=== PATIENT | female | born 1935 | race Caucasian/White ===

== ENCOUNTER → 2017-01-08 | Outpatient (CLI) | payer MEDICARE, OTHER ==
[2017-01-08 15:02] LABS: Basophils # (auto) 0 uL; Basophils % (auto) 0.4 % (0.0-2.0); Eosinophils # (auto) 0.2 uL; Eosinophils % (auto) 2.1 % (0.0-7.0); Hematocrit 39.9 % (36.0-46.0); Hemoglobin 13.1 g/dL (12.2-16.2); Lymphocytes # (auto) 2.2 uL; Lymphocytes % (auto) 27.5 % (10.0-50.0); Mean Corpuscular Hemoglobin 31.4 pg (28.0-32.0); Mean Corpuscular Hgb Conc. 32.9 g/dL (32.0-36.0); Mean Corpuscular Volume 95.3 fL (80.0-100.0); Monocytes # (auto) 0.8 uL; Monocytes % (auto) 9.4 % (0.0-12.0); Neutrophils # (auto) 4.9 uL; Neutrophils % (auto) 60.6 % (37.0-80.0); Platelet Count (auto) 290 10^3/uL (140-450); Red Cell Distribution Width 15.3 % (11.6-16.0); White Blood Cell 8.1 10^3/uL (4.4-10.8)
[2017-01-08 15:04] LABS: Albumin 3.6 g/dL (3.4-5.0); Bilirubin, Total 0.3 mg/dL (0.2-1.0); Calcium 8.8 mg/dL (8.5-10.1); Potassium 3.9 mmol/L (3.5-5.1); Total Protein 7.4 g/dL (6.4-8.2)
== END | disposition home or self-care (01) ==
LOC: LAB 14:28
DX: I10 Essential (primary) hypertension (principal); M06.9 Rheumatoid arthritis, unspecified; M25.50 Pain in unspecified joint; Z79.899 Other long term (current) drug therapy
CPT/HCPCS: 36415; 80053; 85025; 85652; 86141

== ENCOUNTER → 2017-05-20 | Outpatient (CLI) | payer MEDICARE ==
[2017-05-20 11:49] LABS: Basophils # (auto) 0 uL; Basophils % (auto) 0.1 % (0.0-2.0); CONDITION Y; Eosinophils # (auto) 0.1 uL; Eosinophils % (auto) 1.6 % (0.0-7.0); Hematocrit 38.3 % (36.0-46.0); Hemoglobin 12.9 g/dL (12.2-16.2); Lymphocytes # (auto) 1.8 uL; Lymphocytes % (auto) 19.9 % (10.0-50.0); Mean Corpuscular Hemoglobin 32.5 pg (28.0-32.0); Mean Corpuscular Hgb Conc. 33.8 g/dL (32.0-36.0); Mean Corpuscular Volume 96.3 fL (80.0-100.0); Mean Platelet Volume 8.2 fL (7.4-10.4); Monocytes # (auto) 0.7 uL; Monocytes % (auto) 7.8 % (0.0-12.0); Neutrophils # (auto) 6.4 uL; Neutrophils % (auto) 70.6 % (37.0-80.0); Platelet Count (auto) 255 10^3/uL (140-450); Red Cell Distribution Width 14.9 % (11.6-16.0)
[2017-05-20 12:10] LABS: Albumin 3.4 g/dL (3.4-5.0); BUN/Creatinine Ratio 23.3; Bilirubin, Total 0.3 mg/dL (0.2-1.0); Calcium 8.3 mg/dL (8.5-10.1); Total Protein 6.6 g/dL (6.4-8.2)
== END | disposition home or self-care (01) ==
LOC: LAB 11:26
DX: I10 Essential (primary) hypertension (principal); M06.9 Rheumatoid arthritis, unspecified; D64.9 Anemia, unspecified; M25.50 Pain in unspecified joint; Z79.899 Other long term (current) drug therapy
CPT/HCPCS: 36415; 80053; 85025; 85652; 86141

== ENCOUNTER → 2017-07-29 | Outpatient (CLI) | payer MEDICARE ==
[2017-07-29 09:28] LABS: Basophils # (auto) 0 uL; Basophils % (auto) 0.8 % (0.0-2.0); Eosinophils # (auto) 0.2 uL; Eosinophils % (auto) 2.7 % (0.0-7.0); Hematocrit 38.2 % (36.0-46.0); Hemoglobin 12.9 g/dL (12.2-16.2); Lymphocytes # (auto) 1.7 uL; Lymphocytes % (auto) 27.2 % (10.0-50.0); Mean Corpuscular Hemoglobin 32.9 pg (28.0-32.0); Mean Corpuscular Hgb Conc. 33.8 g/dL (32.0-36.0); Mean Corpuscular Volume 97.3 fL (80.0-100.0); Mean Platelet Volume 7.7 fL (6.9-10.8); Monocytes # (auto) 0.5 uL; Monocytes % (auto) 8.5 % (0.0-12.0); Neutrophils # (auto) 3.8 uL; Neutrophils % (auto) 60.8 % (37.0-80.0); Nucleated Red Blood Cells % 0.1 %; Platelet Count (auto) 210 10^3/uL (140-450); Red Cell Distribution Width 14.2 % (11.8-14.3); White Blood Cell 6.3 10^3/uL (4.4-10.8)
[2017-07-29 09:50] LABS: Albumin 3.6 g/dL (3.4-5.0); BUN/Creatinine Ratio 24.6; Bilirubin, Total 0.3 mg/dL (0.2-1.0); Calcium 8.7 mg/dL (8.5-10.1); Potassium 4.5 mmol/L (3.5-5.1)
== END | disposition home or self-care (01) ==
LOC: LAB 09:09
DX: I10 Essential (primary) hypertension (principal); D64.9 Anemia, unspecified; M25.50 Pain in unspecified joint; M06.9 Rheumatoid arthritis, unspecified; Z79.899 Other long term (current) drug therapy
CPT/HCPCS: 36415; 80053; 85025; 85652; 86141

== ENCOUNTER → 2018-01-27 | Outpatient (CLI) | payer MEDICARE, OTHER ==
[2018-01-27 10:25] LABS: Basophils # (auto) 0.1 uL; Basophils % (auto) 0.8 % (0.0-2.0); Eosinophils # (auto) 0.2 uL; Eosinophils % (auto) 2.3 % (0.0-7.0); Hematocrit 40.1 % (36.0-46.0); Hemoglobin 13.2 g/dL (12.2-16.2); Lymphocytes # (auto) 1.8 uL; Mean Corpuscular Hemoglobin 32.6 pg (28.0-32.0); Mean Corpuscular Hgb Conc. 32.9 g/dL (32.0-36.0); Mean Corpuscular Volume 99.1 fL (80.0-100.0); Monocytes # (auto) 0.7 uL; Monocytes % (auto) 8.9 % (0.0-12.0); Neutrophils # (auto) 4.6 uL; Platelet Count (auto) 253 10^3/uL (140-450); Red Blood Cells 4.05 10^6/uL (4.0-5.20); Red Cell Distribution Width 13.8 % (11.8-14.3); White Blood Cell 7.3 10^3/uL (4.4-10.8)
[2018-01-27 12:09] LABS: Albumin 3.5 g/dL (3.4-5.0)
== END | disposition home or self-care (01) ==
LOC: LAB 09:41
DX: M06.9 Rheumatoid arthritis, unspecified (principal)
CPT/HCPCS: 36415; 82040; 82565; 84450; 84460; 85025

== ENCOUNTER → 2018-09-03 | Outpatient (CLI) | payer MEDICARE, OTHER ==
[2018-09-03 14:20] LABS: Basophils # (auto) 0.1 uL; Basophils % (auto) 0.7 % (0.0-2.0); Eosinophils # (auto) 0.2 uL; Eosinophils % (auto) 2.8 % (0.0-7.0); Hematocrit 41.5 % (36.0-46.0); Hemoglobin 13.9 g/dL (12.2-16.2); Lymphocytes # (auto) 1.8 uL; Lymphocytes % (auto) 23.8 % (10.0-50.0); Mean Corpuscular Hgb Conc. 33.6 g/dL (32.0-36.0); Mean Corpuscular Volume 95.3 fL (80.0-100.0); Monocytes # (auto) 0.8 uL; Monocytes % (auto) 11.2 % (0.0-12.0); Neutrophils # (auto) 4.7 uL; Neutrophils % (auto) 61.5 % (37.0-80.0); Platelet Count (auto) 242 10^3/uL (140-450); Red Blood Cells 4.35 10^6/uL (4.0-5.20); Red Cell Distribution Width 13.9 % (11.8-14.3); White Blood Cell 7.6 10^3/uL (4.4-10.8)
[2018-09-03 14:36] LABS: Potassium 3.7 mmol/L (3.5-5.1)
[2018-09-03 14:43] LABS: Albumin 3.8 g/dL (3.4-5.0); BUN/Creatinine Ratio 26.7; Bilirubin, Total 0.4 mg/dL (0.2-1.0); CRP High Sensitivity 0.19 mg/dL (< 0.3); Calcium 8.8 mg/dL (8.5-10.1); Total Protein 7.6 g/dL (6.4-8.2)
[2018-09-03 14:45] LABS: Hepatitis B Surface Antibody Negative
[2018-09-03 15:22] LABS: Hepatitis A Total Antibody Positive
[2018-09-03 15:34] LABS: Hepatitis B Core Total AB Negative; Hepatitis B Surface Antigen Negative (Negative); Hepatitis C Antibody Negative (Negative)
[2018-09-04 09:22] LABS: Urine Bacteria NONE SEEN /hpf (None Seen); Urine Blood Negative /uL (Negative); Urine Specific Gravity 1.021 (1.001-1.035); Urine WBC 2 /hpf (0 - 5)
[2018-09-04 09:23] LABS: Protein, Urine 11.5 mg/dL (0.0-11.9)
== END | disposition home or self-care (01) ==
LOC: LAB 12:51
PROVIDERS: ATTEND Internal Medicine
DX: Z11.59 Encounter for screening for other viral diseases (principal); M32.10 Systemic lupus erythematosus, organ or system involvement unspecified; A15.0 Tuberculosis of lung; M25.50 Pain in unspecified joint; Z72.89 Other problems related to lifestyle; I10 Essential (primary) hypertension; D64.9 Anemia, unspecified; Z79.899 Other long term (current) drug therapy
CPT/HCPCS: 36415; 80053; 81001; 82570; 84156; 85025; 85652; 86141; 86200; 86235; 86431; 86704; 86706; 86708; 86803; 87340

== ENCOUNTER → 2018-12-21 | Outpatient (CLI) | payer MEDICARE, OTHER ==
[2018-12-21 13:06] LABS: Basophils # (auto) 0 uL; Basophils % (auto) 0.6 % (0.0-2.0); Eosinophils # (auto) 0.2 uL; Eosinophils % (auto) 2.5 % (0.0-7.0); Hematocrit 39.2 % (36.0-46.0); Hemoglobin 13.1 g/dL (12.2-16.2); Lymphocytes # (auto) 1.9 uL; Lymphocytes % (auto) 29.5 % (10.0-50.0); Mean Corpuscular Hemoglobin 32.1 pg (28.0-32.0); Mean Corpuscular Hgb Conc. 33.4 g/dL (32.0-36.0); Mean Corpuscular Volume 96.2 fL (80.0-100.0); Monocytes # (auto) 0.7 uL; Monocytes % (auto) 10.8 % (0.0-12.0); Neutrophils # (auto) 3.7 uL; Neutrophils % (auto) 56.6 % (37.0-80.0); Platelet Count (auto) 225 10^3/uL (140-450); Red Blood Cells 4.08 10^6/uL (4.0-5.20); Red Cell Distribution Width 14.2 % (11.8-14.3); White Blood Cell 6.6 10^3/uL (4.4-10.8)
[2018-12-21 13:38] LABS: Albumin 3.4 g/dL (3.4-5.0); Calcium 8.3 mg/dL (8.5-10.1); Potassium 4.3 mmol/L (3.5-5.1)
[2018-12-21 13:41] LABS: BUN/Creatinine Ratio 29.8; Bilirubin, Total 0.3 mg/dL (0.2-1.0); CRP High Sensitivity 0.11 mg/dL (< 0.3); Total Protein 6.9 g/dL (6.4-8.2)
== END | disposition home or self-care (01) ==
LOC: LAB 12:28
DX: M06.9 Rheumatoid arthritis, unspecified (principal); D64.9 Anemia, unspecified; I10 Essential (primary) hypertension; Z79.899 Other long term (current) drug therapy
CPT/HCPCS: 36415; 80053; 85025; 85652; 86141

== ENCOUNTER 2024-08-18 09:04 | Inpatient (IN) | payer MEDICARE, OTHER ==
[~2024-08-18] VITALS: Ht 154.9 cm; Wt 110.0 kg
[2024-08-18 09:33] VITALS: PULSE 89; RESP 18; O2SAT 97
[2024-08-18 09:38] LABS: Basophils # (auto) 0 10 ^3/uL (0-0.2); Basophils % (auto) 0.3 % (0.0-2.0); Eosinophils # (auto) 0.2 10 ^3/uL (0-0.8); Eosinophils % (auto) 2.9 % (0.0-7.0); Hematocrit 31.2 % (36.0-46.0); Hemoglobin 10.7 g/dL (12.2-16.2); Lymphocytes # (auto) 1.6 10 ^3/uL (0.4-5.4); Lymphocytes % (auto) 21.6 % (10.0-50.0); Mean Corpuscular Hemoglobin 35.5 pg (28.0-32.0); Mean Corpuscular Hgb Conc. 34.2 g/dL (32.0-36.0); Mean Corpuscular Volume 103.8 fL (80.0-100.0); Monocytes # (auto) 0.7 10 ^3/uL (0-1.3); Neutrophils # (auto) 4.7 10 ^3/uL (1.6-8.6); Neutrophils % (auto) 65.2 % (37.0-80.0); Platelet Count (auto) 248 10^3/uL (140-450); Red Blood Cells 3.01 10^6/uL (4.0-5.20); Red Cell Distribution Width 14.7 % (11.8-14.3); White Blood Cell 7.2 10^3/uL (4.4-10.8)
[2024-08-18 09:52] LABS: Alanine Aminotransferase 14 U/L (7-40); Albumin 3.8 g/dL (3.2-4.8); Alkaline Phosphatase 61 U/L (46-116); Anion Gap 7 (5-15); Aspartate Aminotransferase 14 U/L (13-40); BUN/Creatinine Ratio 28.9 (10.0-20.0); Bilirubin, Total 0.3 mg/dL (0.2-1.0); Blood Urea Nitrogen 22 mg/dL (9-23); Calcium 10.7 mg/dL (8.7-10.4); Carbon Dioxide 27 mmol/L (20-31); Chloride 104 mmol/L (98-107); Glucose 95 mg/dL (74-106); Potassium 4.6 mmol/L (3.5-5.1); Sodium 138 mmol/L (136-145)
[2024-08-18] MEDS ORDERED: NITROGLYCERIN 0.4 MG SL TAB SL PRN (10:00)
[2024-08-18] MEDS ORDERED: ATOR40TA52 PO (10:27)
[2024-08-18] MEDS ORDERED: CLOP75TA70 PO (10:27)
[2024-08-18] MEDS ORDERED: BENA-36 PO (10:27)
[2024-08-18] MEDS ORDERED: LEVO88TA4 PO (10:27)
[2024-08-18] MEDS ORDERED: CELE1CAP29 PO (10:27)
[2024-08-18] MEDS ORDERED: PANT40TA57 PO (10:27)
[2024-08-18] MEDS ORDERED: hydrALAZINE HCL 20 MG/ML VL IV PRN (11:00)
[2024-08-18] MEDS: ONDANSETRON HCL 4 MG/2 ML VIAL IV PRN (11:18)
[2024-08-18] MEDS: MORPHINE SULFATE INJ 2 MG/ml SYRG IV PRN (11:19)
[2024-08-18] MEDS: DOCUSATE SOD 100 MG CAP PO SCH (12:00)
[2024-08-18] MEDS: BENAZEPRIL HCL 10 MG TAB PO SCH (14:32)
[2024-08-18] MEDS: PANTOPRAZOLE 40 MG TAB PO SCH (14:33)
[2024-08-18] MEDS: CLOPIDOGREL BISULFATE 75 MG TAB PO SCH (14:33)
[2024-08-18] MEDS: LEVOTHYROXINE SODIUM 88 MCG TAB PO SCH (14:33)
[2024-08-18] MEDS: SODIUM CHLORIDE 0.9% 1,000 ML IV SCH (14:38)
[2024-08-18 14:59] LABS: Magnesium 1.9 mg/dL (1.6-2.6)
[2024-08-18 17:44] VITALS: BP 159/87; PULSE 92; RESP 18; TEMP 97.9; O2SAT 92
[2024-08-18 18:00] VITALS: PULSE 91; RESP 18
[2024-08-18] MEDS: PANTOPRAZOLE 40 MG/10 ML VIAL INJ IV ONE (18:30)
[2024-08-18] MEDS: LACTULOSE 20Gm/30ML SOLN PO ONE (18:30)
[2024-08-18 20:00] VITALS: PULSE 98
[2024-08-18 21:00] VITALS: BP 119/73; PULSE 90; RESP 20; TEMP 98.5; O2SAT 96
[2024-08-18] MEDS: ATORVASTATIN 20 MG TAB PO SCH (22:56)
[2024-08-18 23:20] LABS: Urine Bacteria None Seen /hpf (None Seen)
[2024-08-18 23:51] LABS: Urine Blood Negative /uL (Negative); Urine Clarity Clear (Clear); Urine Color Light-Yellow (Yellow); Urine Mucus FEW (None Seen); Urine Protein, UAD Negative (Negative); Urine Specific Gravity 1.017 (1.001-1.035); Urine Urobilinogen Normal (Negative); Urine WBC 1 /hpf (0 - 5)
[2024-08-19] VITALS (14 sets, daily range): BP systolic 100–179; BP diastolic 65–93; PULSE 78–122; RESP 14–20; TEMP 97.5–98.8; O2SAT 94–100
[2024-08-19 07:01] LABS: Basophils # (auto) 0 10 ^3/uL (0-0.2); Basophils % (auto) 0.2 % (0.0-2.0); Eosinophils # (auto) 0.1 10 ^3/uL (0-0.8); Eosinophils % (auto) 0.5 % (0.0-7.0); Hematocrit 28.4 % (36.0-46.0); Hemoglobin 9.5 g/dL (12.2-16.2); Lymphocytes # (auto) 1.1 10 ^3/uL (0.4-5.4); Lymphocytes % (auto) 9.6 % (10.0-50.0); Mean Corpuscular Hemoglobin 34.7 pg (28.0-32.0); Mean Corpuscular Hgb Conc. 33.5 g/dL (32.0-36.0); Mean Corpuscular Volume 103.6 fL (80.0-100.0); Monocytes # (auto) 0.9 10 ^3/uL (0-1.3); Neutrophils % (auto) 81.7 % (37.0-80.0); Nucleated Red Blood Cells % 0.1 %; Platelet Count (auto) 217 10^3/uL (140-450); Red Blood Cells 2.74 10^6/uL (4.0-5.20); Red Cell Distribution Width 14.6 % (11.8-14.3)
[2024-08-19 07:12] LABS: Anion Gap 7 (5-15); Carbon Dioxide 26 mmol/L (20-31); Chloride 103 mmol/L (98-107); Potassium 4.7 mmol/L (3.5-5.1); Sodium 136 mmol/L (136-145)
[2024-08-19 07:14] LABS: Calcium 10.7 mg/dL (8.7-10.4)
[2024-08-19 07:18] LABS: BUN/Creatinine Ratio 24.3 (10.0-20.0); Blood Urea Nitrogen 18 mg/dL (9-23); Glucose 106 mg/dL (74-106)
[2024-08-19] MEDS: PANTOPRAZOLE 40 MG/10 ML VIAL INJ IV SCH (09:22)
[2024-08-19] MEDS: amLODIPine BESYLATE 5 MG TAB PO STA (09:37)
[2024-08-19] MEDS ORDERED: BENAZEPRIL HCL 10 MG TAB PO SCH (10:00)
[2024-08-19] MEDS ORDERED: PANTOPRAZOLE 40 MG TAB PO SCH (10:00)
[2024-08-19] MEDS ORDERED: CLOPIDOGREL BISULFATE 75 MG TAB PO SCH (10:00)
[2024-08-19] MEDS ORDERED: LEVOTHYROXINE SODIUM 88 MCG TAB PO SCH (10:00)
[2024-08-19] MEDS: cefTRIAXone 1GM/50ML D5W 50 ML IV ONE (11:58)
[2024-08-19] MEDS: AZITHROMYCIN 500MG/ 250ML 250 ML IV ONE (12:00)
[2024-08-19] MEDS: ACETAMINOPHEN 325 MG TAB PO PRN (12:01)
[2024-08-19] MEDS: ALBUTEROL SULF 2.5 MG/0.5ML(0.5%) NEB SOLN NEB SCH (13:29)
[2024-08-19] MEDS: IPRATROPIUM BROM 0.5 MG/2.5ML INH SOL NEB SCH (13:29)
[2024-08-19 15:59] LABS: COVID19 ANTIGEN SOFIA FIA NEGATIVE (NEGATIVE)
[2024-08-19] MEDS: HYDROcodone-ACET 5/325MG TAB PO ONE (18:33)
[2024-08-20] VITALS (17 sets, daily range): BP systolic 106–154; BP diastolic 59–80; PULSE 75–122; RESP 14–20; TEMP 97.7–98.3; O2SAT 94–100
[2024-08-20] MEDS: PANTOPRAZOLE 40 MG TAB PO SCH (05:44)
[2024-08-20 06:13] LABS: Basophils # (auto) 0 10 ^3/uL (0-0.2); Basophils % (auto) 0.4 % (0.0-2.0); Eosinophils # (auto) 0.2 10 ^3/uL (0-0.8); Eosinophils % (auto) 3.2 % (0.0-7.0); Hematocrit 27.8 % (36.0-46.0); Hemoglobin 9.6 g/dL (12.2-16.2); Lymphocytes # (auto) 1.5 10 ^3/uL (0.4-5.4); Mean Corpuscular Hemoglobin 35.7 pg (28.0-32.0); Mean Corpuscular Hgb Conc. 34.5 g/dL (32.0-36.0); Mean Corpuscular Volume 103.5 fL (80.0-100.0); Monocytes # (auto) 0.7 10 ^3/uL (0-1.3); Monocytes % (auto) 9.4 % (0.0-12.0); Neutrophils # (auto) 4.7 10 ^3/uL (1.6-8.6); Platelet Count (auto) 222 10^3/uL (140-450); Red Blood Cells 2.69 10^6/uL (4.0-5.20); Red Cell Distribution Width 14.5 % (11.8-14.3); White Blood Cell 7.2 10^3/uL (4.4-10.8)
[2024-08-20 06:21] LABS: Chloride 102 mmol/L (98-107); Potassium 4.4 mmol/L (3.5-5.1); Sodium 137 mmol/L (136-145)
[2024-08-20 06:22] LABS: Anion Gap 6 (5-15); Calcium 10.4 mg/dL (8.7-10.4); Carbon Dioxide 29 mmol/L (20-31)
[2024-08-20 06:27] LABS: BUN/Creatinine Ratio 21.1 (10.0-20.0); Blood Urea Nitrogen 15 mg/dL (9-23); Glucose 90 mg/dL (74-106)
[2024-08-20 06:32] LABS: Folate (Folic Acid) 16.75 ng/mL (>5.38)
[2024-08-20] MEDS: cefTRIAXone 1GM/50ML D5W 50 ML IV SCH (07:42)
[2024-08-20] MEDS: AZITHROMYCIN 500MG/ 250ML 250 ML IV SCH (07:47)
[2024-08-20] MEDS: amLODIPine BESYLATE 5 MG TAB PO SCH (09:57)
[2024-08-20] MEDS: HYDROcodone-ACET 5/325MG TAB PO PRN (12:13)
[2024-08-21] VITALS (14 sets, daily range): BP systolic 104–159; BP diastolic 49–82; PULSE 84–126; RESP 16–20; TEMP 98–98.8; O2SAT 92–100
[2024-08-21] MEDS ORDERED: AML5T PO (15:49)
[2024-08-21] MEDS ORDERED: IOHEXOL 350 MG/ML 100ML IJ ONE (17:00)
[2024-08-22] VITALS (14 sets, daily range): BP systolic 103–118; BP diastolic 58–67; PULSE 92–128; RESP 14–20; TEMP 97.3–98.2; O2SAT 95–100
[2024-08-22] MEDS ORDERED: HYDROmorphone HCL 2 MG/ML VL/or syr IV PRN (16:15)
[2024-08-23] VITALS (16 sets, daily range): BP systolic 110–128; BP diastolic 56–80; PULSE 84–123; RESP 16–20; TEMP 97.3–98.4; O2SAT 91–100
[2024-08-23] MEDS: methylPREDNISolone SOD SUCC 125 MG/2 ML VL IV ONE (12:31)
[2024-08-24] VITALS (15 sets, daily range): BP systolic 127–158; BP diastolic 68–97; PULSE 71–126; RESP 16–20; TEMP 97.2–98; O2SAT 93–99
[2024-08-24] MEDS: KETOROLAC TROMETH 30 MG/ML 1ML VIAL IV ONE (14:42)
[2024-08-24] MEDS: methylPREDNISolone SOD SUCC 40 MG/ML VL IV ONE (14:43)
[2024-08-24] MEDS: LACTULOSE 20Gm/30ML SOLN PO ONE (15:54)
[2024-08-24] MEDS: POLYETHYLENE GLYCOL 17 GM PWDR PO ONE (15:54)
[2024-08-24] MEDS: methylPREDNISolone SOD SUCC 40 MG/ML VL IV SCH (23:01)
[2024-08-24] MEDS: DOCUSATE SOD 100 MG CAP PO SCH (23:02)
[2024-08-25] VITALS (11 sets, daily range): BP systolic 124–156; BP diastolic 75–97; PULSE 72–96; RESP 16–96; TEMP 97.2–98.1; O2SAT 93–100
[2024-08-25 08:24] LABS: Base Excess 1.9 mmol/L (-2.0-3.0)
[2024-08-25] MEDS: MORPHINE SULFATE INJ 2 MG/ml SYRG IV PRN (09:57)
[2024-08-25] MEDS ORDERED: PRED10TA PO ×2 (10:17→15:40)
[2024-08-25] MEDS ORDERED: HYDR1TAB97 PO ×2 (10:17→15:40)
[2024-08-25] MEDS: KETOROLAC TROMETH 30 MG/ML 1ML VIAL IV ONE (12:04)
== END 2024-08-25 13:13 | disposition home or self-care (01) | DRG 545 ==
LOC: EDBD 09:04 → ER 09:04 → TELE 10:05 → TELE-EAST 17:44 → EAST 08-24 22:39
PROVIDERS: ADMIT Registered Nurse General Practice; ATTEND Internal Medicine
DX: M06.9 Rheumatoid arthritis, unspecified (principal); J15.69 Pneumonia due to other Gram-negative bacteria; J96.00 Acute respiratory failure, unspecified whether with hypoxia or hypercapnia; J15.9 Unspecified bacterial pneumonia; K56.7 Ileus, unspecified; M94.0 Chondrocostal junction syndrome [Tietze]; I10 Essential (primary) hypertension; D53.9 Nutritional anemia, unspecified; E78.5 Hyperlipidemia, unspecified; I25.9 Chronic ischemic heart disease, unspecified; K57.30 Diverticulosis of large intestine without perforation or abscess without bleeding; E03.9 Hypothyroidism, unspecified; K21.9 Gastro-esophageal reflux disease without esophagitis; Z20.822 Contact with and (suspected) exposure to COVID-19; K44.9 Diaphragmatic hernia without obstruction or gangrene; Z66 Do not resuscitate; Z90.710 Acquired absence of both cervix and uterus; Z86.73 Personal history of transient ischemic attack (TIA), and cerebral infarction without residual deficits; Z90.49 Acquired absence of other specified parts of digestive tract; Z79.899 Other long term (current) drug therapy; Z79.631 Long term (current) use of antimetabolite agent; Z79.02 Long term (current) use of antithrombotics/antiplatelets
CPT/HCPCS: 36415; 36600; 71045; 71275; 74018; 74176; 80048; 80053; 81001; 82607; 82746; 82805; 83690; 83735; 84443; 84484; 85025; 85379; 87070; 87205; 87426; 93005; 93306; 94640; 96374; 96375; 97110; 97116; 97163; 97530; 99291; G0378; J1885; J2405; J2470

== ENCOUNTER 2024-09-24 07:39 | Inpatient (IN) | payer MEDICARE, OTHER ==
[2024-09-24] VITALS (64 sets, daily range): BP systolic 83–236; BP diastolic 6–196; PULSE 77–134; RESP 14–29; TEMP 98.4–99.7; O2SAT 91–100
[~2024-09-24] VITALS: Ht 152.4 cm; Wt 43.7 kg
[~2024-09-24 07:39] MED LIST: AML5T PO; ATOR40TA52 PO; BENA-36 PO; CLOP75TA70 PO; HYDR1TAB97 PO; LEVO88TA4 PO; PANT40TA57 PO; PRED10TA PO
[2024-09-24] MEDS: ETOMIDATE (2MG/ML) 20ML VIAL IV ONE ×2 (07:45→07:54)
[2024-09-24] MEDS: ROCURONIUM 10MG/ML 10ML VIAL IV ONE (07:54)
[2024-09-24] MEDS: MIDAZOLAM DRIP 50 mg/50mL 50 ML IV SCH (07:56)
[2024-09-24] MEDS: MIDAZOLAM DRIP 50 mg/50mL 50 ML IV ONE (07:56)
--- NOTE | 2024-09-24 07:57 | ED.PDOC ---
SOB-HPI HPI Comments 89 year old female JESSICA presents to the ED with chief complaint of SOB. EMS reports patient has been experiencing SOB with associated wheezing, nausea, vomiting, and wheezing. EMS relays patient had recent history of pneumonia and admission to [place] due to multiple spinal fractures. EMS states patient recently finished her course of Amoxicillin. EMS notes they provided the patient a breathing treatment on route to the ED. Patient denies any chest pain, dizziness, headache, fever, chills, or diarrhea. Chief Complaint: Shortness of Breath Time Seen by MD: 07:53 Reviewed notes: Nurses Notes, Medications, Allergies Information Source: Patient Mode of Arrival: Ambulatory Severity: Moderate Timing: Hours Duration: Since onset Context: At Rest PE Risk Factors: None History of: None Prehospital treatment: None Modifying Factors: Nothing Associated Signs and Symptoms: Wheeze Past Medical History PAST MEDICAL HISTORY: Arthritis, High Lipids, HTN, Thyroid, TIA Surgical History: Appendectomy, Hysterectomy, Tonsillectomy LAUNDRY ASSISTANT History: No Pertinent LAUNDRY ASSISTANT History Family History Family History: Reviewed,noncontributory to illness, Family hx of heart papi Social History Smoker: Non-Smoker Alcohol: Occasionally Drugs: Denies Drug Use Lives In: Home Constitutional: denies: chills, diaphoresis, fatigue, fever, malaise, sweats, weakness, others EENTM: denies: blurred vision, double vision, ear bleeding, ear discharge, ear drainage, ear pain, ear ringing, eye pain, eye redness, hearing loss, mouth pain, mouth swelling, nasal discharge, nose bleeding, nose congestion, nose pain, photophobia, tearing, throat pain, throat swelling, voice changes, others Respiratory: reports: shortness of breath, wheezing; denies: cough, hemoptysis, orthopnea, SOB at rest, SOB with excertion, stridor, others Cardiovascular: denies: chest pain, dizzy spells, diaphoresis, Dyspnea on ex ertion, edema, irregular heart beat, left arm pain, lightheadedness, palpitations, PND, syncope, others Gastrointestinal: reports: nausea, vomiting; denies: abdomen distended, abdominal pain, blood streaked bowels, constipated, diarrhea, dysphagia, difficulty swallowing, hematemesis, melena, poor appetite, poor fluid intake, rectal bleeding, rectal pain, others Genitourinary: denies: abnormal vagina bleeding, burning, dyspareunia, dysuria, flank pain, frequency, hematuria, incontinence, pain, , vagina discharge, urgency, others Neurological: denies: dizziness, fainting, headache, left sided numbness, left sided weakness, numbness, paresthesia, pre-existing deficit, right sided numbness, right sided weakness, seizure, speech problems, tingling, tremors, weakness, others Musculoskeletal: denies: back pain, gout, joint pain, joint swelling, muscle pain, muscle stiffness, neck pain, others Integumetry: denies: bruises, change in color, change in hair/nails, dryness, laceration, lesions, lumps, rash, wounds, others Allergic/Immunocompromised: denies: Difficulty Healing, Frequent Infections, Hives, Itching, others Hematologic/Lymphatic: denies: anemia, blood clots, easy bleeding, easy bruisi ng, swollen glands, others Endocrine: denies: excessive hunger, excessive sweating, excessive thirst, exce ssive urination, flushing, intolerance to cold, intolerance to heat, unexplained weight gain, unexplained weight loss, others Psychiatric: denies: anxiety, bipolar disorder, depression, hopeless, panic disorder, schizophrenia, sleepless, suicidal, others All Other Systems: Reviewed and Negative Physical Exam General Appearance: Normal, Severe Distress HEENT: Normal ENT Inspection, PERRL/EOMI Neck: Full Range of Motion, Non-Tender, Normal, Normal Inspection Respiratory: Accessory Muscle Use, Chest Non-Tender, Respiratory Distress, Other (Intubated the patient) Cardiovascular: No Edema, No JVD, No Murmur, No Gallop, Normal Peripheral Pulses, Tachycardia Breast Exam: Deferred Gastrointestinal: No Organomegaly, Non Tender, No Pulsatile Mass, Normal Bowel Sounds, Soft Genitalia: Deferred Pelvic: Deferred Rectal: Deferred Extremities: No calf tenderness, Normal capillary refill, Normal inspection, Normal range of motion, Non-tender, No pedal edema Musculoskeletal : Apperance: Normal Neurologic: Alert, No Motor Deficits, Normal Affect, Normal Mood, No Sensory Deficits Cerebellar Function: NOT DONE Reflexes: NOT DONE Skin: Dry, Normal Color, Warm Lymphatic: No Adenopathy Was a procedure done? Was a procedure done?: Yes Sedation Sedation?: Yes Informed consent obtained: Yes Sedation start time: 07:45 Sedation end time: 08:05 Sedation total time: 20 minutes Central Line Recorder of insertion practice: Spout Positioner Occupation of drafter cartographic: Attending Physician Indication: CVP monitoring, Suspected infection Room prepared for procedure: Yes Spout Positioner performed hand hygien: Yes Maximal sterile barrier precau: Mask/Eye shield, Sterile gown, Cap, Sterlie gloves, Large sterlie drape Skin Preparation: Chlorhexidine gluconate Insertion site: Right, Internal jugular Central line catheter type: [id number] dialysis Number of lumens: 3 Post Assessment: Chest X-Ray, Proper placement Informed consent obtained: Yes Risks/benefits/alt described: Yes Intubation Indication: Respiratory Insufficiency, Airway Protection Prep: Preoxygenation Pretreated with: Sedation Medicated with: Other (20mg of etomidate and 100mg of rocuronium) Intubation Approach: Orotracheal Intubation size: cm (8) Informed consent obtained: Yes Risks/benefits/alt described: Yes Differential Dx Differential Diagnosis: Anxiety, Asthma, Bronchitis, CHF, COPD X-Ray, Labs, Meds, VS Vital Signs Date Time Temp Pulse Resp B/P (MAP) Pulse Ox O2 Delivery O2 Flow Rate FiO2 09/24/24 08:56 62/35 09/24/24 08:28 100/61 09/24/24 08:26 106/70 09/24/24 08:15 100/61 09/24/24 08:08 155 16 100/61 (74) 100 09/24/24 08:01 161 17 78/42 (54) 99 09/24/24 07:56 139 40 107/68 (81) 99 09/24/24 07:56 107/68 09/24/24 07:56 107/68 09/24/24 07:56 107/68 09/24/24 07:55 160 16 117/67 (84) 99 100 09/24/24 07:54 107/68 09/24/24 07:48 140 09/24/24 07:40 32 96 Non-Rebreather 15 N/A 09/24/24 07:40 98.6 120 36 137/89 (105) 96 Current Medications Medications (Trade) Dose Ordered Sig/Maida Route Start Time Stop Time Status Last Admin Etomidate 20 mg ONCE ONCE IV 09/24/24 07:45 09/24/24 07:46 DC 09/24/24 07:54 Rocuronium [place] 100 mg ONCE ONCE IV 09/24/24 07:45 09/24/24 07:46 DC 09/24/24 07:54 Midazolam HCl 50 ml @ 1 mls/hr Q24H IV 09/24/24 07:45 09/24/24 07:56 Diltiazem HCl (Cardizem Injection) 20 mg ONCE ONCE IV 09/24/24 08:15 09/24/24 08:16 DC 09/24/24 08:18 Diltiazem HCl 100 ml @ 5 mls/hr Q20H IV 09/24/24 08:15 09/24/24 08:15 Norepinephrine Bitartrate 250 ml @ 3.75 mls/hr Q24H IV 09/24/24 08:15 09/24/24 08:56 Chest XR: FINDINGS: Lines and tubes: ET in the mid thoracic trachea, NG in the stomach, right CVC in SVC. Cardiomediastinal silhouette: normal Pulmonary vasculature: normal Lung expansion: normal Lung airspace: Patchy mid lung zone airspace opacities. Lung interstitium: normal Pleura: normal Pneumothorax: no Bones: Unremarkable Other: no IMPRESSION: ET in the mid thoracic trachea, NG in the stomach, right CVC in SVC.. Patchy mid lung zone airspace opacities. Patient alert. Came in because of shortness a breath. Placed on 15 L oxygen. Using accessory muscles. Chest x-ray reviewed shows pneumonia. History of pneumonia. Reviewed her previous visit. Was transferred to [facility]. Intubated the patient. Spoke with family. Central line placed. Was given Rocephin. Was given azithromycin. Was given steroid. Was given breathing treatment. Continue to communicate with family. Explained to the patient prior to intubation. Continue cardiac monitoring. EKG reviewed shows irregular rapid rhythm later converted to regular rhythm. Was given adenosine. Continues to be rapid regular. Started Cardizem. Cardiology consultation. Images Reviewed?: Images reviewed and evaluated by me Time of 1ST Reevaluation: 08:53 Reevaluation 1ST: Unchanged Patient Education/Counseling: Diagnosis, Treatment Family Education/Counseling: Diagnosis, Treatment Departure 1 Departure Time of Disposition: 09:13 Impression: Primary Impression: Acute respiratory failure Qualified Codes: J96.01 - Acute respiratory failure with hypoxia Additional Impressions: Pneumonia Qualified Codes: J18.9 - Pneumonia, unspecified organism Pneumonitis Disposition: ADMITTED INPATIENT Admit to: ICU Condition: Guarded Critical Care Note Critical Care Time?: Yes (90 min-critical care time only) Stability Stability form required: No Heart Score Heart Score: Heart Score Response (Comments) Value History Slightly Suspicious 0 EKG Normal 0 Age >65 2 Risk Factors >3 or Hx ASHD 2 Troponin Normal limit 0 Total 4 I personally scribed for MELITON ALATORRE MD ([email or web address]) on 09/24/24 at 07:57. Electronically submitted by Jason Gleason ([email or web address]). I personally scribed for MELITON ALATORRE MD ([email or web address]) on 09/24/24 at 08:04. Electronically submitted by Jason Gleason ([email or web address]). I personally scribed for MELITON ALATORRE MD ([email or web address]) on 09/24/24 at 09:01. Electronically submitted by Jason Gleason ([email or web address]). MELITON ALATORRE MD Sep 24, 2024 07:57
[2024-09-24] MEDS: ADENOSINE 6 MG/2 ML INJ IV ONE (08:05)
[2024-09-24] MEDS: dilTIAZem 125mg/125ml BAG KIT 100 ML IV SCH (08:15)
[2024-09-24] MEDS: dilTIAZem 25 MG/5 ML VIAL IV ONE (08:18)
[2024-09-24] MEDS: dilTIAZem 125mg/125ml BAG KIT 125 ML IV ONE (08:28)
--- NOTE | 2024-09-24 08:51 | DVH ---
XY CHEST PORTABLE, HISTORY: sob COMPARISON: XY CHEST PORTABLE on DOS: 08/20/24, XY CHEST PORTABLE on DOS: 08/18/24 XY CHEST PORTABLE on DOS: 08/20/24, XY CHEST PORTABLE on DOS: 08/18/24 TECHNICAL DATA: 1 view of the chest was obtained. FINDINGS: Lines and tubes: ET in the mid thoracic trachea, NG in the stomach, right CVC in SVC. Cardiomediastinal silhouette: normal Pulmonary vasculature: normal Lung expansion: normal Lung airspace: Patchy mid lung zone airspace opacities. Lung interstitium: normal Pleura: normal Pneumothorax: no Bones: Unremarkable Other: no IMPRESSION: ET in the mid thoracic trachea, NG in the stomach, right CVC in SVC.. Patchy mid lung zone airspace opacities.
[2024-09-24] MEDS: NOREPINEPHRINE 8 MG/250ML KIT 250 ML IV SCH (08:56)
[2024-09-24] MEDS: NOREPINEPHRINE 8 MG/250ML KIT 250 ML IV ONE (09:02)
[2024-09-24] MEDS: MAGNESIUM SULFATE 1GM/100ML 100 ML IV ONE (09:12)
[2024-09-24] MEDS: AZITHROMYCIN 500MG/ 250ML 250 ML IV ONE (09:16)
[2024-09-24] MEDS: cefTRIAXone 1GM/50ML D5W 50 ML IV ONE (09:17)
[2024-09-24 09:21] LABS: Urine Bacteria None Seen /hpf (None Seen)
[2024-09-24] MEDS: IPRATROPIUM BROM 0.5 MG/2.5ML INH SOL NEB ONE (09:22)
[2024-09-24] MEDS: ALBUTEROL SULF 2.5 MG/0.5ML(0.5%) NEB SOLN NEB ONE (09:22)
[2024-09-24] MEDS: SODIUM CHLORIDE 0.9% 1,000 ML IV ONE ×2 (09:23→13:06)
[2024-09-24] MEDS: methylPREDNISolone SOD SUCC 125 MG/2 ML VL IV ONE (09:32)
[2024-09-24 09:33] LABS: Base Excess -5.3 mmol/L (-2.0-3.0)
[2024-09-24 09:44] LABS: Basophils # (auto) 0.1 10 ^3/uL (0-0.2); Basophils % (auto) 0.4 % (0.0-2.0); Hemoglobin 9.5 g/dL (12.2-16.2); Lymphocytes # (auto) 1.2 10 ^3/uL (0.4-5.4)
[2024-09-24 09:47] LABS: Eosinophils % (auto) 7.2 % (0.0-7.0); Hematocrit 28.6 % (36.0-46.0); Lymphocytes % (auto) 8.4 % (10.0-50.0); Mean Corpuscular Hemoglobin 34.8 pg (28.0-32.0); Mean Corpuscular Hgb Conc. 33.2 g/dL (32.0-36.0); Mean Corpuscular Volume 104.8 fL (80.0-100.0); Monocytes % (auto) 7.2 % (0.0-12.0); Neutrophils # (auto) 10.7 10 ^3/uL (1.6-8.6); Neutrophils % (auto) 76.8 % (37.0-80.0); Nucleated Red Blood Cells % 0.2 %; Platelet Count (auto) 318 10^3/uL (140-450); Red Blood Cells 2.72 10^6/uL (4.0-5.20); Red Cell Distribution Width 15.7 % (11.8-14.3); White Blood Cell 13.9 10^3/uL (4.4-10.8)
[2024-09-24 09:48] LABS: Urine Amorphous Crystal FEW /hpf (None Seen); Urine Blood Negative /uL (Negative); Urine Clarity Clear (Clear); Urine Color Light-Yellow (Yellow); Urine Hyaline Cast FEW /lpf (0 - 2); Urine Mucus FEW (None Seen); Urine Protein, UAD TRACE (Negative); Urine Specific Gravity 1.017 (1.001-1.035); Urine Urobilinogen Normal (Negative); Urine WBC 3 /hpf (0 - 5)
[2024-09-24 09:55] LABS: Alkaline Phosphatase 47 U/L (46-116); Anion Gap 11 (5-15); Aspartate Aminotransferase 19 U/L (13-40); BUN/Creatinine Ratio 14.8 (10.0-20.0); Bilirubin, Total 0.5 mg/dL (0.2-1.0); Blood Urea Nitrogen 12 mg/dL (9-23); Calcium 10.1 mg/dL (8.7-10.4); Carbon Dioxide 21 mmol/L (20-31); Chloride 105 mmol/L (98-107); Glucose 144 mg/dL (74-106); Potassium 3.8 mmol/L (3.5-5.1); Sodium 137 mmol/L (136-145)
[2024-09-24 09:56] LABS: Total Protein 7.4 g/dL (5.7-8.2)
[2024-09-24 09:57] LABS: Alanine Aminotransferase < 9 U/L (7-40)
[2024-09-24] MEDS ORDERED: NITROGLYCERIN 0.4 MG SL TAB SL PRN (10:45)
[2024-09-24] MEDS ORDERED: ALBUTEROL SULF 2.5 MG/0.5ML(0.5%) NEB SOLN NEB SCH (10:45)
[2024-09-24] MEDS ORDERED: VANCOMYCIN PER PHARMACY 0 MG IV SCH (10:45)
[2024-09-24] MEDS ORDERED: ACETAMINOPHEN 500 MG TAB PO PRN (10:45)
--- NOTE | 2024-09-24 10:57 | DVHHP2 ---
History of Present Illness Reason for Visit: Shortness of breath, low O2 saturation History of Present Illness The patient was an 89-year-old female with an extensive history over the past month with multiple admissions to both [facility] as well as this facility. According to the patient's daughters, the patient was recently discharged from [facility] four days ago, after being treated with pneumonia. Apparently, the patient was had admissions for pneumonia at this facility and [place]. The patient also was recently diagnosed with thoracic spinal fractures causing her to have referred pain to her chest. This morning, the patient had worsening respiratory status, and was found to have an oxygen saturation of approximately 60%. Patient was on oxygen at home, without any relief. She was brought in the hospital via ambulance, and after having initial treatments with bronchodilators, the patient continued to have respiratory dist ress, subsequently undergoing intubation with mechanical ventilation. There were no reports of fevers, chills, body aches, or sputum production at home. Significant history of the patient includes rheumatoid arthritis, hypertension. Recent admission approximately one month ago reveals echocardiogram with an ejection fraction of 55%. Also notation of possible bioprosthetic aortic valve, for which the family states the patient has not underwent aortic valve replacement in the past. Cardiovascular: AFIB, HTN, hyperipidemia Musculoskeletal: Other (Thoracic spinal fracture) Rheumatologic: Rheumatoid arthritis Past Surgical History: None Family History: None Smoke: No ALCOHOL: none Drugs: None Lives: with Family Review of Systems Review of Systems Unable to assess given patient is on mechanical ventilation with sedation Allergies: Coded Allergies: No Known Drug Allergy (Verified Allergy, Unknown, 08/20/24) Medications Current Medications Medications Dose Ordered Sig/Maida Route Start Time Stop Time Status Last Admin Dose Admin Midazolam HCl 50 ml @ 1 mls/hr Q24H IV 09/24/24 07:45 09/24/24 07:56 1 MLS/HR Diltiazem HCl 100 ml @ 5 mls/hr Q20H IV 09/24/24 08:15 09/24/24 08:15 5 MLS/HR Norepinephrine Bitartrate 250 ml @ 3.75 mls/hr Q24H IV 09/24/24 08:15 09/24/24 08:56 3.75 MLS/HR Nitroglycerin 0.4 mg Q5MINP PRN SL 09/24/24 10:45 UNV Morphine Sulfate 2 mg Q30M PRN IV 09/24/24 10:45 UNV Vancomycin HCl 0 ml @ 0 mls/hr UD IV 09/24/24 10:45 UNV Levofloxacin/ Dextrose 100 ml @ 100 mls/hr DAILY IV 09/25/24 10:00 UNV Exam Vital Signs Vital Signs Date Time Temp Pulse Resp B/P (MAP) Pulse Ox O2 Delivery O2 Flow Rate FiO2 09/24/24 10:17 116 16 123/70 (87) 99 40 09/24/24 10:00 98.2 98.2 09/24/24 08:30 Mechanical Ventilator+ 09/24/24 07:40 15 General Appearance: moderate distress HEENT: Atraumatic, PERRLA Respiratory: Clear to auscultation, Other (Mechanical ventilation) Cardiovascular: Normal S1, Normal S2, Other (Atrial fibrillation with rapid ventricular rate) Abdominal: Normal bowel sounds Extremities: No clubbing, No cyanosis Psych/Mental Status: Other (Chemically sedated) Labs/Xrays Labs Test 09/24/24 09:25 09/24/24 09:16 09/24/24 08:39 Range/Units Blood Gas Specimen Type Arterial Blood Gas Sample Site Left radial Blood Gas Patient Temperature 37.0 Arterial Blood Date Drawn [id number] Arterial Blood pH 7.283 L 7.350-7.450 Arterial Blood Partial Pressure CO2 46.0 H 32.0-45.0 mmHg Arterial Blood Partial Pressure O2 371.0 *H 83.0-108.0 mmHg Arterial Blood HCO3 21.3 21.0-28.0 mmol/L Arterial Blood Oxygen Saturation 99.7 H 94.0-98.0 % Arterial Blood Base Excess -5.3 L -2.0-3.0 mmol/L Arterial Blood Oxyhemoglobin 99.1 H 94.0-98.0 % Arterial Blood Carboxyhemoglobin 0.0 L 0.5-1.5 % Arterial Blood Methemoglobin 0.6 0.0-1.5 % Isaak Test Modified Blood Gas Total Hemoglobin 10.80 L 12.0-16.0 g/dL Blood Gas Set Respiration Rate 16.0 Blood Gas Modality Vent - ac FiO2 % 100.0 Blood Gas Tidal Volume 400.0 Blood Gas PEEP or CPAP 5.0 Blood Gas Critical Value Read Back Yes Blood Gas Notified Whom Meka md. Blood Gas Notified Time [id number] Blood Gas Notified By Lesa ralph White Blood Count 13.9 H 4.4-10.8 10^3/uL Red Blood Count 2.72 L 4.0-5.20 10^6/uL Hemoglobin 9.5 L 12.2-16.2 g/dL Hematocrit 28.6 L 36.0-46.0 % Mean Corpuscular Volume 104.8 H 80.0-100.0 fL Mean Corpuscular Hemoglobin 34.8 H 28.0-32.0 pg Mean Corpuscular Hemoglobin Concent 33.2 32.0-36.0 g/dL Red Cell Distribution Width 15.7 H 11.8-14.3 % Platelet Count 318 140-450 10^3/uL Mean Platelet Volume 7.5 6.9-10.8 fL Neutrophils (%) (Auto) 76.8 37.0-80.0 % Lymphocytes (%) (Auto) 8.4 L 10.0-50.0 % Monocytes (%) (Auto) 7.2 0.0-12.0 % Eosinophils (%) (Auto) 7.2 H 0.0-7.0 % Basophils (%) (Auto) 0.4 0.0-2.0 % Neutrophils # (Auto) 10.7 H 1.6-8.6 10 ^3/uL Lymphocytes # (Auto) 1.2 0.4-5.4 10 ^3/uL Monocytes # (Auto) 1.0 0-1.3 10 ^3/uL Eosinophils # (Auto) 1.0 H 0-0.8 10 ^3/uL Basophils # (Auto) 0.1 0-0.2 10 ^3/uL Nucleated Red Blood Cells 0.2 % Sodium Level 137 136-145 mmol/L Potassium Level 3.8 3.5-5.1 mmol/L Chloride Level 105 98-107 mmol/L Carbon Dioxide Level 21 20-31 mmol/L Anion Gap 11 5-15 Blood Urea Nitrogen 12 9-23 mg/dL Creatinine 0.81 0.550-1.02 mg/dL Glomerular Filtration Rate Calc 69 >90 mL/min BUN/Creatinine Ratio 14.8 10.0-20.0 Serum Glucose 144 H 74-106 mg/dL Lactic Acid Level 1.6 0.4-2.0 mmol/L Calcium Level 10.1 8.7-10.4 mg/dL Total Bilirubin 0.5 0.2-1.0 mg/dL Aspartate Amino Transferase (AST) 19 13-40 U/L Alanine Aminotransferase (ALT) < 9 7-40 U/L Alkaline Phosphatase 47 46-116 U/L Troponin I High Sensitivity 217 *H </=34 ng/L B-Type Natriuretic Peptide 25.90 0-100 pg/mL Total Protein 7.4 5.7-8.2 g/dL Albumin 3.0 L 3.2-4.8 g/dL Urine Color Light-yellow Yellow Urine Clarity Clear Clear Urine pH 6.0 5.0-9.0 Urine Specific [place] 1.017 1.001-1.035 Urine Protein Trace H Negative Urine Ketones Negative Negative Urine Blood Negative Negative /uL Urine Nitrite Negative Negative Urine Bilirubin Negative Negative Urine Urobilinogen Normal Negative mg/dL Urine Leukocyte Esterase Negative Negative /uL Urine RBC 1 0 - 4 /hpf Urine WBC 3 0 - 5 /hpf Urine Squamous Epithelial Cells Few <5 /hpf Urine Amorphous Crystals Few None Seen /hpf Urine Bacteria None seen None Seen /hpf Urine Hyaline Casts Few 0 - 2 /lpf Urine Mucus Few None Seen Urine Glucose Normal Normal mg/dL Assessment/Plan Assessment/Plan Impression: -acute hypoxic respiratory failure -pneumonia, possibly hospital-acquired -rheumatoid arthritis -septic shock -NSTEMI, probably type 2 -thoracic spinal fractures -atrial fibrillation with rapid ventricular rate Plan: -admit to ICU -antibiotic therapy: Levaquin, vancomycin -continue current ventilator settings -bronchodilators -consider cardiology consultation if troponins continue to increase -PUD, DVT prophylaxis -continue vasopressor therapy to keep map greater than 65 mm of mercury -continue Cardizem drip -repeat labs, chest x-ray, ABG in a.m. -long discussion made with the patient's family regarding code status. At this time they wished for her to be a full code. Prior to hospitalization the patient was a DNR status. All questions answered. Critical care time spent with patient discussing and formulating plan of care: 40 minutes. This does not include time spent performing procedures. Total time spent with patient and family regarding advance care plannin minutes. Plan discussed with: Patient, Daughter, Other (RN) My Orders Orders - BARBARA SAM PSYCHOLOGIST EDUCATIONAL Procedure Category Date Status Time Admit ADMIT 09/24/24 Transmitted 10:43 Nitroglycerin PHA 09/24/24 Logged Sublingual (Ntrostat 10:45 Morphine Sulfate PHA 09/24/24 Logged Injection 10:45 Stat Ekg For Chest [facility] 09/24/24 In Process Pain 10:43 Notify Md Of Changes [facility] 09/24/24 In Process From Base 10:43 Fabrication Engineer For [facility] 09/24/24 In Process 24 Hours 10:43 Emergency Dysrhythmia [facility] 09/24/24 In Process Protocol 10:43 Rhythm Strips Once [facility] 09/24/24 In Process Every Shift 10:43 Oxygen By Nasal RT 09/24/24 Transmitted Cannula 10:43 Vancomycin Per PHA 09/24/24 Logged Pharmacy 10:45 Levofloxacin 500mg PHA 09/25/24 Logged (Levaquin 500mg/ 100m 10:00 Complete Blood Count LAB 09/25/24 Verified 05:00 Basic Metabolic Panel LAB 09/25/24 Verified 05:00 Chest Portable XY 09/25/24 Logged 05:00 Acetaminophen Tablet PHA 09/24/24 Transmitted (Tylenol Tablet) 10:45 Ondansetron Hcl PHA 09/24/24 Transmitted (Zofran) 10:45 Albuterol Medneb PHA 09/24/24 Transmitted (Ventolin Medneb) 10:45 Ipratropium Medneb PHA 09/24/24 Transmitted (Atrovent Medneb) 12:00 Budesonide PHA 09/24/24 Transmitted (Inhalation) 22:00 Rapid Influenza A&B LAB 09/24/24 Logged 10:45 Sequential [facility] 09/24/24 In Process Compression Device 10:45 Enoxaparin Sodium PHA 09/25/24 Transmitted (Lovenox) 10:00 NS PHA 09/24/24 Transmitted 10:45 Date of Service: Sep 24, 2024 Billing Provider: BARBARA SAM NP Common Visit Codes: 53946-[id number] CARE 30-74 MIN Secondary Visit Codes: [id number] CARE PLAN 30 MINUTES BARBARA SAM NP Sep 24, 2024 10:57
[2024-09-24 11:42] LABS: Rapid Influenza A Negative (Negative); Rapid Influenza B Negative (Negative)
[2024-09-24] MEDS: IPRATROPIUM BROM 0.5 MG/2.5ML INH SOL NEB SCH (12:17)
[2024-09-24] MEDS: ALBUTEROL SULF 2.5 MG/0.5ML(0.5%) NEB SOLN NEB SCH (12:17)
[2024-09-24] MEDS: ALBUTEROL SULF 2.5 MG/0.5ML(0.5%) NEB SOLN ONE (12:17)
[2024-09-24] MEDS: IPRATROPIUM BROM 0.5 MG/2.5ML INH SOL ONE (12:17)
[2024-09-24] MEDS: VANCOMYCIN 1GM/250ML KIT 200 ML IV ONE (13:06)
[2024-09-24] MEDS: fentaNYL Drip 2500mCg/250mlNS 250 ML IV SCH (15:00)
[2024-09-24 15:03] LABS: Alkaline Phosphatase 50 U/L (46-116)
[2024-09-24 15:04] LABS: Albumin 3.3 g/dL (3.2-4.8); Anion Gap 13 (5-15); Aspartate Aminotransferase 15 U/L (13-40); BUN/Creatinine Ratio 15.1 (10.0-20.0); Bilirubin, Total 0.4 mg/dL (0.2-1.0); Blood Urea Nitrogen 13 mg/dL (9-23); Calcium 10.2 mg/dL (8.7-10.4); Carbon Dioxide 20 mmol/L (20-31); Chloride 102 mmol/L (98-107); Glucose 254 mg/dL (74-106); Magnesium 2.4 mg/dL (1.6-2.6); Phosphorus 3.3 mg/dL (2.4-5.1); Potassium 3.8 mmol/L (3.5-5.1); Sodium 135 mmol/L (136-145); Total Protein 7.9 g/dL (5.7-8.2)
[2024-09-24 15:06] LABS: Alanine Aminotransferase < 9 U/L (7-40)
[2024-09-24 17:49] LABS: Urine Amorphous Crystal FEW /hpf (None Seen); Urine Bacteria MOD /hpf (None Seen); Urine Blood 1+ /uL (Negative); Urine Clarity Ex.Turbid (Clear); Urine Color Light-Brown (Yellow); Urine Hyaline Cast FEW /lpf (0 - 2); Urine Mucus FEW (None Seen); Urine Protein, UAD 1+ (Negative); Urine Specific Gravity 1.026 (1.001-1.035); Urine Urobilinogen Normal (Negative); Urine WBC 26 /hpf (0 - 5)
--- NOTE | 2024-09-24 18:47 | DVHINCON2 ---
Date of service: Sep 24, 2024 History of Present Illness 89 yo F with hx of multiple recent admits, admitted at [facility] for pna, now dc'ed home and brought back for resp failure. pt had echo showing aortic valve co mments but pt has no hx of valve procedure . pt had tachycardia at first HR of 140s but now is 90s Past Medical History reviewed Allergies: Coded Allergies: No Known Drug Allergy (Verified Allergy, Unknown, 08/20/24) Home Meds Active Scripts Hydrocodone-Acetaminophen (Hydrocodone/Acetaminophen 5-325 mg) 1 Tab Tab, 1 TAB PO TIDP PRN for 7 Days, #21 TAB Prov:ANAI GUSMAN MD 08/25/24 Prednisone (Prednisone) 10 Mg Tab, 40 MG PO QAM for 5 Days, #20 MG Prov:ANAI GUSMAN MD 08/25/24 Amlodipine Besylate (NORVASC TABLET) 5 Mg Tb, 5 MG PO DAILY for 30 Days, #30 TAB 3 Refills Prov:JENNIFER OSHEA DO 08/21/24 Reported Medications Clopidogrel Bisulfate (CLOPIDOGREL) 75 Mg Tab, 75 MG PO DAILY 08/18/24 Benazepril Hcl (Benazepril Hcl) 20 Mg Tab, 20 MG PO DAILY 08/18/24 Levothyroxine Sodium (Levothyroxine Sodium) 88 Mcg Tab, 88 MCG PO DAILY 08/18/24 Pantoprazole Sodium Sesquihydr (Pantoprazole Sodium Dr) 40 Mg Tab, 40 MG PO DAILY 08/18/24 Atorvastatin Calcium (ATORVASTATIN CALCIUM) 40 Mg Tab, 40 MG PO HS 08/18/24 Current Medications Current Medications Medications (Trade) Dose Ordered Sig/Maida Route PRN Reason Start Time Stop Time Status Last Admin Midazolam HCl 50 ml @ 1 mls/hr Q24H IV 09/24/24 07:45 09/24/24 07:56 Diltiazem HCl 100 ml @ 5 mls/hr Q20H IV 09/24/24 08:15 09/24/24 08:15 Norepinephrine Bitartrate 250 ml @ 3.75 mls/hr Q24H IV 09/24/24 08:15 09/24/24 08:56 Nitroglycerin (Ntrostat Sublingual) 0.4 mg Q5MINP PRN SL FOR CHEST PAIN 09/24/24 10:45 Morphine Sulfate 2 mg Q30M PRN IV FOR CHEST PAIN 09/24/24 10:45 Vancomycin HCl 0 ml @ 0 mls/hr UD IV 09/24/24 10:45 Levofloxacin/ Dextrose 100 ml @ 100 mls/hr DAILY IV 09/25/24 10:00 Acetaminophen (Tylenol Tablet) 500 mg Q8HP PRN PO PAIN SCALE 1-3 OR TEMP>100.4 09/24/24 10:45 Ondansetron HCl (Zofran) 4 mg Q4HP PRN IV NAUSEA / VOMITING 09/24/24 10:45 Albuterol (Ventolin Medneb) 2.5 mg Q6H NEB 09/24/24 10:45 09/24/24 11:08 DC Ipratropium [place] (Atrovent Medneb) 0.5 mg Q6H NEB 09/24/24 12:00 09/24/24 18:41 Budesonide (Pulmicort) 0.5 mg BID NEB 09/24/24 22:00 Enoxaparin Sodium (Lovenox) 40 mg DAILY SC 09/25/24 10:00 Pantoprazole Sodium (Protonix) 40 mg DAILY IV 09/25/24 10:00 Albuterol (Ventolin Medneb) 2.5 mg Q6H NEB 09/24/24 12:00 09/24/24 18:41 Fentanyl Citrate 250 ml @ 2.5 mls/hr Q24H IV 09/24/24 14:15 09/24/24 15:00 Review of Systems not obtained Vital Signs Vital Signs Date Time Temp Pulse Resp B/P (MAP) Pulse Ox O2 Delivery O2 Flow Rate FiO2 09/24/24 18:00 18 97 Mechanical Ventilator+ 45 45 09/24/24 18:00 89 09/24/24 18:00 89/51 09/24/24 17:59 99.3 210.7 09/24/24 07:40 15 Physical Exam intubated sedated s1 s2 rrr diffuse rhonchi abd soft nt/nd Labs/Diagnostic Data Labs Test 09/24/24 12:18 09/24/24 12:00 09/24/24 11:00 09/24/24 10:30 Range/Units Troponin I High Sensitivity 350 *H </=34 ng/L Urine Color Light-brown Yellow Urine Clarity Ex.turbid Clear Urine pH 5.0 5.0-9.0 Urine Specific [place] 1.026 1.001-1.035 Urine Protein 1+ H Negative Urine Ketones Negative Negative Urine Blood 1+ H Negative /uL Urine Nitrite Negative Negative Urine Bilirubin Negative Negative Urine Urobilinogen Normal Negative mg/dL Urine Leukocyte Esterase Negative Negative /uL Urine RBC 26 0 - 4 /hpf Urine WBC 26 0 - 5 /hpf Urine Squamous Epithelial Cells Mod <5 /hpf Urine Amorphous Crystals Few None Seen /hpf Urine Bacteria Mod H None Seen /hpf Urine Hyaline Casts Few 0 - 2 /lpf Urine Mucus Few None Seen Urine Glucose Normal Normal mg/dL Influenza Type A Antigen Negative Negative Influenza Type B Antigen Negative Negative Sodium Level 135 L 136-145 mmol/L Potassium Level 3.8 3.5-5.1 mmol/L Chloride Level 102 98-107 mmol/L Carbon Dioxide Level 20 20-31 mmol/L Anion Gap 13 5-15 Blood Urea Nitrogen 13 9-23 mg/dL Creatinine 0.86 0.550-1.02 mg/dL Glomerular Filtration Rate Calc 65 >90 mL/min BUN/Creatinine Ratio 15.1 10.0-20.0 Serum Glucose 254 H 74-106 mg/dL Calcium Level 10.2 8.7-10.4 mg/dL Phosphorus Level 3.3 2.4-5.1 mg/dL Magnesium Level 2.4 1.6-2.6 mg/dL Total Bilirubin 0.4 0.2-1.0 mg/dL Aspartate Amino Transferase (AST) 15 13-40 U/L Alanine Aminotransferase (ALT) < 9 7-40 U/L Alkaline Phosphatase 50 46-116 U/L Total Protein 7.9 5.7-8.2 g/dL Albumin 3.3 3.2-4.8 g/dL Test 09/24/24 09:25 09/24/24 09:16 Range/Units Blood Gas Specimen Type Arterial Blood Gas Sample Site Left radial Blood Gas Patient Temperature 37.0 Arterial Blood Date Drawn [id number] Arterial Blood pH 7.283 L 7.350-7.450 Arterial Blood Partial Pressure CO2 46.0 H 32.0-45.0 mmHg Arterial Blood Partial Pressure O2 371.0 *H 83.0-108.0 mmHg Arterial Blood HCO3 21.3 21.0-28.0 mmol/L Arterial Blood Oxygen Saturation 99.7 H 94.0-98.0 % Arterial Blood Base Excess -5.3 L -2.0-3.0 mmol/L Arterial Blood Oxyhemoglobin 99.1 H 94.0-98.0 % Arterial Blood Carboxyhemoglobin 0.0 L 0.5-1.5 % Arterial Blood Methemoglobin 0.6 0.0-1.5 % Isaak Test Modified Blood Gas Total Hemoglobin 10.80 L 12.0-16.0 g/dL Blood Gas Set Respiration Rate 16.0 Blood Gas Modality Vent - ac FiO2 % 100.0 Blood Gas Tidal Volume 400.0 Blood Gas PEEP or CPAP 5.0 Blood Gas Critical Value Read Back Yes Blood Gas Notified Whom Meka hartmann Blood Gas Notified Time [id number] Blood Gas Notified By Lesa ralph White Blood Count 13.9 H 4.4-10.8 10^3/uL Red Blood Count 2.72 L 4.0-5.20 10^6/uL Hemoglobin 9.5 L 12.2-16.2 g/dL Hematocrit 28.6 L 36.0-46.0 % Mean Corpuscular Volume 104.8 H 80.0-100.0 fL Mean Corpuscular Hemoglobin 34.8 H 28.0-32.0 pg Mean Corpuscular Hemoglobin Concent 33.2 32.0-36.0 g/dL Red Cell Distribution Width 15.7 H 11.8-14.3 % Platelet Count 318 140-450 10^3/uL Mean Platelet Volume 7.5 6.9-10.8 fL Neutrophils (%) (Auto) 76.8 37.0-80.0 % Lymphocytes (%) (Auto) 8.4 L 10.0-50.0 % Monocytes (%) (Auto) 7.2 0.0-12.0 % Eosinophils (%) (Auto) 7.2 H 0.0-7.0 % Basophils (%) (Auto) 0.4 0.0-2.0 % Neutrophils # (Auto) 10.7 H 1.6-8.6 10 ^3/uL Lymphocytes # (Auto) 1.2 0.4-5.4 10 ^3/uL Monocytes # (Auto) 1.0 0-1.3 10 ^3/uL Eosinophils # (Auto) 1.0 H 0-0.8 10 ^3/uL Basophils # (Auto) 0.1 0-0.2 10 ^3/uL Nucleated Red Blood Cells 0.2 % Lactic Acid Level 1.6 0.4-2.0 mmol/L B-Type Natriuretic Peptide 25.90 0-100 pg/mL Assessment resp failure failure to thrive tachycardia aortic sclerosis hypotension recent PNA Plan/Recommendation echo, ct and cxr personally reviewed by myself no obvious evidence of valve replacement pt appears sinus now HR 90 but very small p waves cont supportive care pt was DNR in past but full code now likely very poor prognosis 40 mins critical care time spent Plan discussed with: Patient BAUMAN,KARMA Amaral MD Sep 24, 2024 18:47
--- NOTE | 2024-09-24 19:01 | ECG ---
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
--- NOTE | 2024-09-24 19:02 | ECG ---
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
[2024-09-24] MEDS: BUDESONIDE (INHALATION) 0.5 MG/2 ML NEB NEB SCH (22:25)
[2024-09-25] VITALS (111 sets, daily range): BP systolic 61–126; BP diastolic 30–62; PULSE 74–122; RESP 12–17; TEMP 97.5–100.2; O2SAT 95–100
[2024-09-25 04:34] LABS: Hematocrit 27.2 % (36.0-46.0); Hemoglobin 9.1 g/dL (12.2-16.2); Mean Corpuscular Hgb Conc. 33.6 g/dL (32.0-36.0); Red Blood Cells 2.64 10^6/uL (4.0-5.20); Red Cell Distribution Width 15.5 % (11.8-14.3)
[2024-09-25 04:35] LABS: Mean Corpuscular Hemoglobin 34.5 pg (28.0-32.0); Mean Corpuscular Volume 102.7 fL (80.0-100.0); Platelet Count (auto) 355 10^3/uL (140-450); White Blood Cell 15.2 10^3/uL (4.4-10.8)
[2024-09-25 04:42] LABS: Basophils % (manual) 0 (0.0-2.0); Blast Cells 0; Metamyelocytes % 0; Myelocytes % 0; Promyelocytes % 0; Reactive Lymphocytes 0
[2024-09-25 05:02] LABS: Alkaline Phosphatase 42 U/L (46-116); Anion Gap 7 (5-15); Aspartate Aminotransferase 11 U/L (13-40); Blood Urea Nitrogen 19 mg/dL (9-23); Carbon Dioxide 24 mmol/L (20-31); Chloride 105 mmol/L (98-107); Glucose 145 mg/dL (74-106); Potassium 4.2 mmol/L (3.5-5.1); Sodium 136 mmol/L (136-145)
[2024-09-25 05:03] LABS: Bilirubin, Total 0.2 mg/dL (0.2-1.0)
[2024-09-25 05:05] LABS: Alanine Aminotransferase < 9 U/L (7-40)
--- NOTE | 2024-09-25 05:27 | DVH ---
EXAM: XY CHEST PORTABLE Indication:PT ET'ED Technique: Single frontal view of the chest was obtained Comparison: XY CHEST PORTABLE on DOS: 09/24/24, XY CHEST PORTABLE on DOS: 08/20/24, XY CHEST PORTABLE on DOS: 08/18/24 FINDINGS: Lines and Tubes: Endotracheal tube projects 1 cm above the level of the caleb. Recommend slight ret raction. Other lines and tubes are stable. Lungs: Worsening multifocal airspace opacities. Pleura: No effusion. No pneumothorax. Cardiomediastinal contours: Unremarkable Bones: No acute osseous abnormality. IMPRESSION: Endotracheal tube projects 1 cm above the level of the caleb. Recommend slight retraction.
[2024-09-25 05:55] LABS: Band Neutrophils % (manual) 10; Eosinophils % (manual) 1 (0-7); Lymphocytes % (manual) 9 (10.0-50.0); Monocytes % (manual) 7 (0-12); Platelet Estimate Adequate
[2024-09-25 05:56] LABS: Macrocytosis Slight
[2024-09-25 07:50] LABS: Base Excess -4.2 mmol/L (-2.0-3.0)
[2024-09-25] MEDS: levoFLOXacin 500MG 100 ML IV SCH (09:07)
[2024-09-25] MEDS: PANTOPRAZOLE 40 MG/10 ML VIAL INJ IV SCH (09:07)
[2024-09-25] MEDS: ENOXAPARIN SOD 40 MG/0.4 ML SYRINGE SC SCH (09:22)
--- NOTE | 2024-09-25 09:58 | DVHPN2 ---
Subjective Patient chemically sedated Reviewed: Care Plan, H&P, Labs, Medications Changes from previous H/P or p: No Changes General: Per HPI Objective Vitals Vital Signs Date Time Temp Pulse Resp B/P (MAP) Pulse Ox O2 Delivery O2 Flow Rate FiO2 09/25/24 09:34 78 93/46 (62) 97 35 09/25/24 08:30 98.4 16 209.1 09/25/24 08:00 Mechanical Ventilator+ 09/24/24 07:40 15 Intake/Output Intake and Output 09/25/24 07:00 Intake Total 2941.00 ml Output Total 750 ml Balance 2191.00 ml Intake Oral 30 ml IV Total 2911.00 ml Output Urine Total 750 ml General Appearance: Other (Chemically sedated) HEENT: Atraumatic, PERRLA Cardiovascular: Normal S1, Normal S2 Abdomen: Normal bowel sounds, Soft Genitourinary: No Apparent Abnormalities Musculoskeletal: Other (No motor response) Neuro: Other (Sedated) Skin: Dry, Intact Psych/Mental Status: Other (Sedated) Medications Current Medications Medications Dose Ordered Sig/Maida Route Start Time Stop Time Status Last Admin Dose Admin Midazolam HCl 50 ml @ 1 mls/hr Q24H IV 09/24/24 07:45 09/25/24 09:08 8 MLS/HR Norepinephrine Bitartrate 250 ml @ 3.75 mls/hr Q24H IV 09/24/24 08:15 09/25/24 05:23 18.75 MLS/HR Nitroglycerin 0.4 mg Q5MINP PRN SL 09/24/24 10:45 Morphine Sulfate 2 mg Q30M PRN IV 09/24/24 10:45 Vancomycin HCl 0 ml @ 0 mls/hr UD IV 09/24/24 10:45 Levofloxacin/ Dextrose 100 ml @ 100 mls/hr DAILY IV 09/25/24 10:00 09/25/24 09:07 100 MLS/HR Acetaminophen 500 mg Q8HP PRN PO 09/24/24 10:45 Ondansetron HCl 4 mg Q4HP PRN IV 09/24/24 10:45 Ipratropium [place] 0.5 mg Q6H NEB 09/24/24 12:00 09/25/24 06:14 0.5 MG Budesonide 0.5 mg BID NEB 09/24/24 22:00 09/25/24 06:14 0.5 MG Enoxaparin Sodium 40 mg DAILY SC 09/25/24 10:00 09/25/24 09:22 40 MG Pantoprazole Sodium 40 mg DAILY IV 09/25/24 10:00 09/25/24 09:07 40 MG Albuterol 2.5 mg Q6H NEB 09/24/24 12:00 09/25/24 06:14 2.5 MG Fentanyl Citrate 250 ml @ 2.5 mls/hr Q24H IV 09/24/24 14:15 09/25/24 09:09 10 MLS/HR Lidocaine 1 patch DAILY TOP 09/25/24 10:00 UNV Laboratory Results Laboratory Tests 09/25/24 03:28 Chemistry Test 09/24/24 10:30 09/25/24 03:28 Albumin 3.3 g/dL (3.2-4.8) 3.0 g/dL (3.2-4.8) L Calcium Level 10.2 mg/dL (8.7-10.4) 10.0 mg/dL (8.7-10.4) Magnesium Level 2.4 mg/dL (1.6-2.6) Phosphorus Level 3.3 mg/dL (2.4-5.1) Total Protein 7.9 g/dL (5.7-8.2) 7.0 g/dL (5.7-8.2) LFT Test 09/24/24 10:30 09/25/24 03:28 Alanine Aminotransferase (ALT) < 9 U/L (7-40) < 9 U/L (7-40) Alkaline Phosphatase 50 U/L (46-116) 42 U/L (46-116) L Aspartate Amino Transferase (AST) 15 U/L (13-40) 11 U/L (13-40) L Total Bilirubin 0.4 mg/dL (0.2-1.0) 0.2 mg/dL (0.2-1.0) Urinalysis Test 09/24/24 12:00 Urine Color Light-brown (Yellow) Urine Clarity Ex.turbid (Clear) Urine pH 5.0 (5.0-9.0) Urine Specific [place] 1.026 (1.001-1.035) Urine Protein 1+ (Negative) H Urine Ketones Negative (Negative) Urine Blood 1+ /uL (Negative) H Urine Nitrite Negative (Negative) Urine Bilirubin Negative (Negative) Urine Urobilinogen Normal mg/dL (Negative) Urine Leukocyte Esterase Negative /uL (Negative) Urine RBC 26 /hpf (0 - 4) Urine WBC 26 /hpf (0 - 5) Urine Squamous Epithelial Cells Mod /hpf (<5) Urine Amorphous Crystals Few /hpf (None Seen) Urine Bacteria Mod /hpf (None Seen) H Urine Hyaline Casts Few /lpf (0 - 2) Urine Mucus Few (None Seen) Urine Glucose Normal mg/dL (Normal) Blood Gas Results Test 09/25/24 07:34 Arterial Blood pH 7.301 (7.350-7.450) FiO2 % 35.0 Microbiology Microbiology Date/Time Source Procedure Growth Status 09/24/24 09:16 Blood Blood Culture - Preliminary NO GROWTH AFTER 24 HOURS OF INCUBATION. Resulted Labs and/or images reviewed: Labs reviewed by me, Image(s) reviewed by me Assessment/Plan Assessment/Plan Impression: -acute hypoxic respiratory failure -pneumonia, possibly hospital-acquired -rheumatoid arthritis -septic shock -NSTEMI, probably type 2 -thoracic spinal fractures -atrial fibrillation with rapid ventricular rate Plan: -events: Patient on Levophed at 8 micrograms/minute. Now with controlled heart rate with Cardizem drip off. -antibiotic therapy: Levaquin, vancomycin -continue current ventilator settings : Weaned sedation, CPAP trial once patient is appropriate. -bronchodilators -cardiology consultation: Recommendations reviewed -PUD, DVT prophylaxis -continue vasopressor therapy to keep map greater than 65 mm of mercury -pain management: Add lidocaine patch, continue fentanyl -repeat labs, chest x-ray, ABG in a.m. -discussed plan of care with patient's son was bedside. All questions answered. Critical care time spent with patient discussing and formulating plan of care: 40 minutes. This does not include time spent performing procedures. This medical document was created using an electronic medical record system with [employer] system. Although this document has been carefully reviewed, there may still be some phonetic and typographical errors. These areas are purely typographical due to imperfections of the software programs, and do not reflect any compromise in the patient's medical care. Plan discussed with: Patient, Son, Other (RN) My Orders Orders - SALBINO,JIMENEZ ALLIED HEALTH TEACHER Procedure Category Date Status Time Admit ADMIT 09/24/24 Transmitted 10:43 Nitroglycerin PHA 09/24/24 In Process Sublingual (Ntrostat 10:45 Morphine Sulfate PHA 09/24/24 In Process Injection 10:45 Stat Ekg For Chest CASSIE 09/24/24 In Process Pain 10:43 Notify Of Changes CASSIE 09/24/24 In Process From Base 10:43 Biofuels Technology Development Manager For CASSIE 09/24/24 In Process 24 Hours 10:43 Emergency Dysrhythmia CASSIE 09/24/24 In Process Protocol 10:43 Rhythm Strips Once CASSIE 09/24/24 In Process Every Shift 10:43 Oxygen By Nasal RT 09/24/24 Transmitted Cannula 10:43 Vancomycin Per PHA 09/24/24 In Process Pharmacy 10:45 Levofloxacin 500mg PHA 09/25/24 In Process (Levaquin 500mg/ 100m 10:00 Acetaminophen Tablet PHA 09/24/24 In Process (Tylenol Tablet) 10:45 Ondansetron Hcl PHA 09/24/24 In Process (Zofran) 10:45 Ipratropium Medneb PHA 09/24/24 In Process (Atrovent Medneb) 12:00 Budesonide PHA 09/24/24 In Process (Inhalation) 22:00 Sequential CASSIE 09/24/24 In Process Compression Device 10:45 Enoxaparin Sodium PHA 09/25/24 In Process (Lovenox) 10:00 Pantoprazole PHA 09/25/24 In Process (Protonix) 10:00 Albuterol Medneb PHA 09/24/24 In Process (Ventolin Medneb) 12:00 * Wound Consult CONS 09/24/24 Transmitted Fentanyl Drip PHA 09/24/24 In Process 2500mcg/250mlns 14:15 Mrsa Screen BISI 09/24/24 In Process 17:00 Chest Portable XY 09/25/24 Resulted 05:00 Apply Barrier Cream CASSIE 09/24/24 In Process 16:30 * Dietary Consult CONS 09/24/24 Transmitted 18:52 Abg W/ Co-Ox RT 09/25/24 Logged 06:00 Lidocaine 5% Topical PHA 09/25/24 Logged Patch (Lidoderm 5% 10:00 Basic Metabolic Panel LAB 09/26/24 Verified 05:00 Basic Metabolic Panel LAB 09/27/24 Verified 05:00 Basic Metabolic Panel LAB 09/28/24 Verified 05:00 Complete Blood Count LAB 09/26/24 Verified 05:00 Complete Blood Count LAB 09/27/24 Verified 05:00 Complete Blood Count LAB 09/28/24 Verified 05:00 Date of Service: Sep 25, 2024 Billing Provider: BARBARA SAM NP Common Visit Codes: [id number] CARE 30-74 MIN BARBARA SAM NP Sep 25, 2024 09:58
[2024-09-25] MEDS ORDERED: Jevity 1.2 Cal/Fiber 1 Liter GT SCH (10:00)
[2024-09-25] MEDS: LIDOCAINE 5% TOPICAL PATCH TOP SCH (12:45)
--- NOTE | 2024-09-25 16:25 | DVHPN2 ---
Progress Note Date Seen: Sep 25, 2024 Medical Necessity Reason Pt with a Central, PICC or Fol: No Subjective Other Systems: on levophed off cardizem Objective vital signs Vital Sign Date Time Temp Pulse Resp B/P (MAP) Pulse Ox O2 Delivery O2 Flow Rate FiO2 09/25/24 16:11 118/55 09/25/24 15:47 79 96 30 09/25/24 14:00 97.9 16 208.2 09/25/24 14:00 Mechanical Ventilator+ 09/24/24 07:40 15 Total Intake and Output 09/24/24 09/24/24 09/25/24 15:00 23:00 07:00 Intake Total 1567.50 ml 932.50 ml 481.75 ml Output Total 450 ml 300 ml Balance 1567.50 ml 482.50 ml 181.75 ml medications Current Medications Medications Dose Ordered Sig/Maida Route Start Time Stop Time Status Last Admin Dose Admin Midazolam HCl 50 ml @ 1 mls/hr Q24H IV 09/24/24 07:45 09/25/24 16:10 3 MLS/HR Norepinephrine Bitartrate 250 ml @ 3.75 mls/hr Q24H IV 09/24/24 08:15 09/25/24 16:11 3.75 MLS/HR Nitroglycerin 0.4 mg Q5MINP PRN SL 09/24/24 10:45 Morphine Sulfate 2 mg Q30M PRN IV 09/24/24 10:45 Vancomycin HCl 0 ml @ 0 mls/hr UD IV 09/24/24 10:45 Levofloxacin/ Dextrose 100 ml @ 100 mls/hr DAILY IV 09/25/24 10:00 09/25/24 09:07 100 MLS/HR Acetaminophen 500 mg Q8HP PRN PO 09/24/24 10:45 Ondansetron HCl 4 mg Q4HP PRN IV 09/24/24 10:45 Ipratropium [place] 0.5 mg Q6H NEB 09/24/24 12:00 09/25/24 11:06 0.5 MG Budesonide 0.5 mg BID NEB 09/24/24 22:00 09/25/24 06:14 0.5 MG Enoxaparin Sodium 40 mg DAILY SC 09/25/24 10:00 09/25/24 09:22 40 MG Pantoprazole Sodium 40 mg DAILY IV 09/25/24 10:00 09/25/24 09:07 40 MG Albuterol 2.5 mg Q6H NEB 09/24/24 12:00 09/25/24 11:05 2.5 MG Fentanyl Citrate 250 ml @ 2.5 mls/hr Q24H IV 09/24/24 14:15 09/25/24 09:09 10 MLS/HR Lidocaine 1 patch DAILY TOP 09/25/24 10:00 09/25/24 12:45 1 PATCH Dexmedetomidine HCl 400 mcg/ Dextrose 100 ml @ 2.46 mls/hr Q24H IV 09/25/24 10:00 Enteral Nutritional Formula 1,000 ml 30ML/HR GT 09/25/24 10:00 Vancomycin HCl 500 mg/Dextrose 100 ml @ 200 mls/hr Q12H IV 09/25/24 18:00 Examination: GENERAL:Abnormal, HEENT:Abnormal, LUNGS:Abnormal, CVS:Abnormal, ABDOMEN:Abnormal laboratory and microbiology Laboratory Tests 09/25/24 03:28 Test 09/25/24 03:28 Range/Units Serum Glucose 145 H 74-106 mg/dL Microbiology Date/Time Source Procedure Growth Status 09/24/24 17:00 Nose MRSA Screen - Final Complete 09/24/24 09:16 Blood Blood Culture - Preliminary NO GROWTH AFTER 24 HOURS OF INCUBATION. Resulted 09/24/24 08:39 Urine - [place] Urine Culture - Preliminary Resulted 09/24/24 08:34 Sputum Gram Stain - Final Resulted 09/24/24 08:34 Sputum Respiratory Culture - Preliminary Resulted Problem List/Assessment/Plan Problem List/Assessment/Plan resp failure failure to thrive recent pna tachycardia PACs off cardizem ?afib, consider goals of care pressors as needed Plan discussed with: Patient, Other (rn) Date of Service: Sep 25, 2024 Billing Provider: KARMA BAUMAN MD Common Visit Codes: NOT BILLABLE KARMA BAUMAN MD Sep 25, 2024 16:25
[2024-09-25] MEDS: VANCOMYCIN 500 MG in D5W 5% 100 ML IV SCH (17:42)
--- NOTE | 2024-09-25 21:34 | DVHINCON2 ---
Date of service: Sep 25, 2024 Referring Physician Shane Arboleda NP Reason for Consultation AHRF on mechanical vent, multifocal pneumonia History of Present Illness An 89-year-old woman with past medical history of AFIB, hypertension, hyperlipidemia, thoracic spinal fracture, and rheumatoid arthritis who presented on 09/24/24 Patient has an extensive history over the past month with multiple admissions to both [facility] as well as this facility. According to the patient's daughters, she was recently discharged from [facility] 5 days ago after being treated for pneumonia. The patient also was recently diagnosed with thoracic spinal fractures causing her to have referred pain to her chest. Note, recent admission approximately one month ago with echocardiogram done - EF of 55%. Patient noted worsening res piratory status AM of presentation, was found to have an oxygen saturation of approximately 60%. She was on oxygen at home, without relief. She was brought in via ambulance, and despite initial treatments with bronchodilators, continued to have respiratory distress, subsequently undergoing intubation with mechanical ventilation. Patient was admitted for further care and pulmonary consultation requested for evaluation and management d/t above findings. Review of Systems: Unable to obtain d/t intubated status. Past Medical History: AFIB, hypertension, hyperlipidemia, thoracic spinal fracture, rheumatoid arthritis Past Surgical History: Bioprosthetic aortic valve? Medications: Reviewed. Allergies: No known drug allergies. Family History: No family history of premature CAD. No family history of lung disorders. Social History: Nonsmoker. No alcohol or illicit drug use. Allergies: Coded Allergies: No Known Drug Allergy (Verified Allergy, Unknown, 08/20/24) Home Meds Active Scripts Hydrocodone-Acetaminophen (Hydrocodone/Acetaminophen 5-325 mg) 1 Tab Tab, 1 TAB PO TIDP PRN for 7 Days, #21 TAB Prov:ANAI GUSMAN MD 08/25/24 Prednisone (Prednisone) 10 Mg Tab, 40 MG PO QAM for 5 Days, #20 MG Prov:ANAI GUSMAN MD 08/25/24 Amlodipine Besylate (NORVASC TABLET) 5 Mg Tb, 5 MG PO DAILY for 30 Days, #30 TAB 3 Refills Prov:JENNIFER OSHEA DO 08/21/24 Reported Medications Clopidogrel Bisulfate (CLOPIDOGREL) 75 Mg Tab, 75 MG PO DAILY 08/18/24 Benazepril Hcl (Benazepril Hcl) 20 Mg Tab, 20 MG PO DAILY 08/18/24 Levothyroxine Sodium (Levothyroxine Sodium) 88 Mcg Tab, 88 MCG PO DAILY 08/18/24 Pantoprazole Sodium Sesquihydr (Pantoprazole Sodium Dr) 40 Mg Tab, 40 MG PO DAILY 08/18/24 Atorvastatin Calcium (ATORVASTATIN CALCIUM) 40 Mg Tab, 40 MG PO HS 08/18/24 Current Medications Current Medications Medications (Trade) Dose Ordered Sig/Maida Route PRN Reason Start Time Stop Time Status Last Admin Levofloxacin/ Dextrose 100 ml @ 100 mls/hr DAILY IV 09/25/24 10:00 09/25/24 09:07 Budesonide (Pulmicort) 0.5 mg BID NEB 09/24/24 22:00 09/25/24 06:14 Enoxaparin Sodium (Lovenox) 40 mg DAILY SC 09/25/24 10:00 09/25/24 09:22 Pantoprazole Sodium (Protonix) 40 mg DAILY IV 09/25/24 10:00 09/25/24 09:07 Lidocaine (Lidoderm 5% Topical Patch) 1 patch DAILY TOP 09/25/24 10:00 09/25/24 12:45 Dexmedetomidine HCl 400 mcg/ Dextrose 100 ml @ 2.46 mls/hr Q24H IV 09/25/24 10:00 Enteral Nutritional Formula (Jevity 1.2 Jeremi/ Fiber) 1,000 ml 30ML/HR GT 09/25/24 10:00 Vancomycin HCl 500 mg/Dextrose 100 ml @ 200 mls/hr Q12H IV 09/25/24 18:00 09/25/24 17:42 Vital Signs Vital Signs Date Time Temp Pulse Resp B/P (MAP) Pulse Ox O2 Delivery O2 Flow Rate FiO2 09/25/24 20:45 99.3 115 16 100/47 (64) 96 210.7 09/25/24 20:32 30 09/25/24 20:00 Mechanical Ventilator+ 09/24/24 07:40 15 Physical Exam Gen.: Patient lying in bed in medical ICU. Sedated, intubated on mechanical ventilator. Head: Normocephalic, atraumatic. Eyes: PERRLA. Ears: Normal external anatomy. Throat: Endotracheal tube and orogastric tube in place. Neck: Supple, trachea midline. Chest: Transmitted breath sounds bilaterally. Decreased air entry bilaterally. No wheezing. Bibasilar crackles. Cardiovascular: Positive S1, positive S2. Regular rate and rhythm. Abdomen: Positive bowel sounds in all 4 quadrants. Soft, nontender, nond istended. : Ortiz in place. Normal external genitalia. Rectal: Deferred. Skin: Warm, dry. Intact. Extremities: 2+ radial pulses bilaterally. No lower extremity edema. Neuro: Sedated. Labs/Diagnostic Data Labs Test 09/25/24 07:34 09/25/24 03:28 09/24/24 12:18 09/24/24 12:00 Range/Units Blood Gas Specimen Type Arterial Blood Gas Sample Site Left radial Blood Gas Patient Temperature 37.0 Arterial Blood Date Drawn [id number] Arterial Blood pH 7.301 L 7.350-7.450 Arterial Blood Partial Pressure CO2 45.9 H 32.0-45.0 mmHg Arterial Blood Partial Pressure O2 94.6 83.0-108.0 mmHg Arterial Blood HCO3 22.1 21.0-28.0 mmol/L Arterial Blood Oxygen Saturation 96.3 94.0-98.0 % Arterial Blood Base Excess -4.2 L -2.0-3.0 mmol/L Arterial Blood Oxyhemoglobin 96.0 94.0-98.0 % Arterial Blood Carboxyhemoglobin 0.3 L 0.5-1.5 % Arterial Blood Methemoglobin 0.0 0.0-1.5 % Isaak Test Modified Blood Gas Total Hemoglobin 10.00 L 12.0-16.0 g/dL Blood Gas Set Respiration Rate 16.0 Blood Gas Modality Vent - ac FiO2 % 35.0 Blood Gas Tidal Volume 400.0 Blood Gas PEEP or CPAP 5.0 White Blood Count 15.2 H 4.4-10.8 10^3/uL Red Blood Count 2.64 L 4.0-5.20 10^6/uL Hemoglobin 9.1 L 12.2-16.2 g/dL Hematocrit 27.2 L 36.0-46.0 % Mean Corpuscular Volume 102.7 H 80.0-100.0 fL Mean Corpuscular Hemoglobin 34.5 H 28.0-32.0 pg Mean Corpuscular Hemoglobin Concent 33.6 32.0-36.0 g/dL Red Cell Distribution Width 15.5 H 11.8-14.3 % Platelet Count 355 140-450 10^3/uL Mean Platelet Volume 7.4 6.9-10.8 fL Neutrophils (%) (Auto) 37.0-80.0 % Lymphocytes (%) (Auto) 10.0-50.0 % Monocytes (%) (Auto) 0.0-12.0 % Basophils (%) (Auto) 0.0-2.0 % Neutrophils # (Auto) 1.6-8.6 10 ^3/uL Lymphocytes # (Auto) 0.4-5.4 10 ^3/uL Monocytes # (Auto) 0-1.3 10 ^3/uL Differential Total Cells Counted 100.0 100 Neutrophils % (Manual) 73 37.0-80.0 Band Neutrophils % (Manual) 10 Lymphocytes % (Manual) 9 L 10.0-50.0 Monocytes % (Manual) 7 0-12 Eosinophils % (Manual) 1 0-7 Basophils % (Manual) 0 0.0-2.0 Metamyelocytes % (manual) 0 Myelocytes % (Manual) 0 Promyelocytes % (Manual) 0 Blast Cells % (Manual) 0 Reactive Lymphocytes 0 Platelet Estimate Adequate Macrocytosis Slight Sodium Level 136 136-145 mmol/L Potassium Level 4.2 3.5-5.1 mmol/L Chloride Level 105 98-107 mmol/L Carbon Dioxide Level 24 20-31 mmol/L Anion Gap 7 5-15 Blood Urea Nitrogen 19 9-23 mg/dL Creatinine 0.73 0.550-1.02 mg/dL Glomerular Filtration Rate Calc 79 >90 mL/min BUN/Creatinine Ratio 26.0 H 10.0-20.0 Serum Glucose 145 H 74-106 mg/dL Calcium Level 10.0 8.7-10.4 mg/dL Total Bilirubin 0.2 0.2-1.0 mg/dL Aspartate Amino Transferase (AST) 11 L 13-40 U/L Alanine Aminotransferase (ALT) < 9 7-40 U/L Alkaline Phosphatase 42 L 46-116 U/L Total Protein 7.0 5.7-8.2 g/dL Albumin 3.0 L 3.2-4.8 g/dL Random Vancomycin Level 11.9 H 5-10 ug/mL Troponin I High Sensitivity 350 *H </=34 ng/L Urine Color Light-brown Yellow Urine Clarity Ex.turbid Clear Urine pH 5.0 5.0-9.0 Urine Specific [place] 1.026 1.001-1.035 Urine Protein 1+ H Negative Urine Ketones Negative Negative Urine Blood 1+ H Negative /uL Urine Nitrite Negative Negative Urine Bilirubin Negative Negative Urine Urobilinogen Normal Negative mg/dL Urine Leukocyte Esterase Negative Negative /uL Urine RBC 26 0 - 4 /hpf Urine WBC 26 0 - 5 /hpf Urine Squamous Epithelial Cells Mod <5 /hpf Urine Amorphous Crystals Few None Seen /hpf Urine Bacteria Mod H None Seen /hpf Urine Hyaline Casts Few 0 - 2 /lpf Urine Mucus Few None Seen Urine Glucose Normal Normal mg/dL Test 09/24/24 11:00 09/24/24 10:30 09/24/24 09:25 09/24/24 09:16 Range/Units Influenza Type A Antigen Negative Negative Influenza Type B Antigen Negative Negative Phosphorus Level 3.3 2.4-5.1 mg/dL Magnesium Level 2.4 1.6-2.6 mg/dL Blood Gas Critical Value Read Back Yes Blood Gas Notified Whom Meka ash. Blood Gas Notified Time [id number] Blood Gas Notified By Lesa ralph Eosinophils (%) (Auto) 7.2 H 0.0-7.0 % Eosinophils # (Auto) 1.0 H 0-0.8 10 ^3/uL Basophils # (Auto) 0.1 0-0.2 10 ^3/uL Nucleated Red Blood Cells 0.2 % Lactic Acid Level 1.6 0.4-2.0 mmol/L B-Type Natriuretic Peptide 25.90 0-100 pg/mL Microbiology Date/Time Source Procedure Growth Status 09/24/24 17:00 Nose MRSA Screen - Final Complete 09/24/24 09:16 Blood Blood Culture - Preliminary NO GROWTH AFTER 24 HOURS OF INCUBATION. Resulted 09/24/24 08:39 Urine - [place] Urine Culture - Preliminary Resulted 09/24/24 08:34 Sputum Gram Stain - Final Resulted 09/24/24 08:34 Sputum Respiratory Culture - Preliminary Resulted Assessment Impression: Acute hypoxic respiratory failure On mechanical ventilator Septic shock Multifocal pneumonia Atelectasis Plan: s/p intubation on mechanical ventilator. On AC mode; RR 16, VT 400, PEEP 5, FiO2 30% Titrate FIO2 to keep O2 saturation above 90%. VAP bundle. Daily ABG and CXR while intubated Sedated for ventilator synchrony - on Fentanyl, Versed. OK to use Precedex drip for agitation. Bronchodilators. Continue antibiotics. F/u cultures. On pressors (Levophed) for hemodynamic support Titrate to keep mean arterial pressure greater than 65 mmHg. Monitor renal function Monitor electrolytes. Supplement as necessary. Monitor ins and outs. Maintain euvolemia. Tube feeds for nutritional support GI prophylaxis. DVT prophylaxis. Prognosis: Poor given patient's multiple co-morbidities. Condition: Critical Rest of plan per hospitalist and other consultants. A total of 35 minutes of critical care time was spent reviewing the patient record, examining the patient, making a diagnostic and therapeutic plan, discussing this plan with the medical personnel, following up on diagnostic studies and following the patient for clinical stability excluding any and all procedures. At least 50% of this time was spent in direct, [id number] contact. Thank you, Shane Arboleda NP, for allowing me to participate in this patient's care. Further recommendations will depend on the patient's clinical course. Please do not hesitate to contact me if you have any questions or concerns. This medical document was created using an electronic medical record system with [employer] dictation system. Although these documentations are being carefully reviewed, there may still be some phonetic and typographical changes. The errors are purely typographical, due to imperfection on the software program, and do not reflect any compromise in the patient's medical care. Plan discussed with: Other (RADHA Leonardo, CARMEN Arboleda MD) JOHN ESTRADA MD Sep 25, 2024 21:34
[2024-09-26] VITALS (108 sets, daily range): BP systolic 85–147; BP diastolic 41–81; PULSE 89–133; RESP 14–20; TEMP 98.2–99.9; O2SAT 90–100
[2024-09-26 03:34] LABS: Basophils # (auto) 0 10 ^3/uL (0-0.2); Basophils % (auto) 0.1 % (0.0-2.0); Eosinophils # (auto) 0.3 10 ^3/uL (0-0.8); Eosinophils % (auto) 2.3 % (0.0-7.0); Nucleated Red Blood Cells % 0.1 %; White Blood Cell 13.9 10^3/uL (4.4-10.8)
[2024-09-26 03:37] LABS: Hematocrit 25.2 % (36.0-46.0); Hemoglobin 8.6 g/dL (12.2-16.2); Lymphocytes # (auto) 1.1 10 ^3/uL (0.4-5.4); Mean Corpuscular Hemoglobin 34.9 pg (28.0-32.0); Mean Corpuscular Volume 102.4 fL (80.0-100.0); Monocytes # (auto) 1.6 10 ^3/uL (0-1.3); Monocytes % (auto) 11.8 % (0.0-12.0); Neutrophils # (auto) 10.8 10 ^3/uL (1.6-8.6); Neutrophils % (auto) 77.8 % (37.0-80.0); Platelet Count (auto) 268 10^3/uL (140-450); Red Blood Cells 2.46 10^6/uL (4.0-5.20); Red Cell Distribution Width 15.9 % (11.8-14.3)
[2024-09-26 03:45] LABS: Chloride 106 mmol/L (98-107); Potassium 3.8 mmol/L (3.5-5.1); Sodium 139 mmol/L (136-145)
[2024-09-26 03:46] LABS: Anion Gap 7 (5-15); Calcium 9.9 mg/dL (8.7-10.4); Carbon Dioxide 26 mmol/L (20-31)
[2024-09-26 03:51] LABS: BUN/Creatinine Ratio 25.4 (10.0-20.0); Blood Urea Nitrogen 16 mg/dL (9-23); Glucose 108 mg/dL (74-106)
--- NOTE | 2024-09-26 05:29 | DVH ---
CHEST RADIOGRAPH Indication:intubated cpap trial Technique: Single frontal view of the chest was obtained Comparison: XY CHEST PORTABLE on DOS: 09/25/24, XY CHEST PORTABLE on DOS: 09/24/24, XY CHEST PORTABLE on DOS: 08/20/24, XY CHEST PORTABLE on DOS: 08/18/24, XY CHEST PORTABLE on DOS: 09/25/24 FINDINGS: Lines and Tubes: Endotracheal tube projects 1 cm above the level of the caleb. Recommend slight ret raction. Other lines and tubes are stable. Lungs: Worsening multifocal airspace opacities. Pleura: No effusion. No pneumothorax. Cardiomediastinal contours: Unremarkable Bones: No acute osseous abnormality. IMPRESSION: Endotracheal tube projects 1 cm above the level of the caleb. Recommend slight retraction.
[2024-09-26 07:39] LABS: Base Excess -2.7 mmol/L (-2.0-3.0)
--- NOTE | 2024-09-26 08:32 | DVHPN2 ---
Subjective Patient chemically sedated Reviewed: Care Plan, H&P, Labs, Medications Changes from previous H/P or p: No Changes General: Per HPI Objective Vitals Vital Signs Date Time Temp Pulse Resp B/P (MAP) Pulse Ox O2 Delivery O2 Flow Rate FiO2 09/26/24 08:07 107 109/54 (72) 99 30 09/26/24 06:45 99.1 15 210.4 09/26/24 06:11 Mechanical Ventilator+ 09/24/24 07:40 15 Intake/Output Intake and Output 09/26/24 07:00 Intake Total 1142.50 ml Output Total 625 ml Balance 517.50 ml Intake Oral 260 ml IV Total 790.50 ml Tube Feeding 92 ml Output Urine Total 625 ml # Bowel Movements 1 General Appearance: Other (Chemically sedated) HEENT: Atraumatic, PERRLA Cardiovascular: Normal S1, Normal S2 Abdomen: Normal bowel sounds, Soft Genitourinary: No Apparent Abnormalities Musculoskeletal: Other (No motor response) Neuro: Other (Sedated) Skin: Dry, Intact Psych/Mental Status: Other (Sedated) Medications Current Medications Medications Dose Ordered Sig/Maida Route Start Time Stop Time Status Last Admin Dose Admin Midazolam HCl 50 ml @ 1 mls/hr Q24H IV 09/24/24 07:45 09/25/24 16:10 3 MLS/HR Norepinephrine Bitartrate 250 ml @ 3.75 mls/hr Q24H IV 09/24/24 08:15 09/25/24 16:11 3.75 MLS/HR Nitroglycerin 0.4 mg Q5MINP PRN SL 09/24/24 10:45 Morphine Sulfate 2 mg Q30M PRN IV 09/24/24 10:45 Vancomycin HCl 0 ml @ 0 mls/hr UD IV 09/24/24 10:45 Levofloxacin/ Dextrose 100 ml @ 100 mls/hr DAILY IV 09/25/24 10:00 09/25/24 09:07 100 MLS/HR Acetaminophen 500 mg Q8HP PRN PO 09/24/24 10:45 Ondansetron HCl 4 mg Q4HP PRN IV 09/24/24 10:45 Ipratropium [place] 0.5 mg Q6H NEB 09/24/24 12:00 09/26/24 06:23 0.5 MG Budesonide 0.5 mg BID NEB 09/24/24 22:00 09/26/24 06:23 0.5 MG Enoxaparin Sodium 40 mg DAILY SC 09/25/24 10:00 09/25/24 09:22 40 MG Pantoprazole Sodium 40 mg DAILY IV 09/25/24 10:00 09/25/24 09:07 40 MG Albuterol 2.5 mg Q6H NEB 09/24/24 12:00 09/26/24 06:23 2.5 MG Fentanyl Citrate 250 ml @ 2.5 mls/hr Q24H IV 09/24/24 14:15 09/26/24 08:22 5 MLS/HR Lidocaine 1 patch DAILY TOP 09/25/24 10:00 09/25/24 12:45 1 PATCH Dexmedetomidine HCl 400 mcg/ Dextrose 100 ml @ 2.46 mls/hr Q24H IV 09/25/24 10:00 09/26/24 07:52 2.46 MLS/HR Enteral Nutritional Formula 1,000 ml 30ML/HR GT 09/25/24 10:00 Vancomycin HCl 500 mg/Dextrose 100 ml @ 200 mls/hr Q12H IV 09/25/24 18:00 09/26/24 06:01 200 MLS/HR Laboratory Results Laboratory Tests 09/26/24 03:00 Chemistry Test 09/26/24 03:00 Calcium Level 9.9 mg/dL (8.7-10.4) Urinalysis Test 09/24/24 12:00 Urine Color Light-brown (Yellow) Urine Clarity Ex.turbid (Clear) Urine pH 5.0 (5.0-9.0) Urine Specific [place] 1.026 (1.001-1.035) Urine Protein 1+ (Negative) H Urine Ketones Negative (Negative) Urine Blood 1+ /uL (Negative) H Urine Nitrite Negative (Negative) Urine Bilirubin Negative (Negative) Urine Urobilinogen Normal mg/dL (Negative) Urine Leukocyte Esterase Negative /uL (Negative) Urine RBC 26 /hpf (0 - 4) Urine WBC 26 /hpf (0 - 5) Urine Squamous Epithelial Cells Mod /hpf (<5) Urine Amorphous Crystals Few /hpf (None Seen) Urine Bacteria Mod /hpf (None Seen) H Urine Hyaline Casts Few /lpf (0 - 2) Urine Mucus Few (None Seen) Urine Glucose Normal mg/dL (Normal) Blood Gas Results Test 09/26/24 07:34 Arterial Blood pH 7.404 (7.350-7.450) FiO2 % 30.0 Microbiology Microbiology Date/Time Source Procedure Growth Status 09/24/24 17:00 Nose MRSA Screen - Final Complete 09/24/24 09:16 Blood Blood Culture - Preliminary NO GROWTH AFTER 24 HOURS OF INCUBATION. Resulted 09/24/24 08:39 Urine - [place] Urine Culture - Preliminary Resulted 09/24/24 08:34 Sputum Gram Stain - Final Resulted 09/24/24 08:34 Sputum Respiratory Culture - Preliminary Resulted Labs and/or images reviewed: Labs reviewed by me, Image(s) reviewed by me Assessment/Plan Assessment/Plan Impression: -acute hypoxic respiratory failure -pneumonia, possibly hospital-acquired -rheumatoid arthritis -septic shock -NSTEMI, probably type 2 -thoracic spinal fractures -atrial fibrillation with rapid ventricular rate Plan: -events: No events overnight. Chest x-ray with worsening opacities. Continues to be on 30% FiO2. ST depressions noted. -start aspirin -IV diuresis -proceed with spontaneous breathing trial today -antibiotic therapy: Levaquin, vancomycin -continue current ventilator settings: Per pulmonology -bronchodilators -cardiology consultation: Recommendations reviewed -PUD, DVT prophylaxis -continue vasopressor therapy to keep map greater than 65 mm of mercury -pain management: Add lidocaine patch, continue fentanyl -repeat labs, chest x-ray, ABG in a.m. -discussed plan of care with patient's son was bedside. All questions answered. Critical care time spent with patient discussing and formulating plan of care: 40 minutes. This does not include time spent performing procedures. This medical document was created using an electronic medical record system with [employer] dictation system. Although this document has been carefully reviewed, there may still be some phonetic and typographical errors. These areas are purely typographical due to imperfections of the software programs, and do not reflect any compromise in the patient's medical care. Plan discussed with: Patient, Other (RN) My Orders Orders - BARBARA SAM [employer] Procedure Category Date Status Time Lidocaine 5% Topical PHA 09/25/24 In Process Patch (Lidoderm 5% 10:00 Basic Metabolic Panel LAB 09/27/24 Verified 05:00 Basic Metabolic Panel LAB 09/28/24 Verified 05:00 Complete Blood Count LAB 09/27/24 Verified 05:00 Complete Blood Count LAB 09/28/24 Verified 05:00 Cpap Trial For Am ORDERS 09/25/24 Transmitted 09:53 Cpap/Sed Vacation Med ORDERS 09/25/24 Transmitted Weaning 09:53 D5w 5% (Dextrose 5%) PHA 09/25/24 In Process W/Dexmedetomidine 10:00 Nutritional PHA 09/25/24 In Process Supplements (Jevity 10:00 Vancomycin PHA 09/25/24 In Process 18:00 Vancomycin,Trough LAB 09/27/24 Verified 05:00 Vancomycin Per CASSIE 09/25/24 In Process Pharmacy Protoc 15:22 Abg W/ Co-Ox RT 09/26/24 Logged 05:32 Furosemide Injection PHA 09/26/24 Logged (Lasix Injection) 07:15 Date of Service: Sep 26, 2024 Billing Provider: BARBARA SAM NP Common Visit Codes: [id number] CARE 30-74 MIN BARBARA SAM NP Sep 26, 2024 08:32
[2024-09-26] MEDS: ASPirin 81 mg TAB PO ONE (09:46)
[2024-09-26] MEDS: FUROSEMIDE 20 MG/2 ML VIAL IV ONE (09:52)
--- NOTE | 2024-09-26 10:15 | DVHPN2 ---
Progress Note Date Seen: Sep 26, 2024 Medical Necessity Reason Pt with a Central, PICC or Fol: No Subjective Other Systems: intubated on low dose levo HR 98 sinus with TWI Objective vital signs Vital Sign Date Time Temp Pulse Resp B/P (MAP) Pulse Ox O2 Delivery O2 Flow Rate FiO2 09/26/24 10:00 30 09/26/24 10:00 16 98 Mechanical Ventilator+ 09/26/24 10:00 99.7 100 103/57 (72) 211.5 09/24/24 07:40 15 Total Intake and Output 09/25/24 09/25/24 09/26/24 15:00 23:00 07:00 Intake Total 373.00 ml 502.00 ml 267.5 ml Output Total 250 ml 375 ml Balance 373.00 ml 252.00 ml -107.5 ml medications Current Medications Medications Dose Ordered Sig/Maida Route Start Time Stop Time Status Last Admin Dose Admin Midazolam HCl 50 ml @ 1 mls/hr Q24H IV 09/24/24 07:45 09/25/24 16:10 3 MLS/HR Norepinephrine Bitartrate 250 ml @ 3.75 mls/hr Q24H IV 09/24/24 08:15 09/25/24 16:11 3.75 MLS/HR Nitroglycerin 0.4 mg Q5MINP PRN SL 09/24/24 10:45 Morphine Sulfate 2 mg Q30M PRN IV 09/24/24 10:45 Vancomycin HCl 0 ml @ 0 mls/hr UD IV 09/24/24 10:45 Levofloxacin/ Dextrose 100 ml @ 100 mls/hr DAILY IV 09/25/24 10:00 09/26/24 08:35 100 MLS/HR Acetaminophen 500 mg Q8HP PRN PO 09/24/24 10:45 Ondansetron HCl 4 mg Q4HP PRN IV 09/24/24 10:45 Ipratropium [place] 0.5 mg Q6H NEB 09/24/24 12:00 09/26/24 06:23 0.5 MG Budesonide 0.5 mg BID NEB 09/24/24 22:00 09/26/24 06:23 0.5 MG Enoxaparin Sodium 40 mg DAILY SC 09/25/24 10:00 09/26/24 08:35 40 MG Pantoprazole Sodium 40 mg DAILY IV 09/25/24 10:00 09/26/24 08:35 40 MG Albuterol 2.5 mg Q6H NEB 09/24/24 12:00 09/26/24 06:23 2.5 MG Fentanyl Citrate 250 ml @ 2.5 mls/hr Q24H IV 09/24/24 14:15 09/26/24 08:22 5 MLS/HR Lidocaine 1 patch DAILY TOP 09/25/24 10:00 09/25/24 12:45 1 PATCH Dexmedetomidine HCl 400 mcg/ Dextrose 100 ml @ 2.46 mls/hr Q24H IV 09/25/24 10:00 09/26/24 07:52 2.46 MLS/HR Enteral Nutritional Formula 1,000 ml 30ML/HR GT 09/25/24 10:00 Vancomycin HCl 500 mg/Dextrose 100 ml @ 200 mls/hr Q12H IV 09/25/24 18:00 09/26/24 06:01 200 MLS/HR Aspirin 81 mg DAILY PO 09/27/24 10:00 Examination: GENERAL:Abnormal, HEENT:Abnormal, LUNGS:Abnormal, CVS:Abnormal, ABDOMEN:Abnormal laboratory and microbiology Laboratory Tests 09/26/24 03:00 Test 09/26/24 03:00 Range/Units Serum Glucose 108 H 74-106 mg/dL Microbiology Date/Time Source Procedure Growth Status 09/24/24 17:00 Nose MRSA Screen - Final Complete 09/24/24 09:16 Blood Blood Culture - Preliminary NO GROWTH AFTER 48 HOURS OF INCUBATION. Resulted 09/24/24 08:39 Urine - [place] Urine Culture - Preliminary Resulted 09/24/24 08:34 Sputum Gram Stain - Final Resulted 09/24/24 08:34 Sputum Respiratory Culture - Preliminary Resulted Problem List/Assessment/Plan Problem List/Assessment/Plan resp failure failure to thrive recent pna tachycardia PACs off cardizem ?afib, consider goals of care pressors as needed --on low dose currently SR Plan discussed with: Patient, Other (rn) Dietary Evaluation Review Comments: 1. Increase TF to 45ml/hr to provide 1152 Kcal 53g Protein 775ml Free Water which meet's pt's needs Expected Outcomes/Goals: 1. Pt will consume >75% of estimated needs within 3-5 days Date of Service: Sep 26, 2024 Billing Provider: KARMA BAUMAN MD Common Visit Codes: NOT BILLABLE KARMA BAUMAN MD Sep 26, 2024 10:15
--- NOTE | 2024-09-26 21:32 | DVHPN2 ---
Progress Note - Dictate Date Seen: Sep 26, 2024 Medical Necessity Reason Pt with a Central, PICC or Fol: Yes The following are medically ne: Atkinson Catheter Reason for atkinson catheter: Strict I&O Subjective Patient seen and examined at bedside. Sedated, intubated on mechanical ventilator. Overnight events reviewed. vital signs Vital Sign Date Time Temp Pulse Resp B/P (MAP) Pulse Ox O2 Delivery O2 Flow Rate FiO2 09/26/24 20:30 85/48 09/26/24 20:30 99.5 110 16 96 211.1 09/26/24 20:13 30 09/26/24 20:00 Mechanical Ventilator+ 09/24/24 07:40 15 Total Intake and Output 09/25/24 09/25/24 09/26/24 15:00 23:00 07:00 Intake Total 373.00 ml 502.00 ml 380.0 ml Output Total 250 ml 375 ml Balance 373.00 ml 252.00 ml 5.0 ml medications Current Medications Medications Dose Ordered Sig/Maida Route Start Time Stop Time Status Last Admin Dose Admin Midazolam HCl 50 ml @ 1 mls/hr Q24H IV 09/24/24 07:45 09/25/24 16:10 3 MLS/HR Norepinephrine Bitartrate 250 ml @ 3.75 mls/hr Q24H IV 09/24/24 08:15 09/26/24 17:10 7.5 MLS/HR Nitroglycerin 0.4 mg Q5MINP PRN SL 09/24/24 10:45 Morphine Sulfate 2 mg Q30M PRN IV 09/24/24 10:45 Vancomycin HCl 0 ml @ 0 mls/hr UD IV 09/24/24 10:45 Acetaminophen 500 mg Q8HP PRN PO 09/24/24 10:45 Ondansetron HCl 4 mg Q4HP PRN IV 09/24/24 10:45 Ipratropium [place] 0.5 mg Q6H NEB 09/24/24 12:00 09/26/24 11:22 0.5 MG Budesonide 0.5 mg BID NEB 09/24/24 22:00 09/26/24 18:26 0.5 MG Enoxaparin Sodium 40 mg DAILY SC 09/25/24 10:00 09/26/24 08:35 40 MG Pantoprazole Sodium 40 mg DAILY IV 09/25/24 10:00 09/26/24 08:35 40 MG Albuterol 2.5 mg Q6H NEB 09/24/24 12:00 09/26/24 18:26 2.5 MG Fentanyl Citrate 250 ml @ 2.5 mls/hr Q24H IV 09/24/24 14:15 09/26/24 08:22 5 MLS/HR Lidocaine 1 patch DAILY TOP 09/25/24 10:00 09/26/24 11:06 1 PATCH Dexmedetomidine HCl 400 mcg/ Dextrose 100 ml @ 2.46 mls/hr Q24H IV 09/25/24 10:00 09/26/24 07:52 2.46 MLS/HR Enteral Nutritional Formula 1,000 ml 30ML/HR GT 09/25/24 10:00 Vancomycin HCl 500 mg/Dextrose 100 ml @ 200 mls/hr Q12H IV 09/25/24 18:00 09/26/24 18:15 200 MLS/HR Aspirin 81 mg DAILY PO 09/27/24 10:00 Levofloxacin 50 ml @ 50 mls/hr DAILY IV 09/27/24 10:00 objective Gen.: Patient lying in bed in medical ICU. Sedated, intubated on mechanical ventilator. Head: Normocephalic, atraumatic. Eyes: PERRLA. Ears: Normal external anatomy. Throat: Endotracheal tube and orogastric tube in place. Neck: Supple, trachea midline. Chest: Transmitted breath sounds bilaterally. Decreased air entry bilaterally. No wheezing. Bibasilar crackles. Cardiovascular: Positive S1, positive S2. Regular rate and rhythm. Abdomen: Positive bowel sounds in all 4 quadrants. Soft, nontender, nondistended. : Atkinson in place. Normal external genitalia. Rectal: Deferred. Skin: Warm, dry. Intact. Extremities: 2+ radial pulses bilaterally. No lower extremity edema. Neuro: Sedated. laboratory and microbiology Laboratory Tests 09/26/24 03:00 Test 09/26/24 03:00 Range/Units Serum Glucose 108 H 74-106 mg/dL Assessment/Plan Impression: Acute hypoxic respiratory failure On mechanical ventilator Septic shock Multifocal pneumonia Atelectasis Events: Remains on vent support On AC mode; RR 16, VT 400, PEEP 5, FiO2 30% Precedex drip Fentanyl 25 mcg for pain control On pressors (Levophed 2 mcg) for hemodynamic support Titrate to keep mean arterial pressure greater than 65 mmHg. CXR demonstrates pulmonary vascular congestion, devices in place. Continue antibiotics. Diurese w/ Lasix as tolerated Monitor renal function Rest of plan as noted below Plan: s/p intubation on mechanical ventilator. On AC mode; RR 16, VT 400, PEEP 5, FiO2 30% Titrate FIO2 to keep O2 saturation above 90%. VAP bundle. Daily ABG and CXR while intubated Sedated for ventilator synchrony - on Fentanyl OK to use Precedex drip for agitation. Bronchodilators. Continue antibiotics. F/u cultures. On pressors (Levophed) for hemodynamic support Titrate to keep mean arterial pressure greater than 65 mmHg. Monitor renal function Monitor electrolytes. Supplement as necessary. Monitor ins and outs. Maintain euvolemia. Tube feeds for nutritional support GI prophylaxis. DVT prophylaxis. Prognosis: Poor given patient's multiple co-morbidities. Condition: Critical Rest of plan per hospitalist and other consultants. A total of 35 minutes of critical care time was spent reviewing the patient record, examining the patient, making a diagnostic and therapeutic plan, discussing this plan with the medical personnel, following up on diagnostic studies and following the patient for clinical stability excluding any and all procedures. At least 50% of this time was spent in direct, [id number] contact. Thank you, Shane Arboleda NP, for allowing me to participate in this patient's care. Further recommendations will depend on the patient's clinical course. Please do not hesitate to contact me if you have any questions or concerns. This medical document was created using an electronic medical record system with [employer] dictation system. Although these documentations are being carefully reviewed, there may still be some phonetic and typographical changes. The errors are purely typographical, due to imperfection on the software program, and do not reflect any compromise in the patient's medical care. Dietary Evaluation Review Comments: 1. Increase TF to 45ml/hr to provide 1152 Kcal 53g Protein 775ml Free Water which meet's pt's needs Expected Outcomes/Goals: 1. Pt will consume >75% of estimated needs within 3-5 days Plan discussed with: Other (RADHA Leonardo) Critical Care Time(min): 35 JOHN ESTRADA MD Sep 26, 2024 21:32
[2024-09-26] MEDS: fentaNYL Drip 2500mCg/250mlNS 250 ML IV SCH (23:45)
[2024-09-27] VITALS (101 sets, daily range): BP systolic 84–140; BP diastolic 31–79; PULSE 83–154; RESP 11–36; TEMP 98.2–99.9; O2SAT 78–99
[2024-09-27 04:24] LABS: Basophils # (auto) 0 10 ^3/uL (0-0.2); Basophils % (auto) 0.2 % (0.0-2.0); Eosinophils # (auto) 1.4 10 ^3/uL (0-0.8); Eosinophils % (auto) 10.1 % (0.0-7.0); Hematocrit 25.4 % (36.0-46.0); Hemoglobin 8.6 g/dL (12.2-16.2); Lymphocytes # (auto) 1.1 10 ^3/uL (0.4-5.4); Lymphocytes % (auto) 7.7 % (10.0-50.0); Mean Corpuscular Hemoglobin 34.3 pg (28.0-32.0); Mean Corpuscular Hgb Conc. 33.8 g/dL (32.0-36.0); Mean Corpuscular Volume 101.4 fL (80.0-100.0); Monocytes # (auto) 1.2 10 ^3/uL (0-1.3); Monocytes % (auto) 8.6 % (0.0-12.0); Neutrophils # (auto) 10.3 10 ^3/uL (1.6-8.6); Neutrophils % (auto) 73.4 % (37.0-80.0); Nucleated Red Blood Cells % 0.1 %; Platelet Count (auto) 260 10^3/uL (140-450); Red Cell Distribution Width 15.6 % (11.8-14.3); White Blood Cell 14.1 10^3/uL (4.4-10.8)
[2024-09-27 04:29] LABS: Chloride 102 mmol/L (98-107); Potassium 3.6 mmol/L (3.5-5.1); Sodium 137 mmol/L (136-145)
[2024-09-27 04:30] LABS: Anion Gap 6 (5-15); Calcium 10.2 mg/dL (8.7-10.4); Carbon Dioxide 29 mmol/L (20-31)
[2024-09-27 04:35] LABS: Blood Urea Nitrogen 15 mg/dL (9-23); Glucose 113 mg/dL (74-106)
[2024-09-27 07:45] LABS: Base Excess 3.7 mmol/L (-2.0-3.0)
--- NOTE | 2024-09-27 08:19 | DVH ---
CHEST RADIOGRAPH Indication: cpap Technique: Single frontal view of the chest was obtained Comparison: XY CHEST PORTABLE on DOS: 09/26/24, XY CHEST PORTABLE on DOS: 09/25/24, XY CHEST PORTABLE on DOS: 09/24/24, XY CHEST PORTABLE on DOS: 08/20/24, XY CHEST PORTABLE on DOS: 08/18/24, XY CHEST PO RTABLE on DOS: 09/26/24 FINDINGS: Lines and Tubes: Endotracheal tube projects 2 cm above the level of the caleb. Recommend slight ret raction. Other lines and tubes are stable. Lungs: Worsening multifocal airspace opacities. Pleura: No effusion. No pneumothorax. Cardiomediastinal contours: Unremarkable Bones: No acute osseous abnormality. IMPRESSION: Endotracheal tube projects 2 cm above the level of the caleb. Recommend slight retraction.
[2024-09-27] MEDS: HYDROcodone-ACET 5/325MG TAB PO PRN (09:55)
[2024-09-27] MEDS: levoFLOXacin 250MG 50 ML IV SCH (09:56)
[2024-09-27] MEDS: ASPirin 81 mg TAB PO SCH (09:58)
--- NOTE | 2024-09-27 10:36 | DVHPN2 ---
Subjective Patient chemically sedated Reviewed: Care Plan, H&P, Labs, Medications Changes from previous H/P or p: No Changes General: Per HPI Objective Vitals Vital Signs Date Time Temp Pulse Resp B/P (MAP) Pulse Ox O2 Delivery O2 Flow Rate FiO2 09/27/24 10:21 135 16 120/59 (79) 97 30 09/27/24 08:00 Mechanical Ventilator+ 09/27/24 06:00 98.8 209.8 Intake/Output Intake and Output 09/27/24 07:00 Intake Total 1145.06 ml Output Total 2000 ml Balance -854.94 ml Intake Oral 210 ml IV Total 710.06 ml Tube Feeding 225 ml Output Urine Total 2000 ml # Bowel Movements 1 General Appearance: Other (Chemically sedated) HEENT: Atraumatic, PERRLA Lungs: Clear to auscultation, Normal air movement, Other (Mechanical ventilator) Cardiovascular: Normal S1, Normal S2 Abdomen: Normal bowel sounds, Soft Genitourinary: No Apparent Abnormalities Musculoskeletal: Other (No motor response) Neuro: Other (Sedated) Skin: Dry, Intact Psych/Mental Status: Other (Sedated) Medications Current Medications Medications Dose Ordered Sig/Maida Route Start Time Stop Time Status Last Admin Dose Admin Midazolam HCl 50 ml @ 1 mls/hr Q24H IV 09/24/24 07:45 09/25/24 16:10 3 MLS/HR Norepinephrine Bitartrate 250 ml @ 3.75 mls/hr Q24H IV 09/24/24 08:15 09/26/24 17:10 7.5 MLS/HR Nitroglycerin 0.4 mg Q5MINP PRN SL 09/24/24 10:45 Morphine Sulfate 2 mg Q30M PRN IV 09/24/24 10:45 Vancomycin HCl 0 ml @ 0 mls/hr UD IV 09/24/24 10:45 Acetaminophen 500 mg Q8HP PRN PO 09/24/24 10:45 Ondansetron HCl 4 mg Q4HP PRN IV 09/24/24 10:45 Ipratropium [place] 0.5 mg Q6H NEB 09/24/24 12:00 09/27/24 06:28 0.5 MG Budesonide 0.5 mg BID NEB 09/24/24 22:00 09/27/24 06:28 0.5 MG Enoxaparin Sodium 40 mg DAILY SC 09/25/24 10:00 09/27/24 09:56 40 MG Pantoprazole Sodium 40 mg DAILY IV 09/25/24 10:00 09/27/24 09:54 40 MG Albuterol 2.5 mg Q6H NEB 09/24/24 12:00 09/27/24 06:28 2.5 MG Lidocaine 1 patch DAILY TOP 09/25/24 10:00 09/26/24 11:06 1 PATCH Dexmedetomidine HCl 400 mcg/ Dextrose 100 ml @ 2.46 mls/hr Q24H IV 09/25/24 10:00 09/26/24 07:52 2.46 MLS/HR Enteral Nutritional Formula 1,000 ml 30ML/HR GT 09/25/24 10:00 Vancomycin HCl 500 mg/Dextrose 100 ml @ 200 mls/hr Q12H IV 09/25/24 18:00 09/27/24 05:22 200 MLS/HR Aspirin 81 mg DAILY PO 09/27/24 10:00 09/27/24 09:58 81 MG Levofloxacin 50 ml @ 50 mls/hr DAILY IV 09/27/24 10:00 09/27/24 09:56 50 MLS/HR Fentanyl Citrate 250 ml @ 2.5 mls/hr Q24H IV 09/26/24 23:45 Acetaminophen/ Hydrocodone Bitart 1 tab Q6HPRN PRN PO 09/27/24 09:15 09/27/24 09:55 1 TAB Laboratory Results Laboratory Tests 09/27/24 03:23 Chemistry Test 09/27/24 03:23 Calcium Level 10.2 mg/dL (8.7-10.4) Urinalysis Test 09/24/24 12:00 Urine Color Light-brown (Yellow) Urine Clarity Ex.turbid (Clear) Urine pH 5.0 (5.0-9.0) Urine Specific [place] 1.026 (1.001-1.035) Urine Protein 1+ (Negative) H Urine Ketones Negative (Negative) Urine Blood 1+ /uL (Negative) H Urine Nitrite Negative (Negative) Urine Bilirubin Negative (Negative) Urine Urobilinogen Normal mg/dL (Negative) Urine Leukocyte Esterase Negative /uL (Negative) Urine RBC 26 /hpf (0 - 4) Urine WBC 26 /hpf (0 - 5) Urine Squamous Epithelial Cells Mod /hpf (<5) Urine Amorphous Crystals Few /hpf (None Seen) Urine Bacteria Mod /hpf (None Seen) H Urine Hyaline Casts Few /lpf (0 - 2) Urine Mucus Few (None Seen) Urine Glucose Normal mg/dL (Normal) Blood Gas Results Test 09/27/24 07:34 Arterial Blood pH 7.432 (7.350-7.450) FiO2 % 30.0 Microbiology Microbiology Date/Time Source Procedure Growth Status 09/24/24 17:00 Nose MRSA Screen - Final Complete 09/24/24 09:16 Blood Blood Culture - Preliminary NO GROWTH AFTER 72 HOURS OF INCUBATION. Resulted 09/24/24 08:39 Urine - [place] Urine Culture - Preliminary Resulted 09/24/24 08:34 Sputum Gram Stain - Final Resulted 09/24/24 08:34 Sputum Respiratory Culture - Preliminary Resulted Labs and/or images reviewed: Labs reviewed by me, Image(s) reviewed by me Assessment/Plan Assessment/Plan Impression: -acute hypoxic respiratory failure -pneumonia, possibly hospital-acquired -rheumatoid arthritis -septic shock -NSTEMI, probably type 2 -thoracic spinal fractures -atrial fibrillation with rapid ventricular rate Plan: -events: No events overnight. FiO2 at 30%. Sputum culture preliminary with yeast. -proceed with spontaneous breathing trial today -antibiotic therapy: Levaquin, vancomycin, add Diflucan -continue current ventilator settings: Per pulmonology. Spontaneous breathing trial today. -bronchodilators -cardiology consultation: Recommendations reviewed -PUD, DVT prophylaxis -continue vasopressor therapy to keep map greater than 65 mm of mercury: Currently at 2 micrograms/minute -pain management: Add lidocaine patch, continue fentanyl -repeat labs, chest x-ray, ABG in a.m. -discussed plan of care with patient's son was bedside. All questions answered. Critical care time spent with patient discussing and formulating plan of care: 40 minutes. This does not include time spent performing procedures. This medical document was created using an electronic medical record system with [employer] system. Although this document has been carefully reviewed, there may still be some phonetic and typographical errors. These areas are purely typographical due to imperfections of the software programs, and do not reflect any compromise in the patient's medical care. Plan discussed with: Patient, Other (RN) My Orders Orders - BARBARA SAM [facility] Procedure Category Date Status Time Levofloxacin 250mg PHA 09/27/24 In Process (Levaquin 250mg) 10:00 Hydrocodone-Acet PHA 09/27/24 In Process 5/325mg Tab ([place] 09:15 Date of Service: Sep 27, 2024 Billing Provider: BARBARA SAM NP Common Visit Codes: [id number] CARE 30-74 MIN BARBARA SAM NP Sep 27, 2024 10:36
[2024-09-27] MEDS: FLUCONAZOLE 200MG/100ML 100 ML IV SCH (12:32)
[2024-09-27 12:56] LABS: Base Excess 1.5 mmol/L (-2.0-3.0)
--- NOTE | 2024-09-27 13:52 | ECG ---
[facility] Test Date: 2024-09-24 Test Time: 07:46:15 Pat Name: OVI JULIAN Department: ED Room: [address] [place] [address] A Gender: F Egg Grader: DARSHAN : 1935 Requested By: MELITON ALATORRE Order Number: [id number] Reading MD: Mac Crook Measurements Intervals [place] Rate: 140 P: 125 TN: 177 QRS: -33 QRSD: 85 T: 34 QT: 259 QTc: 395 Interpretive Statements Sinus tachycardia Ventricular premature complex Inferior infarct, old Anterior infarct, old Electronically Signed On 09-30-2024 13:21:31 PST by Mac Crook Please click the below link to view image of tracing.
--- NOTE | 2024-09-27 14:59 | ECG ---
[facility] Test Date: 2024-09-24 Test Time: 12:18:20 Pat Name: OVI JULIAN Department: ER Room: [address] [place] [address] A Gender: F Drawer In Hand: Cherie Barnett : 1935 Requested By: MELITON ALATORRE Order Number: [id number] Reading MD: Mac Crook Measurements Intervals [place] Rate: 118 P: 0 [place]: 57 QRS: 2 QRSD: 83 T: 92 QT: 478 QTc: 671 Interpretive Statements Sinus tachycardia Ventricular tachycardia, unsustained Anterior infarct, age indeterminate ST elevation, consider inferior injury Prolonged QT interval Electronically Signed On 09-30-2024 13:23:30 PST by Mac Crook Please click the below link to view image of tracing.
--- NOTE | 2024-09-27 16:57 | DVHPN2 ---
Progress Note Date Seen: Sep 27, 2024 Medical Necessity Reason Pt with a Central, PICC or Fol: Yes The following are medically ne: Atkinson Catheter Reason for atkinson catheter: Strict I&O Subjective Other Systems: pt in atrial tach on tele HR 120s Objective vital signs Vital Sign Date Time Temp Pulse Resp B/P (MAP) Pulse Ox O2 Delivery O2 Flow Rate FiO2 09/27/24 16:15 87 16 90/46 (61) 98 30 09/27/24 16:00 Mechanical Ventilator+ 09/27/24 15:45 99.3 210.7 Total Intake and Output 09/26/24 09/26/24 09/27/24 15:00 23:00 07:00 Intake Total 262.18 ml 457.93 ml 424.95 ml Output Total 1650 ml 350 ml Balance 262.18 ml -1192.07 ml 74.95 ml medications Current Medications Medications Dose Ordered Sig/Maida Route Start Time Stop Time Status Last Admin Dose Admin Midazolam HCl 50 ml @ 1 mls/hr Q24H IV 09/24/24 07:45 09/25/24 16:10 3 MLS/HR Norepinephrine Bitartrate 250 ml @ 3.75 mls/hr Q24H IV 09/24/24 08:15 09/26/24 17:10 7.5 MLS/HR Nitroglycerin 0.4 mg Q5MINP PRN SL 09/24/24 10:45 Morphine Sulfate 2 mg Q30M PRN IV 09/24/24 10:45 Vancomycin HCl 0 ml @ 0 mls/hr UD IV 09/24/24 10:45 Acetaminophen 500 mg Q8HP PRN PO 09/24/24 10:45 Ondansetron HCl 4 mg Q4HP PRN IV 09/24/24 10:45 Ipratropium [place] 0.5 mg Q6H NEB 09/24/24 12:00 09/27/24 12:19 0.5 MG Budesonide 0.5 mg BID NEB 09/24/24 22:00 09/27/24 06:28 0.5 MG Enoxaparin Sodium 40 mg DAILY SC 09/25/24 10:00 09/27/24 09:56 40 MG Pantoprazole Sodium 40 mg DAILY IV 09/25/24 10:00 09/27/24 09:54 40 MG Albuterol 2.5 mg Q6H NEB 09/24/24 12:00 09/27/24 12:19 2.5 MG Lidocaine 1 patch DAILY TOP 09/25/24 10:00 09/27/24 10:00 1 PATCH Dexmedetomidine HCl 400 mcg/ Dextrose 100 ml @ 2.46 mls/hr Q24H IV 09/25/24 10:00 09/26/24 07:52 2.46 MLS/HR Enteral Nutritional Formula 1,000 ml 30ML/HR GT 09/25/24 10:00 Aspirin 81 mg DAILY PO 09/27/24 10:00 09/27/24 09:58 81 MG Levofloxacin 50 ml @ 50 mls/hr DAILY IV 09/27/24 10:00 09/27/24 09:56 50 MLS/HR Fentanyl Citrate 250 ml @ 2.5 mls/hr Q24H IV 09/26/24 23:45 Acetaminophen/ Hydrocodone Bitart 1 tab Q6HPRN PRN PO 09/27/24 09:15 09/27/24 15:36 1 TAB Fluconazole 100 ml @ 100 mls/hr DAILY IV 09/28/24 10:00 Vancomycin HCl 150 ml @ 150 mls/hr Q12H IV 09/27/24 18:00 Diltiazem HCl 30 mg Q8HR GT 09/27/24 22:00 Examination: GENERAL:Abnormal, HEENT:Abnormal, LUNGS:Abnormal, CVS:Abnormal, ABDOMEN:Abnormal laboratory and microbiology Laboratory Tests 09/27/24 03:23 Test 09/27/24 03:23 Range/Units Serum Glucose 113 H 74-106 mg/dL Microbiology Date/Time Source Procedure Growth Status 09/24/24 17:00 Nose MRSA Screen - Final Complete 09/24/24 09:16 Blood Blood Culture - Preliminary NO GROWTH AFTER 72 HOURS OF INCUBATION. Resulted 09/24/24 08:39 Urine - [place] Urine Culture - Preliminary Resulted 09/24/24 08:34 Sputum Gram Stain - Final Resulted 09/24/24 08:34 Sputum Respiratory Culture - Preliminary Resulted Problem List/Assessment/Plan Problem List/Assessment/Plan resp failure failure to thrive recent pna tachycardia PACs off cardizem ?afib, consider goals of care pressors as needed --on low dose currently SR junctional tachycardia pt getting cpap trial prn BB iv digoxin x 1 now Plan discussed with: Other (rn) Dietary Evaluation Review Comments: 1. Increase TF to 45ml/hr to provide 1152 Kcal 53g Protein 775ml Free Water which meet's pt's needs Expected Outcomes/Goals: 1. Pt will consume >75% of estimated needs within 3-5 days Date of Service: Sep 27, 2024 Billing Provider: KARMA BAUMAN MD Common Visit Codes: NOT BILLABLE KARMA BAUMAN MD Sep 27, 2024 16:57
[2024-09-27] MEDS: VANCOMYCIN 750mg/150ml 150 ML IV SCH (17:34)
[2024-09-27] MEDS: dilTIAZem HCL 60 MG TAB GT SCH (21:30)
--- NOTE | 2024-09-27 22:35 | DVHPN2 ---
Progress Note - Dictate Date Seen: Sep 27, 2024 Medical Necessity Reason Pt with a Central, PICC or Fol: Yes The following are medically ne: Atkinson Catheter Reason for atkinson catheter: Strict I&O Subjective Patient seen and examined at bedside. Sedated, intubated on mechanical ventilator. Overnight events reviewed. vital signs Vital Sign Date Time Temp Pulse Resp B/P (MAP) Pulse Ox O2 Delivery O2 Flow Rate FiO2 09/27/24 22:00 17 96 Mechanical Ventilator+ 30 30 09/27/24 22:00 92 107/52 (70) 09/27/24 21:15 99.0 210.2 Total Intake and Output 09/26/24 09/26/24 09/27/24 15:00 23:00 07:00 Intake Total 262.18 ml 457.93 ml 424.95 ml Output Total 1650 ml 350 ml Balance 262.18 ml -1192.07 ml 74.95 ml medications Current Medications Medications Dose Ordered Sig/Maida Route Start Time Stop Time Status Last Admin Dose Admin Midazolam HCl 50 ml @ 1 mls/hr Q24H IV 09/24/24 07:45 09/25/24 16:10 3 MLS/HR Norepinephrine Bitartrate 250 ml @ 3.75 mls/hr Q24H IV 09/24/24 08:15 09/26/24 17:10 7.5 MLS/HR Nitroglycerin 0.4 mg Q5MINP PRN SL 09/24/24 10:45 Morphine Sulfate 2 mg Q30M PRN IV 09/24/24 10:45 Vancomycin HCl 0 ml @ 0 mls/hr UD IV 09/24/24 10:45 Acetaminophen 500 mg Q8HP PRN PO 09/24/24 10:45 Ondansetron HCl 4 mg Q4HP PRN IV 09/24/24 10:45 Ipratropium [place] 0.5 mg Q6H NEB 09/24/24 12:00 09/27/24 18:15 0.5 MG Budesonide 0.5 mg BID NEB 09/24/24 22:00 09/27/24 18:15 0.5 MG Enoxaparin Sodium 40 mg DAILY SC 09/25/24 10:00 09/27/24 09:56 40 MG Pantoprazole Sodium 40 mg DAILY IV 09/25/24 10:00 09/27/24 09:54 40 MG Albuterol 2.5 mg Q6H NEB 09/24/24 12:00 09/27/24 18:15 2.5 MG Lidocaine 1 patch DAILY TOP 09/25/24 10:00 09/27/24 10:00 1 PATCH Dexmedetomidine HCl 400 mcg/ Dextrose 100 ml @ 2.46 mls/hr Q24H IV 09/25/24 10:00 09/27/24 17:25 2.46 MLS/HR Enteral Nutritional Formula 1,000 ml 30ML/HR GT 09/25/24 10:00 Aspirin 81 mg DAILY PO 09/27/24 10:00 09/27/24 09:58 81 MG Levofloxacin 50 ml @ 50 mls/hr DAILY IV 09/27/24 10:00 09/27/24 09:56 50 MLS/HR Fentanyl Citrate 250 ml @ 2.5 mls/hr Q24H IV 09/26/24 23:45 Acetaminophen/ Hydrocodone Bitart 1 tab Q6HPRN PRN PO 09/27/24 09:15 09/27/24 15:36 1 TAB Fluconazole 100 ml @ 100 mls/hr DAILY IV 09/28/24 10:00 Vancomycin HCl 150 ml @ 150 mls/hr Q12H IV 09/27/24 18:00 09/27/24 17:34 150 MLS/HR Diltiazem HCl 30 mg Q8HR GT 09/27/24 22:00 objective Gen.: Patient lying in bed in medical ICU. Sedated, intubated on mechanical ventilator. Head: Normocephalic, atraumatic. Eyes: PERRLA. Ears: Normal external anatomy. Throat: Endotracheal tube and orogastric tube in place. Neck: Supple, trachea midline. Chest: Transmitted breath sounds bilaterally. Decreased air entry bilaterally. No wheezing. Bibasilar crackles. Cardiovascular: Positive S1, positive S2. Regular rate and rhythm. Abdomen: Positive bowel sounds in all 4 quadrants. Soft, nontender, nondistended. : Atkinson in place. Normal external genitalia. Rectal: Deferred. Skin: Warm, dry. Intact. Extremities: 2+ radial pulses bilaterally. No lower extremity edema. Neuro: Sedated. laboratory and microbiology Laboratory Tests 09/27/24 03:23 Test 09/27/24 03:23 Range/Units Serum Glucose 113 H 74-106 mg/dL Assessment/Plan Impression: Acute hypoxic respiratory failure On mechanical ventilator Septic shock Multifocal pneumonia Atelectasis Events: Remains on vent support On AC mode; RR 16, VT 400, PEEP 5, FiO2 30% Off Fentanyl drip for pain Off Precedex Off [place] On pressors (Levophed 2 mcg) for hemodynamic support Titrate to keep mean arterial pressure greater than 65 mmHg. Continue antibiotics - Levaquin. Placed on CPAP w/ PS 8, PEEP of 5 Taper sedation as tolerated Rest of plan as noted below Plan: s/p intubation on mechanical ventilator. On AC mode; RR 16, VT 400, PEEP 5, FiO2 30% Titrate FIO2 to keep O2 saturation above 90%. VAP bundle. Daily ABG and CXR while intubated Sedated for ventilator synchrony - on Fentanyl OK to use Precedex drip for agitation. Bronchodilators. Continue antibiotics. F/u cultures. On pressors (Levophed) for hemodynamic support Titrate to keep mean arterial pressure greater than 65 mmHg. Monitor renal function Monitor electrolytes. Supplement as necessary. Monitor ins and outs. Maintain euvolemia. Tube feeds for nutritional support GI prophylaxis. DVT prophylaxis. Prognosis: Poor given patient's multiple co-morbidities. Condition: Critical Rest of plan per hospitalist and other consultants. A total of 35 minutes of critical care time was spent reviewing the patient record, examining the patient, making a diagnostic and therapeutic plan, discussing this plan with the medical personnel, following up on diagnostic studies and following the patient for clinical stability excluding any and all procedures. At least 50% of this time was spent in direct, [id number] contact. Thank you, Shane Arboleda NP, for allowing me to participate in this patient's care. Further recommendations will depend on the patient's clinical course. Please do not hesitate to contact me if you have any questions or concerns. This medical document was created using an electronic medical record system with [employer] dictation system. Although these documentations are being carefully reviewed, there may still be some phonetic and typographical changes. The errors are purely typographical, due to imperfection on the software program, and do not reflect any compromise in the patient's medical care. Dietary Evaluation Review Comments: 1. Increase TF to 45ml/hr to provide 1152 Kcal 53g Protein 775ml Free Water which meet's pt's needs Expected Outcomes/Goals: 1. Pt will consume >75% of estimated needs within 3-5 days Plan discussed with: Other (RADHA Gibbons) Critical Care Time(min): 35 JOHN ESTRADA MD Sep 27, 2024 22:35
[2024-09-28] VITALS (105 sets, daily range): BP systolic 79–150; BP diastolic 30–119; PULSE 84–148; RESP 12–38; TEMP 91.9–100.6; O2SAT 84–98
[2024-09-28 04:24] LABS: Basophils # (auto) 0 10 ^3/uL (0-0.2); Basophils % (auto) 0.2 % (0.0-2.0); Eosinophils # (auto) 0.7 10 ^3/uL (0-0.8); Eosinophils % (auto) 4.8 % (0.0-7.0); Hematocrit 23.5 % (36.0-46.0); Lymphocytes # (auto) 0.8 10 ^3/uL (0.4-5.4); Lymphocytes % (auto) 5.7 % (10.0-50.0); Mean Corpuscular Hemoglobin 34.5 pg (28.0-32.0); Mean Corpuscular Hgb Conc. 34.1 g/dL (32.0-36.0); Mean Corpuscular Volume 101.3 fL (80.0-100.0); Monocytes # (auto) 1.2 10 ^3/uL (0-1.3); Monocytes % (auto) 8.4 % (0.0-12.0); Neutrophils # (auto) 11.6 10 ^3/uL (1.6-8.6); Neutrophils % (auto) 80.9 % (37.0-80.0); Platelet Count (auto) 263 10^3/uL (140-450); Red Blood Cells 2.32 10^6/uL (4.0-5.20); Red Cell Distribution Width 15.4 % (11.8-14.3); White Blood Cell 14.3 10^3/uL (4.4-10.8)
[2024-09-28 04:31] LABS: Chloride 101 mmol/L (98-107); Sodium 136 mmol/L (136-145)
[2024-09-28 04:32] LABS: Anion Gap 7 (5-15); Calcium 10.3 mg/dL (8.7-10.4); Carbon Dioxide 28 mmol/L (20-31)
[2024-09-28 04:37] LABS: BUN/Creatinine Ratio 30.6 (10.0-20.0); Blood Urea Nitrogen 15 mg/dL (9-23); Glucose 113 mg/dL (74-106)
[2024-09-28] MEDS: FLUCONAZOLE 200MG/100ML 100 ML IV SCH (08:56)
--- NOTE | 2024-09-28 09:05 | DVHPN2 ---
Subjective Patient more awake, not following command Reviewed: Care Plan, H&P, Labs, Medications Changes from previous H/P or p: Changes General: Per HPI Objective Vitals Vital Signs Date Time Temp Pulse Resp B/P (MAP) Pulse Ox O2 Delivery O2 Flow Rate FiO2 09/28/24 08:00 14 96 Mechanical Ventilator+ 30 30 09/28/24 08:00 123 09/28/24 07:45 99.7 111/69 (83) 211.5 Intake/Output Intake and Output 09/28/24 07:00 Intake Total 504.42 ml Output Total 700 ml Balance -195.58 ml Intake Oral 115 ml IV Total 314.42 ml Tube Feeding 75 ml Output Urine Total 700 ml General Appearance: Alert, Other (Chemically sedated) HEENT: Atraumatic, PERRLA Lungs: Clear to auscultation, Normal air movement, Other (Mechanical ventilator) Cardiovascular: Normal S1, Normal S2 Abdomen: Normal bowel sounds, Soft Genitourinary: No Apparent Abnormalities Musculoskeletal: Other (No motor response) Neuro: Other (Sedated) Skin: Dry, Intact Psych/Mental Status: Other (Sedated) Medications Current Medications Medications Dose Ordered Sig/Maida Route Start Time Stop Time Status Last Admin Dose Admin Midazolam HCl 50 ml @ 1 mls/hr Q24H IV 09/24/24 07:45 09/25/24 16:10 3 MLS/HR Norepinephrine Bitartrate 250 ml @ 3.75 mls/hr Q24H IV 09/24/24 08:15 09/26/24 17:10 7.5 MLS/HR Nitroglycerin 0.4 mg Q5MINP PRN SL 09/24/24 10:45 Morphine Sulfate 2 mg Q30M PRN IV 09/24/24 10:45 Vancomycin HCl 0 ml @ 0 mls/hr UD IV 09/24/24 10:45 Acetaminophen 500 mg Q8HP PRN PO 09/24/24 10:45 Ondansetron HCl 4 mg Q4HP PRN IV 09/24/24 10:45 Ipratropium [place] 0.5 mg Q6H NEB 09/24/24 12:00 09/28/24 05:40 0.5 MG Budesonide 0.5 mg BID NEB 09/24/24 22:00 09/28/24 05:40 0.5 MG Enoxaparin Sodium 40 mg DAILY SC 09/25/24 10:00 09/28/24 08:55 40 MG Pantoprazole Sodium 40 mg DAILY IV 09/25/24 10:00 09/28/24 08:55 40 MG Albuterol 2.5 mg Q6H NEB 09/24/24 12:00 09/28/24 05:40 2.5 MG Lidocaine 1 patch DAILY TOP 09/25/24 10:00 09/27/24 10:00 1 PATCH Dexmedetomidine HCl 400 mcg/ Dextrose 100 ml @ 2.46 mls/hr Q24H IV 09/25/24 10:00 09/27/24 17:25 2.46 MLS/HR Enteral Nutritional Formula 1,000 ml 30ML/HR GT 09/25/24 10:00 Aspirin 81 mg DAILY PO 09/27/24 10:00 09/28/24 08:55 81 MG Levofloxacin 50 ml @ 50 mls/hr DAILY IV 09/27/24 10:00 09/28/24 08:56 50 MLS/HR Fentanyl Citrate 250 ml @ 2.5 mls/hr Q24H IV 09/26/24 23:45 Acetaminophen/ Hydrocodone Bitart 1 tab Q6HPRN PRN PO 09/27/24 09:15 09/28/24 07:43 1 TAB Fluconazole 100 ml @ 100 mls/hr DAILY IV 09/28/24 10:00 09/28/24 08:56 100 MLS/HR Vancomycin HCl 150 ml @ 150 mls/hr Q12H IV 09/27/24 18:00 09/28/24 07:25 150 MLS/HR Diltiazem HCl 30 mg Q8HR GT 09/27/24 22:00 Laboratory Results Laboratory Tests 09/28/24 03:46 Chemistry Test 09/28/24 03:46 Calcium Level 10.3 mg/dL (8.7-10.4) Urinalysis Test 09/24/24 12:00 Urine Color Light-brown (Yellow) Urine Clarity Ex.turbid (Clear) Urine pH 5.0 (5.0-9.0) Urine Specific [place] 1.026 (1.001-1.035) Urine Protein 1+ (Negative) H Urine Ketones Negative (Negative) Urine Blood 1+ /uL (Negative) H Urine Nitrite Negative (Negative) Urine Bilirubin Negative (Negative) Urine Urobilinogen Normal mg/dL (Negative) Urine Leukocyte Esterase Negative /uL (Negative) Urine RBC 26 /hpf (0 - 4) Urine WBC 26 /hpf (0 - 5) Urine Squamous Epithelial Cells Mod /hpf (<5) Urine Amorphous Crystals Few /hpf (None Seen) Urine Bacteria Mod /hpf (None Seen) H Urine Hyaline Casts Few /lpf (0 - 2) Urine Mucus Few (None Seen) Urine Glucose Normal mg/dL (Normal) Blood Gas Results Test 09/27/24 12:46 Arterial Blood pH 7.430 (7.350-7.450) FiO2 % 30.0 Microbiology Microbiology Date/Time Source Procedure Growth Status 09/24/24 17:00 Nose MRSA Screen - Final Complete 09/24/24 09:16 Blood Blood Culture - Preliminary NO GROWTH AFTER 72 HOURS OF INCUBATION. Resulted 09/24/24 08:39 Urine - [place] Urine Culture - Preliminary Resulted 09/24/24 08:34 Sputum Gram Stain - Final Resulted 09/24/24 08:34 Sputum Respiratory Culture - Preliminary Resulted Labs and/or images reviewed: Labs reviewed by me, Image(s) reviewed by me Assessment/Plan Assessment/Plan Impression: -acute hypoxic respiratory failure -pneumonia, possibly hospital-acquired -rheumatoid arthritis -septic shock -NSTEMI, probably type 2 -thoracic spinal fractures -atrial fibrillation with rapid ventricular rate Plan: -events: No events overnight. Spontaneous breathing trial once awake. Give digoxin for heart rate sustained greater than 120 beats per minute. Patient was extubated due to tachycardia yesterday. -antibiotic therapy: Levaquin, vancomycin, add Diflucan -continue current ventilator settings: Per pulmonology. Spontaneous breathing trial today. -bronchodilators -cardiology consultation: Recommendations reviewed -PUD, DVT prophylaxis -continue vasopressor therapy to keep map greater than 65 mm of mercury: Currently at 2 micrograms/minute -pain management: Add lidocaine patch, continue fentanyl -repeat labs, chest x-ray, ABG in a.m. -discussed plan of care with patient's son was bedside. All questions answered. Critical care time spent with patient discussing and formulating plan of care: 40 minutes. This does not include time spent performing procedures. This medical document was created using an electronic medical record system with [employer] dictation system. Although this document has been carefully reviewed, there may still be some phonetic and typographical errors. These areas are purely typographical due to imperfections of the software programs, and do not reflect any compromise in the patient's medical care. Plan discussed with: Patient, Other (rn) My Orders Orders - BARBARA SAM NP Procedure Category Date Status Time Hydrocodone-Acet PHA 09/27/24 In Process 5/325mg Tab ([place] 09:15 Fluconazole PHA 09/28/24 In Process 200mg/100ml (Diflucan 10:00 Vancomycin PHA 09/27/24 In Process 750mg/150ml 18:00 Vancomycin,[facility] 09/29/24 Verified 05:00 Diltiazem Immediate PHA 09/27/24 In Process Releas Tab (Cardizem 22:00 Date of Service: Sep 28, 2024 Billing Provider: BARBARA SAM NP Common Visit Codes: [id number] INP/OBS CARE(HIGH) BARBARA SAM NP Sep 28, 2024 09:05
[2024-09-28] MEDS: NOREPINEPHRINE 8 MG/250ML KIT 250 ML IV SCH (09:30)
[2024-09-28] MEDS: DIGOXIN (250MCG/ML) 2 ML AMPULE IV ONE (09:32)
[2024-09-28 09:33] LABS: Base Excess 1.4 mmol/L (-2.0-3.0)
--- NOTE | 2024-09-28 10:00 | MEDREC ---
[facility] Intervention Section I [facility] Intervention: Review courses of therapy (DUE TO PROLONG QTc > 500 PLEASE CONSIDER D/C LEVOFLOXACIN OR SWITCHING TO ANOTHER ANTIBIOTIC - COMBINED USE OF DRUGS THAT PROLONG THE QTC INTERVAL LIKE FLUCONAZOLE AND LEVOFLOXACIN MAY INCREASE THE RISK FOR TOXICITIES ) LAURIE CHARLES PHARMACIST Sep 28, 2024 10:00
[2024-09-28] MEDS: METOPROLOL TARTRATE 1MG/1ML-5ML VIAL IV ONE ×2 (10:27)
[2024-09-28 14:39] LABS: Base Excess 1.1 mmol/L (-2.0-3.0)
[2024-09-28] MEDS: dilTIAZem 125mg/125ml BAG KIT 100 ML IV SCH (15:00)
[2024-09-28] MEDS: MORPHINE SULFATE INJ 2 MG/ml SYRG IV PRN (15:31)
[2024-09-28] MEDS: ONDANSETRON HCL 4 MG/2 ML VIAL IV PRN (19:48)
[2024-09-28] MEDS: ACETAMINOPHEN 650 MG RECT SUPP PR PRN (19:48)
--- NOTE | 2024-09-28 21:11 | DVHPN2 ---
Progress Note - Dictate Date Seen: Sep 28, 2024 Medical Necessity Reason Pt with a Central, PICC or Fol: Yes The following are medically ne: Atkinson Catheter Reason for atkinson catheter: Strict I&O Subjective Patient seen and examined at bedside. S/p extubation, on supplemental oxygen Overnight events reviewed. vital signs Vital Sign Date Time Temp Pulse Resp B/P (MAP) Pulse Ox O2 Delivery O2 Flow Rate FiO2 09/28/24 20:05 114 136/57 94 Facial BiPAP Mask 30 09/28/24 19:49 26 09/28/24 19:48 100.6 09/28/24 18:13 8.0 Total Intake and Output 09/27/24 09/27/24 09/28/24 15:00 23:00 07:00 Intake Total 46.07 ml 270.38 ml 187.97 ml Output Total 300 ml 400 ml Balance 46.07 ml -29.62 ml -212.03 ml medications Current Medications Medications Dose Ordered Sig/Maida Route Start Time Stop Time Status Last Admin Dose Admin Midazolam HCl 50 ml @ 1 mls/hr Q24H IV 09/24/24 07:45 09/25/24 16:10 3 MLS/HR Nitroglycerin 0.4 mg Q5MINP PRN SL 09/24/24 10:45 Morphine Sulfate 2 mg Q30M PRN IV 09/24/24 10:45 Vancomycin HCl 0 ml @ 0 mls/hr UD IV 09/24/24 10:45 Acetaminophen 500 mg Q8HP PRN PO 09/24/24 10:45 Ondansetron HCl 4 mg Q4HP PRN IV 09/24/24 10:45 09/28/24 19:48 4 MG Ipratropium [place] 0.5 mg Q6H NEB 09/24/24 12:00 09/28/24 18:13 0.5 MG Budesonide 0.5 mg BID NEB 09/24/24 22:00 09/28/24 18:13 0.5 MG Enoxaparin Sodium 40 mg DAILY SC 09/25/24 10:00 09/28/24 08:55 40 MG Pantoprazole Sodium 40 mg DAILY IV 09/25/24 10:00 09/28/24 08:55 40 MG Albuterol 2.5 mg Q6H NEB 09/24/24 12:00 09/28/24 18:13 2.5 MG Lidocaine 1 patch DAILY TOP 09/25/24 10:00 09/27/24 10:00 1 PATCH Enteral Nutritional Formula 1,000 ml 30ML/HR GT 09/25/24 10:00 Aspirin 81 mg DAILY PO 09/27/24 10:00 09/28/24 08:55 81 MG Levofloxacin 50 ml @ 50 mls/hr DAILY IV 09/27/24 10:00 09/28/24 08:56 50 MLS/HR Fentanyl Citrate 250 ml @ 2.5 mls/hr Q24H IV 09/26/24 23:45 Acetaminophen/ Hydrocodone Bitart 1 tab Q6HPRN PRN PO 09/27/24 09:15 09/28/24 07:43 1 TAB Fluconazole 100 ml @ 100 mls/hr DAILY IV 09/28/24 10:00 09/28/24 08:56 100 MLS/HR Vancomycin HCl 150 ml @ 150 mls/hr Q12H IV 09/27/24 18:00 09/28/24 18:00 150 MLS/HR Norepinephrine Bitartrate 250 ml @ 1.875 mls/ hr Q24H IV 09/28/24 09:30 Diltiazem HCl 100 ml @ 5 mls/hr Q20H IV 09/28/24 15:00 09/28/24 15:00 5 MLS/HR Morphine Sulfate 1 mg Q4HP PRN IV 09/28/24 15:00 09/28/24 19:49 1 MG Acetaminophen 650 mg Q6HP PRN HI 09/28/24 19:30 09/28/24 19:48 650 MG objective Gen.: Patient lying in bed in no apparent distress. On supplemental oxygen. Head: Normocephalic, atraumatic. Eyes: EOMI/PERRLA. Ears: Normal hearing. Normal anatomy. Neck/trachea: Trachea midline, supple. Nose: Normal external anatomy. Mouth: Moist mucous membranes. Chest: Decreased air entry bilaterally. No wheezing or rhonchi. Cardiovascular: Positive S1, positive S2. Regular rate and rhythm. Abdomen: Positive bowel sounds in all 4 quadrants. Soft, non-tender, non- distended. : Deferred. Rectal: Deferred. Skin: Warm, dry. Intact. Extremities: 2+ radial pulses bilaterally. No lower extremity edema. Neuro: Awake, alert, oriented x3. No gross motor or sensory deficits. Cranial nerves II through XII intact. Gait not assessed. laboratory and microbiology Laboratory Tests 09/28/24 03:46 Test 09/28/24 03:46 Range/Units Serum Glucose 113 H 74-106 mg/dL Assessment/Plan Impression: Acute hypoxic respiratory failure On mechanical ventilator Septic shock Multifocal pneumonia Atelectasis Events: Patient tolerated CPAP and was extubated uneventfully, placed on aerosol Coolmist. Monitor heart rate d/t tachycardia. Started digoxin. On pressors (Levophed 1 mcg/min) for hemodynamic support Titrate to keep mean arterial pressure greater than 65 mmHg. Continue antibiotics - levofloxacin and vancomycin Swallow eval. Rest of plan as noted below Plan: s/p extubation. On supplemental oxygen Bronchodilators. Continue antibiotics. F/u cultures. On pressors (Levophed) for hemodynamic support Titrate to keep mean arterial pressure greater than 65 mmHg. Monitor renal function Monitor electrolytes. Supplement as necessary. Monitor ins and outs. Maintain euvolemia. Tube feeds for nutritional support GI prophylaxis. DVT prophylaxis. Prognosis: Poor given patient's multiple co-morbidities. Condition: Critical Rest of plan per hospitalist and other consultants. A total of 35 minutes of critical care time was spent reviewing the patient record, examining the patient, making a diagnostic and therapeutic plan, discussing this plan with the medical personnel, following up on diagnostic studies and following the patient for clinical stability excluding any and all procedures. At least 50% of this time was spent in direct, [id number] contact. Thank you, Shane Arboleda NP, for allowing me to participate in this patient's care. Further recommendations will depend on the patient's clinical course. Please do not hesitate to contact me if you have any questions or concerns. This medical document was created using an electronic medical record system with [employer] dictation system. Although these documentations are being carefully reviewed, there may still be some phonetic and typographical changes. The errors are purely typographical, due to imperfection on the software program, and do not reflect any compromise in the patient's medical care. Dietary Evaluation Review Comments: 1. Increase TF to 45ml/hr to provide 1152 Kcal 53g Protein 775ml Free Water which meet's pt's needs Expected Outcomes/Goals: 1. Pt will consume >75% of estimated needs within 3-5 days Plan discussed with: Other (RADHA Gibbons) Critical Care Time(min): 35 JOHN ESTRADA MD Sep 28, 2024 21:11
[2024-09-29] VITALS (106 sets, daily range): BP systolic 109–143; BP diastolic 39–122; PULSE 90–128; RESP 10–38; TEMP 97.8–100.2; O2SAT 73–100
[2024-09-29 04:07] LABS: Chloride 102 mmol/L (98-107); Potassium 3.6 mmol/L (3.5-5.1); Sodium 137 mmol/L (136-145)
[2024-09-29 04:08] LABS: Anion Gap 10 (5-15); Calcium 10.4 mg/dL (8.7-10.4); Carbon Dioxide 25 mmol/L (20-31)
[2024-09-29 04:13] LABS: BUN/Creatinine Ratio 16.7 (10.0-20.0); Blood Urea Nitrogen 9 mg/dL (9-23); Glucose 80 mg/dL (74-106)
[2024-09-29 07:20] LABS: Platelet Count (auto) 284 10^3/uL (140-450); Red Blood Cells 2.42 10^6/uL (4.0-5.20)
[2024-09-29 07:21] LABS: Hematocrit 24.6 % (36.0-46.0); Hemoglobin 8.1 g/dL (12.2-16.2); Mean Corpuscular Hemoglobin 33.4 pg (28.0-32.0); Mean Corpuscular Hgb Conc. 32.8 g/dL (32.0-36.0); Mean Corpuscular Volume 101.9 fL (80.0-100.0); Red Cell Distribution Width 15.3 % (11.8-14.3); White Blood Cell 12.9 10^3/uL (4.4-10.8)
[2024-09-29 07:24] LABS: Band Neutrophils % (manual) 0; Basophils % (manual) 0 (0.0-2.0); Blast Cells 0; Metamyelocytes % 0; Myelocytes % 0; Promyelocytes % 0; Reactive Lymphocytes 0
--- NOTE | 2024-09-29 07:30 | DVHPN2 ---
Progress Note Date Seen: Sep 29, 2024 Medical Necessity Reason Pt with a Central, PICC or Fol: Yes The following are medically ne: Atkinson Catheter Reason for atkinson catheter: Strict I&O Subjective Other Systems: HR was elevated yesterday but improved today extubated Objective vital signs Vital Sign Date Time Temp Pulse Resp B/P (MAP) Pulse Ox O2 Delivery O2 Flow Rate FiO2 09/29/24 06:28 94 26 95 09/29/24 06:18 Nasal Cannula* 4 36 09/29/24 06:00 99.9 127/74 (91) 211.8 Total Intake and Output 09/28/24 09/28/24 09/29/24 14:59 22:59 06:59 Intake Total 17.34 ml 215 ml 80 ml Output Total 725 ml 700 ml Balance 17.34 ml -510 ml -620 ml medications Current Medications Medications Dose Ordered Sig/Maida Route Start Time Stop Time Status Last Admin Dose Admin Midazolam HCl 50 ml @ 1 mls/hr Q24H IV 09/24/24 07:45 09/25/24 16:10 3 MLS/HR Nitroglycerin 0.4 mg Q5MINP PRN SL 09/24/24 10:45 Morphine Sulfate 2 mg Q30M PRN IV 09/24/24 10:45 Vancomycin HCl 0 ml @ 0 mls/hr UD IV 09/24/24 10:45 Acetaminophen 500 mg Q8HP PRN PO 09/24/24 10:45 Ondansetron HCl 4 mg Q4HP PRN IV 09/24/24 10:45 09/28/24 19:48 4 MG Ipratropium [place] 0.5 mg Q6H NEB 09/24/24 12:00 09/29/24 06:17 0.5 MG Budesonide 0.5 mg BID NEB 09/24/24 22:00 09/29/24 06:17 0.5 MG Enoxaparin Sodium 40 mg DAILY SC 09/25/24 10:00 09/28/24 08:55 40 MG Pantoprazole Sodium 40 mg DAILY IV 09/25/24 10:00 09/28/24 08:55 40 MG Albuterol 2.5 mg Q6H NEB 09/24/24 12:00 09/29/24 06:17 2.5 MG Lidocaine 1 patch DAILY [facility] 09/25/24 10:00 09/27/24 10:00 1 PATCH Enteral Nutritional Formula 1,000 ml 30ML/HR GT 09/25/24 10:00 Aspirin 81 mg DAILY PO 09/27/24 10:00 09/28/24 08:55 81 MG Levofloxacin 50 ml @ 50 mls/hr DAILY IV 09/27/24 10:00 09/28/24 08:56 50 MLS/HR Fentanyl Citrate 250 ml @ 2.5 mls/hr Q24H IV 09/26/24 23:45 Acetaminophen/ Hydrocodone Bitart 1 tab Q6HPRN PRN PO 09/27/24 09:15 09/28/24 07:43 1 TAB Fluconazole 100 ml @ 100 mls/hr DAILY IV 09/28/24 10:00 09/28/24 08:56 100 MLS/HR Vancomycin HCl 150 ml @ 150 mls/hr Q12H IV 09/27/24 18:00 09/28/24 18:00 150 MLS/HR Norepinephrine Bitartrate 250 ml @ 1.875 mls/ hr Q24H IV 09/28/24 09:30 Diltiazem HCl 100 ml @ 5 mls/hr Q20H IV 09/28/24 15:00 09/29/24 02:47 10 MLS/HR Morphine Sulfate 1 mg Q4HP PRN IV 09/28/24 15:00 09/29/24 04:48 1 MG Acetaminophen 650 mg Q6HP PRN [place] 09/28/24 19:30 09/28/24 19:48 650 MG Examination: GENERAL:Abnormal, HEENT:Abnormal, LUNGS:Abnormal, CVS:Abnormal, ABDOMEN:Abnormal laboratory and microbiology Laboratory Tests 09/29/24 03:40 Test 09/29/24 03:40 Range/Units Serum Glucose 80 74-106 mg/dL Microbiology Date/Time Source Procedure Growth Status 09/24/24 17:00 Nose MRSA Screen - Final Complete 09/24/24 09:16 Blood Blood Culture - Preliminary NO GROWTH AFTER 72 HOURS OF INCUBATION. Resulted 09/24/24 08:39 Urine - [place] Urine Culture - Preliminary Yeast, not Dena albicans Resulted 09/24/24 08:34 Sputum Gram Stain - Final Resulted 09/24/24 08:34 Sputum Respiratory Culture - Preliminary Resulted Problem List/Assessment/Plan Problem List/Assessment/Plan resp failure failure to thrive recent pna tachycardia PACs off cardizem ?afib, consider goals of care pressors as needed --on low dose currently SR junctional tachycardia pt getting cpap trial prn BB iv digoxin x 1 now on cardizem gtt--wean off as needed Plan discussed with: Patient Dietary Evaluation Review Comments: 1. Increase TF to 45ml/hr to provide 1152 Kcal 53g Protein 775ml Free Water which meet's pt's needs Expected Outcomes/Goals: 1. Pt will consume >75% of estimated needs within 3-5 days Date of Service: Sep 29, 2024 Billing Provider: KARMA BAUMAN MD Common Visit Codes: NOT BILLABLE KARMA BAUMAN MD Sep 29, 2024 07:30
[2024-09-29 07:49] LABS: Eosinophils % (manual) 2 (0-7); Lymphocytes % (manual) 13 (10.0-50.0); Monocytes % (manual) 10 (0-12)
[2024-09-29 07:50] LABS: Macrocytosis Slight; Platelet Estimate Adequate
[2024-09-29] MEDS: MORPHINE SULFATE INJ 2 MG/ml SYRG IV PRN (11:32)
[2024-09-29] MEDS: HYDROcodone-ACET 5/325MG TAB PO PRN (20:38)
--- NOTE | 2024-09-29 20:59 | DVHPN2 ---
Progress Note - Dictate Date Seen: Sep 29, 2024 Medical Necessity Reason Pt with a Central, PICC or Fol: Yes The following are medically ne: Atkinson Catheter Reason for atkinson catheter: Strict I&O Subjective Patient seen and examined at bedside. Remains on supplemental oxygen Overnight events reviewed. vital signs Vital Sign Date Time Temp Pulse Resp B/P (MAP) Pulse Ox O2 Delivery O2 Flow Rate FiO2 09/29/24:24 100 21 92 09/29/24 19:00 141/58 (85) 09/29/24 18:11 Oxymizer 10 N/A 09/29/24 16:15 98.2 98.2 Total Intake and Output 09/28/24 09/28/24 09/29/24 15:00 23:00 07:00 Intake Total 12.42 ml 225 ml 80 ml Output Total 725 ml 700 ml Balance 12.42 ml -500 ml -620 ml medications Current Medications Medications Dose Ordered Sig/Maida Route Start Time Stop Time Status Last Admin Dose Admin Nitroglycerin 0.4 mg Q5MINP PRN SL 09/24/24 10:45 Morphine Sulfate 2 mg Q30M PRN IV 09/24/24 10:45 09/29/24 11:32 2 MG Acetaminophen 500 mg Q8HP PRN PO 09/24/24 10:45 Ondansetron HCl 4 mg Q4HP PRN IV 09/24/24 10:45 09/28/24 19:48 4 MG Ipratropium [place] 0.5 mg Q6H NEB 09/24/24 12:00 09/29/24 19:17 0.5 MG Budesonide 0.5 mg BID NEB 09/24/24 22:00 09/29/24 19:17 0.5 MG Enoxaparin Sodium 40 mg DAILY SC 09/25/24 10:00 09/29/24 10:02 40 MG Albuterol 2.5 mg Q6H NEB 09/24/24 12:00 09/29/24 19:17 2.5 MG Lidocaine 1 patch DAILY TOP 09/25/24 10:00 09/29/24 10:36 1 PATCH Aspirin 81 mg DAILY PO 09/27/24 10:00 09/28/24 08:55 81 MG Levofloxacin 50 ml @ 50 mls/hr DAILY IV 09/27/24 10:00 09/29/24 10:46 50 MLS/HR Acetaminophen/ Hydrocodone Bitart 1 tab Q6HPRN PRN PO 09/27/24 09:15 09/28/24 07:43 1 TAB Fluconazole 100 ml @ 100 mls/hr DAILY IV 09/28/24 10:00 09/29/24 09:55 100 MLS/HR Norepinephrine Bitartrate 250 ml @ 1.875 mls/ hr Q24H IV 09/28/24 09:30 Diltiazem HCl 100 ml @ 5 mls/hr Q20H IV 09/28/24 15:00 09/29/24 14:27 10 MLS/HR Morphine Sulfate 1 mg Q4HP PRN IV 09/28/24 15:00 09/29/24 04:48 1 MG Acetaminophen 650 mg Q6HP PRN ID 09/28/24 19:30 09/28/24 19:48 650 MG Pantoprazole Sodium 40 mg DAILY IV 09/30/24 10:00 Acetaminophen/ Hydrocodone Bitart 1 tab Q4HPRN PRN PO 09/29/24 16:00 09/29/24 20:38 1 TAB Diltiazem HCl 30 mg Q8HR PO 09/29/24 22:00 objective Gen.: Patient lying in bed in no apparent distress. On supplemental oxygen. Head: Normocephalic, atraumatic. Eyes: EOMI/PERRLA. Ears: Normal hearing. Normal anatomy. Neck/trachea: Trachea midline, supple. Nose: Normal external anatomy. Mouth: Moist mucous membranes. Chest: Decreased air entry bilaterally. No wheezing or rhonchi. Cardiovascular: Positive S1, positive S2. Regular rate and rhythm. Abdomen: Positive bowel sounds in all 4 quadrants. Soft, non-tender, non- distended. : Deferred. Rectal: Deferred. Skin: Warm, dry. Intact. Extremities: 2+ radial pulses bilaterally. No lower extremity edema. Neuro: Awake, alert, oriented x3. No gross motor or sensory deficits. Cranial nerves II through XII intact. Gait not assessed. laboratory and microbiology Laboratory Tests 09/29/24 03:40 Test 09/29/24 03:40 Range/Units Serum Glucose 80 74-106 mg/dL Assessment/Plan Impression: Acute hypoxic respiratory failure On mechanical ventilator Septic shock Multifocal pneumonia Atelectasis Events: Remains on supplemental oxygen, 10 LPM Oxymizer Taper O2 as tolerated Pain control Avoid oversedation Incentive spirometry Off Levophed Continue antibiotics - levofloxacin Patient awaiting swallow eval. Cardiology recs appreciated. Continue diltiazem drip. Head of bed elevation Aspiration precautions Rest of plan as noted below Plan: s/p extubation. On supplemental oxygen Bronchodilators. Continue antibiotics. F/u cultures. Pressors as necessary for hemodynamic support Titrate to keep mean arterial pressure greater than 65 mmHg. Monitor renal function Monitor electrolytes. Supplement as necessary. Monitor ins and outs. Maintain euvolemia. Tube feeds for nutritional support GI prophylaxis. DVT prophylaxis. Prognosis: Poor given patient's multiple co-morbidities. Condition: Critical Rest of plan per hospitalist and other consultants. A total of 35 minutes of critical care time was spent reviewing the patient record, examining the patient, making a diagnostic and therapeutic plan, discussing this plan with the medical personnel, following up on diagnostic studies and following the patient for clinical stability excluding any and all procedures. At least 50% of this time was spent in direct, [id number] contact. Thank you, Shane Arboleda NP, for allowing me to participate in this patient's care. Further recommendations will depend on the patient's clinical course. Please do not hesitate to contact me if you have any questions or concerns. This medical document was created using an electronic medical record system with [employer] dictation system. Although these documentations are being carefully reviewed, there may still be some phonetic and typographical changes. The errors are purely typographical, due to imperfection on the software program, and do not reflect any compromise in the patient's medical care. Dietary Evaluation Review Comments: 1. Increase TF to 45ml/hr to provide 1152 Kcal 53g Protein 775ml Free Water which meet's pt's needs Expected Outcomes/Goals: 1. Pt will consume >75% of estimated needs within 3-5 days Plan discussed with: Other (RADHA Chun) Critical Care Time(min): 35 JOHN ESTRADA MD Sep 29, 2024 20:59
[2024-09-29] MEDS: dilTIAZem HCL 60 MG TAB PO SCH (21:36)
[2024-09-30] VITALS (68 sets, daily range): BP systolic 119–153; BP diastolic 52–102; PULSE 95–132; RESP 17–35; TEMP 97.6–98.3; O2SAT 83–100
[2024-09-30 03:48] LABS: Chloride 102 mmol/L (98-107); Potassium 3.4 mmol/L (3.5-5.1); Sodium 140 mmol/L (136-145)
[2024-09-30 03:49] LABS: Anion Gap 11 (5-15); Carbon Dioxide 27 mmol/L (20-31)
[2024-09-30 03:51] LABS: Basophils # (auto) 0 10 ^3/uL (0-0.2); Hemoglobin 8.5 g/dL (12.2-16.2); Monocytes # (auto) 1.7 10 ^3/uL (0-1.3)
[2024-09-30 03:54] LABS: Blood Urea Nitrogen 11 mg/dL (9-23); Glucose 93 mg/dL (74-106)
[2024-09-30 04:04] LABS: Basophils % (auto) 0.2 % (0.0-2.0); Eosinophils # (auto) 0.2 10 ^3/uL (0-0.8); Eosinophils % (auto) 1.3 % (0.0-7.0); Hematocrit 25.5 % (36.0-46.0); Lymphocytes % (auto) 8.5 % (10.0-50.0); Mean Corpuscular Hemoglobin 33.9 pg (28.0-32.0); Mean Corpuscular Hgb Conc. 33.4 g/dL (32.0-36.0); Mean Corpuscular Volume 101.8 fL (80.0-100.0); Monocytes % (auto) 13.6 % (0.0-12.0); Neutrophils # (auto) 9.3 10 ^3/uL (1.6-8.6); Neutrophils % (auto) 76.4 % (37.0-80.0); Platelet Count (auto) 273 10^3/uL (140-450); Red Blood Cells 2.51 10^6/uL (4.0-5.20); Red Cell Distribution Width 15.4 % (11.8-14.3); White Blood Cell 12.2 10^3/uL (4.4-10.8)
--- NOTE | 2024-09-30 05:18 | DVH ---
CHEST RADIOGRAPH Indication: PNa Technique: Single frontal view of the chest was obtained COMPARISON: XY CHEST XRAY 1 VIEW on DOS: 09/27/24, XY CHEST PORTABLE on DOS: 09/26/24, XY CHEST DOMITILA BLE on DOS: 09/25/24 FINDINGS: Lines and Tubes: Right central venous catheter in satisfactory position. Lungs: Pulmonary edema Pleura: No effusion. No pneumothorax. Cardiomediastinal contours: Cardiomegaly Bones: Unremarkable IMPRESSION: Unchanged pulmonary edema.
[2024-09-30] MEDS: PANTOPRAZOLE 40 MG/10 ML VIAL INJ IV SCH (10:10)
--- NOTE | 2024-09-30 12:29 | DVHPN2 ---
Subjective Patient more awake, not following command Reviewed: Care Plan, H&P, Labs, Medications Changes from previous H/P or p: No Changes General: Per HPI Objective Vitals Vital Signs Date Time Temp Pulse Resp B/P (MAP) Pulse Ox O2 Delivery O2 Flow Rate FiO2 09/30/24 10:45 112 28 96 09/30/24 10:10 Oxymizer 10 N/A 09/30/24 08:30 98.0 98.0 Intake/Output Intake and Output 09/30/24 07:00 Intake Total 545 ml Output Total 880 ml Balance -335 ml Intake Oral 200 ml IV Total 345 ml Output Urine Total 880 ml General Appearance: Alert, Oriented X3, Other (Chemically sedated) HEENT: Atraumatic, PERRLA Lungs: Clear to auscultation, Normal air movement, Other (Mechanical ventilator) Cardiovascular: Normal S1, Normal S2 Abdomen: Normal bowel sounds, Soft Genitourinary: No Apparent Abnormalities Musculoskeletal: Other (No motor response) Neuro: Other (Sedated) Skin: Dry, Intact Psych/Mental Status: Other (Sedated) Medications Current Medications Medications Dose Ordered Sig/Maida Route Start Time Stop Time Status Last Admin Dose Admin Nitroglycerin 0.4 mg Q5MINP PRN SL 09/24/24 10:45 Morphine Sulfate 2 mg Q30M PRN IV 09/24/24 10:45 09/29/24 11:32 2 MG Acetaminophen 500 mg Q8HP PRN PO 09/24/24 10:45 Ondansetron HCl 4 mg Q4HP PRN IV 09/24/24 10:45 09/28/24 19:48 4 MG Ipratropium [place] 0.5 mg Q6H NEB 09/24/24 12:00 09/30/24 07:20 0.5 MG Enoxaparin Sodium 40 mg DAILY SC 09/25/24 10:00 09/30/24 10:10 40 MG Lidocaine 1 patch DAILY TOP 09/25/24 10:00 09/30/24 10:10 1 PATCH Aspirin 81 mg DAILY PO 09/27/24 10:00 09/30/24 10:10 81 MG Levofloxacin 50 ml @ 50 mls/hr DAILY IV 09/27/24 10:00 09/30/24 11:32 50 MLS/HR Acetaminophen/ Hydrocodone Bitart 1 tab Q6HPRN PRN PO 09/27/24 09:15 09/28/24 07:43 1 TAB Fluconazole 100 ml @ 100 mls/hr DAILY IV 09/28/24 10:00 09/30/24 10:10 100 MLS/HR Norepinephrine Bitartrate 250 ml @ 1.875 mls/ hr Q24H IV 09/28/24 09:30 Morphine Sulfate 1 mg Q4HP PRN IV 09/28/24 15:00 09/29/24 04:48 1 MG Acetaminophen 650 mg Q6HP PRN MA 09/28/24 19:30 09/28/24 19:48 650 MG Pantoprazole Sodium 40 mg DAILY IV 09/30/24 10:00 09/30/24 10:10 40 MG Acetaminophen/ Hydrocodone Bitart 1 tab Q4HPRN PRN PO 09/29/24 16:00 09/29/24 20:38 1 TAB Diltiazem HCl 60 mg Q8HR PO 09/30/24 14:00 Enteral Nutritional Formula 4 oz TIDWM PO 09/30/24 12:00 Budesonide 0.5 mg BID NEB 09/30/24 22:00 Furosemide 20 mg DAILY IV 10/01/24 10:00 Levalbuterol HCl 1.25 mg Q6HR NEB 09/30/24 18:00 Potassium Chloride 100 ml @ 50 mls/hr Q2H IV 09/30/24 12:15 09/30/24 16:14 Laboratory Results Laboratory Tests 09/30/24 03:17 Chemistry Test 09/30/24 03:17 Calcium Level 11.0 mg/dL (8.7-10.4) H Urinalysis Test 09/24/24 12:00 Urine Color Light-brown (Yellow) Urine Clarity Ex.turbid (Clear) Urine pH 5.0 (5.0-9.0) Urine Specific [place] 1.026 (1.001-1.035) Urine Protein 1+ (Negative) H Urine Ketones Negative (Negative) Urine Blood 1+ /uL (Negative) H Urine Nitrite Negative (Negative) Urine Bilirubin Negative (Negative) Urine Urobilinogen Normal mg/dL (Negative) Urine Leukocyte Esterase Negative /uL (Negative) Urine RBC 26 /hpf (0 - 4) Urine WBC 26 /hpf (0 - 5) Urine Squamous Epithelial Cells Mod /hpf (<5) Urine Amorphous Crystals Few /hpf (None Seen) Urine Bacteria Mod /hpf (None Seen) H Urine Hyaline Casts Few /lpf (0 - 2) Urine Mucus Few (None Seen) Urine Glucose Normal mg/dL (Normal) Microbiology Microbiology Date/Time Source Procedure Growth Status 09/24/24 17:00 Nose MRSA Screen - Final Complete 09/24/24 09:16 Blood Blood Culture - Final NO GROWTH AFTER 5 DAYS OF INCUBATION. Complete 09/24/24 08:39 Urine - [place] Urine Culture - Final Yeast, not Dena albicans Complete 09/24/24 08:34 Sputum Gram Stain - Final Complete 09/24/24 08:34 Respiratory Culture - Final Yeast, not Dena albicans Complete Labs and/or images reviewed: Labs reviewed by me, Image(s) reviewed by me Assessment/Plan Assessment/Plan Impression: -acute hypoxic respiratory failure -pneumonia, possibly hospital-acquired -rheumatoid arthritis -septic shock -NSTEMI, probably type 2 -thoracic spinal fractures -atrial fibrillation with rapid ventricular rate Plan: -events: No events overnight. Patient continues to be in a fib with RVR. Cardizem drip has been stopped. Patient tolerating p.o.. Poor inspiratory effort -antibiotic therapy: Continue Levaquin and Diflucan -bronchodilators : Change to Xopenex, add Pulmicort. EzPAP with treatments -cardiology consultation: Recommendations reviewed -PUD, DVT prophylaxis -Continue pain management with lidocaine patch and p.o. [place] -increase Cardizem extended release to 60 mg q.8 hours -repeat labs, chest x-ray, ABG in a.m. -discussed plan of care with patient's son was bedside. All questions answered. Critical care time spent with patient discussing and formulating plan of care: 40 minutes. This does not include time spent performing procedures. This medical document was created using an electronic medical record system with [employer] dictation system. Although this document has been carefully reviewed, there may still be some phonetic and typographical errors. These areas are purely typographical due to imperfections of the software programs, and do not reflect any compromise in the patient's medical care. Plan discussed with: Patient, Other (RN) My Orders Orders - BARBARA SAM NP Procedure Category Date Status Time Pureed DIET 09/29/24 Transmitted Dinner Hydrocodone-Acet PHA 09/29/24 In Process 5/325mg Tab ([place] 16:00 Communication Order ORDERS 09/29/24 Transmitted 16:50 Diltiazem Immediate PHA 09/30/24 In Process Releas Tab (Cardizem 14:00 Nutritional PHA 09/30/24 In Process Supplements (Ensure 12:00 Budesonide PHA 09/30/24 In Process (Inhalation) 22:00 Ez-Pap RT 09/30/24 Transmitted 10:07 Furosemide Injection PHA 10/01/24 In Process (Lasix Injection) 10:00 Levalbuterol Hcl PHA 09/30/24 In Process (Xopenex Medneb) 18:00 Magnesium Sulfate PHA 09/30/24 In Process 1gm/100ml 12:15 Potassium Chl PHA 09/30/24 In Process 20meq/100ml 12:15 Date of Service: Sep 30, 2024 Billing Provider: BARBARA SAM NP Common Visit Codes: [id number] CARE 30-74 MIN BARBARA SAM NP Sep 30, 2024 12:29
[2024-09-30] MEDS: MAGNESIUM SULFATE 1GM/100ML 100 ML IV ONE (12:32)
[2024-09-30] MEDS: POTASSIUM CHL 20MEQ/100ML 100 ML IV SCH (12:45)
[2024-09-30] MEDS: Ensure Pudding Vanilla 4 oz Cup PO SCH (12:50)
[2024-09-30] MEDS: methylPREDNISolone SOD SUCC 40 MG/ML VL IV SCH (14:16)
[2024-09-30] MEDS: dilTIAZem HCL 60 MG TAB PO SCH (14:17)
[2024-09-30] MEDS: LEVALBUTEROL HCL 1.25 MG/3 ML NEB NEB SCH (18:57)
[2024-09-30] MEDS: BUDESONIDE (INHALATION) 0.5 MG/2 ML NEB NEB SCH (18:57)
--- NOTE | 2024-09-30 20:57 | DVHPN2 ---
Progress Note - Dictate Date Seen: Sep 30, 2024 Medical Necessity Reason Pt with a Central, PICC or Fol: Yes The following are medically ne: Atkinson Catheter Reason for atkinson catheter: Strict I&O Subjective Patient seen and examined at bedside. Remains on supplemental oxygen Overnight events reviewed. vital signs Vital Sign Date Time Temp Pulse Resp B/P (MAP) Pulse Ox O2 Delivery O2 Flow Rate FiO2 09/30/24 19:09 105 20 99 09/30/24 19:00 150/81 (104) 09/30/24 18:57 Oxymizer 10.0 09/30/24 18:57 N/A 09/30/24 16:00 98.3 98.3 Total Intake and Output 09/29/24 09/29/24 09/30/24 15:00 23:00 07:00 Intake Total 230 ml 175 ml 140 ml Output Total 480 ml 400 ml Balance 230 ml -305 ml -260 ml medications Current Medications Medications Dose Ordered Sig/Maida Route Start Time Stop Time Status Last Admin Dose Admin Nitroglycerin 0.4 mg Q5MINP PRN SL 09/24/24 10:45 Morphine Sulfate 2 mg Q30M PRN IV 09/24/24 10:45 09/29/24 11:32 2 MG Acetaminophen 500 mg Q8HP PRN PO 09/24/24 10:45 Ondansetron HCl 4 mg Q4HP PRN IV 09/24/24 10:45 09/28/24 19:48 4 MG Ipratropium [place] 0.5 mg Q6H NEB 09/24/24 12:00 09/30/24 18:57 0.5 MG Enoxaparin Sodium 40 mg DAILY SC 09/25/24 10:00 09/30/24 10:10 40 MG Lidocaine 1 patch DAILY TOP 09/25/24 10:00 09/30/24 10:10 1 PATCH Aspirin 81 mg DAILY PO 09/27/24 10:00 09/30/24 10:10 81 MG Levofloxacin 50 ml @ 50 mls/hr DAILY IV 09/27/24 10:00 09/30/24 11:32 50 MLS/HR Acetaminophen/ Hydrocodone Bitart 1 tab Q6HPRN PRN PO 09/27/24 09:15 09/30/24 17:22 1 TAB Fluconazole 100 ml @ 100 mls/hr DAILY IV 09/28/24 10:00 09/30/24 10:10 100 MLS/HR Norepinephrine Bitartrate 250 ml @ 1.875 mls/ hr Q24H IV 09/28/24 09:30 Morphine Sulfate 1 mg Q4HP PRN IV 09/28/24 15:00 09/29/24 04:48 1 MG Acetaminophen 650 mg Q6HP PRN DC 09/28/24 19:30 09/28/24 19:48 650 MG Pantoprazole Sodium 40 mg DAILY IV 09/30/24 10:00 09/30/24 10:10 40 MG Acetaminophen/ Hydrocodone Bitart 1 tab Q4HPRN PRN PO 09/29/24 16:00 09/29/24 20:38 1 TAB Diltiazem HCl 60 mg Q8HR PO 09/30/24 14:00 09/30/24 14:17 60 MG Enteral Nutritional Formula 4 oz TIDWM PO 09/30/24 12:00 09/30/24 18:45 4 OZ Budesonide 0.5 mg BID NEB 09/30/24 22:00 09/30/24 18:57 0.5 MG Furosemide 20 mg DAILY IV 10/01/24 10:00 Levalbuterol HCl 1.25 mg Q6HR NEB 09/30/24 18:00 09/30/24 18:57 1.25 MG Methylprednisolone Sodium Succinate 40 mg DAILY IV 09/30/24 12:15 09/30/24 14:16 40 MG objective Gen.: Patient lying in bed in no apparent distress. On supplemental oxygen. Head: Normocephalic, atraumatic. Eyes: EOMI/PERRLA. Ears: Normal hearing. Normal anatomy. Neck/trachea: Trachea midline, supple. Nose: Normal external anatomy. Mouth: Moist mucous membranes. Chest: Decreased air entry bilaterally. No wheezing or rhonchi. Cardiovascular: Positive S1, positive S2. Regular rate and rhythm. Abdomen: Positive bowel sounds in all 4 quadrants. Soft, non-tender, non- distended. : Deferred. Rectal: Deferred. Skin: Warm, dry. Intact. Extremities: 2+ radial pulses bilaterally. No lower extremity edema. Neuro: Awake, alert, oriented x3. No gross motor or sensory deficits. Cranial nerves II through XII intact. Gait not assessed. laboratory and microbiology Laboratory Tests 09/30/24 03:17 Test 09/30/24 03:17 Range/Units Serum Glucose 93 74-106 mg/dL Assessment/Plan Impression: Acute hypoxic respiratory failure On mechanical ventilator Septic shock Multifocal pneumonia Atelectasis Events: Remains on supplemental oxygen, 10 LPM Oxymizer Taper O2 as tolerated CPAP PRN - EZPAP w/ bronchodilator treatments. Off Levophed Continue diltiazem drip. Pain control Avoid oversedation Incentive spirometry Continue antibiotics - levofloxacin Continue bronchodilators Head of bed elevation Aspiration precautions Nutritional support Diurese as tolerated Monitor renal function Updated family at bedside. Rest of plan as noted below Plan: s/p extubation. Supplemental oxygen, 10 LPM Oxymizer Taper O2 as tolerated CPAP PRN - EZPAP w/ bronchodilator treatments. Bronchodilators. Continue antibiotics. F/u cultures. Pressors as necessary for hemodynamic support Titrate to keep mean arterial pressure greater than 65 mmHg. Monitor renal function Monitor electrolytes. Supplement as necessary. Monitor ins and outs. Maintain euvolemia. Tube feeds for nutritional support GI prophylaxis. DVT prophylaxis. Prognosis: Poor given patient's multiple co-morbidities. Condition: Critical Rest of plan per hospitalist and other consultants. A total of 35 minutes of critical care time was spent reviewing the patient record, examining the patient, making a diagnostic and therapeutic plan, discussing this plan with the medical personnel, following up on diagnostic studies and following the patient for clinical stability excluding any and all procedures. At least 50% of this time was spent in direct, [id number] contact. Thank you, Shane Arboleda NP, for allowing me to participate in this patient's care. Further recommendations will depend on the patient's clinical course. Please do not hesitate to contact me if you have any questions or concerns. This medical document was created using an electronic medical record system with [employer] dictation system. Although these documentations are being carefully reviewed, there may still be some phonetic and typographical changes. The errors are purely typographical, due to imperfection on the software program, and do not reflect any compromise in the patient's medical care. Dietary Evaluation Review Comments: 1. Increase TF to 45ml/hr to provide 1152 Kcal 53g Protein 775ml Free Water which meet's pt's needs Expected Outcomes/Goals: 1. Pt will consume >75% of estimated needs within 3-5 days Plan discussed with: Other (RADHA Chun) Critical Care Time(min): 35 JOHN ESTRADA MD Sep 30, 2024 20:57
[2024-09-30] MEDS: MELATONIN 5 MG TAB PO SCH (22:04)
[2024-09-30] MEDS: MELATONIN 5 MG TAB ONE (22:04)
[2024-10-01] VITALS (46 sets, daily range): BP systolic 108–158; BP diastolic 58–110; PULSE 96–124; RESP 13–34; TEMP 97.8–99; O2SAT 92–100
[2024-10-01 03:53] LABS: Hematocrit 25.9 % (36.0-46.0); Hemoglobin 8.7 g/dL (12.2-16.2); Mean Corpuscular Hgb Conc. 33.7 g/dL (32.0-36.0); Mean Corpuscular Volume 100.7 fL (80.0-100.0); Platelet Count (auto) 308 10^3/uL (140-450); Red Blood Cells 2.57 10^6/uL (4.0-5.20); Red Cell Distribution Width 15.8 % (11.8-14.3); White Blood Cell 8.5 10^3/uL (4.4-10.8)
[2024-10-01 04:00] LABS: Calcium 11.5 mg/dL (8.7-10.4); Chloride 104 mmol/L (98-107); Sodium 141 mmol/L (136-145)
[2024-10-01 04:01] LABS: Anion Gap 11 (5-15); Carbon Dioxide 26 mmol/L (20-31)
[2024-10-01 04:07] LABS: BUN/Creatinine Ratio 25.9 (10.0-20.0); Blood Urea Nitrogen 15 mg/dL (9-23); Glucose 135 mg/dL (74-106)
[2024-10-01 04:09] LABS: Basophils % (manual) 0 (0.0-2.0); Blast Cells 0; Eosinophils % (manual) 0 (0-7); Metamyelocytes % 0; Myelocytes % 0; Promyelocytes % 0; Reactive Lymphocytes 0
--- NOTE | 2024-10-01 04:56 | DVH ---
CHEST RADIOGRAPH Indication: PNA Technique: Single frontal view of the chest was obtained Comparison: XY CHEST PORTABLE on DOS: 09/30/24 FINDINGS: Lines and Tubes: Right central venous catheter terminates in the superior cavoatrial junction. Lungs: Bibasilar opacities. Interstitial prominence. Pleura: Bilateral pleural effusions. No pneumothorax. Cardiomediastinal contours: Stable. Bones: No acute osseous abnormality. IMPRESSION: 1. Pulmonary congestion, bilateral pleural effusions and bibasilar atelectasis.
[2024-10-01 05:15] LABS: Band Neutrophils % (manual) 2; Lymphocytes % (manual) 11 (10.0-50.0); Monocytes % (manual) 8 (0-12); Platelet Estimate Adequate
[2024-10-01] MEDS: FUROSEMIDE 20 MG/2 ML VIAL IV SCH (08:16)
[2024-10-01] MEDS: APIXABAN 2.5 MG TAB PO SCH ×2 (08:17→21:58)
--- NOTE | 2024-10-01 08:54 | DVHPN2 ---
Subjective Awake and following commands. Reviewed: Care Plan, H&P, Labs, Medications Changes from previous H/P or p: No Changes General: Per HPI Objective Vitals Vital Signs Date Time Temp Pulse Resp B/P (MAP) Pulse Ox O2 Delivery O2 Flow Rate FiO2 10/01/24 08:16 138/89 10/01/24 08:00 22 100 Oxymizer 8 N/A 10/01/24 06:45 116 10/01/24 04:01 98.4 98.4 Intake/Output Intake and Output 10/01/24 07:00 Intake Total 815 ml Output Total 1150 ml Balance -335 ml Intake Oral 360 ml IV Total 455 ml Output Urine Total 1150 ml General Appearance: Alert, Oriented X3, Cooperative, Other (Chemically sedated) HEENT: Atraumatic, PERRLA Lungs: Clear to auscultation, Normal air movement, Other (Mechanical ventilator) Cardiovascular: Normal S1, Normal S2 Abdomen: Normal bowel sounds, Soft Genitourinary: No Apparent Abnormalities Musculoskeletal: Other (No motor response) Neuro: Other (Sedated) Skin: Dry, Intact Psych/Mental Status: Other (Sedated) Medications Current Medications Medications Dose Ordered Sig/Maida Route Start Time Stop Time Status Last Admin Dose Admin Nitroglycerin 0.4 mg Q5MINP PRN SL 09/24/24 10:45 Morphine Sulfate 2 mg Q30M PRN IV 09/24/24 10:45 09/29/24 11:32 2 MG Acetaminophen 500 mg Q8HP PRN PO 09/24/24 10:45 Ondansetron HCl 4 mg Q4HP PRN IV 09/24/24 10:45 09/28/24 19:48 4 MG Ipratropium [place] 0.5 mg Q6H NEB 09/24/24 12:00 10/01/24 06:32 0.5 MG Lidocaine 1 patch DAILY TOP 09/25/24 10:00 09/30/24 10:10 1 PATCH Aspirin 81 mg DAILY PO 09/27/24 10:00 10/01/24 08:16 81 MG Acetaminophen/ Hydrocodone Bitart 1 tab Q6HPRN PRN PO 09/27/24 09:15 09/30/24 17:22 1 TAB Fluconazole 100 ml @ 100 mls/hr DAILY IV 09/28/24 10:00 09/30/24 10:10 100 MLS/HR Norepinephrine Bitartrate 250 ml @ 1.875 mls/ hr Q24H IV 09/28/24 09:30 Morphine Sulfate 1 mg Q4HP PRN IV 09/28/24 15:00 09/29/24 04:48 1 MG Acetaminophen 650 mg Q6HP PRN [place] 09/28/24 19:30 09/28/24 19:48 650 MG Pantoprazole Sodium 40 mg DAILY IV 09/30/24 10:00 10/01/24 08:16 40 MG Acetaminophen/ Hydrocodone Bitart 1 tab Q4HPRN PRN PO 09/29/24 16:00 09/29/24 20:38 1 TAB Enteral Nutritional Formula 4 oz TIDWM PO 09/30/24 12:00 10/01/24 08:17 4 OZ Budesonide 0.5 mg BID NEB 09/30/24 22:00 10/01/24 06:33 0.5 MG Furosemide 20 mg DAILY IV 10/01/24 10:00 10/01/24 08:16 20 MG Levalbuterol HCl 1.25 mg Q6HR NEB 09/30/24 18:00 10/01/24 06:32 1.25 MG Methylprednisolone Sodium Succinate 40 mg DAILY IV 09/30/24 12:15 10/01/24 08:16 40 MG Melatonin 5 mg HSPRN PO 09/30/24 22:00 09/30/24 22:04 5 MG Apixaban 2.5 mg BID PO 10/01/24 10:00 10/01/24 08:17 2.5 MG Diltiazem HCl 60 mg Q6HR PO 10/01/24 12:00 Laboratory Results Laboratory Tests 10/01/24 03:15 Chemistry Test 10/01/24 03:15 Calcium Level 11.5 mg/dL (8.7-10.4) H Urinalysis Test 09/24/24 12:00 Urine Color Light-brown (Yellow) Urine Clarity Ex.turbid (Clear) Urine pH 5.0 (5.0-9.0) Urine Specific [place] 1.026 (1.001-1.035) Urine Protein 1+ (Negative) H Urine Ketones Negative (Negative) Urine Blood 1+ /uL (Negative) H Urine Nitrite Negative (Negative) Urine Bilirubin Negative (Negative) Urine Urobilinogen Normal mg/dL (Negative) Urine Leukocyte Esterase Negative /uL (Negative) Urine RBC 26 /hpf (0 - 4) Urine WBC 26 /hpf (0 - 5) Urine Squamous Epithelial Cells Mod /hpf (<5) Urine Amorphous Crystals Few /hpf (None Seen) Urine Bacteria Mod /hpf (None Seen) H Urine Hyaline Casts Few /lpf (0 - 2) Urine Mucus Few (None Seen) Urine Glucose Normal mg/dL (Normal) Microbiology Microbiology Date/Time Source Procedure Growth Status 09/24/24 17:00 Nose MRSA Screen - Final Complete 09/24/24 09:16 Blood Blood Culture - Final NO GROWTH AFTER 5 DAYS OF INCUBATION. Complete 09/24/24 08:39 Urine - [place] Urine Culture - Final Yeast, not Dena albicans Complete 09/24/24 08:34 Sputum Gram Stain - Final Complete 09/24/24 08:34 Respiratory Culture - Final Yeast, not Dena albicans Complete Labs and/or images reviewed: Labs reviewed by me, Image(s) reviewed by me Assessment/Plan Assessment/Plan Impression: -acute hypoxic respiratory failure -pneumonia, possibly hospital-acquired -rheumatoid arthritis -septic shock -NSTEMI, probably type 2 -thoracic spinal fractures -atrial fibrillation with rapid ventricular rate Plan: -events: Patient with possibly acute delirium. Heart rate improving. Increase Cardizem p.o. to q.6 hours. -antibiotic therapy: Continue Levaquin and Diflucan -bronchodilators : Change to Xopenex, add Pulmicort. EzPAP with treatments -cardiology consultation: Recommendations reviewed -PUD, DVT prophylaxis -Continue pain management with lidocaine patch and p.o. [place] -O2 supplementation at 5 L via Oxymizer, improvement. -downgrade to step-down ICU -repeat labs and chest x-ray in a.m. Critical care time spent with patient discussing and formulating plan of care: 40 minutes. This does not include time spent performing procedures. This medical document was created using an electronic medical record system with [employer] system. Although this document has been carefully reviewed, there may still be some phonetic and typographical errors. These areas are purely typographical due to imperfections of the software programs, and do not reflect any compromise in the patient's medical care. Plan discussed with: Patient, Other (RN) My Orders Orders - SALBINO,JIMENEZ PLASTIC SURGERY COORDINATOR Procedure Category Date Status Time Nutritional PHA 09/30/24 In Process Supplements (Ensure 12:00 Budesonide PHA 09/30/24 In Process (Inhalation) 22:00 Ez-Pap RT 09/30/24 Transmitted 10:07 Furosemide Injection PHA 10/01/24 In Process (Lasix Injection) 10:00 Levalbuterol Hcl PHA 09/30/24 In Process (Xopenex Medneb) 18:00 Methylprednisolone PHA 09/30/24 In Process Sod Succ (Solu Medrol 12:15 Chest Xray 1 View XY 10/01/24 Resulted 04:00 Transfer Orders XFER 10/01/24 Transmitted 07:50 Apixaban (Eliquis) PHA 10/01/24 In Process 10:00 Diltiazem Immediate PHA 10/01/24 In Process Releas Tab (Cardizem 12:00 Basic Metabolic Panel LAB 10/02/24 Verified 04:00 Chest Portable XY 10/02/24 Logged 04:00 Date of Service: Oct 01, 2024 Billing Provider: BARBARA SAM PLASTIC SURGERY COORDINATOR Common Visit Codes: [id number] CARE 30-74 MIN BARBARA SAM PLASTIC SURGERY COORDINATOR Oct 01, 2024 08:54
[2024-10-01] MEDS: dilTIAZem HCL 60 MG TAB PO SCH (13:07)
[2024-10-01] MEDS ORDERED: TPN PER PHARMACY 0 ML IV SCH (17:45)
[2024-10-01] MEDS ORDERED: DEXTROSE (50%) 50ML SYRG IV SCH (18:00)
[2024-10-01] MEDS: InsuLIN REG 1unit/0.01ml Soln (100units/ml) SC SCH (18:00)
[2024-10-01] MEDS: ACCU-CHEK COMFORT CURVE STRIP VI SCH (18:15)
--- NOTE | 2024-10-01 20:34 | DVHPN2 ---
Progress Note - Dictate Date Seen: Oct 01, 2024 Medical Necessity Reason Pt with a Central, PICC or Fol: Yes The following are medically ne: Atkinson Catheter Reason for atkinson catheter: Strict I&O Subjective Patient seen and examined at bedside. Remains on supplemental oxygen Overnight events reviewed. vital signs Vital Sign Date Time Temp Pulse Resp B/P (MAP) Pulse Ox O2 Delivery O2 Flow Rate FiO2 10/01/24 18:20 94 Nasal Cannula 4.0 10/01/24 18:20 102 18 10/01/24 18:20 36 10/01/24 18:00 142/82 (102) 10/01/24 16:00 98.8 98.8 Total Intake and Output 09/30/24 09/30/24 10/01/24 15:00 23:00 07:00 Intake Total 455 ml 120 ml 240 ml Output Total 600 ml 550 ml Balance 455 ml -480 ml -310 ml medications Current Medications Medications Dose Ordered Sig/Maida Route Start Time Stop Time Status Last Admin Dose Admin Nitroglycerin 0.4 mg Q5MINP PRN SL 09/24/24 10:45 Morphine Sulfate 2 mg Q30M PRN IV 09/24/24 10:45 09/29/24 11:32 2 MG Acetaminophen 500 mg Q8HP PRN PO 09/24/24 10:45 Ondansetron HCl 4 mg Q4HP PRN IV 09/24/24 10:45 09/28/24 19:48 4 MG Ipratropium [place] 0.5 mg Q6H NEB 09/24/24 12:00 10/01/24 18:20 0.5 MG Lidocaine 1 patch DAILY TOP 09/25/24 10:00 09/30/24 10:10 1 PATCH Aspirin 81 mg DAILY PO 09/27/24 10:00 10/01/24 08:16 81 MG Acetaminophen/ Hydrocodone Bitart 1 tab Q6HPRN PRN PO 09/27/24 09:15 09/30/24 17:22 1 TAB Fluconazole 100 ml @ 100 mls/hr DAILY IV 09/28/24 10:00 10/01/24 09:14 100 MLS/HR Norepinephrine Bitartrate 250 ml @ 1.875 mls/ hr Q24H IV 09/28/24 09:30 Acetaminophen 650 mg Q6HP PRN ND 09/28/24 19:30 09/28/24 19:48 650 MG Pantoprazole Sodium 40 mg DAILY IV 09/30/24 10:00 10/01/24 08:16 40 MG Acetaminophen/ Hydrocodone Bitart 1 tab Q4HPRN PRN PO 09/29/24 16:00 09/29/24 20:38 1 TAB Enteral Nutritional Formula 4 oz TIDWM PO 09/30/24 12:00 10/01/24 17:26 4 OZ Budesonide 0.5 mg BID NEB 09/30/24 22:00 10/01/24 06:33 0.5 MG Furosemide 20 mg DAILY IV 10/01/24 10:00 10/01/24 08:16 20 MG Levalbuterol HCl 1.25 mg Q6HR NEB 09/30/24 18:00 10/01/24 18:20 1.25 MG Methylprednisolone Sodium Succinate 40 mg DAILY IV 09/30/24 12:15 10/01/24 08:16 40 MG Melatonin 5 mg HSPRN PO 09/30/24 22:00 09/30/24 22:04 5 MG Diltiazem HCl 60 mg Q6HR PO 10/01/24 12:00 10/01/24 17:27 60 MG Apixaban 2.5 mg BID PO 10/01/24 22:00 Morphine Sulfate 1 mg Q4HP PRN IV 10/01/24 14:45 Amino Acids 0 ml @ 0 mls/hr PER PHARMACY IV 10/01/24 17:45 Diagnostic Test (Pha) 1 strip Q6HR 10/01/24 18:00 10/01/24 18:15 1 STRIP Insulin Human Regular FOLLOW SLIDING SCALE Q6HR SC 10/01/24 18:00 Dextrose 50 ml UD IV 10/01/24 18:00 Amino Acids/ Electrolytes/ Dextrose 1,000 ml @ 41 mls/hr DAILY@2200 IV 10/01/24 22:00 Acetylcysteine 200 mg Q8HR NEB 10/01/24 22:00 objective Gen.: Patient lying in bed in no apparent distress. On supplemental oxygen. Head: Normocephalic, atraumatic. Eyes: EOMI/PERRLA. Ears: Normal hearing. Normal anatomy. Neck/trachea: Trachea midline, supple. Nose: Normal external anatomy. Mouth: Moist mucous membranes. Chest: Decreased air entry bilaterally. No wheezing or rhonchi. Cardiovascular: Positive S1, positive S2. Regular rate and rhythm. Abdomen: Positive bowel sounds in all 4 quadrants. Soft, non-tender, non- distended. : Deferred. Rectal: Deferred. Skin: Warm, dry. Intact. Extremities: 2+ radial pulses bilaterally. No lower extremity edema. Neuro: Awake, alert, oriented x3. No gross motor or sensory deficits. Cranial nerves II through XII intact. Gait not assessed. laboratory and microbiology Laboratory Tests 10/01/24 03:15 Test 10/01/24 03:15 Range/Units Serum Glucose 135 H 74-106 mg/dL Assessment/Plan Impression: Acute hypoxic respiratory failure On mechanical ventilator Septic shock Multifocal pneumonia Atelectasis Events: Remains on supplemental oxygen, 4 LPM NC Improved O2 requirements Taper O2 as tolerated CPAP PRN - EZPAP w/ bronchodilator treatments. Continue PO diltiazem. Pain control Avoid oversedation Incentive spirometry Continue bronchodilators/Mucomyst Head of bed elevation Aspiration precautions TPN for nutritional support Diurese as tolerated Monitor renal function Patient is stable for downgrade from the pulmonary standpoint. Rest of plan as noted below Plan: s/p extubation. Supplemental oxygen, 4 LPM NC Taper O2 as tolerated CPAP PRN - EZPAP w/ bronchodilator treatments. Bronchodilators. Continue antibiotics. F/u cultures. Pressors as necessary for hemodynamic support - Currently off Titrate to keep mean arterial pressure greater than 65 mmHg. Monitor renal function Monitor electrolytes. Supplement as necessary. Monitor ins and outs. Maintain euvolemia. Tube feeds for nutritional support GI prophylaxis. DVT prophylaxis. Prognosis: Poor given patient's multiple co-morbidities. Condition: Critical Rest of plan per hospitalist and other consultants. A total of 35 minutes of critical care time was spent reviewing the patient record, examining the patient, making a diagnostic and therapeutic plan, discussing this plan with the medical personnel, following up on diagnostic studies and following the patient for clinical stability excluding any and all procedures. At least 50% of this time was spent in direct, [id number] contact. Thank you, Shane Arboleda NP, for allowing me to participate in this patient's care. Further recommendations will depend on the patient's clinical course. Please do not hesitate to contact me if you have any questions or concerns. This medical document was created using an electronic medical record system with Dragon computerized dictation system. Although these documentations are being carefully reviewed, there may still be some phonetic and typographical changes. The errors are purely typographical, due to imperfection on the software program, and do not reflect any compromise in the patient's medical care. Dietary Evaluation Review Comments: 1. Increase TF to 45ml/hr to provide 1152 Kcal 53g Protein 775ml Free Water which meet's pt's needs Expected Outcomes/Goals: 1. Pt will consume >75% of estimated needs within 3-5 days Plan discussed with: Other (RADHA Crespo) Critical Care Time(min): 35 JOHN ESTRADA MD Oct 01, 2024 20:34
[2024-10-01] MEDS: AMINO ACID INFUSION IN D10W 1,000 ML IV SCH (21:58)
[2024-10-01] MEDS ORDERED: HEPARIN SODIUM (PORCINE) 5000 UNITS/ML 1ML VIAL SC SCH (22:00)
[2024-10-02] VITALS (30 sets, daily range): BP systolic 105–150; BP diastolic 30–91; PULSE 80–114; RESP 14–30; TEMP 97.7–98.3; O2SAT 81–100
[2024-10-02] MEDS: ACETYLCYSTEINE 20%(200MG/ML) SOL 4ML NEB SCH (00:06)
[2024-10-02 04:14] LABS: Hemoglobin 8.8 g/dL (12.2-16.2); Mean Corpuscular Hemoglobin 34.2 pg (28.0-32.0); Mean Corpuscular Hgb Conc. 34.1 g/dL (32.0-36.0)
[2024-10-02 04:17] LABS: Hematocrit 25.8 % (36.0-46.0); Mean Corpuscular Volume 100.3 fL (80.0-100.0); Platelet Count (auto) 324 10^3/uL (140-450); Red Blood Cells 2.57 10^6/uL (4.0-5.20); Red Cell Distribution Width 15.3 % (11.8-14.3); White Blood Cell 9.2 10^3/uL (4.4-10.8)
[2024-10-02 04:18] LABS: Band Neutrophils % (manual) 0; Basophils % (manual) 0 (0.0-2.0); Blast Cells 0; Eosinophils % (manual) 0 (0-7); Metamyelocytes % 0; Myelocytes % 0; Promyelocytes % 0; Reactive Lymphocytes 0
[2024-10-02 04:32] LABS: Alanine Aminotransferase 10 U/L (7-40); Alkaline Phosphatase 46 U/L (46-116); Anion Gap 8 (5-15); Calcium 12.1 mg/dL (8.7-10.4); Carbon Dioxide 32 mmol/L (20-31); Chloride 104 mmol/L (98-107); Glucose 135 mg/dL (74-106); Potassium 3.1 mmol/L (3.5-5.1); Sodium 144 mmol/L (136-145); Triglycerides 128 mg/dL (< 150)
[2024-10-02 04:33] LABS: Albumin 3.2 g/dL (3.2-4.8); Aspartate Aminotransferase 18 U/L (13-40); Bilirubin, Total 0.3 mg/dL (0.2-1.0); Phosphorus 1.7 mg/dL (2.4-5.1); Total Protein 8.1 g/dL (5.7-8.2)
[2024-10-02 04:36] LABS: Blood Urea Nitrogen 29 mg/dL (9-23)
[2024-10-02 05:20] LABS: Lymphocytes % (manual) 12 (10.0-50.0); Monocytes % (manual) 7 (0-12); Smudge Cells 2 /100 WBC
[2024-10-02 05:21] LABS: Large Platelets FEW; Platelet Estimate Adequa
--- NOTE | 2024-10-02 06:07 | DVH ---
CHEST RADIOGRAPH Indication: pna Technique: Single frontal view of the chest was obtained Comparison: XY CHEST XRAY 1 VIEW on DOS: 10/01/24, XY CHEST PORTABLE on DOS: 09/30/24, XY CHEST XRAY 1 VIEW on DOS: 09/27/24 IMPRESSION: There are low lung volumes. Bilateral airspace opacities appear increased, however partially may be on the basis of overlying breast tissue. No sizable effusion or pneumothorax. Right IJ catheter tip stable in position at the cavoatrial junction.
[2024-10-02] MEDS: POTASSIUM CHL 20MEQ/100ML 100 ML IV SCH (06:34)
[2024-10-02] MEDS: Ensure HIGH Protein Chocolate 8oz Bottle PO SCH (12:00)
[2024-10-02] MEDS: POTASSIUM PHOSPHATE 22 MEQ in SODIUM CHL 0.9% 100 ML IV ONE (12:45)
--- NOTE | 2024-10-02 13:58 | DVHPN2 ---
Assessment/Plan Assessment/Plan ICU progress note Subjective 89-year-old female admitted for acute hypoxic respiratory failure, status post intubation, now extubated to nasal cannula. Maintaining oxygenation on Seroquel Renvela, no improved work of breathing, eating small portion of food, stable to transferred to telemetry. We will try to add ensure and take off Clinimix. We will take it off TLC today. 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 DVT prophylaxis SCD 88 critical care time spent on this patient including evaluation, chart review, formulating plan and communication with team, excluding any procedures or point of care imaging Plan discussed with: Daughter My Orders Orders - SHILA CHANDLER MD Procedure Category Date Status Time Nutritional PHA 10/02/24 In Process Supplements (Ensure 12:00 Insert Midline ORDERS 10/02/24 Transmitted 11:16 Date of Service: Oct 02, 2024 Billing Provider: SHILA CHANDLER MD Common Visit Codes: [id number] INP/OBS CARE(HIGH), [id number] CARE 30-74 MIN, [id number] CARE-EACH +30MIN SHILA CHANDLER MD Oct 02, 2024 13:58
--- NOTE | 2024-10-02 14:46 | DVHNC2 ---
Central Line Recorder of insertion practice: Maintenance Service Supervisor Occupation of shear setter: Attending Physician Indication: Hypotension, CVP monitoring Room prepared for procedure: Yes Maintenance Service Supervisor performed hand hygien: Yes Maximal sterile barrier precau: Mask/Eye shield, Sterile gown, Cap, Sterlie gloves, Large sterlie drape Skin Preparation: Chlorhexidine gluconate Skin preparation completely dr: Yes Insertion site: Right, Internal jugular Central line catheter type: [id number] dialysis Number of lumens: 3 Post Assessment: Chest X-Ray, Proper placement (confirmed with bubble study), No Pneumothorax Informed consent obtained: Yes Risks/benefits/alt described: Yes Date of Service: Oct 02, 2024 Billing Provider: SHILA CHANDLER MD Cardiology Common Codes: PROCEDURE ONLY (11403) SHILA CHANDLER MD Oct 02, 2024 14:46
--- NOTE | 2024-10-02 20:13 | DVHPN2 ---
Progress Note - Dictate Date Seen: Oct 02, 2024 Medical Necessity Reason Pt with a Central, PICC or Fol: Yes The following are medically ne: Atkinson Catheter Reason for atkinson catheter: Strict I&O Subjective Patient seen and examined at bedside. Remains on supplemental oxygen Overnight events reviewed. vital signs Vital Sign Date Time Temp Pulse Resp B/P (MAP) Pulse Ox O2 Delivery O2 Flow Rate FiO2 10/02/24 18:48 84 134/76 10/02/24 18:30 22 100 10/02/24 18:18 Nasal Cannula* 4 36 10/02/24 17:30 97.7 97.7 Total Intake and Output 10/01/24 10/01/24 10/02/24 15:00 23:00 07:00 Intake Total 100 ml 241 ml 337 ml Output Total 1350 ml 275 ml Balance 100 ml -1109 ml 62 ml medications Current Medications Medications Dose Ordered Sig/Maida Route Start Time Stop Time Status Last Admin Dose Admin Nitroglycerin 0.4 mg Q5MINP PRN SL 09/24/24 10:45 Morphine Sulfate 2 mg Q30M PRN IV 09/24/24 10:45 09/29/24 11:32 2 MG Acetaminophen 500 mg Q8HP PRN PO 09/24/24 10:45 Ondansetron HCl 4 mg Q4HP PRN IV 09/24/24 10:45 09/28/24 19:48 4 MG Ipratropium [place] 0.5 mg Q6H NEB 09/24/24 12:00 10/02/24 18:35 0.5 MG Lidocaine 1 patch DAILY TOP 09/25/24 10:00 09/30/24 10:10 1 PATCH Aspirin 81 mg DAILY PO 09/27/24 10:00 10/02/24 10:18 81 MG Acetaminophen/ Hydrocodone Bitart 1 tab Q6HPRN PRN PO 09/27/24 09:15 10/02/24 08:58 1 TAB Fluconazole 100 ml @ 100 mls/hr DAILY IV 09/28/24 10:00 10/02/24 10:18 100 MLS/HR Acetaminophen 650 mg Q6HP PRN ID 09/28/24 19:30 09/28/24 19:48 650 MG Acetaminophen/ Hydrocodone Bitart 1 tab Q4HPRN PRN PO 09/29/24 16:00 09/29/24 20:38 1 TAB Budesonide 0.5 mg BID NEB 09/30/24 22:00 10/02/24 18:43 0.5 MG Furosemide 20 mg DAILY IV 10/01/24 10:00 10/02/24 10:18 20 MG Levalbuterol HCl 1.25 mg Q6HR NEB 09/30/24 18:00 10/02/24 18:35 1.25 MG Methylprednisolone Sodium Succinate 40 mg DAILY IV 09/30/24 12:15 10/02/24 10:17 40 MG Melatonin 5 mg HSPRN PO 09/30/24 22:00 10/01/24 21:58 5 MG Diltiazem HCl 60 mg Q6HR PO 10/01/24 12:00 10/02/24 18:48 60 MG Apixaban 2.5 mg BID PO 10/01/24 22:00 10/02/24 10:18 2.5 MG Morphine Sulfate 1 mg Q4HP PRN IV 10/01/24 14:45 Amino Acids 0 ml @ 0 mls/hr PER PHARMACY IV 10/01/24 17:45 Diagnostic Test (Pha) 1 strip Q6HR 10/01/24 18:00 10/02/24 18:00 1 STRIP Insulin Human Regular FOLLOW SLIDING SCALE Q6HR SC 10/01/24 18:00 10/02/24 18:46 4 UNITS Dextrose 50 ml UD IV 10/01/24 18:00 Amino Acids/ Electrolytes/ Dextrose 1,000 ml @ 41 mls/hr DAILY@2200 IV 10/01/24 22:00 10/01/24 21:58 41 MLS/HR Acetylcysteine 200 mg Q8HR NEB 10/01/24 22:00 10/02/24 18:35 200 MG Enteral Nutritional Formula 240 ml TIDWM PO 10/02/24 12:00 10/02/24 18:00 240 ML Pantoprazole Sodium 40 mg DAILY@0600 PO 10/03/24 06:00 objective Gen.: Patient lying in bed in no apparent distress. On supplemental oxygen. Head: Normocephalic, atraumatic. Eyes: EOMI/PERRLA. Ears: Normal hearing. Normal anatomy. Neck/trachea: Trachea midline, supple. Nose: Normal external anatomy. Mouth: Moist mucous membranes. Chest: Decreased air entry bilaterally. No wheezing or rhonchi. Cardiovascular: Positive S1, positive S2. Regular rate and rhythm. Abdomen: Positive bowel sounds in all 4 quadrants. Soft, non-tender, non- distended. : Deferred. Rectal: Deferred. Skin: Warm, dry. Intact. Extremities: 2+ radial pulses bilaterally. No lower extremity edema. Neuro: Awake, alert, oriented x3. No gross motor or sensory deficits. Cranial nerves II through XII intact. Gait not assessed. laboratory and microbiology Laboratory Tests 10/02/24 03:30 Test 10/02/24 03:30 Range/Units Serum Glucose 135 H 74-106 mg/dL Assessment/Plan Impression: Acute hypoxic respiratory failure Septic shock Multifocal pneumonia Atelectasis Events: Remains on supplemental oxygen, 4 LPM NC Taper O2 as tolerated CPAP PRN - EZPAP w/ bronchodilator treatments. Continue PO diltiazem. Incentive spirometry Continue bronchodilators/Mucomyst CPT Continue abx/antifungal Head of bed elevation Aspiration precautions Diet is mechanical soft Ensure for nutritional supplementation Diurese as tolerated w/ IV Lasix 20 QD. Monitor renal function Physical therapy Patient is stable for downgrade from the pulmonary standpoint. Rest of plan as noted below Plan: s/p extubation. Supplemental oxygen, 4 LPM NC Taper O2 as tolerated CPAP PRN - EZPAP w/ bronchodilator treatments. Bronchodilators. Continue antibiotics. F/u cultures. Pressors as necessary for hemodynamic support - Currently off Titrate to keep mean arterial pressure greater than 65 mmHg. Monitor renal function Monitor electrolytes. Supplement as necessary. Monitor ins and outs. Maintain euvolemia. Diet is mechanical soft Ensure for nutritional supplementation GI prophylaxis. DVT prophylaxis. Prognosis: Guarded given patient's multiple co-morbidities. Rest of plan per hospitalist and other consultants. Thank you, Shane Arboleda NP, for allowing me to participate in this patient's care. Further recommendations will depend on the patient's clinical course. Please do not hesitate to contact me if you have any questions or concerns. This medical document was created using an electronic medical record system with K[employer] system. Although these documentations are being carefully reviewed, there may still be some phonetic and typographical changes. The errors are purely typographical, due to imperfection on the software program, and do not reflect any compromise in the patient's medical care. Dietary Evaluation Review Comments: 1. Increase TF to 45ml/hr to provide 1152 Kcal 53g Protein 775ml Free Water which meet's pt's needs Expected Outcomes/Goals: 1. Pt will consume >75% of estimated needs within 3-5 days Plan discussed with: Patient, Other (RADHA Griggs) JOHN ESTRADA MD Oct 02, 2024 20:13
[2024-10-02] MEDS ORDERED: TPN PER PHARMACY IV NR (22:00)
[2024-10-03] VITALS (23 sets, daily range): BP systolic 136–153; BP diastolic 68–78; PULSE 10–108; RESP 16–24; TEMP 96.4–98.6; O2SAT 89–100
[2024-10-03] MEDS: PANTOPRAZOLE 40 MG TAB PO SCH (06:00)
[2024-10-03 06:45] LABS: Alanine Aminotransferase 14 U/L (7-40); Albumin 3.1 g/dL (3.2-4.8); Alkaline Phosphatase 43 U/L (46-116); Anion Gap 9 (5-15); Aspartate Aminotransferase 20 U/L (13-40); BUN/Creatinine Ratio 55.7 (10.0-20.0); Blood Urea Nitrogen 34 mg/dL (9-23); Calcium 11.7 mg/dL (8.7-10.4); Carbon Dioxide 29 mmol/L (20-31); Chloride 104 mmol/L (98-107); Glucose 160 mg/dL (74-106); Potassium 3.2 mmol/L (3.5-5.1); Sodium 142 mmol/L (136-145)
[2024-10-03 06:46] LABS: Bilirubin, Total 0.2 mg/dL (0.2-1.0); Total Protein 7.9 g/dL (5.7-8.2)
[2024-10-03] MEDS: POTASSIUM CHL 20 Meq TABLET PO ONE (11:30)
[2024-10-03] MEDS: POTASSIUM PHOSPHATE 22 MEQ in SODIUM CHL 0.9% 100 ML IV ONE (12:15)
[2024-10-03] MEDS ORDERED: TPN PER PHARMACY IV NR (22:00)
[2024-10-03] MEDS: PPN PER PHARMACY IV NR (23:13)
--- NOTE | 2024-10-03 23:18 | DVHPN2 ---
Progress Note - Dictate Date Seen: Oct 03, 2024 Medical Necessity Reason Pt with a Central, PICC or Fol: Yes The following are medically ne: Atkinson Catheter Reason for atkinson catheter: Strict I&O Subjective Patient seen and examined at bedside. Remains on supplemental oxygen Overnight events reviewed. vital signs Vital Sign Date Time Temp Pulse Resp B/P (MAP) Pulse Ox O2 Delivery O2 Flow Rate FiO2 10/03/24 19:30 101 20 95 10/03/24 19:15 Nasal Cannula* 4 36 10/03/24 18:39 139/69 10/03/24 16:47 96.6 96.6 Total Intake and Output 10/02/24 10/02/24 10/03/24 15:00 23:00 07:00 Intake Total 506.75 ml 108.25 ml 30 ml Output Total 900 ml 375 ml Balance 506.75 ml -791.75 ml -345 ml medications Current Medications Medications Dose Ordered Sig/Maida Route Start Time Stop Time Status Last Admin Dose Admin Nitroglycerin 0.4 mg Q5MINP PRN SL 09/24/24 10:45 Morphine Sulfate 2 mg Q30M PRN IV 09/24/24 10:45 09/29/24 11:32 2 MG Acetaminophen 500 mg Q8HP PRN PO 09/24/24 10:45 Ondansetron HCl 4 mg Q4HP PRN IV 09/24/24 10:45 09/28/24 19:48 4 MG Ipratropium [place] 0.5 mg Q6H NEB 09/24/24 12:00 10/03/24 19:15 0.5 MG Lidocaine 1 patch DAILY TOP 09/25/24 10:00 09/30/24 10:10 1 PATCH Aspirin 81 mg DAILY PO 09/27/24 10:00 10/03/24 10:54 81 MG Acetaminophen/ Hydrocodone Bitart 1 tab Q6HPRN PRN PO 09/27/24 09:15 10/03/24 18:39 1 TAB Fluconazole 100 ml @ 100 mls/hr DAILY IV 09/28/24 10:00 10/03/24 10:00 100 MLS/HR Acetaminophen 650 mg Q6HP PRN NM 09/28/24 19:30 09/28/24 19:48 650 MG Acetaminophen/ Hydrocodone Bitart 1 tab Q4HPRN PRN PO 09/29/24 16:00 09/29/24 20:38 1 TAB Budesonide 0.5 mg BID NEB 09/30/24 22:00 10/03/24 21:48 0.5 MG Furosemide 20 mg DAILY IV 10/01/24 10:00 10/03/24 10:53 20 MG Levalbuterol HCl 1.25 mg Q6HR NEB 09/30/24 18:00 10/03/24 19:14 1.25 MG Methylprednisolone Sodium Succinate 40 mg DAILY IV 09/30/24 12:15 10/03/24 10:52 40 MG Melatonin 5 mg HSPRN PO 09/30/24 22:00 10/02/24 21:41 5 MG Diltiazem HCl 60 mg Q6HR PO 10/01/24 12:00 10/03/24 18:39 60 MG Apixaban 2.5 mg BID PO 10/01/24 22:00 10/03/24 10:53 2.5 MG Morphine Sulfate 1 mg Q4HP PRN IV 10/01/24 14:45 Amino Acids 0 ml @ 0 mls/hr PER PHARMACY IV 10/01/24 17:45 Diagnostic Test (Pha) 1 strip Q6HR 10/01/24 18:00 10/03/24 18:00 1 STRIP Insulin Human Regular FOLLOW SLIDING SCALE Q6HR SC 10/01/24 18:00 10/03/24 18:37 2 UNITS Dextrose 50 ml UD IV 10/01/24 18:00 Acetylcysteine 200 mg Q8HR NEB 10/01/24 22:00 10/03/24 19:15 200 MG Enteral Nutritional Formula 240 ml TIDWM PO 10/02/24 12:00 10/03/24 18:00 240 ML Pantoprazole Sodium 40 mg DAILY@0600 PO 10/03/24 06:00 Fat Emulsion Intravenous 50 ml/ Potassium Chloride 10 meq/ Potassium Phosphate 30.8 meq/Magnesium Sulfate 4 meq/ Multivitamins 10 ml/Chromium/ Copper/Manganese/ Zinc 1 ml/Insulin Human Regular 5 units/Amino Acids/ Dextrose/Purified Water 1,324.05 ml @ 55 mls/hr Q24H5M IV 10/03/24 22:00 10/04/24 22:04 Cancel Fat Emulsion Intravenous 50 ml/ Potassium Chloride 10 meq/ Potassium Phosphate 30.8 meq/Magnesium Sulfate 4 meq/ Multivitamins 10 ml/Chromium/ Copper/Manganese/ Zinc 1 ml/Insulin Human Regular 5 units/Amino Acids/ Dextrose/Purified Water 1,324.05 ml @ 55 mls/hr Q24H5M IV 10/03/24 22:00 10/04/24 22:04 objective Gen.: Patient lying in bed in no apparent distress. On supplemental oxygen. Head: Normocephalic, atraumatic. Eyes: EOMI/PERRLA. Ears: Normal hearing. Normal anatomy. Neck/trachea: Trachea midline, supple. Nose: Normal external anatomy. Mouth: Moist mucous membranes. Chest: Decreased air entry bilaterally. No wheezing or rhonchi. Cardiovascular: Positive S1, positive S2. Regular rate and rhythm. Abdomen: Positive bowel sounds in all 4 quadrants. Soft, non-tender, non- distended. : Deferred. Rectal: Deferred. Skin: Warm, dry. Intact. Extremities: 2+ radial pulses bilaterally. No lower extremity edema. Neuro: Awake, alert, oriented x3. No gross motor or sensory deficits. Cranial nerves II through XII intact. Gait not assessed. laboratory and microbiology Laboratory Tests 10/03/24 05:52 10/02/24 03:30 Test 10/03/24 05:52 Range/Units Serum Glucose 160 H 74-106 mg/dL Assessment/Plan Impression: Acute hypoxic respiratory failure Septic shock Multifocal pneumonia Atelectasis Events: Remains on supplemental oxygen, 4 LPM NC Taper O2 as tolerated CPAP PRN - EZPAP w/ bronchodilator treatments. Incentive spirometry Continue bronchodilators/Mucomyst IV steroids Pulmicort BID CPT Continue abx/antifungal Continue PO diltiazem. Head of bed elevation Aspiration precautions Accu-Cheks, ISS. TPN/Clinimix for nutritional support. Head of bed elevation.aspiration precautions. Monitor closely for aspiration. Maintain euvolemia with IV Lasix 20 QD. Monitor renal function Continue PT. Rest of plan as noted below Plan: s/p extubation. Supplemental oxygen, 4 LPM NC Taper O2 as tolerated CPAP PRN - EZPAP w/ bronchodilator treatments. Bronchodilators. Continue antibiotics. F/u cultures. Pressors as necessary for hemodynamic support - Currently off Titrate to keep mean arterial pressure greater than 65 mmHg. Monitor renal function Monitor electrolytes. Supplement as necessary. Monitor ins and outs. Maintain euvolemia. Diet is mechanical soft Ensure for nutritional supplementation GI prophylaxis. DVT prophylaxis. Prognosis: Guarded given patient's multiple co-morbidities. Rest of plan per hospitalist and other consultants. Thank you, Shane Arboleda NP, for allowing me to participate in this patient's care. Further recommendations will depend on the patient's clinical course. Please do not hesitate to contact me if you have any questions or concerns. This medical document was created using an electronic medical record system with [employer] dictation system. Although these documentations are being carefully reviewed, there may still be some phonetic and typographical changes. The errors are purely typographical, due to imperfection on the software program, and do not reflect any compromise in the patient's medical care. Dietary Evaluation Review Comments: 1. Increase TF to 45ml/hr to provide 1152 Kcal 53g Protein 775ml Free Water which meet's pt's needs Expected Outcomes/Goals: 1. Pt will consume >75% of estimated needs within 3-5 days Plan discussed with: Patient, Other (RADHA Salgado) JOHN ESTRADA MD Oct 03, 2024 23:18
[2024-10-04] VITALS (16 sets, daily range): BP systolic 113–141; BP diastolic 60–77; PULSE 89–113; RESP 16–22; TEMP 97–98.3; O2SAT 91–98
[2024-10-04 07:34] LABS: Alanine Aminotransferase 14 U/L (7-40); Albumin 3.2 g/dL (3.2-4.8); Alkaline Phosphatase 45 U/L (46-116); Anion Gap 9 (5-15); Aspartate Aminotransferase 14 U/L (13-40); BUN/Creatinine Ratio 67.2 (10.0-20.0); Blood Urea Nitrogen 39 mg/dL (9-23); Calcium 11.4 mg/dL (8.7-10.4); Carbon Dioxide 29 mmol/L (20-31); Chloride 103 mmol/L (98-107); Glucose 117 mg/dL (74-106); Phosphorus 2.3 mg/dL (2.4-5.1); Potassium 3.7 mmol/L (3.5-5.1); Sodium 141 mmol/L (136-145)
[2024-10-04 07:35] LABS: Bilirubin, Total 0.2 mg/dL (0.2-1.0); Total Protein 7.8 g/dL (5.7-8.2)
--- NOTE | 2024-10-04 09:57 | DVHPN2 ---
Subjective Awake and following commands. Reviewed: Care Plan, H&P, Labs, Medications Changes from previous H/P or p: No Changes General: Per HPI Objective Vitals Vital Signs Date Time Temp Pulse Resp B/P (MAP) Pulse Ox O2 Delivery O2 Flow Rate FiO2 10/04/24 08:00 97.9 106 22 140/73 (95) 91 97.9 10/04/24 06:09 Nasal Cannula 4.0 10/04/24 06:09 36 Intake/Output Intake and Output 10/04/24 07:00 Intake Total 545 ml Output Total 1150 ml Balance -605 ml Intake Oral 340 ml IV Total 205 ml Output Urine Total 1150 ml General Appearance: Alert, Oriented X3, Cooperative, Other (Chemically sedated) HEENT: Atraumatic, PERRLA Lungs: Clear to auscultation, Normal air movement, Other (Mechanical ventilator) Cardiovascular: Normal S1, Normal S2 Abdomen: Normal bowel sounds, Soft Genitourinary: No Apparent Abnormalities Musculoskeletal: Other (No motor response) Neuro: Other (Sedated) Skin: Dry, Intact Psych/Mental Status: Other (Sedated) Medications Current Medications Medications Dose Ordered Sig/Maida Route Start Time Stop Time Status Last Admin Dose Admin Nitroglycerin 0.4 mg Q5MINP PRN SL 09/24/24 10:45 Morphine Sulfate 2 mg Q30M PRN IV 09/24/24 10:45 09/29/24 11:32 2 MG Acetaminophen 500 mg Q8HP PRN PO 09/24/24 10:45 Ondansetron HCl 4 mg Q4HP PRN IV 09/24/24 10:45 09/28/24 19:48 4 MG Ipratropium [place] 0.5 mg Q6H NEB 09/24/24 12:00 10/04/24 06:04 0.5 MG Lidocaine 1 patch DAILY TOP 09/25/24 10:00 09/30/24 10:10 1 PATCH Acetaminophen/ Hydrocodone Bitart 1 tab Q6HPRN PRN PO 09/27/24 09:15 10/03/24 18:39 1 TAB Fluconazole 100 ml @ 100 mls/hr DAILY IV 09/28/24 10:00 10/03/24 10:00 100 MLS/HR Acetaminophen 650 mg Q6HP PRN [place] 09/28/24 19:30 09/28/24 19:48 650 MG Acetaminophen/ Hydrocodone Bitart 1 tab Q4HPRN PRN PO 09/29/24 16:00 09/29/24 20:38 1 TAB Budesonide 0.5 mg BID NEB 09/30/24 22:00 10/04/24 06:04 0.5 MG Furosemide 20 mg DAILY IV 10/01/24 10:00 10/03/24 10:53 20 MG Levalbuterol HCl 1.25 mg Q6HR NEB 09/30/24 18:00 10/04/24 06:05 1.25 MG Melatonin 5 mg HSPRN PO 09/30/24 22:00 10/03/24 23:21 5 MG Diltiazem HCl 60 mg Q6HR PO 10/01/24 12:00 10/04/24 06:51 60 MG Apixaban 2.5 mg BID PO 10/01/24 22:00 10/03/24 23:21 2.5 MG Morphine Sulfate 1 mg Q4HP PRN IV 10/01/24 14:45 Amino Acids 0 ml @ 0 mls/hr PER PHARMACY IV 10/01/24 17:45 Diagnostic Test (Pha) 1 strip Q6HR 10/01/24 18:00 10/04/24 06:13 1 STRIP Insulin Human Regular FOLLOW SLIDING SCALE Q6HR SC 10/01/24 18:00 10/04/24 00:05 4 UNITS Dextrose 50 ml UD IV 10/01/24 18:00 Acetylcysteine 200 mg Q8HR NEB 10/01/24 22:00 10/04/24 06:05 200 MG Enteral Nutritional Formula 240 ml TIDWM PO 10/02/24 12:00 10/04/24 08:00 240 ML Pantoprazole Sodium 40 mg DAILY@0600 PO 10/03/24 06:00 Fat Emulsion Intravenous 50 ml/ Potassium Chloride 10 meq/ Potassium Phosphate 30.8 meq/Magnesium Sulfate 4 meq/ Multivitamins 10 ml/Chromium/ Copper/Manganese/ Zinc 1 ml/Insulin Human Regular 5 units/Amino Acids/ Dextrose/Purified Water 1,324.05 ml @ 55 mls/hr Q24H5M IV 10/03/24 22:00 10/04/24 22:04 Cancel Fat Emulsion Intravenous 50 ml/ Potassium Chloride 10 meq/ Potassium Phosphate 30.8 meq/Magnesium Sulfate 4 meq/ Multivitamins 10 ml/Chromium/ Copper/Manganese/ Zinc 1 ml/Insulin Human Regular 5 units/Amino Acids/ Dextrose/Purified Water 1,324.05 ml @ 55 mls/hr Q24H5M IV 10/03/24 22:00 10/04/24 22:04 10/03/24 23:13 55 MLS/HR Methylprednisolone Sodium Succinate 20 mg DAILY IV 10/04/24 10:00 Megestrol Acetate 400 mg DAILY PO 10/04/24 10:00 Docusate Sodium 100 mg BID PO 10/04/24 10:00 Laboratory Results Laboratory Tests 10/02/24 03:30 10/04/24 06:20 Chemistry Test 10/04/24 06:20 Albumin 3.2 g/dL (3.2-4.8) Calcium Level 11.4 mg/dL (8.7-10.4) H Magnesium Level 2.0 mg/dL (1.6-2.6) Phosphorus Level 2.3 mg/dL (2.4-5.1) L Total Protein 7.8 g/dL (5.7-8.2) LFT Test 10/04/24 06:20 Alanine Aminotransferase (ALT) 14 U/L (7-40) Alkaline Phosphatase 45 U/L (46-116) L Aspartate Amino Transferase (AST) 14 U/L (13-40) Total Bilirubin 0.2 mg/dL (0.2-1.0) Urinalysis Test 09/24/24 12:00 Urine Color Light-brown (Yellow) Urine Clarity Ex.turbid (Clear) Urine pH 5.0 (5.0-9.0) Urine Specific [place] 1.026 (1.001-1.035) Urine Protein 1+ (Negative) H Urine Ketones Negative (Negative) Urine Blood 1+ /uL (Negative) H Urine Nitrite Negative (Negative) Urine Bilirubin Negative (Negative) Urine Urobilinogen Normal mg/dL (Negative) Urine Leukocyte Esterase Negative /uL (Negative) Urine RBC 26 /hpf (0 - 4) Urine WBC 26 /hpf (0 - 5) Urine Squamous Epithelial Cells Mod /hpf (<5) Urine Amorphous Crystals Few /hpf (None Seen) Urine Bacteria Mod /hpf (None Seen) H Urine Hyaline Casts Few /lpf (0 - 2) Urine Mucus Few (None Seen) Urine Glucose Normal mg/dL (Normal) Microbiology Microbiology Date/Time Source Procedure Growth Status 09/24/24 17:00 Nose MRSA Screen - Final Complete 09/24/24 09:16 Blood Blood Culture - Final NO GROWTH AFTER 5 DAYS OF INCUBATION. Complete 09/24/24 08:39 Urine - [place] Urine Culture - Final Yeast, not Dena albicans Complete 09/24/24 08:34 Sputum Gram Stain - Final Complete 09/24/24 08:34 Respiratory Culture - Final Yeast, not Dena albicans Complete Labs and/or images reviewed: Labs reviewed by me, Image(s) reviewed by me Assessment/Plan Assessment/Plan Impression: -acute hypoxic respiratory failure -pneumonia, possibly hospital-acquired -rheumatoid arthritis -septic shock -NSTEMI, probably type 2 -thoracic spinal fractures -atrial fibrillation with rapid ventricular rate Plan: -events: Patient was neurological status has improved. Continues to have poor oral intake. Patient on TPN. Long discussion made with the patient's daughter. Continue current plan of care. Add Megace. -antibiotic therapy: Continue Diflucan -bronchodilators : Change to Xopenex, add Pulmicort. EzPAP with treatments -cardiology consultation: Recommendations reviewed -PUD, DVT prophylaxis -Continue pain management with lidocaine patch and p.o. [place] -O2 supplementation : nasal cannula 4 liters/minute -physical therapy. Noted minimal ambulation at this time. -repeat labs and chest x-ray in a.m. Critical care time spent with patient discussing and formulating plan of care: 40 minutes. This does not include time spent performing procedures. This medical document was created using an electronic medical record system with [employer] dictation system. Although this document has been carefully reviewed, there may still be some phonetic and typographical errors. These areas are purely typographical due to imperfections of the software programs, and do not reflect any compromise in the patient's medical care. Plan discussed with: Patient, Other (RN) My Orders Orders - BARBARA SAM NP Procedure Category Date Status Time Methylprednisolone PHA 10/04/24 In Process Sod Succ (Solu Medrol 10:00 Megestrol Oral PHA 10/04/24 In Process Suspension (Megace 10:00 Docusate Sodium PHA 10/04/24 In Process Capsule ([place] 10:00 Date of Service: Oct 04, 2024 Billing Provider: BARBARA SAM NP Common Visit Codes: [id number] INP/OBS CARE(HIGH) BARBARA SAM NP Oct 04, 2024 09:57
[2024-10-04] MEDS: DOCUSATE SOD 100 MG CAP PO SCH (10:00)
[2024-10-04] MEDS: methylPREDNISolone SOD SUCC 40 MG/ML VL IV SCH (10:29)
[2024-10-04] MEDS: LACTULOSE 20Gm/30ML SOLN PO ONE (12:20)
[2024-10-04] MEDS: MEGESTROL ACET 400MG/10ML ORAL SUSP PO SCH (12:20)
[2024-10-04] MEDS: ALBUTEROL SULF 2.5 MG/0.5ML(0.5%) NEB SOLN ONE (15:56)
--- NOTE | 2024-10-04 21:54 | DVHPN2 ---
Progress Note - Dictate Date Seen: Oct 04, 2024 Medical Necessity Reason Pt with a Central, PICC or Fol: Yes The following are medically ne: Atkinson Catheter Reason for atkinson catheter: Strict I&O Subjective Patient seen and examined at bedside. Remains on supplemental oxygen Overnight events reviewed. vital signs Vital Sign Date Time Temp Pulse Resp B/P (MAP) Pulse Ox O2 Delivery O2 Flow Rate FiO2 10/04/24 18:43 101 18 95 10/04/24 18:33 Nasal Cannula 3.0 10/04/24 18:33 28 10/04/24 17:28 124/71 10/04/24 16:00 97.4 97.4 Total Intake and Output 10/03/24 10/03/24 10/04/24 15:00 23:00 07:00 Intake Total 100 ml 345 ml 100 ml Output Total 700 ml 450 ml Balance 100 ml -355 ml -350 ml medications Current Medications Medications Dose Ordered Sig/Maida Route Start Time Stop Time Status Last Admin Dose Admin Nitroglycerin 0.4 mg Q5MINP PRN SL 09/24/24 10:45 Morphine Sulfate 2 mg Q30M PRN IV 09/24/24 10:45 09/29/24 11:32 2 MG Acetaminophen 500 mg Q8HP PRN PO 09/24/24 10:45 Ondansetron HCl 4 mg Q4HP PRN IV 09/24/24 10:45 09/28/24 19:48 4 MG Ipratropium [place] 0.5 mg Q6H NEB 09/24/24 12:00 10/04/24 18:32 0.5 MG Lidocaine 1 patch DAILY TOP 09/25/24 10:00 09/30/24 10:10 1 PATCH Acetaminophen/ Hydrocodone Bitart 1 tab Q6HPRN PRN PO 09/27/24 09:15 10/04/24 19:08 1 TAB Fluconazole 100 ml @ 100 mls/hr DAILY IV 09/28/24 10:00 10/04/24 10:26 100 MLS/HR Acetaminophen 650 mg Q6HP PRN [place] 09/28/24 19:30 09/28/24 19:48 650 MG Acetaminophen/ Hydrocodone Bitart 1 tab Q4HPRN PRN PO 09/29/24 16:00 09/29/24 20:38 1 TAB Budesonide 0.5 mg BID NEB 09/30/24 22:00 10/04/24 18:32 0.5 MG Furosemide 20 mg DAILY IV 10/01/24 10:00 10/04/24 10:28 20 MG Levalbuterol HCl 1.25 mg Q6HR NEB 09/30/24 18:00 10/04/24 18:32 1.25 MG Melatonin 5 mg HSPRN PO 09/30/24 22:00 10/03/24 23:21 5 MG Diltiazem HCl 60 mg Q6HR PO 10/01/24 12:00 10/04/24 17:28 60 MG Apixaban 2.5 mg BID PO 10/01/24 22:00 10/03/24 23:21 2.5 MG Morphine Sulfate 1 mg Q4HP PRN IV 10/01/24 14:45 Amino Acids 0 ml @ 0 mls/hr PER PHARMACY IV 10/01/24 17:45 Diagnostic Test (Pha) 1 strip Q6HR 10/01/24 18:00 10/04/24 17:27 1 STRIP Insulin Human Regular FOLLOW SLIDING SCALE Q6HR SC 10/01/24 18:00 10/04/24 17:27 2 UNITS Dextrose 50 ml UD IV 10/01/24 18:00 Acetylcysteine 200 mg Q8HR NEB 10/01/24 22:00 10/04/24 18:33 200 MG Enteral Nutritional Formula 240 ml TIDWM PO 10/02/24 12:00 10/04/24 17:27 240 ML Pantoprazole Sodium 40 mg DAILY@0600 PO 10/03/24 06:00 Fat Emulsion Intravenous 50 ml/ Potassium Chloride 10 meq/ Potassium Phosphate 30.8 meq/Magnesium Sulfate 4 meq/ Multivitamins 10 ml/Chromium/ Copper/Manganese/ Zinc 1 ml/Insulin Human Regular 5 units/Amino Acids/ Dextrose/Purified Water 1,324.05 ml @ 55 mls/hr Q24H5M IV 10/03/24 22:00 10/04/24 22:04 Cancel Fat Emulsion Intravenous 50 ml/ Potassium Chloride 10 meq/ Potassium Phosphate 30.8 meq/Magnesium Sulfate 4 meq/ Multivitamins 10 ml/Chromium/ Copper/Manganese/ Zinc 1 ml/Insulin Human Regular 5 units/Amino Acids/ Dextrose/Purified Water 1,324.05 ml @ 55 mls/hr Q24H5M IV 10/03/24 22:00 10/04/24 22:04 10/03/24 23:13 55 MLS/HR Methylprednisolone Sodium Succinate 20 mg DAILY IV 10/04/24 10:00 10/04/24 10:29 20 MG Megestrol Acetate 400 mg DAILY PO 10/04/24 10:00 10/04/24 12:20 400 MG Docusate Sodium 100 mg BID PO 10/04/24 10:00 Fat Emulsion Intravenous 100 ml/Potassium Phosphate 44 meq/ Magnesium Sulfate 4 meq/ Multivitamins 10 ml/Chromium/ Copper/Manganese/ Zinc 1 ml/Insulin Human Regular 6 units/Amino Acids/ Dextrose/Purified Water 1,422.06 ml @ 59 mls/hr Q24H7M IV 10/04/24 22:00 10/05/24 21:59 Albuterol 1.25 mg Q3HPRN PRN NEB 10/04/24 15:30 objective Gen.: Patient lying in bed in no apparent distress. On supplemental oxygen. Head: Normocephalic, atraumatic. Eyes: EOMI/PERRLA. Ears: Normal hearing. Normal anatomy. Neck/trachea: Trachea midline, supple. Nose: Normal external anatomy. Mouth: Moist mucous membranes. Chest: Decreased air entry bilaterally. No wheezing or rhonchi. Cardiovascular: Positive S1, positive S2. Regular rate and rhythm. Abdomen: Positive bowel sounds in all 4 quadrants. Soft, non-tender, non- distended. : Deferred. Rectal: Deferred. Skin: Warm, dry. Intact. Extremities: 2+ radial pulses bilaterally. No lower extremity edema. Neuro: Awake, alert, oriented x3. No gross motor or sensory deficits. Cranial nerves II through XII intact. Gait not assessed. laboratory and microbiology Laboratory Tests 10/04/24 06:20 10/02/24 03:30 Test 10/04/24 06:20 Range/Units Serum Glucose 117 H 74-106 mg/dL Assessment/Plan Impression: Acute hypoxic respiratory failure Septic shock Multifocal pneumonia Atelectasis Events: Remains on supplemental oxygen, 4 LPM NC Taper O2 as tolerated CPAP PRN - EZPAP w/ bronchodilator treatments. Incentive spirometry Continue bronchodilators q.3 hours PRN Xopenex/Atrovent q.6 hours Mucomyst q.8 hours. IV steroids Pulmicort BID CPT Continue antifungal - complete course. Continue PO diltiazem for rate control d/t AFib. ASA/Eliquis on hold due to hematuria. Pain control Avoid oversedation Head of bed elevation Aspiration precautions Monitor closely for aspiration. Accu-Cheks, ISS. TPN/Clinimix for nutritional support. Maintain euvolemia with IV Lasix 20 QD. Monitor renal function Continue PT. Rest of plan as noted below Plan: s/p extubation. Supplemental oxygen, 4 LPM NC Taper O2 as tolerated CPAP PRN - EZPAP w/ bronchodilator treatments. Bronchodilators. Continue antibiotics. F/u cultures. ASA/Eliquis on hold due to hematuria. Pressors as necessary for hemodynamic support - Currently off Titrate to keep mean arterial pressure greater than 65 mmHg. Monitor renal function Monitor electrolytes. Supplement as necessary. Monitor ins and outs. Maintain euvolemia. Diet is mechanical soft Ensure for nutritional supplementation GI prophylaxis. DVT prophylaxis. Prognosis: Guarded given patient's multiple co-morbidities. Rest of plan per hospitalist and other consultants. Thank you, Shane Arboleda NP, for allowing me to participate in this patient's care. Further recommendations will depend on the patient's clinical course. Please do not hesitate to contact me if you have any questions or concerns. This medical document was created using an electronic medical record system with [employer] dictation system. Although these documentations are being carefully reviewed, there may still be some phonetic and typographical changes. The errors are purely typographical, due to imperfection on the software program, and do not reflect any compromise in the patient's medical care. Dietary Evaluation Review Comments: 1) Continue to monitor pt PO intake to meet at least 75% of meals 2) Advance pt diet when medically feasible to a 2gm Sodium diet 3) Continue current plan of care Expected Outcomes/Goals: 1) Pt appetite to improve 2) Pt diet to advance 3) F/U in 3-5 days Plan discussed with: Patient, Other (RADHA Sellers) JOHN ESTRADA MD Oct 04, 2024 21:54
[2024-10-04] MEDS: PPN PER PHARMACY IV NR (23:04)
[2024-10-05] VITALS (18 sets, daily range): BP systolic 106–140; BP diastolic 56–79; PULSE 81–115; RESP 18–30; TEMP 97.4–99.4; O2SAT 91–97
[2024-10-05] MEDS: MORPHINE SULFATE INJ 2 MG/ml SYRG IV PRN (05:25)
[2024-10-05 07:12] LABS: Alanine Aminotransferase 15 U/L (7-40); Alkaline Phosphatase 46 U/L (46-116); Anion Gap 7 (5-15); BUN/Creatinine Ratio 61.3 (10.0-20.0); Blood Urea Nitrogen 38 mg/dL (9-23); Calcium 11.2 mg/dL (8.7-10.4); Carbon Dioxide 28 mmol/L (20-31); Chloride 101 mmol/L (98-107); Glucose 117 mg/dL (74-106); Magnesium 1.9 mg/dL (1.6-2.6); Potassium 3.8 mmol/L (3.5-5.1); Sodium 136 mmol/L (136-145)
[2024-10-05 07:13] LABS: Albumin 3.1 g/dL (3.2-4.8); Aspartate Aminotransferase 12 U/L (13-40)
[2024-10-05 07:14] LABS: Bilirubin, Total 0.2 mg/dL (0.2-1.0); Phosphorus 2.8 mg/dL (2.4-5.1); Total Protein 7.6 g/dL (5.7-8.2)
--- NOTE | 2024-10-05 11:40 | DVH ---
CLINICAL INFORMATION: 89 years old, Female; pneumonia. TECHNIQUE: Single AP portable chest radiograph was obtained. COMPARISON: XY CHEST PORTABLE on DOS: 10/02/24, XY CHEST XRAY 1 VIEW on DOS: 10/01/24, XY CHEST DOMITILA BLE on DOS: 09/30/24 FINDINGS: Bilateral airspace opacities, minimally changed compared to the prior exam. No pneumothorax. Likely s [place] right pleural effusion. Interval removal of previously seen right internal jugular central venou s catheter. No other significant interval change. IMPRESSION: 1. Interval removal of previously seen right internal jugular central venous catheter. 2. Bilateral airspace opacities are unchanged. Small right pleural effusion appears new or more cons picuous compared to the prior exam.
--- NOTE | 2024-10-05 13:31 | DVHPN2 ---
Subjective Awake and following commands. Reviewed: Care Plan, H&P, Labs, Medications Changes from previous H/P or p: No Changes General: Per HPI Objective Vitals Vital Signs Date Time Temp Pulse Resp B/P (MAP) Pulse Ox O2 Delivery O2 Flow Rate FiO2 10/05/24 12:39 98 121/74 10/05/24 12:33 28 92 10/05/24 11:56 Nasal Cannula* 3 32 10/05/24 08:55 97.5 97.5 Intake/Output Intake and Output 10/05/24 07:00 Intake Total 1510 ml Output Total 1250 ml Balance 260 ml Intake Oral 420 ml IV Total 1090 ml Output Urine Total 1250 ml Exam Assess with the patient sitting up on side of the bed with physical therapy. General Appearance: Alert, Oriented X3, Cooperative, Other (Chemically sedated) HEENT: Atraumatic, PERRLA Lungs: Clear to auscultation, Normal air movement, Other (Mechanical ventilator) Cardiovascular: Normal S1, Normal S2 Abdomen: Normal bowel sounds, Soft Genitourinary: No Apparent Abnormalities Musculoskeletal: Other (No motor response) Neuro: Other (Sedated) Skin: Dry, Intact Psych/Mental Status: Other (Sedated) Medications Current Medications Medications Dose Ordered Sig/Maida Route Start Time Stop Time Status Last Admin Dose Admin Nitroglycerin 0.4 mg Q5MINP PRN SL 09/24/24 10:45 Morphine Sulfate 2 mg Q30M PRN IV 09/24/24 10:45 09/29/24 11:32 2 MG Acetaminophen 500 mg Q8HP PRN PO 09/24/24 10:45 Ondansetron HCl 4 mg Q4HP PRN IV 09/24/24 10:45 09/28/24 19:48 4 MG Ipratropium [place] 0.5 mg Q6H NEB 09/24/24 12:00 10/05/24 11:56 0.5 MG Lidocaine 1 patch DAILY TOP 09/25/24 10:00 09/30/24 10:10 1 PATCH Acetaminophen/ Hydrocodone Bitart 1 tab Q6HPRN PRN PO 09/27/24 09:15 10/05/24 11:45 1 TAB Fluconazole 100 ml @ 100 mls/hr DAILY IV 09/28/24 10:00 10/05/24 09:53 100 MLS/HR Acetaminophen 650 mg Q6HP PRN [place] 09/28/24 19:30 09/28/24 19:48 650 MG Acetaminophen/ Hydrocodone Bitart 1 tab Q4HPRN PRN PO 09/29/24 16:00 09/29/24 20:38 1 TAB Budesonide 0.5 mg BID NEB 09/30/24 22:00 10/05/24 06:50 0.5 MG Furosemide 20 mg DAILY IV 10/01/24 10:00 10/05/24 09:50 20 MG Levalbuterol HCl 1.25 mg Q6HR NEB 09/30/24 18:00 10/05/24 11:56 1.25 MG Melatonin 5 mg HSPRN PO 09/30/24 22:00 10/04/24 23:04 5 MG Diltiazem HCl 60 mg Q6HR PO 10/01/24 12:00 10/05/24 12:39 60 MG Apixaban 2.5 mg BID PO 10/01/24 22:00 10/03/24 23:21 2.5 MG Morphine Sulfate 1 mg Q4HP PRN IV 10/01/24 14:45 10/05/24 09:47 1 MG Amino Acids 0 ml @ 0 mls/hr PER PHARMACY IV 10/01/24 17:45 Diagnostic Test (Pha) 1 strip Q6HR 10/01/24 18:00 10/05/24 12:51 1 STRIP Insulin Human Regular FOLLOW SLIDING SCALE Q6HR SC 10/01/24 18:00 10/05/24 13:01 4 UNITS Dextrose 50 ml UD IV 10/01/24 18:00 Enteral Nutritional Formula 240 ml TIDWM PO 10/02/24 12:00 10/04/24 17:27 240 ML Pantoprazole Sodium 40 mg DAILY@0600 PO 10/03/24 06:00 Fat Emulsion Intravenous 50 ml/ Potassium Chloride 10 meq/ Potassium Phosphate 30.8 meq/Magnesium Sulfate 4 meq/ Multivitamins 10 ml/Chromium/ Copper/Manganese/ Zinc 1 ml/Insulin Human Regular 5 units/Amino Acids/ Dextrose/Purified Water 1,324.05 ml @ 55 mls/hr Q24H5M IV 10/03/24 22:00 10/04/24 22:04 Cancel Megestrol Acetate 400 mg DAILY PO 10/04/24 10:00 10/04/24 12:20 400 MG Docusate Sodium 100 mg BID PO 10/04/24 10:00 Fat Emulsion Intravenous 100 ml/Potassium Phosphate 44 meq/ Magnesium Sulfate 4 meq/ Multivitamins 10 ml/Chromium/ Copper/Manganese/ Zinc 1 ml/Insulin Human Regular 6 units/Amino Acids/ Dextrose/Purified Water 1,422.06 ml @ 59 mls/hr Q24H7M IV 10/04/24 22:00 10/05/24 21:59 10/04/24 23:04 59 MLS/HR Albuterol 1.25 mg Q3HPRN PRN NEB 10/04/24 15:30 Fat Emulsion Intravenous 100 ml/Sodium Phosphate 30 meq/ Potassium Chloride 45 meq/ Magnesium Sulfate 6 meq/ Multivitamins 10 ml/Chromium/ Copper/Manganese/ Zinc 1 ml/Insulin Human Regular 6 units/Amino Acids/ Dextrose/Purified Water 1,542.56 ml @ 64 mls/hr Q24H7M IV 10/05/24 22:00 10/06/24 21:59 Laboratory Results Laboratory Tests 10/02/24 03:30 10/05/24 06:02 Chemistry Test 10/05/24 06:02 Albumin 3.1 g/dL (3.2-4.8) L Calcium Level 11.2 mg/dL (8.7-10.4) H Magnesium Level 1.9 mg/dL (1.6-2.6) Phosphorus Level 2.8 mg/dL (2.4-5.1) Total Protein 7.6 g/dL (5.7-8.2) LFT Test 10/05/24 06:02 Alanine Aminotransferase (ALT) 15 U/L (7-40) Alkaline Phosphatase 46 U/L (46-116) Aspartate Amino Transferase (AST) 12 U/L (13-40) L Total Bilirubin 0.2 mg/dL (0.2-1.0) Urinalysis Test 09/24/24 12:00 Urine Color Light-brown (Yellow) Urine Clarity Ex.turbid (Clear) Urine pH 5.0 (5.0-9.0) Urine Specific [place] 1.026 (1.001-1.035) Urine Protein 1+ (Negative) H Urine Ketones Negative (Negative) Urine Blood 1+ /uL (Negative) H Urine Nitrite Negative (Negative) Urine Bilirubin Negative (Negative) Urine Urobilinogen Normal mg/dL (Negative) Urine Leukocyte Esterase Negative /uL (Negative) Urine RBC 26 /hpf (0 - 4) Urine WBC 26 /hpf (0 - 5) Urine Squamous Epithelial Cells Mod /hpf (<5) Urine Amorphous Crystals Few /hpf (None Seen) Urine Bacteria Mod /hpf (None Seen) H Urine Hyaline Casts Few /lpf (0 - 2) Urine Mucus Few (None Seen) Urine Glucose Normal mg/dL (Normal) Microbiology Microbiology Date/Time Source Procedure Growth Status 09/24/24 17:00 Nose MRSA Screen - Final Complete 09/24/24 09:16 Blood Blood Culture - Final NO GROWTH AFTER 5 DAYS OF INCUBATION. Complete 09/24/24 08:39 Urine - [place] Urine Culture - Final Yeast, not Dena albicans Complete 09/24/24 08:34 Sputum Gram Stain - Final Complete 09/24/24 08:34 Respiratory Culture - Final Yeast, not Dena albicans Complete Labs and/or images reviewed: Labs reviewed by me, Image(s) reviewed by me Assessment/Plan Assessment/Plan Impression: -acute hypoxic respiratory failure -pneumonia, possibly hospital-acquired -rheumatoid arthritis -septic shock -NSTEMI, probably type 2 -thoracic spinal fractures -atrial fibrillation with rapid ventricular rate Plan: -events: Events overnight. Chest x-ray without any new findings. Persistent opacities. Nasal cannula at 2 liters/minute. Repeat UA -antibiotic therapy: Continue Diflucan -bronchodilators : Change to Xopenex, add Pulmicort. EzPAP with treatments -cardiology consultation: Recommendations reviewed -PUD, DVT prophylaxis -Continue pain management with lidocaine patch and p.o. [place] -O2 supplementation : nasal cannula 2 liters/minute -physical therapy. Noted minimal ambulation at this time. -repeat labs in AM Total time spent with patient discussing and formulating plan of care: 35 minutes. This medical document was created using an electronic medical record system with [employer] dictation system. Although this document has been carefully reviewed, there may still be some phonetic and typographical errors. These areas are purely typographical due to imperfections of the software programs, and do not reflect any compromise in the patient's medical care. Plan discussed with: Patient, Other (RN) My Orders Orders - BARBARA SAM NP Procedure Category Date Status Time Albuterol Medneb PHA 10/04/24 In Process (Ventolin Medneb) 15:30 Chest Xray 1 View XY 10/05/24 Resulted 10:59 Urinalysis LAB 10/05/24 Logged 11:58 Date of Service: Oct 05, 2024 Billing Provider: BARBARA SAM NP Common Visit Codes: [id number] INP/OBS CARE(HIGH) BARBARA SAM NP Oct 05, 2024 13:31
[2024-10-05] MEDS: ALBUTEROL SULF 2.5 MG/0.5ML(0.5%) NEB SOLN NEB PRN (15:23)
[2024-10-05 16:08] LABS: Urine Bacteria FEW /hpf (None Seen); Urine Blood 3+ /uL (Negative); Urine Budding Yeast FEW /hpf (None Seen); Urine Clarity Turbid (Clear); Urine Color Colorless (Yellow); Urine Mucus FEW (None Seen); Urine Protein, UAD 2+ (Negative); Urine Specific Gravity 1.016 (1.001-1.035); Urine Urobilinogen Normal (Negative); Urine WBC 272 /hpf (0 - 5)
--- NOTE | 2024-10-05 21:09 | DVHPN2 ---
Progress Note - Dictate Date Seen: Oct 05, 2024 Medical Necessity Reason Pt with a Central, PICC or Fol: Yes The following are medically ne: Atkinson Catheter Reason for atkinson catheter: Strict I&O Subjective Patient seen and examined at bedside. Remains on supplemental oxygen Overnight events reviewed. vital signs Vital Sign Date Time Temp Pulse Resp B/P (MAP) Pulse Ox O2 Delivery O2 Flow Rate FiO2 10/05/24 18:52 111 18 96 10/05/24 18:42 Nasal Cannula 3.0 10/05/24 18:42 32 10/05/24 17:45 140/79 10/05/24 16:39 97.4 97.4 Total Intake and Output 10/04/24 10/04/24 10/05/24 15:00 23:00 07:00 Intake Total 100 ml 1310 ml 100 ml Output Total 900 ml 350 ml Balance 100 ml 410 ml -250 ml medications Current Medications Medications Dose Ordered Sig/Maida Route Start Time Stop Time Status Last Admin Dose Admin Nitroglycerin 0.4 mg Q5MINP PRN SL 09/24/24 10:45 Morphine Sulfate 2 mg Q30M PRN IV 09/24/24 10:45 09/29/24 11:32 2 MG Acetaminophen 500 mg Q8HP PRN PO 09/24/24 10:45 Ondansetron HCl 4 mg Q4HP PRN IV 09/24/24 10:45 09/28/24 19:48 4 MG Ipratropium [place] 0.5 mg Q6H NEB 09/24/24 12:00 10/05/24 18:42 0.5 MG Lidocaine 1 patch DAILY TOP 09/25/24 10:00 09/30/24 10:10 1 PATCH Acetaminophen/ Hydrocodone Bitart 1 tab Q6HPRN PRN PO 09/27/24 09:15 10/05/24 20:09 1 TAB Fluconazole 100 ml @ 100 mls/hr DAILY IV 09/28/24 10:00 10/05/24 09:53 100 MLS/HR Acetaminophen 650 mg Q6HP PRN UT 09/28/24 19:30 09/28/24 19:48 650 MG Budesonide 0.5 mg BID NEB 09/30/24 22:00 10/05/24 18:42 0.5 MG Furosemide 20 mg DAILY IV 10/01/24 10:00 10/05/24 09:50 20 MG Levalbuterol HCl 1.25 mg Q6HR NEB 09/30/24 18:00 10/05/24 18:42 1.25 MG Melatonin 5 mg HSPRN PO 09/30/24 22:00 10/04/24 23:04 5 MG Diltiazem HCl 60 mg Q6HR PO 10/01/24 12:00 10/05/24 17:45 60 MG Apixaban 2.5 mg BID PO 10/01/24 22:00 10/03/24 23:21 2.5 MG Morphine Sulfate 1 mg Q4HP PRN IV 10/01/24 14:45 10/05/24 16:38 1 MG Amino Acids 0 ml @ 0 mls/hr PER PHARMACY IV 10/01/24 17:45 Diagnostic Test (Pha) 1 strip Q6HR 10/01/24 18:00 10/05/24 17:55 1 STRIP Insulin Human Regular FOLLOW SLIDING SCALE Q6HR SC 10/01/24 18:00 10/05/24 17:58 2 UNITS Dextrose 50 ml UD IV 10/01/24 18:00 Enteral Nutritional Formula 240 ml TIDWM PO 10/02/24 12:00 10/04/24 17:27 240 ML Pantoprazole Sodium 40 mg DAILY@0600 PO 10/03/24 06:00 Fat Emulsion Intravenous 50 ml/ Potassium Chloride 10 meq/ Potassium Phosphate 30.8 meq/Magnesium Sulfate 4 meq/ Multivitamins 10 ml/Chromium/ Copper/Manganese/ Zinc 1 ml/Insulin Human Regular 5 units/Amino Acids/ Dextrose/Purified Water 1,324.05 ml @ 55 mls/hr Q24H5M IV 10/03/24 22:00 10/04/24 22:04 Cancel Megestrol Acetate 400 mg DAILY PO 10/04/24 10:00 10/04/24 12:20 400 MG Docusate Sodium 100 mg BID PO 10/04/24 10:00 Fat Emulsion Intravenous 100 ml/Potassium Phosphate 44 meq/ Magnesium Sulfate 4 meq/ Multivitamins 10 ml/Chromium/ Copper/Manganese/ Zinc 1 ml/Insulin Human Regular 6 units/Amino Acids/ Dextrose/Purified Water 1,422.06 ml @ 59 mls/hr Q24H7M IV 10/04/24 22:00 10/05/24 21:59 10/04/24 23:04 59 MLS/HR Albuterol 1.25 mg Q3HPRN PRN NEB 10/04/24 15:30 10/05/24 15:23 1.25 MG Fat Emulsion Intravenous 100 ml/Sodium Phosphate 30 meq/ Potassium Chloride 45 meq/ Magnesium Sulfate 6 meq/ Multivitamins 10 ml/Chromium/ Copper/Manganese/ Zinc 1 ml/Insulin Human Regular 6 units/Amino Acids/ Dextrose/Purified Water 1,542.56 ml @ 64 mls/hr Q24H7M IV 10/05/24 22:00 10/06/24 21:59 objective Gen.: Patient lying in bed in no apparent distress. On supplemental oxygen. Head: Normocephalic, atraumatic. Eyes: EOMI/PERRLA. Ears: Normal hearing. Normal anatomy. Neck/trachea: Trachea midline, supple. Nose: Normal external anatomy. Mouth: Moist mucous membranes. Chest: Decreased air entry bilaterally. No wheezing or rhonchi. Cardiovascular: Positive S1, positive S2. Regular rate and rhythm. Abdomen: Positive bowel sounds in all 4 quadrants. Soft, non-tender, non- distended. : Deferred. Rectal: Deferred. Skin: Warm, dry. Intact. Extremities: 2+ radial pulses bilaterally. No lower extremity edema. Neuro: Awake, alert, oriented x3. No gross motor or sensory deficits. Cranial nerves II through XII intact. Gait not assessed. laboratory and microbiology Laboratory Tests 10/05/24 06:02 10/02/24 03:30 Test 10/05/24 06:02 Range/Units Serum Glucose 117 H 74-106 mg/dL Assessment/Plan Impression: Acute hypoxic respiratory failure Septic shock Multifocal pneumonia Atelectasis Events: Remains on supplemental oxygen, 3 LPM NC Taper O2 as tolerated CPAP PRN - EZPAP w/ bronchodilator treatments. NTS PRN. Family declined bronchoscopy Incentive spirometry Continue bronchodilators q.3 hours PRN Xopenex/Atrovent q.6 hours Mucomyst q.8 hours. IV steroids Pulmicort BID CPT Patient having difficulty with expectoration. Continue antibiotics Continue antifungal - complete course. Megace for appetite stimulation. Continue PO diltiazem for rate control d/t AFib. ASA/Eliquis on hold due to hematuria. Pain control Avoid oversedation Head of bed elevation Aspiration precautions Monitor closely for aspiration. Accu-Cheks, ISS. TPN/Clinimix for nutritional support. Maintain euvolemia with IV Lasix 20 QD. Monitor renal function Continue PT. Rest of plan as noted below Plan: s/p extubation. Supplemental oxygen, 3 LPM NC Taper O2 as tolerated CPAP PRN - EZPAP w/ bronchodilator treatments. Bronchodilators. Continue antibiotics. F/u cultures. ASA/Eliquis on hold due to hematuria. Pressors as necessary for hemodynamic support - Currently off Titrate to keep mean arterial pressure greater than 65 mmHg. Monitor renal function Monitor electrolytes. Supplement as necessary. Monitor ins and outs. Maintain euvolemia. Diet is mechanical soft Ensure for nutritional supplementation GI prophylaxis. DVT prophylaxis. Prognosis: Guarded given patient's multiple co-morbidities. Rest of plan per hospitalist and other consultants. Thank you, Shane Arboleda NP, for allowing me to participate in this patient's care. Further recommendations will depend on the patient's clinical course. Please do not hesitate to contact me if you have any questions or concerns. This medical document was created using an electronic medical record system with [employer] dictation system. Although these documentations are being carefully reviewed, there may still be some phonetic and typographical changes. The errors are purely typographical, due to imperfection on the software program, and do not reflect any compromise in the patient's medical care. Dietary Evaluation Review Comments: 1) Continue to monitor pt PO intake to meet at least 75% of meals 2) Advance pt diet when medically feasible to a 2gm Sodium diet 3) Continue current plan of care Expected Outcomes/Goals: 1) Pt appetite to improve 2) Pt diet to advance 3) F/U in 3-5 days Plan discussed with: Patient, Other (RN Claus) JOHN ESTRADA MD Oct 05, 2024 21:09
[2024-10-05] MEDS: PPN PER PHARMACY IV NR (22:09)
[2024-10-06] VITALS (18 sets, daily range): BP systolic 106–123; BP diastolic 52–64; PULSE 90–119; RESP 17–22; TEMP 97.2–98.3; O2SAT 90–99
[2024-10-06 07:06] LABS: Anion Gap 5 (5-15); Calcium 11.1 mg/dL (8.7-10.4); Carbon Dioxide 27 mmol/L (20-31); Chloride 98 mmol/L (98-107)
[2024-10-06 07:12] LABS: BUN/Creatinine Ratio 60.6 (10.0-20.0); Blood Urea Nitrogen 40 mg/dL (9-23); GFR African American 108 mL/min; GFR Non-African American 90 mL/min; Glucose 117 mg/dL (74-106)
[2024-10-06 07:19] LABS: Sodium 130 mmol/L (136-145)
[2024-10-06 09:12] LABS: Basophils # (auto) 0 10 ^3/uL (0-0.2); Basophils % (auto) 0.2 % (0.0-2.0); Eosinophils # (auto) 0.3 10 ^3/uL (0-0.8); Eosinophils % (auto) 1.7 % (0.0-7.0); Hematocrit 26.3 % (36.0-46.0); Hemoglobin 8.8 g/dL (12.2-16.2); Lymphocytes # (auto) 1.2 10 ^3/uL (0.4-5.4); Lymphocytes % (auto) 6.2 % (10.0-50.0); Mean Corpuscular Hemoglobin 33.3 pg (28.0-32.0); Mean Corpuscular Hgb Conc. 33.4 g/dL (32.0-36.0); Mean Corpuscular Volume 99.7 fL (80.0-100.0); Monocytes # (auto) 0.7 10 ^3/uL (0-1.3); Monocytes % (auto) 3.7 % (0.0-12.0); Neutrophils # (auto) 17.3 10 ^3/uL (1.6-8.6); Neutrophils % (auto) 88.2 % (37.0-80.0); Platelet Count (auto) 291 10^3/uL (140-450); Red Blood Cells 2.63 10^6/uL (4.0-5.20); Red Cell Distribution Width 15.9 % (11.8-14.3); White Blood Cell 19.6 10^3/uL (4.4-10.8)
--- NOTE | 2024-10-06 14:26 | DVHPN2 ---
Subjective Awake and following commands. Reviewed: Care Plan, H&P, Labs, Medications Changes from previous H/P or p: No Changes General: Per HPI Objective Vitals Vital Signs Date Time Temp Pulse Resp B/P (MAP) Pulse Ox O2 Delivery O2 Flow Rate FiO2 10/06/24 12:57 99 22 115/53 93 3.0 32 10/06/24 12:50 98.3 98.3 10/06/24 11:49 Nasal Cannula* Intake/Output Intake and Output 10/06/24 07:00 Intake Total 1109 ml Output Total 950 ml Balance 159 ml Intake Oral 360 ml IV Total 749 ml Output Urine Total 950 ml Exam Assess with the patient sitting up on side of the bed with physical therapy. General Appearance: Alert, Oriented X3, Cooperative, Other (Chemically sedated) HEENT: Atraumatic, PERRLA Lungs: Clear to auscultation (Upper lobe rhonchi), Normal air movement, Other (Tachypnea noted) Cardiovascular: Normal S1, Normal S2 Abdomen: Normal bowel sounds, Soft Genitourinary: No Apparent Abnormalities Musculoskeletal: Other (No motor response) Neuro: Other (Sedated) Skin: Dry, Intact Psych/Mental Status: Other (Sedated) Medications Current Medications Medications Dose Ordered Sig/Maida Route Start Time Stop Time Status Last Admin Dose Admin Nitroglycerin 0.4 mg Q5MINP PRN SL 09/24/24 10:45 Morphine Sulfate 2 mg Q30M PRN IV 09/24/24 10:45 09/29/24 11:32 2 MG Acetaminophen 500 mg Q8HP PRN PO 09/24/24 10:45 Ondansetron HCl 4 mg Q4HP PRN IV 09/24/24 10:45 09/28/24 19:48 4 MG Ipratropium [place] 0.5 mg Q6H NEB 09/24/24 12:00 10/06/24 11:49 0.5 MG Lidocaine 1 patch DAILY TOP 09/25/24 10:00 09/30/24 10:10 1 PATCH Acetaminophen/ Hydrocodone Bitart 1 tab Q6HPRN PRN PO 09/27/24 09:15 10/05/24 20:09 1 TAB Fluconazole 100 ml @ 100 mls/hr DAILY IV 09/28/24 10:00 10/06/24 10:43 100 MLS/HR Acetaminophen 650 mg Q6HP PRN SC 09/28/24 19:30 09/28/24 19:48 650 MG Budesonide 0.5 mg BID NEB 09/30/24 22:00 10/06/24 06:56 0.5 MG Furosemide 20 mg DAILY IV 10/01/24 10:00 10/06/24 10:34 20 MG Levalbuterol HCl 1.25 mg Q6HR NEB 09/30/24 18:00 10/06/24 11:49 1.25 MG Melatonin 5 mg HSPRN PO 09/30/24 22:00 10/05/24 22:25 5 MG Diltiazem HCl 60 mg Q6HR PO 10/01/24 12:00 10/06/24 05:51 60 MG Apixaban 2.5 mg BID PO 10/01/24 22:00 10/03/24 23:21 2.5 MG Morphine Sulfate 1 mg Q4HP PRN IV 10/01/24 14:45 10/06/24 10:35 1 MG Amino Acids 0 ml @ 0 mls/hr PER PHARMACY IV 10/01/24 17:45 Diagnostic Test (Pha) 1 strip Q6HR 10/01/24 18:00 10/06/24 12:34 1 STRIP Insulin Human Regular FOLLOW SLIDING SCALE Q6HR SC 10/01/24 18:00 10/06/24 05:50 2 UNITS Dextrose 50 ml UD IV 10/01/24 18:00 Enteral Nutritional Formula 240 ml TIDWM PO 10/02/24 12:00 10/04/24 17:27 240 ML Pantoprazole Sodium 40 mg DAILY@0600 PO 10/03/24 06:00 Fat Emulsion Intravenous 50 ml/ Potassium Chloride 10 meq/ Potassium Phosphate 30.8 meq/Magnesium Sulfate 4 meq/ Multivitamins 10 ml/Chromium/ Copper/Manganese/ Zinc 1 ml/Insulin Human Regular 5 units/Amino Acids/ Dextrose/Purified Water 1,324.05 ml @ 55 mls/hr Q24H5M IV 10/03/24 22:00 10/04/24 22:04 Cancel Megestrol Acetate 400 mg DAILY PO 10/04/24 10:00 10/04/24 12:20 400 MG Docusate Sodium 100 mg BID PO 10/04/24 10:00 Albuterol 1.25 mg Q3HPRN PRN NEB 10/04/24 15:30 10/05/24 15:23 1.25 MG Fat Emulsion Intravenous 100 ml/Sodium Phosphate 30 meq/ Potassium Chloride 45 meq/ Magnesium Sulfate 6 meq/ Multivitamins 10 ml/Chromium/ Copper/Manganese/ Zinc 1 ml/Insulin Human Regular 6 units/Amino Acids/ Dextrose/Purified Water 1,542.56 ml @ 64 mls/hr Q24H7M IV 10/05/24 22:00 10/06/24 21:59 10/05/24 22:09 64 MLS/HR Fat Emulsion Intravenous 100 ml/Sodium Chloride 20 meq/ Sodium Phosphate 30 meq/Potassium Chloride 45 meq/ Magnesium Sulfate 6 meq/ Multivitamins 10 ml/Chromium/ Copper/Manganese/ Zinc 1 ml/Insulin Human Regular 6 units/Amino Acids/ Dextrose/Purified Water 1,547.56 ml @ 64 mls/hr [id number] IV 10/06/24 22:00 10/07/24 21:59 Laboratory Results Laboratory Tests 10/06/24 06:03 Chemistry Test 10/06/24 06:03 Albumin 3.0 g/dL (3.2-4.8) L Calcium Level 11.1 mg/dL (8.7-10.4) H Magnesium Level 2.0 mg/dL (1.6-2.6) Phosphorus Level 3.0 mg/dL (2.4-5.1) Urinalysis Test 09/24/24 12:00 10/05/24 15:41 Urine Amorphous Crystals Few /hpf (None Seen) Urine Hyaline Casts Few /lpf (0 - 2) Urine Color Colorless (Yellow) Urine Clarity Turbid (Clear) H Urine pH 6.0 (5.0-9.0) Urine Specific [place] 1.016 (1.001-1.035) Urine Protein 2+ (Negative) H Urine Ketones Negative (Negative) Urine Blood 3+ /uL (Negative) H Urine Nitrite Negative (Negative) Urine Bilirubin Negative (Negative) Urine Urobilinogen Normal mg/dL (Negative) Urine Leukocyte Esterase 3+ /uL (Negative) Urine RBC 98 /hpf (0 - 4) Urine WBC 272 /hpf (0 - 5) Urine Squamous Epithelial Cells Few /hpf (<5) Urine Bacteria Few /hpf (None Seen) H Urine Mucus Few (None Seen) Urine Yeast (Budding) Few /hpf (None Seen) Urine Glucose Trace mg/dL (Normal) Microbiology Microbiology Date/Time Source Procedure Growth Status 09/24/24 17:00 Nose MRSA Screen - Final Complete 09/24/24 09:16 Blood Blood Culture - Final NO GROWTH AFTER 5 DAYS OF INCUBATION. Complete 09/24/24 08:39 Urine - [place] Urine Culture - Final Yeast, not Dena albicans Complete 09/24/24 08:34 Sputum Gram Stain - Final Complete 09/24/24 08:34 Respiratory Culture - Final Yeast, not Dena albicans Complete Labs and/or images reviewed: Labs reviewed by me, Image(s) reviewed by me Assessment/Plan Assessment/Plan Impression: -acute hypoxic respiratory failure -pneumonia, possibly hospital-acquired -rheumatoid arthritis -septic shock -NSTEMI, probably type 2 -thoracic spinal fractures -atrial fibrillation with rapid ventricular rate Plan: -events: Patient with audible rhonchi. Noted questionable aspiration with p.o. intake by primary nurses[place] [id number]. Repeat chest x-ray ordered, pending results. Patient was made NPO status post time. Given probable aspiration pneumonia/pneumonitis on repeated basis over the past six weeks, leading to multiple admissions for pneumonia patient will continue with current bronchodilators, NT suctioning as needed. Defer to pulmonology for any other recommendations. Repeat blood culture, urine culture. Start empiric antibiotic therapy -antibiotic therapy: Continue Diflucan, had Zosyn -bronchodilators : Change to Xopenex, add Pulmicort. EzPAP with treatments -cardiology consultation: Recommendations reviewed -PUD, DVT prophylaxis -Continue pain management with lidocaine patch and p.o. [place] -O2 supplementation : nasal cannula 2 liters/minute -physical therapy. Noted minimal ambulation at this time. -repeat labs and chest x-ray in a.m. Total time spent with patient discussing and formulating plan of care: 35 minutes. This medical document was created using an electronic medical record system with [employer] system. Although this document has been carefully reviewed, there may still be some phonetic and typographical errors. These areas are purely typographical due to imperfections of the software programs, and do not reflect any compromise in the patient's medical care. Plan discussed with: Patient, Daughter, Other (RN) My Orders Orders - SALBINO,JIMENEZ [facility] BUSINESS MANAGER Procedure Category Date Status Time Urine Bacterial BISI 10/06/24 In Process Culture 09:04 Blood Culture BISI 10/06/24 Logged 13:35 Chest Xray 1 View XY 10/06/24 Taken 13:35 Date of Service: Oct 06, 2024 Billing Provider: BARBARA SAM NP Common Visit Codes: [id number] INP/OBS CARE(HIGH) BARBARA SAM NP Oct 06, 2024 14:26
--- NOTE | 2024-10-06 14:43 | DVH ---
CHEST RADIOGRAPH Indication: aspiration Technique: Single frontal view of the chest was obtained Comparison: XY CHEST XRAY 1 VIEW on DOS: 10/05/24, XY CHEST PORTABLE on DOS: 10/02/24, XY CHEST XRAY 1 VIEW on DOS: 10/01/24 FINDINGS: Lines and Tubes: None Lungs: Increased parenchymal density over the lung lower lung bonilla bilaterally most likely secondar y to calcified breast implants. Can not exclude infiltrate. Pleura: No effusion. No pneumothorax. Cardiomediastinal contours: Unremarkable Bones: No acute osseous abnormality. IMPRESSION: 1. Increased density over the lower lung bonilla bilaterally may represent calcified breast implants o r pneumonia.
[2024-10-06] MEDS: PIPERACILLIN-TAZOB 3.375GM 100 ML IV ONE (15:38)
[2024-10-06 20:17] LABS: Urine Bacteria None Seen /hpf (None Seen)
[2024-10-06 20:25] LABS: Urine Blood 2+ /uL (Negative); Urine Clarity Turbid (Clear); Urine Color Colorless (Yellow); Urine Mucus FEW (None Seen); Urine Protein, UAD 2+ (Negative); Urine Specific Gravity 1.021 (1.001-1.035); Urine Urobilinogen Normal (Negative); Urine WBC 479 /hpf (0 - 5); Urine pH 6.5 (5.0-9.0)
[2024-10-06] MEDS: PPN PER PHARMACY IV NR (22:00)
[2024-10-06] MEDS: PIPERACILLIN-TAZOB 3.375GM 100 ML IV SCH (23:03)
--- NOTE | 2024-10-06 23:30 | DVHPN2 ---
Progress Note - Dictate Date Seen: Oct 06, 2024 Medical Necessity Reason Pt with a Central, PICC or Fol: Yes The following are medically ne: Atkinson Catheter Reason for atkinson catheter: Strict I&O Subjective Patient seen and examined at bedside. Remains on supplemental oxygen Overnight events reviewed. vital signs Vital Sign Date Time Temp Pulse Resp B/P (MAP) Pulse Ox O2 Delivery O2 Flow Rate FiO2 10/06/24 21:00 98.1 104 18 121/61 (81) 94 98.1 10/06/24 18:21 Nasal Cannula* 3 32 Total Intake and Output 10/05/24 10/05/24 10/06/24 15:00 23:00 07:00 Intake Total 100 ml 899 ml 110 ml Output Total 550 ml 400 ml Balance 100 ml 349 ml -290 ml medications Current Medications Medications Dose Ordered Sig/Maida Route Start Time Stop Time Status Last Admin Dose Admin Nitroglycerin 0.4 mg Q5MINP PRN SL 09/24/24 10:45 Morphine Sulfate 2 mg Q30M PRN IV 09/24/24 10:45 09/29/24 11:32 2 MG Acetaminophen 500 mg Q8HP PRN PO 09/24/24 10:45 Ondansetron HCl 4 mg Q4HP PRN IV 09/24/24 10:45 09/28/24 19:48 4 MG Ipratropium [place] 0.5 mg Q6H NEB 09/24/24 12:00 10/06/24 18:21 0.5 MG Lidocaine 1 patch DAILY TOP 09/25/24 10:00 09/30/24 10:10 1 PATCH Acetaminophen/ Hydrocodone Bitart 1 tab Q6HPRN PRN PO 09/27/24 09:15 10/05/24 20:09 1 TAB Fluconazole 100 ml @ 100 mls/hr DAILY IV 09/28/24 10:00 10/06/24 10:43 100 MLS/HR Acetaminophen 650 mg Q6HP PRN [place] 09/28/24 19:30 09/28/24 19:48 650 MG Budesonide 0.5 mg BID NEB 09/30/24 22:00 10/06/24 18:21 0.5 MG Furosemide 20 mg DAILY IV 10/01/24 10:00 10/06/24 10:34 20 MG Levalbuterol HCl 1.25 mg Q6HR NEB 09/30/24 18:00 10/06/24 18:21 1.25 MG Melatonin 5 mg HSPRN PO 09/30/24 22:00 10/05/24 22:25 5 MG Diltiazem HCl 60 mg Q6HR PO 10/01/24 12:00 10/06/24 05:51 60 MG Apixaban 2.5 mg BID PO 10/01/24 22:00 10/03/24 23:21 2.5 MG Morphine Sulfate 1 mg Q4HP PRN IV 10/01/24 14:45 10/06/24 15:30 1 MG Amino Acids 0 ml @ 0 mls/hr PER PHARMACY IV 10/01/24 17:45 Diagnostic Test (Pha) 1 strip Q6HR 10/01/24 18:00 10/06/24 17:46 1 STRIP Insulin Human Regular FOLLOW SLIDING SCALE Q6HR SC 10/01/24 18:00 10/06/24 17:49 4 UNITS Dextrose 50 ml UD IV 10/01/24 18:00 Enteral Nutritional Formula 240 ml TIDWM PO 10/02/24 12:00 10/04/24 17:27 240 ML Pantoprazole Sodium 40 mg DAILY@0600 PO 10/03/24 06:00 Fat Emulsion Intravenous 50 ml/ Potassium Chloride 10 meq/ Potassium Phosphate 30.8 meq/Magnesium Sulfate 4 meq/ Multivitamins 10 ml/Chromium/ Copper/Manganese/ Zinc 1 ml/Insulin Human Regular 5 units/Amino Acids/ Dextrose/Purified Water 1,324.05 ml @ 55 mls/hr Q24H5M IV 10/03/24 22:00 10/04/24 22:04 Cancel Megestrol Acetate 400 mg DAILY PO 10/04/24 10:00 10/04/24 12:20 400 MG Docusate Sodium 100 mg BID PO 10/04/24 10:00 Albuterol 1.25 mg Q3HPRN PRN NEB 10/04/24 15:30 10/05/24 15:23 1.25 MG Fat Emulsion Intravenous 100 ml/Sodium Chloride 20 meq/ Sodium Phosphate 30 meq/Potassium Chloride 45 meq/ Magnesium Sulfate 6 meq/ Multivitamins 10 ml/Chromium/ Copper/Manganese/ Zinc 1 ml/Insulin Human Regular 6 units/Amino Acids/ Dextrose/Purified Water 1,547.56 ml @ 64 mls/hr [id number] IV 10/06/24 22:00 10/07/24 21:59 10/06/24 22:00 64 MLS/HR Piperacillin Sod/ Tazobactam Sod 100 ml @ 25 mls/hr Q8HR IV 10/06/24 22:00 10/06/24 23:03 25 MLS/HR Metoprolol Tartrate 1.25 mg Q6HPRN PRN IV 10/06/24 14:30 objective Gen.: Patient lying in bed in no apparent distress. On supplemental oxygen. Head: Normocephalic, atraumatic. Eyes: EOMI/PERRLA. Ears: Normal hearing. Normal anatomy. Neck/trachea: Trachea midline, supple. Nose: Normal external anatomy. Mouth: Moist mucous membranes. Chest: Decreased air entry bilaterally. No wheezing or rhonchi. Cardiovascular: Positive S1, positive S2. Regular rate and rhythm. Abdomen: Positive bowel sounds in all 4 quadrants. Soft, non-tender, non- distended. : Deferred. Rectal: Deferred. Skin: Warm, dry. Intact. Extremities: 2+ radial pulses bilaterally. No lower extremity edema. Neuro: Awake, alert, oriented x3. No gross motor or sensory deficits. Cranial nerves II through XII intact. Gait not assessed. laboratory and microbiology Laboratory Tests 10/06/24 06:03 Test 10/06/24 06:03 Range/Units Serum Glucose 117 H 74-106 mg/dL Assessment/Plan Impression: Acute hypoxic respiratory failure Septic shock Multifocal pneumonia Atelectasis Events: Remains on supplemental oxygen, 3 LPM NC Taper O2 as tolerated CPAP PRN - EZPAP w/ bronchodilator treatments. Patient is NPO due to aspiration risk. NTS. Pulmonary toileting High risk for aspiration. Family declined bronchoscopy Incentive spirometry Continue bronchodilators q.3 hours PRN Xopenex/Atrovent q.6 hours Pulmicort BID CPT Continue antibiotics - Zoysn Obtain CXR in AM for interval changes. Megace for appetite stimulation. ASA/Eliquis on hold due to hematuria. Pain control Avoid oversedation Head of bed elevation Aspiration precautions Monitor closely for aspiration. TPN/Clinimix for nutritional support. Maintain euvolemia with IV Lasix 20 QD. Monitor renal function Continue PT. Rest of plan as noted below Plan: s/p extubation. Supplemental oxygen, 3 LPM NC Taper O2 as tolerated CPAP PRN - EZPAP w/ bronchodilator treatments. Bronchodilators. Continue antibiotics. F/u cultures. ASA/Eliquis on hold due to hematuria. Pressors as necessary for hemodynamic support - Currently off Titrate to keep mean arterial pressure greater than 65 mmHg. Monitor renal function Monitor electrolytes. Supplement as necessary. Monitor ins and outs. Maintain euvolemia. Diet is mechanical soft Ensure for nutritional supplementation GI prophylaxis. DVT prophylaxis. Prognosis: Guarded given patient's multiple co-morbidities. Rest of plan per hospitalist and other consultants. Thank you, Shane Arboleda NP, for allowing me to participate in this patient's care. Further recommendations will depend on the patient's clinical course. Please do not hesitate to contact me if you have any questions or concerns. This medical document was created using an electronic medical record system with [employer] dictation system. Although these documentations are being carefully reviewed, there may still be some phonetic and typographical changes. The errors are purely typographical, due to imperfection on the software program, and do not reflect any compromise in the patient's medical care. Dietary Evaluation Review Comments: 1) Continue to monitor pt PO intake to meet at least 75% of meals 2) Advance pt diet when medically feasible to a 2gm Sodium diet 3) Continue current plan of care Expected Outcomes/Goals: 1) Pt appetite to improve 2) Pt diet to advance 3) F/U in 3-5 days Plan discussed with: Patient, Other (RN Claus) JOHN ESTRADA MD Oct 06, 2024 23:30
[2024-10-07] VITALS (16 sets, daily range): BP systolic 109–124; BP diastolic 61–64; PULSE 101–116; RESP 18–24; TEMP 96.8–98.2; O2SAT 95–100
--- NOTE | 2024-10-07 06:18 | DVH ---
CHEST RADIOGRAPH Indication: pna Technique: Single frontal view of the chest was obtained Comparison: XY CHEST XRAY 1 VIEW on DOS: 10/06/24, XY CHEST XRAY 1 VIEW on DOS: 10/05/24, XY CHEST PO RTABLE on DOS: 10/02/24 IMPRESSION: Bilateral breast implants increased opacification of the lung bases, limiting evaluation of pathology of the lung bases. No sizable effusion or pneumothorax. Interstitial prominence appear similar to p rior examination.
[2024-10-07 06:33] LABS: Hematocrit 23.4 % (36.0-46.0); Mean Corpuscular Hemoglobin 34.1 pg (28.0-32.0); Mean Corpuscular Hgb Conc. 34.3 g/dL (32.0-36.0); Mean Corpuscular Volume 99.4 fL (80.0-100.0); Platelet Count (auto) 288 10^3/uL (140-450); Red Blood Cells 2.35 10^6/uL (4.0-5.20); Red Cell Distribution Width 15.9 % (11.8-14.3)
[2024-10-07 06:37] LABS: Basophils % (manual) 0 (0.0-2.0); Blast Cells 0; Myelocytes % 0; Promyelocytes % 0; Reactive Lymphocytes 0
[2024-10-07 06:49] LABS: Alanine Aminotransferase 14 U/L (7-40); Anion Gap 9 (5-15); Aspartate Aminotransferase 20 U/L (13-40); BUN/Creatinine Ratio 48.3 (10.0-20.0); Carbon Dioxide 23 mmol/L (20-31); Magnesium 2.1 mg/dL (1.6-2.6); Phosphorus 2.7 mg/dL (2.4-5.1); Potassium 4.1 mmol/L (3.5-5.1)
[2024-10-07 06:50] LABS: Total Protein 7.2 g/dL (5.7-8.2)
[2024-10-07 06:52] LABS: Albumin 2.9 g/dL (3.2-4.8); Alkaline Phosphatase 45 U/L (46-116); Bilirubin, Total 0.2 mg/dL (0.2-1.0); Blood Urea Nitrogen 28 mg/dL (9-23); Calcium 10.7 mg/dL (8.7-10.4); Chloride 98 mmol/L (98-107); Glucose 127 mg/dL (74-106); Sodium 130 mmol/L (136-145)
[2024-10-07 08:19] LABS: Band Neutrophils % (manual) 7; Eosinophils % (manual) 2 (0-7); Metamyelocytes % 1; Monocytes % (manual) 7 (0-12)
[2024-10-07 08:20] LABS: Lymphocytes % (manual) 10 (10.0-50.0)
[2024-10-07 08:21] LABS: Anisocytosis Slight; Platelet Estimate Adequate
--- NOTE | 2024-10-07 08:55 | DVH ---
CLINICAL INFORMATION: 89 years old, Female; pneumonia, worsening sepsis. TECHNIQUE: Axial CT imaging of the chest was performed without IV contrast. Sagittal and coronal ref ormatted images were made, stored and reviewed. Evaluation is limited without IV contrast. One or mor e of the following dose reduction techniques were used: Automated exposure control. Adjustment of mA and/or kV according to patient size. CTDIvol = 4.7 mGy DLP = 155.34 mGy-cm COMPARISON: CT CT ANGIO CHEST CONTRAST on DOS: 08/21/24. Chest radiograph dated 10/07/2024. FINDINGS: Aorta: Moderate calcified plaque in the thoracic aorta. No aneurysm. Cardiac: Mild cardiomegaly. Dense coronary artery calcification. Mediastinum/len: No mass or adenopathy. Lungs: Small bilateral pleural effusions with overlying atelectasis and consolidation, right greater than left. Respiratory motion artifact limits evaluation for subtle findings. Scattered areas of grou nd-glass attenuation and small patchy opacities in both lungs. Nodular opacities in the left upper l obe, some of which are new compared to the prior exam and are likely infectious or inflammatory in na ture. Pulmonary arteries: No gross abnormality. Chest wall: Bilateral breast prostheses. Capsular calcification associated with the right breast pro sthesis. Upper abdomen: Calcified granulomas in the spleen. Small calcified gallstones layering dependently in the visualized portions of the gallbladder. Moderate atherosclerotic calcification of the visualized portions of the abdominal aorta. Small calcifications in the renal len partially visualized, may be arterial calcifications, although can not exclude nonobstructing renal calculus, particularly in the left kidney. GI contrast partially visualized in the splenic flexure of the colon. Bones: Vertebral compression fractures are seen at T4, T5, and T6, with the T4 and T5 compression fra ctures new compared to the prior exam. Similar appearance of the T6 compression fracture. IMPRESSION: 1. Small bilateral pleural effusions with overlying atelectasis and consolidation, right greater than left. 2. Additional scattered ground-glass and patchy opacities as well as nodular opacities in both lungs, most likely infectious or inflammatory in nature. 3. T4, T5, and T6 compression fractures, with the T4 and T5 compression fractures being new since the prior CTA chest exam from 10/29/2024, with likely subacute components of the these fractures. Co rrelate with clinical findings. 4. Cholelithiasis. 5. Additional findings as detailed above. 6. Motion artifact limits evaluation.
--- NOTE | 2024-10-07 09:31 | DVHPN2 ---
Subjective Patient reporting shortness of breath today. Reviewed: Care Plan, H&P, Labs, Medications Changes from previous H/P or p: Changes General: Per HPI Objective Vitals Vital Signs Date Time Temp Pulse Resp B/P (MAP) Pulse Ox O2 Delivery O2 Flow Rate FiO2 10/07/24 07:46 109 22 96 10/07/24 07:46 Nasal Cannula* 3 32 10/07/24 05:32 124/64 10/07/24 05:00 96.8 96.8 Intake/Output Intake and Output 10/07/24 07:00 Intake Total 1842.56 ml Balance 1842.56 ml IV Total 1842.56 ml Exam Assess with the patient sitting up on side of the bed with physical therapy. General Appearance: Alert, Oriented X3, Cooperative, Other (Chemically sedated) HEENT: Atraumatic, PERRLA Lungs: Other (Tachypnea with improved rhonchi in upper lobes, bibasilar crackles.) Cardiovascular: Normal S1, Normal S2 Abdomen: Normal bowel sounds, Soft Genitourinary: No Apparent Abnormalities Musculoskeletal: Other (No motor response) Neuro: Normal speech, Sensation intact, Cranial nerves 3-12 NL, Other (Sedated) Skin: Dry, Intact Psych/Mental Status: Other (Sedated) Medications Current Medications Medications Dose Ordered Sig/Maida Route Start Time Stop Time Status Last Admin Dose Admin Nitroglycerin 0.4 mg Q5MINP PRN SL 09/24/24 10:45 Morphine Sulfate 2 mg Q30M PRN IV 09/24/24 10:45 09/29/24 11:32 2 MG Acetaminophen 500 mg Q8HP PRN PO 09/24/24 10:45 Ondansetron HCl 4 mg Q4HP PRN IV 09/24/24 10:45 09/28/24 19:48 4 MG Ipratropium Marshall 0.5 mg Q6H NEB 09/24/24 12:00 10/07/24 07:47 0.5 MG Lidocaine 1 patch DAILY TOP 09/25/24 10:00 09/30/24 10:10 1 PATCH Acetaminophen/ Hydrocodone Bitart 1 tab Q6HPRN PRN PO 09/27/24 09:15 10/05/24 20:09 1 TAB Fluconazole 100 ml @ 100 mls/hr DAILY IV 09/28/24 10:00 10/06/24 10:43 100 MLS/HR Acetaminophen 650 mg Q6HP PRN HI 09/28/24 19:30 09/28/24 19:48 650 MG Budesonide 0.5 mg BID NEB 09/30/24 22:00 10/06/24 18:21 0.5 MG Furosemide 20 mg DAILY IV 10/01/24 10:00 10/06/24 10:34 20 MG Levalbuterol HCl 1.25 mg Q6HR NEB 09/30/24 18:00 10/07/24 07:46 1.25 MG Melatonin 5 mg HSPRN PO 09/30/24 22:00 10/05/24 22:25 5 MG Diltiazem HCl 60 mg Q6HR PO 10/01/24 12:00 10/06/24 05:51 60 MG Apixaban 2.5 mg BID PO 10/01/24 22:00 10/03/24 23:21 2.5 MG Morphine Sulfate 1 mg Q4HP PRN IV 10/01/24 14:45 10/07/24 01:04 1 MG Amino Acids 0 ml @ 0 mls/hr PER PHARMACY IV 10/01/24 17:45 Diagnostic Test (Pha) 1 strip Q6HR 10/01/24 18:00 10/07/24 06:02 1 STRIP Insulin Human Regular FOLLOW SLIDING SCALE Q6HR SC 10/01/24 18:00 10/07/24 06:08 2 UNITS Dextrose 50 ml UD IV 10/01/24 18:00 Enteral Nutritional Formula 240 ml TIDWM PO 10/02/24 12:00 10/04/24 17:27 240 ML Pantoprazole Sodium 40 mg DAILY@0600 PO 10/03/24 06:00 Fat Emulsion Intravenous 50 ml/ Potassium Chloride 10 meq/ Potassium Phosphate 30.8 meq/Magnesium Sulfate 4 meq/ Multivitamins 10 ml/Chromium/ Copper/Manganese/ Zinc 1 ml/Insulin Human Regular 5 units/Amino Acids/ Dextrose/Purified Water 1,324.05 ml @ 55 mls/hr Q24H5M IV 10/03/24 22:00 10/04/24 22:04 Cancel Megestrol Acetate 400 mg DAILY PO 10/04/24 10:00 10/04/24 12:20 400 MG Docusate Sodium 100 mg BID PO 10/04/24 10:00 Albuterol 1.25 mg Q3HPRN PRN NEB 10/04/24 15:30 10/05/24 15:23 1.25 MG Fat Emulsion Intravenous 100 ml/Sodium Chloride 20 meq/ Sodium Phosphate 30 meq/Potassium Chloride 45 meq/ Magnesium Sulfate 6 meq/ Multivitamins 10 ml/Chromium/ Copper/Manganese/ Zinc 1 ml/Insulin Human Regular 6 units/Amino Acids/ Dextrose/Purified Water 1,547.56 ml @ 64 mls/hr [id number] IV 10/06/24 22:00 10/07/24 21:59 10/06/24 22:00 64 MLS/HR Piperacillin Sod/ Tazobactam Sod 100 ml @ 25 mls/hr Q8HR IV 10/06/24 22:00 10/07/24 05:35 25 MLS/HR Metoprolol Tartrate 1.25 mg Q6HPRN PRN IV 10/06/24 14:30 Methylprednisolone Sodium Succinate 40 mg DAILY IV 10/07/24 10:00 Laboratory Results Laboratory Tests 10/07/24 06:07 Chemistry Test 10/07/24 06:07 Albumin 2.9 g/dL (3.2-4.8) L Calcium Level 10.7 mg/dL (8.7-10.4) H Magnesium Level 2.1 mg/dL (1.6-2.6) Phosphorus Level 2.7 mg/dL (2.4-5.1) Total Protein 7.2 g/dL (5.7-8.2) LFT Test 10/07/24 06:07 Alanine Aminotransferase (ALT) 14 U/L (7-40) Alkaline Phosphatase 45 U/L (46-116) L Aspartate Amino Transferase (AST) 20 U/L (13-40) Total Bilirubin 0.2 mg/dL (0.2-1.0) Urinalysis Test 09/24/24 12:00 10/05/24 15:41 10/06/24 16:55 Urine Amorphous Crystals Few /hpf (None Seen) Urine Hyaline Casts Few /lpf (0 - 2) Urine Yeast (Budding) Few /hpf (None Seen) Urine Color Colorless (Yellow) Urine Clarity Turbid (Clear) H Urine pH 6.5 (5.0-9.0) Urine Specific Goodman 1.021 (1.001-1.035) Urine Protein 2+ (Negative) H Urine Ketones Negative (Negative) Urine Blood 2+ /uL (Negative) H Urine Nitrite Negative (Negative) Urine Bilirubin Negative (Negative) Urine Urobilinogen Normal mg/dL (Negative) Urine Leukocyte Esterase 3+ /uL (Negative) Urine RBC 92 /hpf (0 - 4) Urine WBC 479 /hpf (0 - 5) Urine Squamous Epithelial Cells Few /hpf (<5) Urine Bacteria None seen /hpf (None Seen) Urine Mucus Few (None Seen) Urine Glucose Normal mg/dL (Normal) Microbiology Microbiology Date/Time Source Procedure Growth Status 09/24/24 17:00 Nose MRSA Screen - Final Complete 09/24/24 09:16 Blood Blood Culture - Final NO GROWTH AFTER 5 DAYS OF INCUBATION. Complete 09/24/24 08:39 Urine - [place] Urine Culture - Final Yeast, not Dena albicans Complete 09/24/24 08:34 Sputum Gram Stain - Final Complete 09/24/24 08:34 Respiratory Culture - Final Yeast, not Dena albicans Complete Labs and/or images reviewed: Labs reviewed by me, Image(s) reviewed by me Assessment/Plan Assessment/Plan Impression: -acute hypoxic respiratory failure -pneumonia, possibly hospital-acquired -rheumatoid arthritis -septic shock -NSTEMI, probably type 2 -thoracic spinal fractures -atrial fibrillation with rapid ventricular rate Plan: -events: Patient has improvement with pulmonary status other than persistent tachypnea. Given patient's leukocytosis, and worsening respiratory status, patient will be restarted on steroids. Patient will also have CT scan of the chest with results revealed. Patient has new T4, T6 compression fractures. This will be discussed with the patient's family. While they wished for the patient to be treated for the compression fracture at [facility], patient will have spinal surgeon evaluation at this facility. Leukocytosis has improved. Patient will have exchange of Ortiz catheter. We will attempt p.o. once patient's respiratory status has improved. -antibiotic therapy: Continue Diflucan, had Zosyn -bronchodilators : Change to Xopenex, add Pulmicort. EzPAP with treatments -cardiology consultation: Recommendations reviewed -PUD, DVT prophylaxis -Continue pain management with lidocaine patch and p.o. [place] -O2 supplementation : nasal cannula 2 liters/minute -physical therapy. Noted minimal ambulation at this time. -repeat labs and chest x-ray in a.m. Total time spent with patient discussing and formulating plan of care: 35 minutes. This medical document was created using an electronic medical record system with [employer] dictation system. Although this document has been carefully reviewed, there may still be some phonetic and typographical errors. These areas are purely typographical due to imperfections of the software programs, and do not reflect any compromise in the patient's medical care. Plan discussed with: Patient, Other (RN) My Orders Orders - BARBARA SAM NP Procedure Category Date Status Time Blood Culture BISI 10/06/24 In Process 13:35 Chest Xray 1 View XY 10/06/24 Resulted 13:35 Npo (Nothing By DIET 10/06/24 Transmitted Mouth) Diet Dinner Piperacillin-Tazob PHA 10/06/24 In Process 3.375gm (Zosyn 3.375g 22:00 Metoprolol Inj PHA 10/06/24 In Process (Lopressor) 14:30 Chest Portable XY 10/07/24 Resulted 04:00 Ok To Change [place] ORDERS 10/07/24 Transmitted 07:[address] 10/07/24 Resulted 07:59 Methylprednisolone PHA 10/07/24 In Process Sod Succ (Solu Medrol 10:00 Vitamin D 25-Hydroxy LAB 10/08/24 Verified D2 + D3 04:00 ConsultdrDelaney Cheatham CONS 10/07/24 Transmitted [facility](Spine) 09:20 Date of Service: Oct 07, 2024 Billing Provider: BARBARA SAM NP Common Visit Codes: [id number] INP/OBS CARE(HIGH) BARBARA SAM NP Oct 07, 2024 09:31
[2024-10-07] MEDS: methylPREDNISolone SOD SUCC 40 MG/ML VL IV SCH (09:52)
[2024-10-07 15:29] LABS: Urine Bacteria FEW /hpf (None Seen); Urine Blood 2+ /uL (Negative); Urine Clarity Turbid (Clear); Urine Color Light-Yellow (Yellow); Urine Mucus FEW (None Seen); Urine Protein, UAD 2+ (Negative); Urine Specific Gravity 1.018 (1.001-1.035); Urine Urobilinogen Normal (Negative); Urine WBC 83 /hpf (0 - 5); Urine pH 6.5 (5.0-9.0)
--- NOTE | 2024-10-07 20:32 | DVHPN2 ---
Progress Note - Dictate Date Seen: Oct 07, 2024 Medical Necessity Reason Pt with a Central, PICC or Fol: Yes The following are medically ne: Atkinson Catheter Reason for atkinson catheter: Strict I&O Subjective Patient seen and examined at bedside. Remains on supplemental oxygen Overnight events reviewed. vital signs Vital Sign Date Time Temp Pulse Resp B/P (MAP) Pulse Ox O2 Delivery O2 Flow Rate FiO2 10/07/24 19:02 113 20 100 10/07/24 18:01 117/63 10/07/24 13:16 Nasal Cannula 3.0 10/07/24 13:16 32 10/07/24 05:00 96.8 96.8 Total Intake and Output 10/06/24 10/06/24 10/07/24 15:00 23:00 07:00 Intake Total 100 ml 1642.56 ml 100 ml Balance 100 ml 1642.56 ml 100 ml medications Current Medications Medications Dose Ordered Sig/Maida Route Start Time Stop Time Status Last Admin Dose Admin Nitroglycerin 0.4 mg Q5MINP PRN SL 09/24/24 10:45 Morphine Sulfate 2 mg Q30M PRN IV 09/24/24 10:45 09/29/24 11:32 2 MG Acetaminophen 500 mg Q8HP PRN PO 09/24/24 10:45 Ondansetron HCl 4 mg Q4HP PRN IV 09/24/24 10:45 09/28/24 19:48 4 MG Ipratropium Dierks 0.5 mg Q6H NEB 09/24/24 12:00 10/07/24 18:57 0.5 MG Lidocaine 1 patch DAILY TOP 09/25/24 10:00 09/30/24 10:10 1 PATCH Acetaminophen/ Hydrocodone Bitart 1 tab Q6HPRN PRN PO 09/27/24 09:15 10/05/24 20:09 1 TAB Fluconazole 100 ml @ 100 mls/hr DAILY IV 09/28/24 10:00 10/07/24 09:50 100 MLS/HR Acetaminophen 650 mg Q6HP PRN CA 09/28/24 19:30 09/28/24 19:48 650 MG Budesonide 0.5 mg BID NEB 09/30/24 22:00 10/07/24 10:26 0.5 MG Furosemide 20 mg DAILY IV 10/01/24 10:00 10/06/24 10:34 20 MG Levalbuterol HCl 1.25 mg Q6HR NEB 09/30/24 18:00 10/07/24 18:57 1.25 MG Melatonin 5 mg HSPRN PO 09/30/24 22:00 10/05/24 22:25 5 MG Diltiazem HCl 60 mg Q6HR PO 10/01/24 12:00 10/06/24 05:51 60 MG Apixaban 2.5 mg BID PO 10/01/24 22:00 10/03/24 23:21 2.5 MG Morphine Sulfate 1 mg Q4HP PRN IV 10/01/24 14:45 10/07/24 17:31 1 MG Amino Acids 0 ml @ 0 mls/hr PER PHARMACY IV 10/01/24 17:45 Diagnostic Test (Pha) 1 strip Q6HR 10/01/24 18:00 10/07/24 18:07 1 STRIP Insulin Human Regular FOLLOW SLIDING SCALE Q6HR SC 10/01/24 18:00 10/07/24 18:08 8 UNITS Dextrose 50 ml UD IV 10/01/24 18:00 Enteral Nutritional Formula 240 ml TIDWM PO 10/02/24 12:00 10/04/24 17:27 240 ML Pantoprazole Sodium 40 mg DAILY@0600 PO 10/03/24 06:00 Fat Emulsion Intravenous 50 ml/ Potassium Chloride 10 meq/ Potassium Phosphate 30.8 meq/Magnesium Sulfate 4 meq/ Multivitamins 10 ml/Chromium/ Copper/Manganese/ Zinc 1 ml/Insulin Human Regular 5 units/Amino Acids/ Dextrose/Purified Water 1,324.05 ml @ 55 mls/hr Q24H5M IV 10/03/24 22:00 10/04/24 22:04 Cancel Megestrol Acetate 400 mg DAILY PO 10/04/24 10:00 10/04/24 12:20 400 MG Docusate Sodium 100 mg BID PO 10/04/24 10:00 Albuterol 1.25 mg Q3HPRN PRN NEB 10/04/24 15:30 10/05/24 15:23 1.25 MG Fat Emulsion Intravenous 100 ml/Sodium Chloride 20 meq/ Sodium Phosphate 30 meq/Potassium Chloride 45 meq/ Magnesium Sulfate 6 meq/ Multivitamins 10 ml/Chromium/ Copper/Manganese/ Zinc 1 ml/Insulin Human Regular 6 units/Amino Acids/ Dextrose/Purified Water 1,547.56 ml @ 64 mls/hr [id number] IV 10/06/24 22:00 10/07/24 21:59 10/06/24 22:00 64 MLS/HR Piperacillin Sod/ Tazobactam Sod 100 ml @ 25 mls/hr Q8HR IV 10/06/24 22:00 10/07/24 14:39 25 MLS/HR Metoprolol Tartrate 1.25 mg Q6HPRN PRN IV 10/06/24 14:30 Methylprednisolone Sodium Succinate 40 mg DAILY IV 10/07/24 10:00 10/07/24 09:52 40 MG Fat Emulsion Intravenous 150 ml/Sodium Chloride 40 meq/ Sodium Phosphate 40 meq/Potassium Chloride 45 meq/ Magnesium Sulfate 6 meq/ Multivitamins 10 ml/Chromium/ Copper/Manganese/ Zinc 1 ml/Insulin Human Regular 6 units/Amino Acids/ Dextrose/Purified Water 1,605.06 ml @ 66 mls/hr [id number] IV 10/07/24 22:00 10/08/24 21:59 objective Gen.: Patient lying in bed in no apparent distress. On supplemental oxygen. Head: Normocephalic, atraumatic. Eyes: EOMI/PERRLA. Ears: Normal hearing. Normal anatomy. Neck/trachea: Trachea midline, supple. Nose: Normal external anatomy. Mouth: Moist mucous membranes. Chest: Decreased air entry bilaterally. No wheezing or rhonchi. Cardiovascular: Positive S1, positive S2. Regular rate and rhythm. Abdomen: Positive bowel sounds in all 4 quadrants. Soft, non-tender, non- distended. : Deferred. Rectal: Deferred. Skin: Warm, dry. Intact. Extremities: 2+ radial pulses bilaterally. No lower extremity edema. Neuro: Awake, alert, oriented x3. No gross motor or sensory deficits. Cranial nerves II through XII intact. Gait not assessed. laboratory and microbiology Laboratory Tests 10/07/24 06:07 Test 10/07/24 06:07 Range/Units Serum Glucose 127 H 74-106 mg/dL Assessment/Plan Impression: Acute hypoxic respiratory failure Septic shock Multifocal pneumonia Atelectasis Events: Remains on supplemental oxygen, 2 LPM NC Taper O2 as tolerated CPAP PRN - EZPAP w/ bronchodilator treatments. Patient is NPO due to aspiration risk. NTS. Pulmonary toileting High risk for aspiration. Family declined bronchoscopy Incentive spirometry Continue steroids - IV Solu-Medrol Continue bronchodilators q.3 hours PRN Xopenex/Atrovent q.6 hours Pulmicort BID CPT Continue antibiotics - Zosyn CT chest demonstrated small bilateral pleural effusions with overlying atelectasis and consolidation, right greater than left. Additional scattered ground-glass and patchy opacities as well as nodular opacities in both lungs. Spinal compression fractures and cholelithiasis. Limited chest ultrasound revealed trace bilateral pleural effusions not amenable for thoracentesis Megace for appetite stimulation. ASA/Eliquis on hold due to hematuria. Pain control Avoid oversedation Head of bed elevation Aspiration precautions Monitor closely for aspiration. TPN/Clinimix for nutritional support. Continue PT. Rest of plan as noted below Plan: s/p extubation. Supplemental oxygen, 2 LPM NC Taper O2 as tolerated CPAP PRN - EZPAP w/ bronchodilator treatments. Bronchodilators. Continue antibiotics. F/u cultures. ASA/Eliquis on hold due to hematuria. Pressors as necessary for hemodynamic support - Currently off Titrate to keep mean arterial pressure greater than 65 mmHg. Monitor renal function Monitor electrolytes. Supplement as necessary. Monitor ins and outs. Maintain euvolemia. Diet is mechanical soft Ensure for nutritional supplementation GI prophylaxis. DVT prophylaxis. Prognosis: Guarded given patient's multiple co-morbidities. Rest of plan per hospitalist and other consultants. Thank you, Shane Arboleda NP, for allowing me to participate in this patient's care. Further recommendations will depend on the patient's clinical course. Please do not hesitate to contact me if you have any questions or concerns. This medical document was created using an electronic medical record system with [employer] dictation system. Although these documentations are being carefully reviewed, there may still be some phonetic and typographical changes. The errors are purely typographical, due to imperfection on the software program, and do not reflect any compromise in the patient's medical care. Dietary Evaluation Review Comments: 1) Continue to monitor pt PO intake to meet at least 75% of meals 2) Advance pt diet when medically feasible to a 2gm Sodium diet 3) Continue current plan of care Expected Outcomes/Goals: 1) Pt appetite to improve 2) Pt diet to advance 3) F/U in 3-5 days Plan discussed with: Patient, Other (RADHA Dixon) JOHN ESTRADA MD Oct 07, 2024 20:32
[2024-10-07] MEDS: PPN PER PHARMACY IV NR (22:00)
[2024-10-08] VITALS (16 sets, daily range): BP systolic 114–143; BP diastolic 59–77; PULSE 85–115; RESP 18–26; TEMP 96.7–98.6; O2SAT 92–100
[2024-10-08 06:42] LABS: Alkaline Phosphatase 49 U/L (46-116); Anion Gap 10 (5-15); BUN/Creatinine Ratio 51.8 (10.0-20.0); Carbon Dioxide 22 mmol/L (20-31); Chloride 98 mmol/L (98-107); Magnesium 2.3 mg/dL (1.6-2.6); Potassium 4.3 mmol/L (3.5-5.1)
[2024-10-08 06:43] LABS: Phosphorus 2.6 mg/dL (2.4-5.1); Total Protein 7.9 g/dL (5.7-8.2)
[2024-10-08 06:48] LABS: Alanine Aminotransferase 111 U/L (7-40); Albumin 3.1 g/dL (3.2-4.8); Aspartate Aminotransferase 119 U/L (13-40); Bilirubin, Total 0.2 mg/dL (0.2-1.0); Blood Urea Nitrogen 29 mg/dL (9-23); Calcium 10.6 mg/dL (8.7-10.4); Glucose 139 mg/dL (74-106); Sodium 130 mmol/L (136-145)
--- NOTE | 2024-10-08 11:14 | DVHPN2 ---
Subjective Patient was states that her shortness of breath has improved today. Reviewed: Care Plan, H&P, Labs, Medications Changes from previous H/P or p: No Changes General: Per HPI Objective Vitals Vital Signs Date Time Temp Pulse Resp B/P (MAP) Pulse Ox O2 Delivery O2 Flow Rate FiO2 10/08/24 09:53 104 22 130/70 10/08/24 09:00 97.2 95 97.2 10/08/24 08:00 Nasal Cannula* 2 28 Intake/Output Intake and Output 10/08/24 07:00 Intake Total 200 ml Output Total 800 ml Balance -600 ml Intake Oral 0 ml IV Total 200 ml Output Urine Total 800 ml Exam Assess with the patient sitting up on side of the bed with physical therapy. General Appearance: Alert, Oriented X3, Cooperative, Other (Chemically sedated) HEENT: Atraumatic, PERRLA Lungs: Other (Tachypnea with improved rhonchi in upper lobes, bibasilar crackles.) Cardiovascular: Normal S1, Normal S2 Abdomen: Normal bowel sounds, Soft Genitourinary: No Apparent Abnormalities Musculoskeletal: Other (No motor response) Neuro: Normal speech, Sensation intact, Cranial nerves 3-12 NL, Other (Sedated) Skin: Dry, Intact Psych/Mental Status: Other (Sedated) Medications Current Medications Medications Dose Ordered Sig/Maida Route Start Time Stop Time Status Last Admin Dose Admin Nitroglycerin 0.4 mg Q5MINP PRN SL 09/24/24 10:45 Morphine Sulfate 2 mg Q30M PRN IV 09/24/24 10:45 09/29/24 11:32 2 MG Acetaminophen 500 mg Q8HP PRN PO 09/24/24 10:45 Ondansetron HCl 4 mg Q4HP PRN IV 09/24/24 10:45 09/28/24 19:48 4 MG Ipratropium [place] 0.5 mg Q6H NEB 09/24/24 12:00 10/08/24 06:05 0.5 MG Lidocaine 1 patch DAILY TOP 09/25/24 10:00 09/30/24 10:10 1 PATCH Acetaminophen/ Hydrocodone Bitart 1 tab Q6HPRN PRN PO 09/27/24 09:15 10/05/24 20:09 1 TAB Acetaminophen 650 mg Q6HP PRN [place] 09/28/24 19:30 09/28/24 19:48 650 MG Budesonide 0.5 mg BID NEB 09/30/24 22:00 10/08/24 06:05 0.5 MG Furosemide 20 mg DAILY IV 10/01/24 10:00 10/06/24 10:34 20 MG Levalbuterol HCl 1.25 mg Q6HR NEB 09/30/24 18:00 10/08/24 06:05 1.25 MG Melatonin 5 mg HSPRN PO 09/30/24 22:00 10/05/24 22:25 5 MG Diltiazem HCl 60 mg Q6HR PO 10/01/24 12:00 10/06/24 05:51 60 MG Apixaban 2.5 mg BID PO 10/01/24 22:00 10/03/24 23:21 2.5 MG Morphine Sulfate 1 mg Q4HP PRN IV 10/01/24 14:45 10/08/24 09:53 1 MG Amino Acids 0 ml @ 0 mls/hr PER PHARMACY IV 10/01/24 17:45 Diagnostic Test (Pha) 1 strip Q6HR 10/01/24 18:00 10/08/24 06:04 1 STRIP Insulin Human Regular FOLLOW SLIDING SCALE Q6HR SC 10/01/24 18:00 10/08/24 06:19 2 UNITS Dextrose 50 ml UD IV 10/01/24 18:00 Enteral Nutritional Formula 240 ml TIDWM PO 10/02/24 12:00 10/04/24 17:27 240 ML Pantoprazole Sodium 40 mg DAILY@0600 PO 10/03/24 06:00 Fat Emulsion Intravenous 50 ml/ Potassium Chloride 10 meq/ Potassium Phosphate 30.8 meq/Magnesium Sulfate 4 meq/ Multivitamins 10 ml/Chromium/ Copper/Manganese/ Zinc 1 ml/Insulin Human Regular 5 units/Amino Acids/ Dextrose/Purified Water 1,324.05 ml @ 55 mls/hr Q24H5M IV 10/03/24 22:00 10/04/24 22:04 Cancel Megestrol Acetate 400 mg DAILY PO 10/04/24 10:00 10/04/24 12:20 400 MG Docusate Sodium 100 mg BID PO 10/04/24 10:00 Albuterol 1.25 mg Q3HPRN PRN NEB 10/04/24 15:30 10/05/24 15:23 1.25 MG Piperacillin Sod/ Tazobactam Sod 100 ml @ 25 mls/hr Q8HR IV 10/06/24 22:00 10/08/24 06:05 25 MLS/HR Metoprolol Tartrate 1.25 mg Q6HPRN PRN IV 10/06/24 14:30 Methylprednisolone Sodium Succinate 40 mg DAILY IV 10/07/24 10:00 10/08/24 09:53 40 MG Fat Emulsion Intravenous 150 ml/Sodium Chloride 40 meq/ Sodium Phosphate 40 meq/Potassium Chloride 45 meq/ Magnesium Sulfate 6 meq/ Multivitamins 10 ml/Chromium/ Copper/Manganese/ Zinc 1 ml/Insulin Human Regular 6 units/Amino Acids/ Dextrose/Purified Water 1,605.06 ml @ 66 mls/hr [id number] IV 10/07/24 22:00 10/08/24 21:59 10/07/24 22:00 66 MLS/HR Micafungin Sodium 100 mg/Sodium Chloride 100 ml @ 100 mls/hr DAILY IV 10/08/24 10:00 Fat Emulsion Intravenous 150 ml/Sodium Chloride 50 meq/ Sodium Phosphate 50 meq/Potassium Chloride 30 meq/ Magnesium Sulfate 4 meq/ Multivitamins 10 ml/Chromium/ Copper/Manganese/ Zinc 1 ml/Insulin Human Regular 8 units/Amino Acids/ Dextrose/Purified Water 1,602.08 ml @ 66 mls/hr [id number] IV 10/08/24 22:00 10/09/24 21:59 Laboratory Results Laboratory Tests 10/07/24 06:07 10/08/24 05:59 Chemistry Test 10/08/24 05:59 Albumin 3.1 g/dL (3.2-4.8) L Calcium Level 10.6 mg/dL (8.7-10.4) H Magnesium Level 2.3 mg/dL (1.6-2.6) Phosphorus Level 2.6 mg/dL (2.4-5.1) Total Protein 7.9 g/dL (5.7-8.2) LFT Test 10/08/24 05:59 Alanine Aminotransferase (ALT) 111 U/L (7-40) H Alkaline Phosphatase 49 U/L (46-116) Aspartate Amino Transferase (AST) 119 U/L (13-40) H Total Bilirubin 0.2 mg/dL (0.2-1.0) Urinalysis Test 09/24/24 12:00 10/05/24 15:41 10/07/24 14:30 Urine Amorphous Crystals Few /hpf (None Seen) Urine Hyaline Casts Few /lpf (0 - 2) Urine Yeast (Budding) Few /hpf (None Seen) Urine Color Light-yellow (Yellow) Urine Clarity Turbid (Clear) H Urine pH 6.5 (5.0-9.0) Urine Specific [place] 1.018 (1.001-1.035) Urine Protein 2+ (Negative) H Urine Ketones Negative (Negative) Urine Blood 2+ /uL (Negative) H Urine Nitrite Negative (Negative) Urine Bilirubin Negative (Negative) Urine Urobilinogen Normal mg/dL (Negative) Urine Leukocyte Esterase 2+ /uL (Negative) Urine RBC 75 /hpf (0 - 4) Urine WBC 83 /hpf (0 - 5) Urine Squamous Epithelial Cells Few /hpf (<5) Urine Bacteria Few /hpf (None Seen) H Urine Mucus Few (None Seen) Urine Glucose Trace mg/dL (Normal) Microbiology Microbiology Date/Time Source Procedure Growth Status 10/06/24 14:38 Blood Blood Culture - Preliminary NO GROWTH AFTER 24 HOURS OF INCUBATION. Resulted 10/05/24 15:41 Urine - [place] Urine Culture - Preliminary Resulted 09/24/24 17:00 Nose MRSA Screen - Final Complete 09/24/24 08:34 Sputum Gram Stain - Final Complete 09/24/24 08:34 Respiratory Culture - Final Yeast, not Dena albicans Complete Labs and/or images reviewed: Labs reviewed by me, Image(s) reviewed by me Assessment/Plan Assessment/Plan Impression: -acute hypoxic respiratory failure -pneumonia, possibly hospital-acquired -rheumatoid arthritis -septic shock -NSTEMI, probably type 2 -thoracic spinal fractures -atrial fibrillation with rapid ventricular rate Plan: -events: Spinal surgeon consultation for thoracic fracture currently pending. [place] catheter changed -antibiotic therapy: Change antibiotic therapy to Zosyn and micafungin -bronchodilators : Change to Xopenex, add Pulmicort. EzPAP with treatments -cardiology consultation: Recommendations reviewed -PUD, DVT prophylaxis -Continue pain management with lidocaine patch and p.o. [place] -O2 supplementation : nasal cannula 2 liters/minute -physical therapy. Noted minimal ambulation at this time. -repeat labs and chest x-ray in a.m. -plan of care discussed with patient was daughter was bedside. Given patient's probable persistent aspiration over the past 5-6 weeks, discussion was made regarding possible PEG tube placement once the patient was stable from respiratory status. She reports she will discuss matter with the patient as well as her siblings. Total time spent with patient and family regarding advance care plannin minutes. Total time spent with patient discussing and formulating plan of care: 35 minutes. This medical document was created using an electronic medical record system with [employer] dictation system. Although this document has been carefully reviewed, there may still be some phonetic and typographical errors. These areas are purely typographical due to imperfections of the software programs, and do not reflect any compromise in the patient's medical care. Plan discussed with: Patient, Daughter, Other (RN) My Orders Orders - BARBARA SAM NP Procedure Category Date Status Time Micafungin Sodium PHA 10/08/24 In Process (Mycamine) 10:00 Basic Metabolic Panel LAB 10/09/24 Verified 04:00 Complete Blood Count LAB 10/09/24 Verified 04:00 Date of Service: Oct 08, 2024 Billing Provider: BARBARA SAM NP Common Visit Codes: [id number] INP/OBS CARE(HIGH) Secondary Visit Codes: [id number] CARE PLAN 30 MINUTES BARBARA SAM NP Oct 08, 2024 11:14
[2024-10-08] MEDS: MICAFUNGIN SODIUM 100 MG in SODIUM CHL 0.9% 100 ML IV SCH (13:00)
--- NOTE | 2024-10-08 22:55 | DVHPN2 ---
Progress Note - Dictate Date Seen: Oct 08, 2024 Medical Necessity Reason Pt with a Central, PICC or Fol: Yes The following are medically ne: [place] Catheter Reason for atkinson catheter: Strict I&O Subjective Patient seen and examined at bedside. Remains on supplemental oxygen Overnight events reviewed. vital signs Vital Sign Date Time Temp Pulse Resp B/P (MAP) Pulse Ox O2 Delivery O2 Flow Rate FiO2 10/08/24 22:42 95 20 99 10/08/24 22:32 Nasal Cannula 3.0 10/08/24 22:32 32 10/08/24 18:47 114/63 10/08/24 17:00 96.7 96.7 Total Intake and Output 10/07/24 10/07/24 10/08/24 15:00 23:00 07:00 Intake Total 200 ml 0 ml Output Total 800 ml Balance 200 ml -800 ml medications Current Medications Medications Dose Ordered Sig/Maida Route Start Time Stop Time Status Last Admin Dose Admin Nitroglycerin 0.4 mg Q5MINP PRN SL 09/24/24 10:45 Morphine Sulfate 2 mg Q30M PRN IV 09/24/24 10:45 09/29/24 11:32 2 MG Acetaminophen 500 mg Q8HP PRN PO 09/24/24 10:45 Ondansetron HCl 4 mg Q4HP PRN IV 09/24/24 10:45 09/28/24 19:48 4 MG Ipratropium [place] 0.5 mg Q6H NEB 09/24/24 12:00 10/08/24 22:32 0.5 MG Lidocaine 1 patch DAILY TOP 09/25/24 10:00 09/30/24 10:10 1 PATCH Acetaminophen/ Hydrocodone Bitart 1 tab Q6HPRN PRN PO 09/27/24 09:15 10/05/24 20:09 1 TAB Acetaminophen 650 mg Q6HP PRN [place] 09/28/24 19:30 09/28/24 19:48 650 MG Budesonide 0.5 mg BID NEB 09/30/24 22:00 10/08/24 22:32 0.5 MG Furosemide 20 mg DAILY IV 10/01/24 10:00 10/06/24 10:34 20 MG Levalbuterol HCl 1.25 mg Q6HR NEB 09/30/24 18:00 10/08/24 22:32 1.25 MG Melatonin 5 mg HSPRN PO 09/30/24 22:00 10/05/24 22:25 5 MG Diltiazem HCl 60 mg Q6HR PO 10/01/24 12:00 10/06/24 05:51 60 MG Apixaban 2.5 mg BID PO 10/01/24 22:00 10/03/24 23:21 2.5 MG Morphine Sulfate 1 mg Q4HP PRN IV 10/01/24 14:45 10/08/24 18:47 1 MG Amino Acids 0 ml @ 0 mls/hr PER PHARMACY IV 10/01/24 17:45 Diagnostic Test (Pha) 1 strip Q6HR 10/01/24 18:00 10/08/24 17:42 1 STRIP Insulin Human Regular FOLLOW SLIDING SCALE Q6HR SC 10/01/24 18:00 10/08/24 17:43 8 UNITS Dextrose 50 ml UD IV 10/01/24 18:00 Enteral Nutritional Formula 240 ml TIDWM PO 10/02/24 12:00 10/04/24 17:27 240 ML Pantoprazole Sodium 40 mg DAILY@0600 PO 10/03/24 06:00 Fat Emulsion Intravenous 50 ml/ Potassium Chloride 10 meq/ Potassium Phosphate 30.8 meq/Magnesium Sulfate 4 meq/ Multivitamins 10 ml/Chromium/ Copper/Manganese/ Zinc 1 ml/Insulin Human Regular 5 units/Amino Acids/ Dextrose/Purified Water 1,324.05 ml @ 55 mls/hr Q24H5M IV 10/03/24 22:00 10/04/24 22:04 Cancel Megestrol Acetate 400 mg DAILY PO 10/04/24 10:00 10/04/24 12:20 400 MG Docusate Sodium 100 mg BID PO 10/04/24 10:00 Albuterol 1.25 mg Q3HPRN PRN NEB 10/04/24 15:30 10/05/24 15:23 1.25 MG Piperacillin Sod/ Tazobactam Sod 100 ml @ 25 mls/hr Q8HR IV 10/06/24 22:00 10/08/24 14:20 25 MLS/HR Metoprolol Tartrate 1.25 mg Q6HPRN PRN IV 10/06/24 14:30 Methylprednisolone Sodium Succinate 40 mg DAILY IV 10/07/24 10:00 10/08/24 09:53 40 MG Micafungin Sodium 100 mg/Sodium Chloride 100 ml @ 100 mls/hr DAILY IV 10/08/24 10:00 10/08/24 13:00 100 MLS/HR Fat Emulsion Intravenous 150 ml/Sodium Chloride 50 meq/ Sodium Phosphate 50 meq/Potassium Chloride 30 meq/ Magnesium Sulfate 4 meq/ Multivitamins 10 ml/Chromium/ Copper/Manganese/ Zinc 1 ml/Insulin Human Regular 8 units/Amino Acids/ Dextrose/Purified Water 1,602.08 ml @ 66 mls/hr [id number] IV 10/08/24 22:00 10/09/24 21:59 objective Gen.: Patient lying in bed in no apparent distress. On supplemental oxygen. Head: Normocephalic, atraumatic. Eyes: EOMI/PERRLA. Ears: Normal hearing. Normal anatomy. Neck/trachea: Trachea midline, supple. Nose: Normal external anatomy. Mouth: Moist mucous membranes. Chest: Decreased air entry bilaterally. No wheezing or rhonchi. Cardiovascular: Positive S1, positive S2. Regular rate and rhythm. Abdomen: Positive bowel sounds in all 4 quadrants. Soft, non-tender, non- distended. : Deferred. Rectal: Deferred. Skin: Warm, dry. Intact. Extremities: 2+ radial pulses bilaterally. No lower extremity edema. Neuro: Awake, alert, oriented x3. No gross motor or sensory deficits. Cranial nerves II through XII intact. Gait not assessed. laboratory and microbiology Laboratory Tests 10/08/24 05:59 10/07/24 06:07 Test 10/08/24 05:59 Range/Units Serum Glucose 139 H 74-106 mg/dL Assessment/Plan Impression: Acute hypoxic respiratory failure Septic shock Multifocal pneumonia Atelectasis Events: Remains on supplemental oxygen, 2 LPM NC Taper O2 as tolerated CPAP PRN - EZPAP w/ bronchodilator treatments. Patient is NPO due to aspiration risk. NTS. Pulmonary toileting High risk for aspiration. Family declined bronchoscopy Incentive spirometry Continue steroids - IV Solu-Medrol Continue bronchodilators q.3 hours PRN Xopenex/Atrovent q.6 hours Pulmicort BID CPT Continue antibiotics - Zosyn ASA/Eliquis on hold due to hematuria. Pain control Avoid oversedation Head of bed elevation Aspiration precautions Monitor closely for aspiration. Lasix on hold- decreased blood pressure. TPN for nutritional support Continue PT. Sitter at bedside. Rest of plan as noted below Plan: s/p extubation. Supplemental oxygen, 2 LPM NC Taper O2 as tolerated CPAP PRN - EZPAP w/ bronchodilator treatments. Bronchodilators. Continue antibiotics. F/u cultures. ASA/Eliquis on hold due to hematuria. Pressors as necessary for hemodynamic support - Currently off Titrate to keep mean arterial pressure greater than 65 mmHg. Monitor renal function Monitor electrolytes. Supplement as necessary. Monitor ins and outs. Maintain euvolemia. GI prophylaxis. DVT prophylaxis. Prognosis: Guarded given patient's multiple co-morbidities. Rest of plan per hospitalist and other consultants. Thank you, Shane Arboleda NP, for allowing me to participate in this patient's care. Further recommendations will depend on the patient's clinical course. Please do not hesitate to contact me if you have any questions or concerns. This medical document was created using an electronic medical record system with [employer] dictation system. Although these documentations are being carefully reviewed, there may still be some phonetic and typographical changes. The errors are purely typographical, due to imperfection on the software program, and do not reflect any compromise in the patient's medical care. Dietary Evaluation Review Comments: 1) Continue to monitor pt PO intake to meet at least 75% of meals 2) Advance pt diet when medically feasible to a 2gm Sodium diet 3) Continue current plan of care Expected Outcomes/Goals: 1) Pt appetite to improve 2) Pt diet to advance 3) F/U in 3-5 days Plan discussed with: Patient, Other (RADHA Carlisle) JOHN ESTRADA MD Oct 08, 2024 22:55
[2024-10-08] MEDS: SODIUM PHOSPHATES IV NR (23:03)
[2024-10-08] MEDS: [UNRECOGNIZED DRUG - OTHER] IV NR (23:03)
[2024-10-08] MEDS: FAT EMULSION IV NR (23:03)
[2024-10-08] MEDS: SODIUM CHLORIDE IV NR (23:03)
[2024-10-09] VITALS (19 sets, daily range): BP systolic 108–149; BP diastolic 57–81; PULSE 66–125; RESP 18–26; TEMP 97.1–97.7; O2SAT 92–99
[2024-10-09 06:08] LABS: Basophils # (auto) 0 10 ^3/uL (0-0.2); Basophils % (auto) 0.2 % (0.0-2.0); Eosinophils # (auto) 0 10 ^3/uL (0-0.8); Eosinophils % (auto) 0.1 % (0.0-7.0); Hematocrit 25.6 % (36.0-46.0); Hemoglobin 8.5 g/dL (12.2-16.2); Lymphocytes # (auto) 0.6 10 ^3/uL (0.4-5.4); Lymphocytes % (auto) 4.9 % (10.0-50.0); Mean Corpuscular Hemoglobin 33.1 pg (28.0-32.0); Mean Corpuscular Hgb Conc. 33.1 g/dL (32.0-36.0); Mean Corpuscular Volume 99.8 fL (80.0-100.0); Monocytes # (auto) 1.9 10 ^3/uL (0-1.3); Monocytes % (auto) 14.3 % (0.0-12.0); Neutrophils # (auto) 10.6 10 ^3/uL (1.6-8.6); Neutrophils % (auto) 80.5 % (37.0-80.0); Nucleated Red Blood Cells % 0.1 %; Platelet Count (auto) 379 10^3/uL (140-450); Red Blood Cells 2.57 10^6/uL (4.0-5.20); White Blood Cell 13.1 10^3/uL (4.4-10.8)
[2024-10-09 08:30] LABS: Chloride 100 mmol/L (98-107); Potassium 4.7 mmol/L (3.5-5.1)
[2024-10-09 08:31] LABS: Anion Gap 9 (5-15); Carbon Dioxide 22 mmol/L (20-31)
[2024-10-09 08:33] LABS: Calcium 10.6 mg/dL (8.7-10.4); Sodium 131 mmol/L (136-145)
[2024-10-09 08:36] LABS: BUN/Creatinine Ratio 46.8 (10.0-20.0); Triglycerides 76 mg/dL (< 150)
[2024-10-09 08:37] LABS: Magnesium 1.9 mg/dL (1.6-2.6)
[2024-10-09 08:38] LABS: Phosphorus 2.7 mg/dL (2.4-5.1)
[2024-10-09 08:40] LABS: Blood Urea Nitrogen 29 mg/dL (9-23); Glucose 116 mg/dL (74-106)
--- NOTE | 2024-10-09 13:56 | DVHPN2 ---
Subjective The patient is seen and examined at bedside. No change overnight. Still complaint of shortness for breath. Daughters at bedside. Reviewed: Care Plan, H&P, Labs, Medications Changes from previous H/P or p: No Changes General: Per HPI Objective Vitals Vital Signs Date Time Temp Pulse Resp B/P (MAP) Pulse Ox O2 Delivery O2 Flow Rate FiO2 10/09/24 13:00 97.6 125 20 149/81 (103) 92 97.6 10/09/24 11:45 Nasal Cannula* 3 32 Intake/Output Intake and Output 10/09/24 07:00 Intake Total 1612 ml Output Total 1200 ml Balance 412 ml Intake Oral 0 ml IV Total 1612 ml Output Urine Total 1200 ml General Appearance: Alert, Oriented X3, Cooperative, Other (Chemically sedated) HEENT: Atraumatic, PERRLA Lungs: Other (Tachypnea with improved rhonchi in upper lobes, bibasilar crackles.) Cardiovascular: Normal S1, Normal S2 Abdomen: Normal bowel sounds, Soft Genitourinary: No Apparent Abnormalities Musculoskeletal: Other (No motor response) Neuro: Normal speech, Sensation intact, Cranial nerves 3-12 NL, Other (Sedated) Skin: Dry, Intact Psych/Mental Status: Other (Sedated) Medications Current Medications Medications Dose Ordered Sig/Maida Route Start Time Stop Time Status Last Admin Dose Admin Nitroglycerin 0.4 mg Q5MINP PRN SL 09/24/24 10:45 Morphine Sulfate 2 mg Q30M PRN IV 09/24/24 10:45 09/29/24 11:32 2 MG Acetaminophen 500 mg Q8HP PRN PO 09/24/24 10:45 Ondansetron HCl 4 mg Q4HP PRN IV 09/24/24 10:45 09/28/24 19:48 4 MG Ipratropium [place] 0.5 mg Q6H NEB 09/24/24 12:00 10/09/24 11:49 0.5 MG Lidocaine 1 patch DAILY TOP 09/25/24 10:00 09/30/24 10:10 1 PATCH Acetaminophen/ Hydrocodone Bitart 1 tab Q6HPRN PRN PO 09/27/24 09:15 10/05/24 20:09 1 TAB Acetaminophen 650 mg Q6HP PRN [place] 09/28/24 19:30 09/28/24 19:48 650 MG Budesonide 0.5 mg BID NEB 09/30/24 22:00 10/09/24 07:22 0.5 MG Furosemide 20 mg DAILY IV 10/01/24 10:00 10/09/24 10:26 20 MG Levalbuterol HCl 1.25 mg Q6HR NEB 09/30/24 18:00 10/09/24 11:45 1.25 MG Melatonin 5 mg HSPRN PO 09/30/24 22:00 10/05/24 22:25 5 MG Diltiazem HCl 60 mg Q6HR PO 10/01/24 12:00 10/06/24 05:51 60 MG Apixaban 2.5 mg BID PO 10/01/24 22:00 10/03/24 23:21 2.5 MG Morphine Sulfate 1 mg Q4HP PRN IV 10/01/24 14:45 10/09/24 10:27 1 MG Amino Acids 0 ml @ 0 mls/hr PER PHARMACY IV 10/01/24 17:45 Diagnostic Test (Pha) 1 strip Q6HR 10/01/24 18:00 10/09/24 13:08 1 STRIP Insulin Human Regular FOLLOW SLIDING SCALE Q6HR SC 10/01/24 18:00 10/09/24 13:39 2 UNITS Dextrose 50 ml UD IV 10/01/24 18:00 Enteral Nutritional Formula 240 ml TIDWM PO 10/02/24 12:00 10/04/24 17:27 240 ML Pantoprazole Sodium 40 mg DAILY@0600 PO 10/03/24 06:00 Fat Emulsion Intravenous 50 ml/ Potassium Chloride 10 meq/ Potassium Phosphate 30.8 meq/Magnesium Sulfate 4 meq/ Multivitamins 10 ml/Chromium/ Copper/Manganese/ Zinc 1 ml/Insulin Human Regular 5 units/Amino Acids/ Dextrose/Purified Water 1,324.05 ml @ 55 mls/hr Q24H5M IV 10/03/24 22:00 10/04/24 22:04 Cancel Megestrol Acetate 400 mg DAILY PO 10/04/24 10:00 10/04/24 12:20 400 MG Docusate Sodium 100 mg BID PO 10/04/24 10:00 Albuterol 1.25 mg Q3HPRN PRN NEB 10/04/24 15:30 10/05/24 15:23 1.25 MG Piperacillin Sod/ Tazobactam Sod 100 ml @ 25 mls/hr Q8HR IV 10/06/24 22:00 10/09/24 06:05 25 MLS/HR Metoprolol Tartrate 1.25 mg Q6HPRN PRN IV 10/06/24 14:30 Methylprednisolone Sodium Succinate 40 mg DAILY IV 10/07/24 10:00 10/09/24 10:25 40 MG Micafungin Sodium 100 mg/Sodium Chloride 100 ml @ 100 mls/hr DAILY IV 10/08/24 10:00 10/09/24 10:25 100 MLS/HR Fat Emulsion Intravenous 150 ml/Sodium Chloride 50 meq/ Sodium Phosphate 50 meq/Potassium Chloride 30 meq/ Magnesium Sulfate 4 meq/ Multivitamins 10 ml/Chromium/ Copper/Manganese/ Zinc 1 ml/Insulin Human Regular 8 units/Amino Acids/ Dextrose/Purified Water 1,602.08 ml @ 66 mls/hr [id number] IV 10/08/24 22:00 10/09/24 21:59 10/08/24 23:03 66 MLS/HR Fat Emulsion Intravenous 150 ml/Sodium Chloride 70 meq/ Sodium Acetate 20 meq/Sodium Phosphate 50 meq/ Potassium Chloride 10 meq/ Magnesium Sulfate 6 meq/ Multivitamins 10 ml/Chromium/ Copper/Manganese/ Zinc 1 ml/Insulin Human Regular 10 units/Amino Acids/ Dextrose/Purified Water 1,607.6 ml @ 66 mls/hr [id number] IV 10/09/24 22:00 10/10/24 21:59 Laboratory Results Laboratory Tests 10/09/24 05:48 10/09/24 08:15 Chemistry Test 10/09/24 08:15 Calcium Level 10.6 mg/dL (8.7-10.4) H Magnesium Level 1.9 mg/dL (1.6-2.6) Phosphorus Level 2.7 mg/dL (2.4-5.1) Lipid panel Test 10/09/24 08:15 Triglycerides Level 76 mg/dL (< 150) Urinalysis Test 09/24/24 12:00 10/05/24 15:41 10/07/24 14:30 Urine Amorphous Crystals Few /hpf (None Seen) Urine Hyaline Casts Few /lpf (0 - 2) Urine Yeast (Budding) Few /hpf (None Seen) Urine Color Light-yellow (Yellow) Urine Clarity Turbid (Clear) H Urine pH 6.5 (5.0-9.0) Urine Specific [place] 1.018 (1.001-1.035) Urine Protein 2+ (Negative) H Urine Ketones Negative (Negative) Urine Blood 2+ /uL (Negative) H Urine Nitrite Negative (Negative) Urine Bilirubin Negative (Negative) Urine Urobilinogen Normal mg/dL (Negative) Urine Leukocyte Esterase 2+ /uL (Negative) Urine RBC 75 /hpf (0 - 4) Urine WBC 83 /hpf (0 - 5) Urine Squamous Epithelial Cells Few /hpf (<5) Urine Bacteria Few /hpf (None Seen) H Urine Mucus Few (None Seen) Urine Glucose Trace mg/dL (Normal) Microbiology Microbiology Date/Time Source Procedure Growth Status 10/06/24 14:38 Blood Blood Culture - Preliminary NO GROWTH AFTER 48 HOURS OF INCUBATION. Resulted 10/05/24 15:41 Urine - [place] Urine Culture - Preliminary Yeast, not Dena albicans Resulted 09/24/24 17:00 Nose MRSA Screen - Final Complete 09/24/24 08:34 Sputum Gram Stain - Final Complete 09/24/24 08:34 Respiratory Culture - Final Yeast, not Dena albicans Complete Labs and/or images reviewed: Labs reviewed by me Assessment/Plan Assessment/Plan -acute hypoxic respiratory failure -pneumonia, possibly hospital-acquired -rheumatoid arthritis -septic shock -NSTEMI, probably type 2 -thoracic spinal fractures -atrial fibrillation with rapid ventricular rate Plan: Continuing current management. Waiting for spine surgeon evaluate for thoracic fracture. Continuing with IV antibiotics Zosyn and micafungin. Continuing with Xopenex and Pulmicort. Continuing with nebulizer treatment. Continuing with TPN. Discussed with daughter was at bedside. Two of her daughter is visiting her today. They asked me about discharge her home with home hospice. They said they still have to discuss with the another sister who is coming in ,however they wanted to know if she can go home with TPN. The patient's family did not feel comfortable with G-tube placement yet, but does not want mom to suffering from starvation if she passed. I explained to the family that hospice is an of life care and we will not continuing TPN with hospice at home. The family wanted discussed with other members of the family prior to making any decisions. Continuing with pain medication lidocaine and [place]. Continuing with oxygen support nasal cannula. Prognosis poor. Plan discussed with: Patient, Daughter Date of Service: Oct 09, 2024 Billing Provider: LEONOR FRAGOSO MD Common Visit Codes: [id number] INP/OBS CARE(HIGH) LEONOR FRAGOSO MD Oct 09, 2024 13:56
[2024-10-09] MEDS: FUROSEMIDE 20 MG/2 ML VIAL IV ONE (15:43)
[2024-10-09] MEDS: MORPHINE SULFATE INJ 2 MG/ml SYRG IV PRN (15:44)
[2024-10-09] MEDS: FUROSEMIDE 40 MG/4 ML VIAL IV SCH (18:00)
[2024-10-09] MEDS: PPN PER PHARMACY IV NR (21:54)
[2024-10-09] MEDS ORDERED: PPN PER PHARMACY IV NR (22:00)
--- NOTE | 2024-10-09 23:00 | DVHPN2 ---
Progress Note - Dictate Date Seen: Oct 09, 2024 Medical Necessity Reason Pt with a Central, PICC or Fol: Yes The following are medically ne: Atkinson Catheter Reason for atkinson catheter: Strict I&O Subjective Patient seen and examined at bedside. Remains on supplemental oxygen Overnight events reviewed. vital signs Vital Sign Date Time Temp Pulse Resp B/P (MAP) Pulse Ox O2 Delivery O2 Flow Rate FiO2 10/09/24 22:45 121 24 99 10/09/24 22:40 Nasal Cannula* 4 36 10/09/24 21:00 97.1 120/67 (84) 97.1 Total Intake and Output 10/08/24 10/08/24 10/09/24 15:00 23:00 07:00 Intake Total 100 ml 892 ml 620 ml Output Total 600 ml 600 ml Balance 100 ml 292 ml 20 ml medications Current Medications Medications Dose Ordered Sig/Maida Route Start Time Stop Time Status Last Admin Dose Admin Nitroglycerin 0.4 mg Q5MINP PRN SL 09/24/24 10:45 Morphine Sulfate 2 mg Q30M PRN IV 09/24/24 10:45 09/29/24 11:32 2 MG Acetaminophen 500 mg Q8HP PRN PO 09/24/24 10:45 Ondansetron HCl 4 mg Q4HP PRN IV 09/24/24 10:45 09/28/24 19:48 4 MG Ipratropium [place] 0.5 mg Q6H NEB 09/24/24 12:00 10/09/24 18:48 0.5 MG Lidocaine 1 patch DAILY TOP 09/25/24 10:00 09/30/24 10:10 1 PATCH Acetaminophen/ Hydrocodone Bitart 1 tab Q6HPRN PRN PO 09/27/24 09:15 10/05/24 20:09 1 TAB Acetaminophen 650 mg Q6HP PRN IN 09/28/24 19:30 09/28/24 19:48 650 MG Budesonide 0.5 mg BID NEB 09/30/24 22:00 10/09/24 22:40 0.5 MG Levalbuterol HCl 1.25 mg Q6HR NEB 09/30/24 18:00 10/09/24 18:48 1.25 MG Melatonin 5 mg HSPRN PO 09/30/24 22:00 10/05/24 22:25 5 MG Diltiazem HCl 60 mg Q6HR PO 10/01/24 12:00 10/06/24 05:51 60 MG Apixaban 2.5 mg BID PO 10/01/24 22:00 10/03/24 23:21 2.5 MG Amino Acids 0 ml @ 0 mls/hr PER PHARMACY IV 10/01/24 17:45 Diagnostic Test (Pha) 1 strip Q6HR 10/01/24 18:00 10/09/24 18:02 1 STRIP Insulin Human Regular FOLLOW SLIDING SCALE Q6HR SC 10/01/24 18:00 10/09/24 21:57 4 UNITS Dextrose 50 ml UD IV 10/01/24 18:00 Enteral Nutritional Formula 240 ml TIDWM PO 10/02/24 12:00 10/04/24 17:27 240 ML Pantoprazole Sodium 40 mg DAILY@0600 PO 10/03/24 06:00 Fat Emulsion Intravenous 50 ml/ Potassium Chloride 10 meq/ Potassium Phosphate 30.8 meq/Magnesium Sulfate 4 meq/ Multivitamins 10 ml/Chromium/ Copper/Manganese/ Zinc 1 ml/Insulin Human Regular 5 units/Amino Acids/ Dextrose/Purified Water 1,324.05 ml @ 55 mls/hr Q24H5M IV 10/03/24 22:00 10/04/24 22:04 Cancel Megestrol Acetate 400 mg DAILY PO 10/04/24 10:00 10/04/24 12:20 400 MG Docusate Sodium 100 mg BID PO 10/04/24 10:00 Albuterol 1.25 mg Q3HPRN PRN NEB 10/04/24 15:30 10/05/24 15:23 1.25 MG Piperacillin Sod/ Tazobactam Sod 100 ml @ 25 mls/hr Q8HR IV 10/06/24 22:00 10/09/24 21:42 25 MLS/HR Metoprolol Tartrate 1.25 mg Q6HPRN PRN IV 10/06/24 14:30 Methylprednisolone Sodium Succinate 40 mg DAILY IV 10/07/24 10:00 10/09/24 10:25 40 MG Micafungin Sodium 100 mg/Sodium Chloride 100 ml @ 100 mls/hr DAILY IV 10/08/24 10:00 10/09/24 10:25 100 MLS/HR Fat Emulsion Intravenous 150 ml/Sodium Chloride 70 meq/ Sodium Acetate 20 meq/Sodium Phosphate 50 meq/ Potassium Chloride 10 meq/ Magnesium Sulfate 6 meq/ Multivitamins 10 ml/Chromium/ Copper/Manganese/ Zinc 1 ml/Insulin Human Regular 10 units/Amino Acids/ Dextrose/Purified Water 1,607.6 ml @ 66 mls/hr [id number] IV 10/09/24 22:00 10/10/24 21:59 10/09/24 21:54 66 MLS/HR Morphine Sulfate 2 mg Q3HPRN PRN IV 10/09/24 15:00 10/09/24 19:19 2 MG Furosemide 40 mg BIDD IV 10/09/24 18:00 10/09/24 19:18 40 MG objective Gen.: Patient lying in bed in no apparent distress. On supplemental oxygen. Head: Normocephalic, atraumatic. Eyes: EOMI/PERRLA. Ears: Normal hearing. Normal anatomy. Neck/trachea: Trachea midline, supple. Nose: Normal external anatomy. Mouth: Moist mucous membranes. Chest: Decreased air entry bilaterally. No wheezing or rhonchi. Cardiovascular: Positive S1, positive S2. Regular rate and rhythm. Abdomen: Positive bowel sounds in all 4 quadrants. Soft, non-tender, non- distended. : Deferred. Rectal: Deferred. Skin: Warm, dry. Intact. Extremities: 2+ radial pulses bilaterally. No lower extremity edema. Neuro: Awake, alert, oriented x3. No gross motor or sensory deficits. Cranial nerves II through XII intact. Gait not assessed. laboratory and microbiology Laboratory Tests 10/09/24 08:15 10/09/24 05:48 Test 10/09/24 08:15 Range/Units Serum Glucose 116 H 74-106 mg/dL Assessment/Plan Impression: Acute hypoxic respiratory failure Septic shock Multifocal pneumonia Atelectasis Events: Remains on supplemental oxygen, 2 LPM NC Taper O2 as tolerated CPAP PRN - EZPAP w/ bronchodilator treatments. Patient is NPO due to aspiration risk. TPN for nutritional support. NTS. Pulmonary toileting High risk for aspiration. Family declined bronchoscopy Incentive spirometry Continue IV steroids - taper as tolerated Continue bronchodilators q.3 hours PRN Xopenex/Atrovent q.6 hours Pulmicort BID CPT Continue antibiotics - Zosyn Continue Micafungin ASA/Eliquis on hold due to hematuria. Pain control Avoid oversedation Head of bed elevation Aspiration precautions Monitor closely for aspiration. Diurese w/ Lasix as tolerated Monitor renal function. Monitor electrolytes. Supplement as necessary. Continue PT. Sitter at bedside. Protonix for GI prophylaxis Rest of plan as noted below Plan: s/p extubation. Supplemental oxygen, 2 LPM NC Taper O2 as tolerated CPAP PRN - EZPAP w/ bronchodilator treatments. Bronchodilators. Continue antibiotics. F/u cultures. ASA/Eliquis on hold due to hematuria. Pressors as necessary for hemodynamic support - Currently off Titrate to keep mean arterial pressure greater than 65 mmHg. Monitor renal function Monitor electrolytes. Supplement as necessary. Monitor ins and outs. Maintain euvolemia. GI prophylaxis. DVT prophylaxis. Prognosis: Guarded given patient's multiple co-morbidities. Rest of plan per hospitalist and other consultants. Thank you, Shane Arboleda NP, for allowing me to participate in this patient's care. Further recommendations will depend on the patient's clinical course. Please do not hesitate to contact me if you have any questions or concerns. This medical document was created using an electronic medical record system with [employer] dictation system. Although these documentations are being carefully reviewed, there may still be some phonetic and typographical changes. The errors are purely typographical, due to imperfection on the software program, and do not reflect any compromise in the patient's medical care. Dietary Evaluation Review Comments: 1) Continue to monitor pt PO intake to meet at least 75% of meals 2) Advance pt diet when medically feasible to a 2gm Sodium diet 3) Continue current plan of care Expected Outcomes/Goals: 1) Pt appetite to improve 2) Pt diet to advance 3) F/U in 3-5 days Plan discussed with: Patient, Other (RADHA Sparks) JOHN ESTRADA MD Oct 09, 2024 23:00
[2024-10-10] VITALS (14 sets, daily range): BP systolic 104–130; BP diastolic 63–82; PULSE 104–133; RESP 18–23; TEMP 97.2–98.6; O2SAT 91–100
[2024-10-10 06:53] LABS: Alkaline Phosphatase 50 U/L (46-116); Anion Gap 11 (5-15); BUN/Creatinine Ratio 51.3 (10.0-20.0); Carbon Dioxide 23 mmol/L (20-31); Phosphorus 4.6 mg/dL (2.4-5.1); Potassium 3.7 mmol/L (3.5-5.1)
[2024-10-10 06:55] LABS: Alanine Aminotransferase 144 U/L (7-40); Aspartate Aminotransferase 63 U/L (13-40); Bilirubin, Total < 0.2 mg/dL (0.2-1.0); Blood Urea Nitrogen 39 mg/dL (9-23); Chloride 98 mmol/L (98-107); Glucose 177 mg/dL (74-106); Sodium 132 mmol/L (136-145); Total Protein 8.4 g/dL (5.7-8.2)
--- NOTE | 2024-10-10 08:28 | DVHPN2 ---
Subjective The patient is seen and examined at bedside. No change overnight. Remained shortness for breath and tired. Daughter at bedside. Reviewed: Care Plan, H&P, Labs, Medications Changes from previous H/P or p: No Changes General: Per HPI Objective Vitals Vital Signs Date Time Temp Pulse Resp B/P (MAP) Pulse Ox O2 Delivery O2 Flow Rate FiO2 10/10/24 07:26 125 20 97 10/10/24 07:16 Nasal Cannula 3.0 10/10/24 07:16 32 10/10/24 05:11 123/80 10/10/24 05:00 97.5 97.5 Intake/Output Intake and Output 10/10/24 07:00 Intake Total 1026 ml Output Total 2200 ml Balance -1174 ml Intake Oral 0 ml IV Total 1026 ml Output Urine Total 2200 ml General Appearance: Alert, Oriented X3, Cooperative, Other (Chemically sedated) HEENT: Atraumatic, PERRLA Lungs: Other (Tachypnea with improved rhonchi in upper lobes, bibasilar crackles.) Cardiovascular: Normal S1, Normal S2 Abdomen: Normal bowel sounds, Soft Genitourinary: No Apparent Abnormalities Musculoskeletal: Other (No motor response) Neuro: Normal speech, Sensation intact, Cranial nerves 3-12 NL, Other (Sedated) Skin: Dry, Intact Psych/Mental Status: Other (Sedated) Medications Current Medications Medications Dose Ordered Sig/Maida Route Start Time Stop Time Status Last Admin Dose Admin Nitroglycerin 0.4 mg Q5MINP PRN SL 09/24/24 10:45 Morphine Sulfate 2 mg Q30M PRN IV 09/24/24 10:45 10/10/24 00:50 2 MG Acetaminophen 500 mg Q8HP PRN PO 09/24/24 10:45 Ondansetron HCl 4 mg Q4HP PRN IV 09/24/24 10:45 09/28/24 19:48 4 MG Ipratropium [place] 0.5 mg Q6H NEB 09/24/24 12:00 10/10/24 07:15 0.5 MG Lidocaine 1 patch DAILY TOP 09/25/24 10:00 09/30/24 10:10 1 PATCH Acetaminophen/ Hydrocodone Bitart 1 tab Q6HPRN PRN PO 09/27/24 09:15 10/05/24 20:09 1 TAB Acetaminophen 650 mg Q6HP PRN ID 09/28/24 19:30 09/28/24 19:48 650 MG Budesonide 0.5 mg BID NEB 09/30/24 22:00 10/10/24 07:16 0.5 MG Levalbuterol HCl 1.25 mg Q6HR NEB 09/30/24 18:00 10/10/24 07:15 1.25 MG Melatonin 5 mg HSPRN PO 09/30/24 22:00 10/05/24 22:25 5 MG Diltiazem HCl 60 mg Q6HR PO 10/01/24 12:00 10/06/24 05:51 60 MG Apixaban 2.5 mg BID PO 10/01/24 22:00 10/03/24 23:21 2.5 MG Amino Acids 0 ml @ 0 mls/hr PER PHARMACY IV 10/01/24 17:45 Diagnostic Test (Pha) 1 strip Q6HR 10/01/24 18:00 10/10/24 05:11 1 STRIP Insulin Human Regular FOLLOW SLIDING SCALE Q6HR SC 10/01/24 18:00 10/10/24 05:16 4 UNITS Dextrose 50 ml UD IV 10/01/24 18:00 Enteral Nutritional Formula 240 ml TIDWM PO 10/02/24 12:00 10/04/24 17:27 240 ML Pantoprazole Sodium 40 mg DAILY@0600 PO 10/03/24 06:00 Fat Emulsion Intravenous 50 ml/ Potassium Chloride 10 meq/ Potassium Phosphate 30.8 meq/Magnesium Sulfate 4 meq/ Multivitamins 10 ml/Chromium/ Copper/Manganese/ Zinc 1 ml/Insulin Human Regular 5 units/Amino Acids/ Dextrose/Purified Water 1,324.05 ml @ 55 mls/hr Q24H5M IV 10/03/24 22:00 10/04/24 22:04 Cancel Megestrol Acetate 400 mg DAILY PO 10/04/24 10:00 10/04/24 12:20 400 MG Docusate Sodium 100 mg BID PO 10/04/24 10:00 Albuterol 1.25 mg Q3HPRN PRN NEB 10/04/24 15:30 10/05/24 15:23 1.25 MG Piperacillin Sod/ Tazobactam Sod 100 ml @ 25 mls/hr Q8HR IV 10/06/24 22:00 12/1/24 05:42 25 MLS/HR Metoprolol Tartrate 1.25 mg Q6HPRN PRN IV 10/06/24 14:30 Methylprednisolone Sodium Succinate 40 mg DAILY IV 10/07/24 10:00 10/09/24 10:25 40 MG Micafungin Sodium 100 mg/Sodium Chloride 100 ml @ 100 mls/hr DAILY IV 10/08/24 10:00 10/09/24 10:25 100 MLS/HR Fat Emulsion Intravenous 150 ml/Sodium Chloride 70 meq/ Sodium Acetate 20 meq/Sodium Phosphate 50 meq/ Potassium Chloride 10 meq/ Magnesium Sulfate 6 meq/ Multivitamins 10 ml/Chromium/ Copper/Manganese/ Zinc 1 ml/Insulin Human Regular 10 units/Amino Acids/ Dextrose/Purified Water 1,607.6 ml @ 66 mls/hr [id number] IV 10/09/24 22:00 10/10/24 21:59 10/09/24 21:54 66 MLS/HR Morphine Sulfate 2 mg Q3HPRN PRN IV 10/09/24 15:00 10/09/24 19:19 2 MG Furosemide 40 mg BIDD IV 10/09/24 18:00 10/09/24 19:18 40 MG Laboratory Results Laboratory Tests 10/09/24 05:48 10/10/24 05:58 Chemistry Test 10/10/24 05:58 Albumin 3.0 g/dL (3.2-4.8) L Calcium Level 11.0 mg/dL (8.7-10.4) H Magnesium Level 2.0 mg/dL (1.6-2.6) Phosphorus Level 4.6 mg/dL (2.4-5.1) Total Protein 8.4 g/dL (5.7-8.2) H LFT Test 10/10/24 05:58 Alanine Aminotransferase (ALT) 144 U/L (7-40) H Alkaline Phosphatase 50 U/L (46-116) Aspartate Amino Transferase (AST) 63 U/L (13-40) H Total Bilirubin < 0.2 mg/dL (0.2-1.0) L Urinalysis Test 09/24/24 12:00 10/05/24 15:41 10/07/24 14:30 Urine Amorphous Crystals Few /hpf (None Seen) Urine Hyaline Casts Few /lpf (0 - 2) Urine Yeast (Budding) Few /hpf (None Seen) Urine Color Light-yellow (Yellow) Urine Clarity Turbid (Clear) H Urine pH 6.5 (5.0-9.0) Urine Specific [place] 1.018 (1.001-1.035) Urine Protein 2+ (Negative) H Urine Ketones Negative (Negative) Urine Blood 2+ /uL (Negative) H Urine Nitrite Negative (Negative) Urine Bilirubin Negative (Negative) Urine Urobilinogen Normal mg/dL (Negative) Urine Leukocyte Esterase 2+ /uL (Negative) Urine RBC 75 /hpf (0 - 4) Urine WBC 83 /hpf (0 - 5) Urine Squamous Epithelial Cells Few /hpf (<5) Urine Bacteria Few /hpf (None Seen) H Urine Mucus Few (None Seen) Urine Glucose Trace mg/dL (Normal) Microbiology Microbiology Date/Time Source Procedure Growth Status 10/06/24 14:38 Blood Blood Culture - Preliminary NO GROWTH AFTER 72 HOURS OF INCUBATION. Resulted 10/05/24 15:41 Urine - [place] Urine Culture - Final Yeast, not Dena albicans Complete 09/24/24 17:00 Nose MRSA Screen - Final Complete 09/24/24 08:34 Sputum Gram Stain - Final Complete 09/24/24 08:34 Respiratory Culture - Final Yeast, not Dena albicans Complete Labs and/or images reviewed: Labs reviewed by me Assessment/Plan Assessment/Plan -acute hypoxic respiratory failure -pneumonia, possibly hospital-acquired -rheumatoid arthritis -septic shock -NSTEMI, probably type 2 -thoracic spinal fractures -atrial fibrillation with rapid ventricular rate Plan: Continuing current management. Waiting for spine surgeon evaluate for thoracic fracture. Continuing with IV antibiotics Zosyn and micafungin. Continuing with Xopenex and Pulmicort. Continuing with nebulizer treatment. Continuing with TPN. The patient complained of a lot of pain today. I will add morphine 1 mg IV q.4 p.r.n. for severe pain. The patient also complained shortness a breath in she had some rhonchi today. We will give Lasix IV b.i.d.. Discussed with daughter at bedside. Per daughter they have not decided about PEG tube yet The patient's prognosis is poor Plan discussed with: Patient, Daughter My Orders Orders - LEONOR FRAGOSO MD Procedure Category Date Status Time Morphine Sulfate PHA 10/09/24 In Process Injection 15:00 Furosemide Injection PHA 10/09/24 In Process (Lasix Injection) 18:00 Date of Service: Oct 10, 2024 Billing Provider: LEONOR FRAGOSO MD Common Visit Codes: [id number] INP/OBS CARE(HIGH) LEONOR FRAGOSO MD Oct 10, 2024 08:28
--- NOTE | 2024-10-10 09:58 | ECG ---
[facility] Test Date: 2024-09-28 Test Time: 22:56:01 Pat Name: OVI JULIAN Department: Room: 0246T A Gender: F Dependency Counselor: : 1935 Requested By: BARBARA SAM Order Number: [id number] Reading MD: Muriel Kebede Measurements Intervals [place] Rate: 130 P: 0 NM: 0 QRS: 31 QRSD: 82 T: 201 QT: 312 QTc: 459 Interpretive Statements Accelerated Junctional rhythm with retrograde conduction Anteroseptal infarct , age undetermined ST & T wave abnormality, consider inferolateral ischemia Electronically Signed On 10-11-2024 9:07:55 PST by Muriel Kebede Please click the below link to view image of tracing.
--- NOTE | 2024-10-10 09:58 | ECG ---
[facility] Test Date: 2024-09-28 Test Time: 22:56:35 Pat Name: OVI JULIAN Department: Room: 0246T A Gender: F [place] Assessor: : 1935 Requested By: BARBARA SAM Order Number: [id number] Reading MD: Muriel Kebede Measurements Intervals [place] Rate: 130 P: 0 NH: 0 QRS: 25 QRSD: 80 T: 204 QT: 314 QTc: 462 Interpretive Statements Accelerated Junctional rhythm with retrograde conduction Anteroseptal infarct , age undetermined ST & T wave abnormality, consider inferolateral ischemia Electronically Signed On 10-11-2024 9:07:56 PST by Muriel Kebede Please click the below link to view image of tracing.
[2024-10-10] MEDS: PPN PER PHARMACY IV NR (22:00)
--- NOTE | 2024-10-10 23:30 | DVHPN2 ---
Progress Note - Dictate Date Seen: Oct 10, 2024 Medical Necessity Reason Pt with a Central, PICC or Fol: Yes The following are medically ne: Atkinson Catheter Reason for atkinson catheter: Strict I&O Subjective Patient seen and examined at bedside. Remains on supplemental oxygen Overnight events reviewed. vital signs Vital Sign Date Time Temp Pulse Resp B/P (MAP) Pulse Ox O2 Delivery O2 Flow Rate FiO2 10/10/24 22:00 97.2 125 23 108/63 (78) 96 97.2 10/10/24 19:14 Nasal Cannula* 3 32 Total Intake and Output 10/09/24 10/09/24 10/10/24 15:00 23:00 07:00 Intake Total 200 ml 826 ml 0 ml Output Total 1350 ml 850 ml Balance 200 ml -524 ml -850 ml medications Current Medications Medications Dose Ordered Sig/Maida Route Start Time Stop Time Status Last Admin Dose Admin Nitroglycerin 0.4 mg Q5MINP PRN SL 09/24/24 10:45 Morphine Sulfate 2 mg Q30M PRN IV 09/24/24 10:45 10/10/24 00:50 2 MG Acetaminophen 500 mg Q8HP PRN PO 09/24/24 10:45 Ondansetron HCl 4 mg Q4HP PRN IV 09/24/24 10:45 09/28/24 19:48 4 MG Ipratropium [place] 0.5 mg Q6H NEB 09/24/24 12:00 10/10/24 19:14 0.5 MG Lidocaine 1 patch DAILY TOP 09/25/24 10:00 09/30/24 10:10 1 PATCH Acetaminophen/ Hydrocodone Bitart 1 tab Q6HPRN PRN PO 09/27/24 09:15 10/05/24 20:09 1 TAB Acetaminophen 650 mg Q6HP PRN WI 09/28/24 19:30 09/28/24 19:48 650 MG Budesonide 0.5 mg BID NEB 09/30/24 22:00 10/10/24 19:16 0.5 MG Levalbuterol HCl 1.25 mg Q6HR NEB 09/30/24 18:00 10/10/24 19:14 1.25 MG Melatonin 5 mg HSPRN PO 09/30/24 22:00 10/05/24 22:25 5 MG Diltiazem HCl 60 mg Q6HR PO 10/01/24 12:00 10/06/24 05:51 60 MG Apixaban 2.5 mg BID PO 10/01/24 22:00 10/03/24 23:21 2.5 MG Amino Acids 0 ml @ 0 mls/hr PER PHARMACY IV 10/01/24 17:45 Diagnostic Test (Pha) 1 strip Q6HR 10/01/24 18:00 10/10/24 18:00 1 STRIP Insulin Human Regular FOLLOW SLIDING SCALE Q6HR SC 10/01/24 18:00 10/10/24 19:07 8 UNITS Dextrose 50 ml UD IV 10/01/24 18:00 Enteral Nutritional Formula 240 ml TIDWM PO 10/02/24 12:00 10/04/24 17:27 240 ML Pantoprazole Sodium 40 mg DAILY@0600 PO 10/03/24 06:00 Fat Emulsion Intravenous 50 ml/ Potassium Chloride 10 meq/ Potassium Phosphate 30.8 meq/Magnesium Sulfate 4 meq/ Multivitamins 10 ml/Chromium/ Copper/Manganese/ Zinc 1 ml/Insulin Human Regular 5 units/Amino Acids/ Dextrose/Purified Water 1,324.05 ml @ 55 mls/hr Q24H5M IV 10/03/24 22:00 10/04/24 22:04 Cancel Megestrol Acetate 400 mg DAILY PO 10/04/24 10:00 10/04/24 12:20 400 MG Docusate Sodium 100 mg BID PO 10/04/24 10:00 Albuterol 1.25 mg Q3HPRN PRN NEB 10/04/24 15:30 10/05/24 15:23 1.25 MG Piperacillin Sod/ Tazobactam Sod 100 ml @ 25 mls/hr Q8HR IV 10/06/24 22:00 10/10/24 22:51 25 MLS/HR Metoprolol Tartrate 1.25 mg Q6HPRN PRN IV 10/06/24 14:30 Methylprednisolone Sodium Succinate 40 mg DAILY IV 10/07/24 10:00 10/10/24 10:13 40 MG Micafungin Sodium 100 mg/Sodium Chloride 100 ml @ 100 mls/hr DAILY IV 10/08/24 10:00 10/10/24 11:30 100 MLS/HR Morphine Sulfate 2 mg Q3HPRN PRN IV 10/09/24 15:00 10/10/24 20:20 2 MG Furosemide 40 mg BIDD IV 10/09/24 18:00 10/10/24 19:07 40 MG Fat Emulsion Intravenous 150 ml/Sodium Chloride 100 meq/ Sodium Acetate 40 meq/Sodium Phosphate 20 meq/ Magnesium Sulfate 8 meq/ Multivitamins 10 ml/Insulin Human Regular 16 units/ Potassium Chloride 20 meq/ Amino Acids/ Dextrose/Purified Water 1,722.16 ml @ 71 mls/hr [id number] IV 10/10/24 22:00 10/11/24 21:59 10/10/24 22:00 71 MLS/HR objective Gen.: Patient lying in bed in no apparent distress. On supplemental oxygen. Head: Normocephalic, atraumatic. Eyes: EOMI/PERRLA. Ears: Normal hearing. Normal anatomy. Neck/trachea: Trachea midline, supple. Nose: Normal external anatomy. Mouth: Moist mucous membranes. Chest: Decreased air entry bilaterally. No wheezing or rhonchi. Cardiovascular: Positive S1, positive S2. Regular rate and rhythm. Abdomen: Positive bowel sounds in all 4 quadrants. Soft, non-tender, non- distended. : Deferred. Rectal: Deferred. Skin: Warm, dry. Intact. Extremities: 2+ radial pulses bilaterally. No lower extremity edema. Neuro: Awake, alert, oriented x3. No gross motor or sensory deficits. Cranial nerves II through XII intact. Gait not assessed. laboratory and microbiology Laboratory Tests 10/10/24 05:58 10/09/24 05:48 Test 10/10/24 05:58 Range/Units Serum Glucose 177 H 74-106 mg/dL Assessment/Plan Impression: Acute hypoxic respiratory failure Septic shock Multifocal pneumonia Atelectasis Events: Remains on supplemental oxygen, 3 LPM NC Taper O2 as tolerated CPAP PRN - EZPAP w/ bronchodilator treatments. Patient is NPO due to aspiration risk. TPN for nutritional support. NTS. Pulmonary toileting High risk for aspiration. Family declined bronchoscopy Incentive spirometry Continue IV steroids - taper as tolerated Continue bronchodilators q.3 hours PRN Xopenex/Atrovent q.6 hours Pulmicort BID CPT Continue antibiotics - Zosyn Continue Micafungin ASA/Eliquis on hold due to hematuria. Pain control Avoid oversedation Head of bed elevation Aspiration precautions Monitor closely for aspiration. Diurese w/ Lasix as tolerated Monitor renal function. Monitor electrolytes. Supplement as necessary. Continue PT. Sitter at bedside. Protonix for GI prophylaxis Rest of plan as noted below Plan: s/p extubation. Supplemental oxygen, 3 LPM NC Taper O2 as tolerated CPAP PRN - EZPAP w/ bronchodilator treatments. Bronchodilators. Continue antibiotics. F/u cultures. ASA/Eliquis on hold due to hematuria. Pressors as necessary for hemodynamic support - Currently off Titrate to keep mean arterial pressure greater than 65 mmHg. Monitor renal function Monitor electrolytes. Supplement as necessary. Monitor ins and outs. Maintain euvolemia. GI prophylaxis. DVT prophylaxis. Prognosis: Guarded given patient's multiple co-morbidities. Rest of plan per hospitalist and other consultants. Thank you, Shane Arboleda NP, for allowing me to participate in this patient's care. Further recommendations will depend on the patient's clinical course. Please do not hesitate to contact me if you have any questions or concerns. This medical document was created using an electronic medical record system with [employer] dictation system. Although these documentations are being carefully reviewed, there may still be some phonetic and typographical changes. The errors are purely typographical, due to imperfection on the software program, and do not reflect any compromise in the patient's medical care. Dietary Evaluation Review Comments: 1) Continue to monitor pt PO intake to meet at least 75% of meals 2) Advance pt diet when medically feasible to a 2gm Sodium diet 3) Continue current plan of care Expected Outcomes/Goals: 1) Pt appetite to improve 2) Pt diet to advance 3) F/U in 3-5 days Plan discussed with: Patient, Other (RN) JOHN ESTRADA MD Oct 10, 2024 23:30
[2024-10-11] VITALS (18 sets, daily range): BP systolic 109–151; BP diastolic 58–78; PULSE 98–144; RESP 16–30; TEMP 96.4–97.5; O2SAT 94–100
[2024-10-11 08:42] LABS: Alkaline Phosphatase 50 U/L (46-116); Anion Gap 12 (5-15); BUN/Creatinine Ratio 51.9 (10.0-20.0); Carbon Dioxide 24 mmol/L (20-31); Chloride 99 mmol/L (98-107); Magnesium 2.4 mg/dL (1.6-2.6); Potassium 3.9 mmol/L (3.5-5.1)
[2024-10-11 08:43] LABS: Phosphorus 3.2 mg/dL (2.4-5.1)
[2024-10-11 08:49] LABS: Alanine Aminotransferase 116 U/L (7-40); Albumin 3.1 g/dL (3.2-4.8); Aspartate Aminotransferase 40 U/L (13-40); Bilirubin, Total 0.2 mg/dL (0.2-1.0); Blood Urea Nitrogen 40 mg/dL (9-23); Calcium 11.2 mg/dL (8.7-10.4); Glucose 125 mg/dL (74-106); Sodium 135 mmol/L (136-145); Total Protein 8.7 g/dL (5.7-8.2)
[2024-10-11 10:34] LABS: Basophils # (auto) 0 10 ^3/uL (0-0.2); Basophils % (auto) 0.3 % (0.0-2.0); Eosinophils # (auto) 0 10 ^3/uL (0-0.8); Eosinophils % (auto) 0.3 % (0.0-7.0); Hematocrit 27.6 % (36.0-46.0); Hemoglobin 9.4 g/dL (12.2-16.2); Lymphocytes # (auto) 0.8 10 ^3/uL (0.4-5.4); Lymphocytes % (auto) 6.4 % (10.0-50.0); Mean Corpuscular Hemoglobin 33.5 pg (28.0-32.0); Mean Corpuscular Volume 98.4 fL (80.0-100.0); Monocytes # (auto) 1.7 10 ^3/uL (0-1.3); Monocytes % (auto) 13.2 % (0.0-12.0); Neutrophils # (auto) 10.4 10 ^3/uL (1.6-8.6); Neutrophils % (auto) 79.8 % (37.0-80.0); Nucleated Red Blood Cells % 0.1 %; Platelet Count (auto) 401 10^3/uL (140-450); Red Cell Distribution Width 15.9 % (11.8-14.3); White Blood Cell 13.1 10^3/uL (4.4-10.8)
[2024-10-11] MEDS: METOPROLOL TARTRATE 1MG/1ML-5ML VIAL IV PRN (11:34)
--- NOTE | 2024-10-11 12:35 | DVHPN2 ---
Subjective Patient was somewhat somnolent after receiving IV morphine Reviewed: Care Plan, H&P, Labs, Medications Changes from previous H/P or p: No Changes General: Per HPI Objective Vitals Vital Signs Date Time Temp Pulse Resp B/P (MAP) Pulse Ox O2 Delivery O2 Flow Rate FiO2 10/11/24 11:34 133 119/66 10/11/24 11:09 23 10/11/24 08:39 97 10/11/24 06:13 Nasal Cannula 3.0 10/11/24 06:13 32 10/11/24 01:00 96.4 96.4 Intake/Output Intake and Output 10/11/24 07:00 Intake Total 2007.6 ml Output Total 1000 ml Balance 1007.6 ml IV Total 2007.6 ml Output Urine Total 1000 ml Exam Assess with the patient sitting up on side of the bed with physical therapy. General Appearance: Alert, Oriented X3, Cooperative, Other (Chemically sedated) HEENT: Atraumatic, PERRLA Lungs: Other (Tachypnea with improved rhonchi in upper lobes, bibasilar crackles.) Cardiovascular: Normal S1, Normal S2 Abdomen: Normal bowel sounds, Soft Genitourinary: No Apparent Abnormalities Musculoskeletal: Other (No motor response) Neuro: Normal speech, Sensation intact, Cranial nerves 3-12 NL, Other (Sedated) Skin: Dry, Intact Psych/Mental Status: Other (Sedated) Medications Current Medications Medications Dose Ordered Sig/Maida Route Start Time Stop Time Status Last Admin Dose Admin Nitroglycerin 0.4 mg Q5MINP PRN SL 09/24/24 10:45 Morphine Sulfate 2 mg Q30M PRN IV 09/24/24 10:45 10/11/24 08:18 2 MG Acetaminophen 500 mg Q8HP PRN PO 09/24/24 10:45 Ondansetron HCl 4 mg Q4HP PRN IV 09/24/24 10:45 09/28/24 19:48 4 MG Ipratropium [place] 0.5 mg Q6H NEB 09/24/24 12:00 10/11/24 06:13 0.5 MG Lidocaine 1 patch DAILY TOP 09/25/24 10:00 10/11/24 10:00 1 PATCH Acetaminophen/ Hydrocodone Bitart 1 tab Q6HPRN PRN PO 09/27/24 09:15 10/05/24 20:09 1 TAB Acetaminophen 650 mg Q6HP PRN ID 09/28/24 19:30 09/28/24 19:48 650 MG Budesonide 0.5 mg BID NEB 09/30/24 22:00 10/11/24 06:13 0.5 MG Levalbuterol HCl 1.25 mg Q6HR NEB 09/30/24 18:00 10/11/24 06:13 1.25 MG Melatonin 5 mg HSPRN PO 09/30/24 22:00 10/05/24 22:25 5 MG Diltiazem HCl 60 mg Q6HR PO 10/01/24 12:00 10/06/24 05:51 60 MG Apixaban 2.5 mg BID PO 10/01/24 22:00 10/03/24 23:21 2.5 MG Amino Acids 0 ml @ 0 mls/hr PER PHARMACY IV 10/01/24 17:45 Diagnostic Test (Pha) 1 strip Q6HR 10/01/24 18:00 10/11/24 05:56 1 STRIP Insulin Human Regular FOLLOW SLIDING SCALE Q6HR SC 10/01/24 18:00 10/11/24 06:12 2 UNITS Dextrose 50 ml UD IV 10/01/24 18:00 Enteral Nutritional Formula 240 ml TIDWM PO 10/02/24 12:00 10/04/24 17:27 240 ML Pantoprazole Sodium 40 mg DAILY@0600 PO 10/03/24 06:00 Fat Emulsion Intravenous 50 ml/ Potassium Chloride 10 meq/ Potassium Phosphate 30.8 meq/Magnesium Sulfate 4 meq/ Multivitamins 10 ml/Chromium/ Copper/Manganese/ Zinc 1 ml/Insulin Human Regular 5 units/Amino Acids/ Dextrose/Purified Water 1,324.05 ml @ 55 mls/hr Q24H5M IV 10/03/24 22:00 10/04/24 22:04 Cancel Megestrol Acetate 400 mg DAILY PO 10/04/24 10:00 10/04/24 12:20 400 MG Docusate Sodium 100 mg BID PO 10/04/24 10:00 Albuterol 1.25 mg Q3HPRN PRN NEB 10/04/24 15:30 10/05/24 15:23 1.25 MG Piperacillin Sod/ Tazobactam Sod 100 ml @ 25 mls/hr Q8HR IV 10/06/24 22:00 10/11/24 05:56 25 MLS/HR Metoprolol Tartrate 1.25 mg Q6HPRN PRN IV 10/06/24 14:30 10/11/24 11:34 1.25 MG Methylprednisolone Sodium Succinate 40 mg DAILY IV 10/07/24 10:00 10/11/24 10:41 40 MG Micafungin Sodium 100 mg/Sodium Chloride 100 ml @ 100 mls/hr DAILY IV 10/08/24 10:00 10/11/24 10:00 100 MLS/HR Morphine Sulfate 2 mg Q3HPRN PRN IV 10/09/24 15:00 10/11/24 11:09 2 MG Fat Emulsion Intravenous 150 ml/Sodium Chloride 100 meq/ Sodium Acetate 40 meq/Sodium Phosphate 20 meq/ Magnesium Sulfate 8 meq/ Multivitamins 10 ml/Insulin Human Regular 16 units/ Potassium Chloride 20 meq/ Amino Acids/ Dextrose/Purified Water 1,722.16 ml @ 71 mls/hr [id number] IV 10/10/24 22:00 10/11/24 21:59 10/10/24 22:00 71 MLS/HR Fat Emulsion Intravenous 150 ml/Sodium Chloride 120 meq/ Sodium Phosphate 20 meq/Potassium Acetate 40 meq/ Potassium Phosphate 44 meq/ Magnesium Sulfate 6 meq/ Multivitamins 10 ml/Chromium/ Copper/Manganese/ Zinc 1 ml/Insulin Human Regular 18 units/Amino Acids/ Dextrose/Purified Water 1,727.68 ml @ 72 mls/hr Q24H IV 10/11/24 22:00 10/12/24 21:59 Laboratory Results Laboratory Tests 10/11/24 07:12 10/11/24 10:15 Chemistry Test 10/11/24 07:12 Albumin 3.1 g/dL (3.2-4.8) L Calcium Level 11.2 mg/dL (8.7-10.4) H Magnesium Level 2.4 mg/dL (1.6-2.6) Phosphorus Level 3.2 mg/dL (2.4-5.1) Total Protein 8.7 g/dL (5.7-8.2) H LFT Test 10/11/24 07:12 Alanine Aminotransferase (ALT) 116 U/L (7-40) H Alkaline Phosphatase 50 U/L (46-116) Aspartate Amino Transferase (AST) 40 U/L (13-40) Total Bilirubin 0.2 mg/dL (0.2-1.0) Urinalysis Test 09/24/24 12:00 10/05/24 15:41 10/07/24 14:30 Urine Amorphous Crystals Few /hpf (None Seen) Urine Hyaline Casts Few /lpf (0 - 2) Urine Yeast (Budding) Few /hpf (None Seen) Urine Color Light-yellow (Yellow) Urine Clarity Turbid (Clear) H Urine pH 6.5 (5.0-9.0) Urine Specific [place] 1.018 (1.001-1.035) Urine Protein 2+ (Negative) H Urine Ketones Negative (Negative) Urine Blood 2+ /uL (Negative) H Urine Nitrite Negative (Negative) Urine Bilirubin Negative (Negative) Urine Urobilinogen Normal mg/dL (Negative) Urine Leukocyte Esterase 2+ /uL (Negative) Urine RBC 75 /hpf (0 - 4) Urine WBC 83 /hpf (0 - 5) Urine Squamous Epithelial Cells Few /hpf (<5) Urine Bacteria Few /hpf (None Seen) H Urine Mucus Few (None Seen) Urine Glucose Trace mg/dL (Normal) Microbiology Microbiology Date/Time Source Procedure Growth Status 10/06/24 14:38 Blood Blood Culture - Preliminary NO GROWTH AFTER 72 HOURS OF INCUBATION. Resulted 10/05/24 15:41 Urine - [place] Urine Culture - Final Yeast, not Dena albicans Complete 09/24/24 17:00 Nose MRSA Screen - Final Complete 09/24/24 08:34 Sputum Gram Stain - Final Complete 09/24/24 08:34 Respiratory Culture - Final Yeast, not Dena albicans Complete Labs and/or images reviewed: Labs reviewed by me, Image(s) reviewed by me Assessment/Plan Assessment/Plan Impression: -acute hypoxic respiratory failure -pneumonia, possibly hospital-acquired -rheumatoid arthritis -septic shock -NSTEMI, probably type 2 -thoracic spinal fractures -atrial fibrillation with rapid ventricular rate -cachexia Plan: -events: Leukocytosis persistent. Possibly secondary to IV Solu-Medrol. -antibiotic therapy: Continue Zosyn and micafungin -bronchodilators : Change to Xopenex, add Pulmicort. EzPAP with treatments -cardiology consultation: Recommendations reviewed -PUD, DVT prophylaxis -Continue pain management with lidocaine patch and p.o. [place] -O2 supplementation : nasal cannula 2 liters/minute -physical therapy. Noted minimal ambulation at this time. -repeat labs and chest x-ray in a.m. -plan of care discussed with three daughters were bedside. Overall prognosis of patient's full recovery is poor. Options given to the family regarding continue treatment versus comfort care. At this time they state they will speak with her other siblings and make a decision. Total time spent with patient and family regarding advance care plannin minutes. Total time spent with patient discussing and formulating plan of care: 35 minutes. This medical document was created using an electronic medical record system with [employer] dictation system. Although this document has been carefully reviewed, there may still be some phonetic and typographical errors. These areas are purely typographical due to imperfections of the software programs, and do not reflect any compromise in the patient's medical care. Plan discussed with: Patient, Daughter, Other (RN) My Orders Orders - BARBARA SAM NP Procedure Category Date Status Time Complete Blood Count LAB 10/11/24 In Process 08:08 Date of Service: Oct 11, 2024 Billing Provider: BARBARA SAM NP Common Visit Codes: [id number] INP/OBS CARE(HIGH) Secondary Visit Codes: [id number] CARE PLAN 30 MINUTES BARBARA SAM NP Oct 11, 2024 12:35
--- NOTE | 2024-10-11 21:53 | DVHPN2 ---
Progress Note - Dictate Date Seen: Oct 11, 2024 Medical Necessity Reason Pt with a Central, PICC or Fol: Yes The following are medically ne: Atkinson Catheter Reason for atkinson catheter: Strict I&O Subjective Patient seen and examined at bedside. Remains on supplemental oxygen Overnight events reviewed. vital signs Vital Sign Date Time Temp Pulse Resp B/P (MAP) Pulse Ox O2 Delivery O2 Flow Rate FiO2 10/11/24 21:36 119 20 99 10/11/24 21:31 Nasal Cannula 3.0 10/11/24 21:31 32 10/11/24 21:00 97.4 110/59 (76) 97.4 Total Intake and Output 10/10/24 10/10/24 10/11/24 15:00 23:00 07:00 Intake Total 200 ml 1707.6 ml 100 ml Output Total 1000 ml Balance 200 ml 1707.6 ml -900 ml medications Current Medications Medications Dose Ordered Sig/Maida Route Start Time Stop Time Status Last Admin Dose Admin Nitroglycerin 0.4 mg Q5MINP PRN SL 09/24/24 10:45 Morphine Sulfate 2 mg Q30M PRN IV 09/24/24 10:45 10/11/24 08:18 2 MG Acetaminophen 500 mg Q8HP PRN PO 09/24/24 10:45 Ondansetron HCl 4 mg Q4HP PRN IV 09/24/24 10:45 09/28/24 19:48 4 MG Ipratropium [place] 0.5 mg Q6H NEB 09/24/24 12:00 10/11/24 19:16 0.5 MG Lidocaine 1 patch DAILY TOP 09/25/24 10:00 10/11/24 10:00 1 PATCH Acetaminophen/ Hydrocodone Bitart 1 tab Q6HPRN PRN PO 09/27/24 09:15 10/05/24 20:09 1 TAB Acetaminophen 650 mg Q6HP PRN [place] 09/28/24 19:30 09/28/24 19:48 650 MG Budesonide 0.5 mg BID NEB 09/30/24 22:00 10/11/24 21:31 0.5 MG Levalbuterol HCl 1.25 mg Q6HR NEB 09/30/24 18:00 10/11/24 19:16 1.25 MG Melatonin 5 mg HSPRN PO 09/30/24 22:00 10/05/24 22:25 5 MG Diltiazem HCl 60 mg Q6HR PO 10/01/24 12:00 10/06/24 05:51 60 MG Apixaban 2.5 mg BID PO 10/01/24 22:00 10/03/24 23:21 2.5 MG Amino Acids 0 ml @ 0 mls/hr PER PHARMACY IV 10/01/24 17:45 Diagnostic Test (Pha) 1 strip Q6HR 10/01/24 18:00 10/11/24 17:54 1 STRIP Insulin Human Regular FOLLOW SLIDING SCALE Q6HR SC 10/01/24 18:00 10/11/24 16:53 8 UNITS Dextrose 50 ml UD IV 10/01/24 18:00 Enteral Nutritional Formula 240 ml TIDWM PO 10/02/24 12:00 10/04/24 17:27 240 ML Pantoprazole Sodium 40 mg DAILY@0600 PO 10/03/24 06:00 Fat Emulsion Intravenous 50 ml/ Potassium Chloride 10 meq/ Potassium Phosphate 30.8 meq/Magnesium Sulfate 4 meq/ Multivitamins 10 ml/Chromium/ Copper/Manganese/ Zinc 1 ml/Insulin Human Regular 5 units/Amino Acids/ Dextrose/Purified Water 1,324.05 ml @ 55 mls/hr Q24H5M IV 10/03/24 22:00 10/04/24 22:04 Cancel Megestrol Acetate 400 mg DAILY PO 10/04/24 10:00 10/04/24 12:20 400 MG Docusate Sodium 100 mg BID PO 10/04/24 10:00 Albuterol 1.25 mg Q3HPRN PRN NEB 10/04/24 15:30 10/05/24 15:23 1.25 MG Piperacillin Sod/ Tazobactam Sod 100 ml @ 25 mls/hr Q8HR IV 10/06/24 22:00 10/11/24 16:47 25 MLS/HR Metoprolol Tartrate 1.25 mg Q6HPRN PRN IV 10/06/24 14:30 10/11/24 16:45 1.25 MG Methylprednisolone Sodium Succinate 40 mg DAILY IV 10/07/24 10:00 10/11/24 10:41 40 MG Micafungin Sodium 100 mg/Sodium Chloride 100 ml @ 100 mls/hr DAILY IV 10/08/24 10:00 10/11/24 10:00 100 MLS/HR Morphine Sulfate 2 mg Q3HPRN PRN IV 10/09/24 15:00 10/11/24 20:00 2 MG Fat Emulsion Intravenous 150 ml/Sodium Chloride 100 meq/ Sodium Acetate 40 meq/Sodium Phosphate 20 meq/ Magnesium Sulfate 8 meq/ Multivitamins 10 ml/Insulin Human Regular 16 units/ Potassium Chloride 20 meq/ Amino Acids/ Dextrose/Purified Water 1,722.16 ml @ 71 mls/hr [id number] IV 10/10/24 22:00 10/11/24 21:59 10/10/24 22:00 71 MLS/HR Fat Emulsion Intravenous 150 ml/Sodium Chloride 120 meq/ Sodium Phosphate 20 meq/Potassium Acetate 40 meq/ Potassium Phosphate 44 meq/ Magnesium Sulfate 6 meq/ Multivitamins 10 ml/Chromium/ Copper/Manganese/ Zinc 1 ml/Insulin Human Regular 18 units/Amino Acids/ Dextrose/Purified Water 1,727.68 ml @ 72 mls/hr Q24H IV 10/11/24 22:00 10/12/24 21:59 objective Gen.: Patient lying in bed in no apparent distress. On supplemental oxygen. Head: Normocephalic, atraumatic. Eyes: EOMI/PERRLA. Ears: Normal hearing. Normal anatomy. Neck/trachea: Trachea midline, supple. Nose: Normal external anatomy. Mouth: Moist mucous membranes. Chest: Decreased air entry bilaterally. No wheezing or rhonchi. Cardiovascular: Positive S1, positive S2. Regular rate and rhythm. Abdomen: Positive bowel sounds in all 4 quadrants. Soft, non-tender, non- distended. : Deferred. Rectal: Deferred. Skin: Warm, dry. Intact. Extremities: 2+ radial pulses bilaterally. No lower extremity edema. Neuro: Awake, alert, oriented x3. No gross motor or sensory deficits. Cranial nerves II through XII intact. Gait not assessed. laboratory and microbiology Laboratory Tests 10/11/24 10:15 10/11/24 07:12 Test 10/11/24 07:12 Range/Units Serum Glucose 125 H 74-106 mg/dL Assessment/Plan Impression: Acute hypoxic respiratory failure Septic shock Multifocal pneumonia Atelectasis Events: Remains on supplemental oxygen, 3 LPM NC Taper O2 as tolerated CPAP PRN - EZPAP w/ bronchodilator treatments. Patient is NPO due to aspiration risk. TPN for nutritional support. NTS. Pulmonary toileting High risk for aspiration. Family declined bronchoscopy Incentive spirometry Continue IV steroids - taper as tolerated Continue bronchodilators q.3 hours PRN Xopenex/Atrovent q.6 hours Pulmicort BID CPT Continue antibiotics - Zosyn Continue Micafungin ASA/Eliquis on hold due to hematuria. Pain control Avoid oversedation Head of bed elevation Aspiration precautions Monitor closely for aspiration. Diurese w/ Lasix BID as tolerated Monitor renal function. Monitor electrolytes. Supplement as necessary. Continue PT. Sitter at bedside. Protonix for GI prophylaxis Poor prognosis Consider hospice eval. Rest of plan as noted below Plan: s/p extubation. Supplemental oxygen, 3 LPM NC Taper O2 as tolerated CPAP PRN - EZPAP w/ bronchodilator treatments. Bronchodilators. Continue antibiotics. F/u cultures. ASA/Eliquis on hold due to hematuria. Pressors as necessary for hemodynamic support - Currently off Titrate to keep mean arterial pressure greater than 65 mmHg. Monitor renal function Monitor electrolytes. Supplement as necessary. Monitor ins and outs. Maintain euvolemia. Poor prognosis Consider hospice eval. GI prophylaxis. DVT prophylaxis. Prognosis: Guarded given patient's multiple co-morbidities. Rest of plan per hospitalist and other consultants. Thank you, Shane Arboleda NP, for allowing me to participate in this patient's care. Further recommendations will depend on the patient's clinical course. Please do not hesitate to contact me if you have any questions or concerns. This medical document was created using an electronic medical record system with [employer] dictation system. Although these documentations are being carefully reviewed, there may still be some phonetic and typographical changes. The errors are purely typographical, due to imperfection on the software program, and do not reflect any compromise in the patient's medical care. Dietary Evaluation Review Comments: 1) Continue to monitor pt PO intake to meet at least 75% of meals 2) Advance pt diet when medically feasible to a 2gm Sodium diet 3) Continue current plan of care Expected Outcomes/Goals: 1) Pt appetite to improve 2) Pt diet to advance 3) F/U in 3-5 days Plan discussed with: Patient, Other (RADHA Maynard) JOHN ESTRADA MD Oct 11, 2024 21:53
[2024-10-11] MEDS: PPN PER PHARMACY IV NR (22:30)
[2024-10-12] VITALS (20 sets, daily range): BP systolic 124–154; BP diastolic 60–88; PULSE 104–129; RESP 18–32; TEMP 97; O2SAT 93–100
[2024-10-12 07:36] LABS: Alanine Aminotransferase 72 U/L (7-40); Albumin 2.7 g/dL (3.2-4.8); Alkaline Phosphatase 46 U/L (46-116); Anion Gap 7 (5-15); Aspartate Aminotransferase 22 U/L (13-40); BUN/Creatinine Ratio 55.9 (10.0-20.0); Bilirubin, Total 0.2 mg/dL (0.2-1.0); Blood Urea Nitrogen 33 mg/dL (9-23); Calcium 10.8 mg/dL (8.7-10.4); Carbon Dioxide 26 mmol/L (20-31); Chloride 104 mmol/L (98-107); Glucose 116 mg/dL (74-106); Magnesium 2.4 mg/dL (1.6-2.6); Phosphorus 2.9 mg/dL (2.4-5.1); Potassium 3.9 mmol/L (3.5-5.1); Sodium 137 mmol/L (136-145)
[2024-10-12 07:37] LABS: Total Protein 7.7 g/dL (5.7-8.2)
[2024-10-12] MEDS: METOPROLOL TARTRATE 1MG/1ML-5ML VIAL IV ONE (11:27)
--- NOTE | 2024-10-12 13:23 | DVHPN2 ---
Subjective Patient was somewhat somnolent after receiving IV morphine Reviewed: Care Plan, H&P, Labs, Medications Changes from previous H/P or p: No Changes General: Per HPI Objective Vitals Vital Signs Date Time Temp Pulse Resp B/P (MAP) Pulse Ox O2 Delivery O2 Flow Rate FiO2 10/12/24 12:54 124 32 154/84 (107) 94 10/12/24 06:37 Nasal Cannula* 3 32 10/11/24 21:00 97.4 97.4 Intake/Output Intake and Output 10/12/24 07:00 Intake Total 2022.16 ml Output Total 950 ml Balance 1072.16 ml Intake Oral 0 ml IV Total 2022.16 ml Output Urine Total 950 ml Exam Assess with the patient sitting up on side of the bed with physical therapy. General Appearance: Alert, Oriented X3, Cooperative, Other (Chemically sedated) HEENT: Atraumatic, PERRLA Lungs: Other (Tachypnea with improved rhonchi in upper lobes, bibasilar crackles.) Cardiovascular: Normal S1, Normal S2 Abdomen: Normal bowel sounds, Soft Genitourinary: No Apparent Abnormalities Musculoskeletal: Other (No motor response) Neuro: Normal speech, Sensation intact, Cranial nerves 3-12 NL, Other (Sedated) Skin: Dry, Intact Psych/Mental Status: Other (Sedated) Medications Current Medications Medications Dose Ordered Sig/Maida Route Start Time Stop Time Status Last Admin Dose Admin Nitroglycerin 0.4 mg Q5MINP PRN SL 09/24/24 10:45 Morphine Sulfate 2 mg Q30M PRN IV 09/24/24 10:45 10/11/24 08:18 2 MG Acetaminophen 500 mg Q8HP PRN PO 09/24/24 10:45 Ondansetron HCl 4 mg Q4HP PRN IV 09/24/24 10:45 09/28/24 19:48 4 MG Ipratropium [place] 0.5 mg Q6H NEB 09/24/24 12:00 10/12/24 12:34 0.5 MG Lidocaine 1 patch DAILY TOP 09/25/24 10:00 10/12/24 11:08 1 PATCH Acetaminophen/ Hydrocodone Bitart 1 tab Q6HPRN PRN PO 09/27/24 09:15 10/05/24 20:09 1 TAB Acetaminophen 650 mg Q6HP PRN [place] 09/28/24 19:30 09/28/24 19:48 650 MG Budesonide 0.5 mg BID NEB 09/30/24 22:00 10/12/24 06:29 0.5 MG Levalbuterol HCl 1.25 mg Q6HR NEB 09/30/24 18:00 10/12/24 12:34 1.25 MG Melatonin 5 mg HSPRN PO 09/30/24 22:00 10/05/24 22:25 5 MG Diltiazem HCl 60 mg Q6HR PO 10/01/24 12:00 10/06/24 05:51 60 MG Apixaban 2.5 mg BID PO 10/01/24 22:00 10/03/24 23:21 2.5 MG Amino Acids 0 ml @ 0 mls/hr PER PHARMACY IV 10/01/24 17:45 Diagnostic Test (Pha) 1 strip Q6HR 10/01/24 18:00 10/12/24 12:00 1 STRIP Insulin Human Regular FOLLOW SLIDING SCALE Q6HR SC 10/01/24 18:00 10/12/24 12:00 2 UNITS Dextrose 50 ml UD IV 10/01/24 18:00 Enteral Nutritional Formula 240 ml TIDWM PO 10/02/24 12:00 10/04/24 17:27 240 ML Pantoprazole Sodium 40 mg DAILY@0600 PO 10/03/24 06:00 Fat Emulsion Intravenous 50 ml/ Potassium Chloride 10 meq/ Potassium Phosphate 30.8 meq/Magnesium Sulfate 4 meq/ Multivitamins 10 ml/Chromium/ Copper/Manganese/ Zinc 1 ml/Insulin Human Regular 5 units/Amino Acids/ Dextrose/Purified Water 1,324.05 ml @ 55 mls/hr Q24H5M IV 10/03/24 22:00 10/04/24 22:04 Cancel Megestrol Acetate 400 mg DAILY PO 10/04/24 10:00 10/04/24 12:20 400 MG Docusate Sodium 100 mg BID PO 10/04/24 10:00 Albuterol 1.25 mg Q3HPRN PRN NEB 10/04/24 15:30 10/05/24 15:23 1.25 MG Piperacillin Sod/ Tazobactam Sod 100 ml @ 25 mls/hr Q8HR IV 10/06/24 22:00 10/12/24 05:34 25 MLS/HR Metoprolol Tartrate 1.25 mg Q6HPRN PRN IV 10/06/24 14:30 10/12/24 06:51 1.25 MG Methylprednisolone Sodium Succinate 40 mg DAILY IV 10/07/24 10:00 10/12/24 09:40 40 MG Micafungin Sodium 100 mg/Sodium Chloride 100 ml @ 100 mls/hr DAILY IV 10/08/24 10:00 10/12/24 09:40 100 MLS/HR Morphine Sulfate 2 mg Q3HPRN PRN IV 10/09/24 15:00 10/12/24 12:45 2 MG Fat Emulsion Intravenous 150 ml/Sodium Chloride 120 meq/ Sodium Phosphate 20 meq/Potassium Acetate 40 meq/ Potassium Phosphate 44 meq/ Magnesium Sulfate 6 meq/ Multivitamins 10 ml/Chromium/ Copper/Manganese/ Zinc 1 ml/Insulin Human Regular 18 units/Amino Acids/ Dextrose/Purified Water 1,727.68 ml @ 72 mls/hr Q24H IV 10/11/24 22:00 10/12/24 21:59 10/11/24 22:30 72 MLS/HR Fat Emulsion Intravenous 150 ml/Sodium Chloride 120 meq/ Sodium Phosphate 20 meq/Potassium Acetate 40 meq/ Potassium Phosphate 44 meq/ Magnesium Sulfate 6 meq/ Multivitamins 10 ml/Insulin Human Regular 18 units/ Amino Acids/ Dextrose/Purified Water 1,776.68 ml @ 74 mls/hr Q24H1M IV 10/12/24 22:00 10/13/24 21:59 Laboratory Results Laboratory Tests 10/11/24 10:15 10/12/24 06:04 Chemistry Test 10/12/24 06:04 Albumin 2.7 g/dL (3.2-4.8) L Calcium Level 10.8 mg/dL (8.7-10.4) H Magnesium Level 2.4 mg/dL (1.6-2.6) Phosphorus Level 2.9 mg/dL (2.4-5.1) Total Protein 7.7 g/dL (5.7-8.2) LFT Test 10/12/24 06:04 Alanine Aminotransferase (ALT) 72 U/L (7-40) H Alkaline Phosphatase 46 U/L (46-116) Aspartate Amino Transferase (AST) 22 U/L (13-40) Total Bilirubin 0.2 mg/dL (0.2-1.0) Urinalysis Test 09/24/24 12:00 10/05/24 15:41 10/07/24 14:30 Urine Amorphous Crystals Few /hpf (None Seen) Urine Hyaline Casts Few /lpf (0 - 2) Urine Yeast (Budding) Few /hpf (None Seen) Urine Color Light-yellow (Yellow) Urine Clarity Turbid (Clear) H Urine pH 6.5 (5.0-9.0) Urine Specific [place] 1.018 (1.001-1.035) Urine Protein 2+ (Negative) H Urine Ketones Negative (Negative) Urine Blood 2+ /uL (Negative) H Urine Nitrite Negative (Negative) Urine Bilirubin Negative (Negative) Urine Urobilinogen Normal mg/dL (Negative) Urine Leukocyte Esterase 2+ /uL (Negative) Urine RBC 75 /hpf (0 - 4) Urine WBC 83 /hpf (0 - 5) Urine Squamous Epithelial Cells Few /hpf (<5) Urine Bacteria Few /hpf (None Seen) H Urine Mucus Few (None Seen) Urine Glucose Trace mg/dL (Normal) Microbiology Microbiology Date/Time Source Procedure Growth Status 10/06/24 14:38 Blood Blood Culture - Final NO GROWTH AFTER 5 DAYS OF INCUBATION. Complete 10/05/24 15:41 Urine - [place] Urine Culture - Final Yeast, not Dena albicans Complete 09/24/24 17:00 Nose MRSA Screen - Final Complete 09/24/24 08:34 Sputum Gram Stain - Final Complete 09/24/24 08:34 Respiratory Culture - Final Yeast, not Dena albicans Complete Labs and/or images reviewed: Labs reviewed by me, Image(s) reviewed by me Assessment/Plan Assessment/Plan Impression: -acute hypoxic respiratory failure -pneumonia, possibly hospital-acquired -rheumatoid arthritis -septic shock -NSTEMI, probably type 2 -thoracic spinal fractures -atrial fibrillation with rapid ventricular rate -cachexia Plan: -events: Patient noted to be tachypneic. Reporting pain. Continue IV Solu- Medrol for back pain, questionable RA flare -antibiotic therapy: Continue Zosyn and micafungin -bronchodilators : Change to Xopenex, add Pulmicort. EzPAP with treatments -cardiology consultation: Recommendations reviewed -PUD, DVT prophylaxis -Continue pain management with lidocaine patch and p.o. [place] -O2 supplementation : nasal cannula 2 liters/minute -physical therapy. Noted minimal ambulation at this time. -repeat labs and chest x-ray in a.m. -plan of care discussed with three daughters were bedside. At this time family wishes to proceed with hospice. Social service consultation has been placed. Total time spent with patient and family regarding advance care plannin minutes. Total time spent with patient discussing and formulating plan of care: 35 minutes. This medical document was created using an electronic medical record system with [employer] dictation system. Although this document has been carefully reviewed, there may still be some phonetic and typographical errors. These areas are purely typographical due to imperfections of the software programs, and do not reflect any compromise in the patient's medical care. Plan discussed with: Patient, Daughter, Other (RN) My Orders Orders - BARBARA SAM NP Procedure Category Date Status Time * Voice Intercept Technician CONS 10/12/24 Transmitted Consult Date of Service: Oct 12, 2024 Billing Provider: BARBARA SAM NP Common Visit Codes: [id number] INP/OBS CARE(HIGH) Secondary Visit Codes: [id number] CARE PLAN 30 MINUTES BARBARA SAM NP Oct 12, 2024 13:23
--- NOTE | 2024-10-12 19:24 | DVHPN2 ---
Progress Note - Dictate Date Seen: Oct 12, 2024 Medical Necessity Reason Pt with a Central, PICC or Fol: Yes The following are medically ne: Atkinson Catheter Reason for atkinson catheter: Strict I&O Subjective Patient seen and examined at bedside. Remains on supplemental oxygen Overnight events reviewed. vital signs Vital Sign Date Time Temp Pulse Resp B/P (MAP) Pulse Ox O2 Delivery O2 Flow Rate FiO2 10/12/24 19:11 120 18 100 10/12/24 19:11 Nasal Cannula* 4 36 10/12/24 18:09 129/74 10/12/24 17:00 97.0 97.0 Total Intake and Output 10/11/24 10/11/24 10/12/24 15:00 23:00 07:00 Intake Total 739 ml 1183.16 ml 100 ml Output Total 450 ml 500 ml Balance 739 ml 733.16 ml -400 ml medications Current Medications Medications Dose Ordered Sig/Maida Route Start Time Stop Time Status Last Admin Dose Admin Nitroglycerin 0.4 mg Q5MINP PRN SL 09/24/24 10:45 Morphine Sulfate 2 mg Q30M PRN IV 09/24/24 10:45 10/11/24 08:18 2 MG Acetaminophen 500 mg Q8HP PRN PO 09/24/24 10:45 Ondansetron HCl 4 mg Q4HP PRN IV 09/24/24 10:45 09/28/24 19:48 4 MG Ipratropium [place] 0.5 mg Q6H NEB 09/24/24 12:00 10/12/24 19:11 0.5 MG Acetaminophen/ Hydrocodone Bitart 1 tab Q6HPRN PRN PO 09/27/24 09:15 10/05/24 20:09 1 TAB Acetaminophen 650 mg Q6HP PRN [place] 09/28/24 19:30 09/28/24 19:48 650 MG Budesonide 0.5 mg BID NEB 09/30/24 22:00 10/12/24 19:11 0.5 MG Levalbuterol HCl 1.25 mg Q6HR NEB 09/30/24 18:00 10/12/24 19:11 1.25 MG Melatonin 5 mg HSPRN PO 09/30/24 22:00 10/05/24 22:25 5 MG Diltiazem HCl 60 mg Q6HR PO 10/01/24 12:00 10/06/24 05:51 60 MG Apixaban 2.5 mg BID PO 10/01/24 22:00 10/03/24 23:21 2.5 MG Amino Acids 0 ml @ 0 mls/hr PER PHARMACY IV 10/01/24 17:45 Diagnostic Test (Pha) 1 strip Q6HR 10/01/24 18:00 10/12/24 18:05 1 STRIP Insulin Human Regular FOLLOW SLIDING SCALE Q6HR SC 10/01/24 18:00 10/12/24 18:05 4 UNITS Dextrose 50 ml UD IV 10/01/24 18:00 Enteral Nutritional Formula 240 ml TIDWM PO 10/02/24 12:00 10/04/24 17:27 240 ML Pantoprazole Sodium 40 mg DAILY@0600 PO 10/03/24 06:00 Fat Emulsion Intravenous 50 ml/ Potassium Chloride 10 meq/ Potassium Phosphate 30.8 meq/Magnesium Sulfate 4 meq/ Multivitamins 10 ml/Chromium/ Copper/Manganese/ Zinc 1 ml/Insulin Human Regular 5 units/Amino Acids/ Dextrose/Purified Water 1,324.05 ml @ 55 mls/hr Q24H5M IV 10/03/24 22:00 10/04/24 22:04 Cancel Megestrol Acetate 400 mg DAILY PO 10/04/24 10:00 10/04/24 12:20 400 MG Docusate Sodium 100 mg BID PO 10/04/24 10:00 Albuterol 1.25 mg Q3HPRN PRN NEB 10/04/24 15:30 10/05/24 15:23 1.25 MG Piperacillin Sod/ Tazobactam Sod 100 ml @ 25 mls/hr Q8HR IV 10/06/24 22:00 10/12/24 15:11 25 MLS/HR Metoprolol Tartrate 1.25 mg Q6HPRN PRN IV 10/06/24 14:30 10/12/24 18:09 1.25 MG Methylprednisolone Sodium Succinate 40 mg DAILY IV 10/07/24 10:00 10/12/24 09:40 40 MG Micafungin Sodium 100 mg/Sodium Chloride 100 ml @ 100 mls/hr DAILY IV 10/08/24 10:00 10/12/24 09:40 100 MLS/HR Morphine Sulfate 2 mg Q3HPRN PRN IV 10/09/24 15:00 10/12/24 17:02 2 MG Fat Emulsion Intravenous 150 ml/Sodium Chloride 120 meq/ Sodium Phosphate 20 meq/Potassium Acetate 40 meq/ Potassium Phosphate 44 meq/ Magnesium Sulfate 6 meq/ Multivitamins 10 ml/Chromium/ Copper/Manganese/ Zinc 1 ml/Insulin Human Regular 18 units/Amino Acids/ Dextrose/Purified Water 1,727.68 ml @ 72 mls/hr Q24H IV 10/11/24 22:00 10/12/24 21:59 10/11/24 22:30 72 MLS/HR Fat Emulsion Intravenous 150 ml/Sodium Chloride 120 meq/ Sodium Phosphate 20 meq/Potassium Acetate 40 meq/ Potassium Phosphate 44 meq/ Magnesium Sulfate 6 meq/ Multivitamins 10 ml/Insulin Human Regular 18 units/ Amino Acids/ Dextrose/Purified Water 1,776.68 ml @ 74 mls/hr Q24H1M IV 10/12/24 22:00 10/13/24 21:59 Patient Own Medication 1 DAILY TOP 10/13/24 10:00 objective Gen.: Patient lying in bed in no apparent distress. On supplemental oxygen. Head: Normocephalic, atraumatic. Eyes: EOMI/PERRLA. Ears: Normal hearing. Normal anatomy. Neck/trachea: Trachea midline, supple. Nose: Normal external anatomy. Mouth: Moist mucous membranes. Chest: Decreased air entry bilaterally. No wheezing or rhonchi. Cardiovascular: Positive S1, positive S2. Regular rate and rhythm. Abdomen: Positive bowel sounds in all 4 quadrants. Soft, non-tender, non- distended. : Deferred. Rectal: Deferred. Skin: Warm, dry. Intact. Extremities: 2+ radial pulses bilaterally. No lower extremity edema. Neuro: Awake, alert, oriented x3. No gross motor or sensory deficits. Cranial nerves II through XII intact. Gait not assessed. laboratory and microbiology Laboratory Tests 10/12/24 06:04 10/11/24 10:15 Test 10/12/24 06:04 Range/Units Serum Glucose 116 H 74-106 mg/dL Assessment/Plan Impression: Acute hypoxic respiratory failure Septic shock Multifocal pneumonia Atelectasis Events: Remains on supplemental oxygen, 3 LPM NC Taper O2 as tolerated CPAP PRN - EZPAP w/ bronchodilator treatments. Patient is NPO due to aspiration risk. TPN for nutritional support. NTS. Pulmonary toileting High risk for aspiration. Family declined bronchoscopy Incentive spirometry Continue IV steroids - taper as tolerated Continue bronchodilators q.3 hours PRN Xopenex/Atrovent q.6 hours Pulmicort BID Mucomyst/CPT Continue antibiotics - Zosyn Continue Micafungin ASA/Eliquis on hold due to hematuria. Pain control Avoid oversedation Head of bed elevation Aspiration precautions Monitor closely for aspiration. Continue PT. Sitter at bedside. Protonix for GI prophylaxis Poor prognosis Consider hospice eval. Rest of plan as noted below Plan: s/p extubation. Supplemental oxygen, 3 LPM NC Taper O2 as tolerated CPAP PRN - EZPAP w/ bronchodilator treatments. Bronchodilators. Continue antibiotics. F/u cultures. ASA/Eliquis on hold due to hematuria. Pressors as necessary for hemodynamic support - Currently off Titrate to keep mean arterial pressure greater than 65 mmHg. Monitor renal function Monitor electrolytes. Supplement as necessary. Monitor ins and outs. Maintain euvolemia. Poor prognosis Consider hospice eval. GI prophylaxis. DVT prophylaxis. Prognosis: Guarded given patient's multiple co-morbidities. Rest of plan per hospitalist and other consultants. Thank you, Shane Arboleda, CARMEN, for allowing me to participate in this patient's care. Further recommendations will depend on the patient's clinical course. Please do not hesitate to contact me if you have any questions or concerns. This medical document was created using an electronic medical record system with [employer] dictation system. Although these documentations are being carefully reviewed, there may still be some phonetic and typographical changes. The errors are purely typographical, due to imperfection on the software program, and do not reflect any compromise in the patient's medical care. Dietary Evaluation Review Comments: 1) Continue to monitor pt PO intake to meet at least 75% of meals 2) Advance pt diet when medically feasible to a 2gm Sodium diet 3) Continue current plan of care Expected Outcomes/Goals: 1) Pt appetite to improve 2) Pt diet to advance 3) F/U in 3-5 days Plan discussed with: Patient, Other (RADHA Ferrell) JOHN ESTRADA MD Oct 12, 2024 19:24
[2024-10-12] MEDS ORDERED: TPN PER PHARMACY IV NR (22:00)
[2024-10-12] MEDS: PPN PER PHARMACY IV NR (22:24)
[2024-10-13] VITALS (15 sets, daily range): BP systolic 122–154; BP diastolic 70–79; PULSE 95–136; RESP 18–32; TEMP 97.3–98.2; O2SAT 92–100
[2024-10-13 01:06] LABS: Vitamin D 25-Hydroxy 34 ng/mL (.); Vitamin D-2 25-Hydroxy <1.0 ng/mL (.); Vitamin D-3 25-Hydroxy 34 ng/mL (.)
[2024-10-13 06:48] LABS: Anion Gap 7 (5-15); Aspartate Aminotransferase 18 U/L (13-40); BUN/Creatinine Ratio 50.9 (10.0-20.0); Carbon Dioxide 26 mmol/L (20-31); Chloride 105 mmol/L (98-107); Magnesium 2.2 mg/dL (1.6-2.6); Potassium 4.6 mmol/L (3.5-5.1); Sodium 138 mmol/L (136-145)
[2024-10-13 06:50] LABS: Phosphorus 3.2 mg/dL (2.4-5.1); Total Protein 7.4 g/dL (5.7-8.2)
[2024-10-13 06:55] LABS: Alanine Aminotransferase 52 U/L (7-40); Albumin 2.7 g/dL (3.2-4.8); Alkaline Phosphatase 45 U/L (46-116); Bilirubin, Total 0.2 mg/dL (0.2-1.0); Blood Urea Nitrogen 29 mg/dL (9-23); Calcium 10.5 mg/dL (8.7-10.4); Glucose 132 mg/dL (74-106)
--- NOTE | 2024-10-13 10:38 | DVHPN2 ---
Subjective Patient was somewhat somnolent after receiving IV morphine Reviewed: Care Plan, H&P, Labs, Medications Changes from previous H/P or p: No Changes General: Per HPI Objective Vitals Vital Signs Date Time Temp Pulse Resp B/P (MAP) Pulse Ox O2 Delivery O2 Flow Rate FiO2 10/13/24 09:01 120 21 137/76 10/13/24 06:49 99 10/13/24 06:45 Nasal Cannula* 4 36 10/13/24 05:00 98.2 98.2 Intake/Output Intake and Output 10/13/24 07:00 Intake Total 0 ml Output Total 1100 ml Balance -1100 ml Intake Oral 0 ml Output Urine Total 1100 ml Exam Assess with the patient sitting up on side of the bed with physical therapy. General Appearance: Alert, Oriented X3, Cooperative, Other (Chemically sedated) HEENT: Atraumatic, PERRLA Lungs: Other (Tachypnea with improved rhonchi in upper lobes, bibasilar crackles.) Cardiovascular: Normal S1, Normal S2 Abdomen: Normal bowel sounds, Soft Genitourinary: No Apparent Abnormalities Musculoskeletal: Other (No motor response) Neuro: Normal speech, Sensation intact, Cranial nerves 3-12 NL, Other (Sedated) Skin: Dry, Intact Psych/Mental Status: Other (Sedated) Medications Current Medications Medications Dose Ordered Sig/Maida Route Start Time Stop Time Status Last Admin Dose Admin Nitroglycerin 0.4 mg Q5MINP PRN SL 09/24/24 10:45 Morphine Sulfate 2 mg Q30M PRN IV 09/24/24 10:45 10/11/24 08:18 2 MG Acetaminophen 500 mg Q8HP PRN PO 09/24/24 10:45 Ondansetron HCl 4 mg Q4HP PRN IV 09/24/24 10:45 09/28/24 19:48 4 MG Ipratropium [place] 0.5 mg Q6H NEB 09/24/24 12:00 10/13/24 06:33 0.5 MG Acetaminophen/ Hydrocodone Bitart 1 tab Q6HPRN PRN PO 09/27/24 09:15 10/05/24 20:09 1 TAB Acetaminophen 650 mg Q6HP PRN [place] 09/28/24 19:30 09/28/24 19:48 650 MG Budesonide 0.5 mg BID NEB 09/30/24 22:00 10/13/24 06:33 0.5 MG Levalbuterol HCl 1.25 mg Q6HR NEB 09/30/24 18:00 10/13/24 06:33 1.25 MG Melatonin 5 mg HSPRN PO 09/30/24 22:00 10/05/24 22:25 5 MG Diltiazem HCl 60 mg Q6HR PO 10/01/24 12:00 10/06/24 05:51 60 MG Apixaban 2.5 mg BID PO 10/01/24 22:00 10/03/24 23:21 2.5 MG Amino Acids 0 ml @ 0 mls/hr PER PHARMACY IV 10/01/24 17:45 Diagnostic Test (Pha) 1 strip Q6HR 10/01/24 18:00 10/13/24 05:23 1 STRIP Insulin Human Regular FOLLOW SLIDING SCALE Q6HR SC 10/01/24 18:00 10/13/24 05:21 2 UNITS Dextrose 50 ml UD IV 10/01/24 18:00 Enteral Nutritional Formula 240 ml TIDWM PO 10/02/24 12:00 10/04/24 17:27 240 ML Pantoprazole Sodium 40 mg DAILY@0600 PO 10/03/24 06:00 Fat Emulsion Intravenous 50 ml/ Potassium Chloride 10 meq/ Potassium Phosphate 30.8 meq/Magnesium Sulfate 4 meq/ Multivitamins 10 ml/Chromium/ Copper/Manganese/ Zinc 1 ml/Insulin Human Regular 5 units/Amino Acids/ Dextrose/Purified Water 1,324.05 ml @ 55 mls/hr Q24H5M IV 10/03/24 22:00 10/04/24 22:04 Cancel Megestrol Acetate 400 mg DAILY PO 10/04/24 10:00 10/04/24 12:20 400 MG Docusate Sodium 100 mg BID PO 10/04/24 10:00 Albuterol 1.25 mg Q3HPRN PRN NEB 10/04/24 15:30 10/05/24 15:23 1.25 MG Piperacillin Sod/ Tazobactam Sod 100 ml @ 25 mls/hr Q8HR IV 10/06/24 22:00 10/13/24 05:31 25 MLS/HR Metoprolol Tartrate 1.25 mg Q6HPRN PRN IV 10/06/24 14:30 10/13/24 01:44 1.25 MG Methylprednisolone Sodium Succinate 40 mg DAILY IV 10/07/24 10:00 10/13/24 09:00 40 MG Micafungin Sodium 100 mg/Sodium Chloride 100 ml @ 100 mls/hr DAILY IV 10/08/24 10:00 10/13/24 09:01 100 MLS/HR Morphine Sulfate 2 mg Q3HPRN PRN IV 10/09/24 15:00 10/13/24 09:01 2 MG Fat Emulsion Intravenous 150 ml/Sodium Chloride 120 meq/ Sodium Phosphate 20 meq/Potassium Acetate 40 meq/ Potassium Phosphate 44 meq/ Magnesium Sulfate 6 meq/ Multivitamins 10 ml/Insulin Human Regular 18 units/ Amino Acids/ Dextrose/Purified Water 1,776.68 ml @ 74 mls/hr Q24H1M IV 10/12/24 22:00 10/13/24 21:59 10/12/24 22:24 74 MLS/HR Patient Own Medication 1 DAILY TOP 10/13/24 10:00 Fat Emulsion Intravenous 150 ml/Sodium Chloride 90 meq/ Sodium Phosphate 50 meq/Potassium Acetate 20 meq/ Magnesium Sulfate 8 meq/ Multivitamins 10 ml/Chromium/ Copper/Manganese/ Zinc 1 ml/Insulin Human Regular 18 units/Amino Acids/ Dextrose/Purified Water 1,808.18 ml @ 75 mls/hr Q24H7M IV 10/13/24 22:00 10/14/24 21:59 Laboratory Results Laboratory Tests 10/11/24 10:15 10/13/24 06:05 Chemistry Test 10/13/24 06:05 Albumin 2.7 g/dL (3.2-4.8) L Calcium Level 10.5 mg/dL (8.7-10.4) H Magnesium Level 2.2 mg/dL (1.6-2.6) Phosphorus Level 3.2 mg/dL (2.4-5.1) Total Protein 7.4 g/dL (5.7-8.2) LFT Test 10/13/24 06:05 Alanine Aminotransferase (ALT) 52 U/L (7-40) H Alkaline Phosphatase 45 U/L (46-116) L Aspartate Amino Transferase (AST) 18 U/L (13-40) Total Bilirubin 0.2 mg/dL (0.2-1.0) Urinalysis Test 09/24/24 12:00 10/05/24 15:41 10/07/24 14:30 Urine Amorphous Crystals Few /hpf (None Seen) Urine Hyaline Casts Few /lpf (0 - 2) Urine Yeast (Budding) Few /hpf (None Seen) Urine Color Light-yellow (Yellow) Urine Clarity Turbid (Clear) H Urine pH 6.5 (5.0-9.0) Urine Specific [place] 1.018 (1.001-1.035) Urine Protein 2+ (Negative) H Urine Ketones Negative (Negative) Urine Blood 2+ /uL (Negative) H Urine Nitrite Negative (Negative) Urine Bilirubin Negative (Negative) Urine Urobilinogen Normal mg/dL (Negative) Urine Leukocyte Esterase 2+ /uL (Negative) Urine RBC 75 /hpf (0 - 4) Urine WBC 83 /hpf (0 - 5) Urine Squamous Epithelial Cells Few /hpf (<5) Urine Bacteria Few /hpf (None Seen) H Urine Mucus Few (None Seen) Urine Glucose Trace mg/dL (Normal) Microbiology Microbiology Date/Time Source Procedure Growth Status 10/06/24 14:38 Blood Blood Culture - Final NO GROWTH AFTER 5 DAYS OF INCUBATION. Complete 10/05/24 15:41 Urine - [place] Urine Culture - Final Yeast, not Dena albicans Complete 09/24/24 17:00 Nose MRSA Screen - Final Complete 09/24/24 08:34 Sputum Gram Stain - Final Complete 09/24/24 08:34 Respiratory Culture - Final Yeast, not Dena albicans Complete Labs and/or images reviewed: Labs reviewed by me, Image(s) reviewed by me Assessment/Plan Assessment/Plan Impression: -acute hypoxic respiratory failure -pneumonia, possibly hospital-acquired -rheumatoid arthritis -septic shock -NSTEMI, probably type 2 -thoracic spinal fractures -atrial fibrillation with rapid ventricular rate -cachexia Plan: -events: Family spoke with hospice representatives. After their meeting, the hospice is requesting the patient have a repeat swallow eval and evaluation for PEG tube placement. I discussed with the family last week about PEG tube placement, for which they denied at that time given her clinical condition. GI consultation will be placed for evaluation of PEG placement. Repeat swallow eval will be ordered. -antibiotic therapy: Continue Zosyn and micafungin -bronchodilators : Change to Xopenex, add Pulmicort. EzPAP with treatments -cardiology consultation: Recommendations reviewed -PUD, DVT prophylaxis -Continue pain management with lidocaine patch and p.o. [place] -O2 supplementation : nasal cannula 2 liters/minute -physical therapy. Noted minimal ambulation at this time. -repeat labs and chest x-ray in a.m. -plan of care discussed with three daughters were bedside. At this time family wishes to proceed with hospice. Social service consultation has been placed. Total time spent with patient and family regarding advance care plannin minutes. Total time spent with patient discussing and formulating plan of care: 35 minutes. This medical document was created using an electronic medical record system with [employer] dictation system. Although this document has been carefully reviewed, there may still be some phonetic and typographical errors. These areas are purely typographical due to imperfections of the software programs, and do not reflect any compromise in the patient's medical care. Plan discussed with: Patient, Daughter, Other (RN) My Orders Orders - BARBARA SAM NP Procedure Category Date Status Time * Production Painter CONS 10/12/24 Transmitted Consult Patients Own PHA 10/13/24 In Process Medication 10:00 * Swallow Request ST 10/13/24 Transmitted 10:08 * Gi Dvh Wage Adjuster CONS 10/13/24 Transmitted 10:08 Date of Service: Oct 13, 2024 Billing Provider: BARBARA SAM NP Common Visit Codes: [id number] INP/OBS CARE(HIGH) BARBARA SAM NP Oct 13, 2024 10:38
--- NOTE | 2024-10-13 17:47 | DVHINCON2 ---
Date of service: Oct 13, [address] Arboleda Reason for Consultation Problems with nutritionfor possible PEG History of Present Illness This 89-year-old female has problems with multiple admissions to [facility] as well as [facility] with complaints of pneumonia patient and not be able to eat properly and hence the reason for GI consult for possible PEG placement patient had some pneumonia and has been worsening with respiratory failure as well as history of some thoracic spinal fractures also recently. Patient does on oxygen at home also because of the problems with the nutrition and inability to eat properly the reason for the GI consult for possible PEG tube placed also getting a swallow evaluation later today Past Medical History Aortic valve disease for which aortic valve replacement fibrillation hypertension hyperlipidemia patient is not on any blood thinners now but used to take blood thinners before Past Surgical History Aortic valve replacement Family History Unremarkable Social History Unremarkable Allergies: Coded Allergies: No Known Drug Allergy (Verified Allergy, Unknown, 08/20/24) Home Meds Active Scripts Hydrocodone-Acetaminophen (Hydrocodone/Acetaminophen 5-325 mg) 1 Tab Tab, 1 TAB PO TIDP PRN for 7 Days, #21 TAB Prov:ANAI GUSMAN MD 08/25/24 Prednisone (Prednisone) 10 Mg Tab, 40 MG PO QAM for 5 Days, #20 MG Prov:ANAI GUSMAN MD 08/25/24 Amlodipine Besylate (NORVASC TABLET) 5 Mg Tb, 5 MG PO DAILY for 30 Days, #30 TAB 3 Refills Prov:JENNIFER OSHEA DO 08/21/24 Reported Medications Clopidogrel Bisulfate (CLOPIDOGREL) 75 Mg Tab, 75 MG PO DAILY 08/18/24 Benazepril Hcl (Benazepril Hcl) 20 Mg Tab, 20 MG PO DAILY 08/18/24 Levothyroxine Sodium (Levothyroxine Sodium) 88 Mcg Tab, 88 MCG PO DAILY 08/18/24 Pantoprazole Sodium Sesquihydr (Pantoprazole Sodium Dr) 40 Mg Tab, 40 MG PO DAILY 08/18/24 Atorvastatin Calcium (ATORVASTATIN CALCIUM) 40 Mg Tab, 40 MG PO HS 08/18/24 Current Medications Current Medications Medications (Trade) Dose Ordered Sig/Maida Route PRN Reason Start Time Stop Time Status Last Admin Fat Emulsion Intravenous 150 ml/Sodium Chloride 120 meq/ Sodium Phosphate 20 meq/Potassium Acetate 40 meq/ Potassium Phosphate 44 meq/ Magnesium Sulfate 6 meq/ Multivitamins 10 ml/Insulin Human Regular 18 units/ Amino Acids/ Dextrose/Purified Water 1,776.68 ml @ 74 mls/hr Q24H1M IV 10/12/24 22:00 10/12/24 13:17 DC Fat Emulsion Intravenous 150 ml/Sodium Chloride 120 meq/ Sodium Phosphate 20 meq/Potassium Acetate 40 meq/ Potassium Phosphate 44 meq/ Magnesium Sulfate 6 meq/ Multivitamins 10 ml/Insulin Human Regular 18 units/ Amino Acids/ Dextrose/Purified Water 1,776.68 ml @ 74 mls/hr Q24H1M IV 10/12/24 22:00 10/13/24 21:59 10/12/24 22:24 Patient Own Medication 1 DAILY TOP 10/13/24 10:00 10/13/24 15:05 Fat Emulsion Intravenous 150 ml/Sodium Chloride 90 meq/ Sodium Phosphate 50 meq/Potassium Acetate 20 meq/ Magnesium Sulfate 8 meq/ Multivitamins 10 ml/Chromium/ Copper/Manganese/ Zinc 1 ml/Insulin Human Regular 18 units/Amino Acids/ Dextrose/Purified Water 1,808.18 ml @ 75 mls/hr Q24H7M IV 10/13/24 22:00 10/14/24 21:59 Review of Systems Unremarkable Vital Signs Vital Signs Date Time Temp Pulse Resp B/P (MAP) Pulse Ox O2 Delivery O2 Flow Rate FiO2 10/13/24 17:00 97.6 136 22 122/74 (90) 92 97.6 10/13/24 08:00 Nasal Cannula* 3 32 Physical Exam Poorly built and nourished female slightly wasted and cachectic HEENT examination no pallor no icterus Lungs clear Vascular unremarkable Abdomen soft no tenderness no rigidity no guarding no masses Neuro not evaluated properly assess patient is not able to respond to commands well Extremities no edema Labs/Diagnostic Data Labs Test 10/13/24 11:31 10/13/24 06:05 10/11/24 10:15 10/09/24 08:15 Range/Units POC Glucose 163 H 70-106 mg/dl Sodium Level 138 136-145 mmol/L Potassium Level 4.6 3.5-5.1 mmol/L Chloride Level 105 98-107 mmol/L Carbon Dioxide Level 26 20-31 mmol/L Anion Gap 7 5-15 Blood Urea Nitrogen 29 H 9-23 mg/dL Creatinine 0.57 0.550-1.02 mg/dL Glomerular Filtration Rate Calc 87 >90 mL/min BUN/Creatinine Ratio 50.9 H 10.0-20.0 Serum Glucose 132 H 74-106 mg/dL Calcium Level 10.5 H 8.7-10.4 mg/dL Phosphorus Level 3.2 2.4-5.1 mg/dL Magnesium Level 2.2 1.6-2.6 mg/dL Total Bilirubin 0.2 0.2-1.0 mg/dL Aspartate Amino Transferase (AST) 18 13-40 U/L Alanine Aminotransferase (ALT) 52 H 7-40 U/L Alkaline Phosphatase 45 L 46-116 U/L Total Protein 7.4 5.7-8.2 g/dL Albumin 2.7 L 3.2-4.8 g/dL White Blood Count 13.1 H 4.4-10.8 10^3/uL Red Blood Count 2.80 L 4.0-5.20 10^6/uL Hemoglobin 9.4 L 12.2-16.2 g/dL Hematocrit 27.6 L 36.0-46.0 % Mean Corpuscular Volume 98.4 80.0-100.0 fL Mean Corpuscular Hemoglobin 33.5 H 28.0-32.0 pg Mean Corpuscular Hemoglobin Concent 34.0 32.0-36.0 g/dL Red Cell Distribution Width 15.9 H 11.8-14.3 % Platelet Count 401 140-450 10^3/uL Mean Platelet Volume 8.0 6.9-10.8 fL Neutrophils (%) (Auto) 79.8 37.0-80.0 % Lymphocytes (%) (Auto) 6.4 L 10.0-50.0 % Monocytes (%) (Auto) 13.2 H 0.0-12.0 % Eosinophils (%) (Auto) 0.3 0.0-7.0 % Basophils (%) (Auto) 0.3 0.0-2.0 % Neutrophils # (Auto) 10.4 H 1.6-8.6 10 ^3/uL Lymphocytes # (Auto) 0.8 0.4-5.4 10 ^3/uL Monocytes # (Auto) 1.7 H 0-1.3 10 ^3/uL Eosinophils # (Auto) 0 0-0.8 10 ^3/uL Basophils # (Auto) 0 0-0.2 10 ^3/uL Nucleated Red Blood Cells 0.1 % Triglycerides Level 76 < 150 mg/dL Test 10/08/24 05:59 10/07/24 14:30 10/07/24 06:07 10/06/24 06:03 Range/Units Vitamin D 25-Hydroxy 34 . ng/mL 25-Hydroxy Vitamin D2 <1.0 . ng/mL 25-Hydroxy Vitamin D3 34 . ng/mL Urine Color Light-yellow Yellow Urine Clarity Turbid H Clear Urine pH 6.5 5.0-9.0 Urine Specific [place] 1.018 1.001-1.035 Urine Protein 2+ H Negative Urine Ketones Negative Negative Urine Blood 2+ H Negative /uL Urine Nitrite Negative Negative Urine Bilirubin Negative Negative Urine Urobilinogen Normal Negative mg/dL Urine Leukocyte Esterase 2+ Negative /uL Urine RBC 75 0 - 4 /hpf Urine WBC 83 0 - 5 /hpf Urine Squamous Epithelial Cells Few <5 /hpf Urine Bacteria Few H None Seen /hpf Urine Mucus Few None Seen Urine Glucose Trace Normal mg/dL Differential Total Cells Counted 100.0 100 Neutrophils % (Manual) 73 37.0-80.0 Band Neutrophils % (Manual) 7 Lymphocytes % (Manual) 10 10.0-50.0 Monocytes % (Manual) 7 0-12 Eosinophils % (Manual) 2 0-7 Basophils % (Manual) 0 0.0-2.0 Metamyelocytes % (manual) 1 Myelocytes % (Manual) 0 Promyelocytes % (Manual) 0 Blast Cells % (Manual) 0 Reactive Lymphocytes 0 Platelet Estimate Adequate Anisocytosis (manual) Slight Estimated GFR () 108 mL/min Estimated GFR (Non- 90 mL/min Test 10/05/24 15:41 10/02/24 03:30 09/29/24 03:40 09/28/24 14:33 Range/Units Urine Yeast (Budding) Few None Seen /hpf Smudge Cells 2 /100 WBC Large Platelets Few Microcytosis Slight Macrocytosis Slight Vancomycin Level Trough 22.2 H 5-10 ug/mL Blood Gas Specimen Type Arterial Blood Gas Sample Site Right radial Blood Gas Patient Temperature 37.0 Arterial Blood Date Drawn [id number] Arterial Blood pH 7.409 7.350-7.450 Arterial Blood Partial Pressure CO2 41.9 32.0-45.0 mmHg Arterial Blood Partial Pressure O2 71.1 L 83.0-108.0 mmHg Arterial Blood HCO3 25.9 21.0-28.0 mmol/L Arterial Blood Oxygen Saturation 93.0 L 94.0-98.0 % Arterial Blood Base Excess 1.1 -2.0-3.0 mmol/L Arterial Blood Oxyhemoglobin 91.5 L 94.0-98.0 % Arterial Blood Carboxyhemoglobin 1.3 0.5-1.5 % Arterial Blood Methemoglobin 0.3 0.0-1.5 % Isaak Test Yes Blood Gas Total Hemoglobin 7.20 L 12.0-16.0 g/dL Blood Gas Set Respiration Rate 14.0 Blood Gas Modality Mask - bipap Blood Gas Spontaneous Rate 23 FiO2 % 30.0 Blood Gas EPAP 5 Blood Gas IPAP 12 Test 09/28/24 09:30 09/27/24 07:34 09/25/24 03:28 09/24/24 12:18 Range/Units Blood Gas Pressure Support 8 Blood Gas PEEP or CPAP 5.0 Blood Gas Tidal Volume 400.0 Random Vancomycin Level 11.9 H 5-10 ug/mL Troponin I High Sensitivity 350 *H </=34 ng/L Test 09/24/24 12:00 09/24/24 11:00 09/24/24 09:25 09/24/24 09:16 Range/Units Urine Amorphous Crystals Few None Seen /hpf Urine Hyaline Casts Few 0 - 2 /lpf Influenza Type A Antigen Negative Negative Influenza Type B Antigen Negative Negative Blood Gas Critical Value Read Back Yes Blood Gas Notified Whom Meka ash. Blood Gas Notified Time [id number] Blood Gas Notified By Lesa ralph Lactic Acid Level 1.6 0.4-2.0 mmol/L B-Type Natriuretic Peptide 25.90 0-100 pg/mL Microbiology Date/Time Source Procedure Growth Status 10/06/24 14:38 Blood Blood Culture - Final NO GROWTH AFTER 5 DAYS OF INCUBATION. Complete 10/05/24 15:41 Urine - [place] Urine Culture - Final Yeast, not Dena albicans Complete 09/24/24 17:00 Nose MRSA Screen - Final Complete 09/24/24 08:34 Sputum Gram Stain - Final Complete 09/24/24 08:34 Respiratory Culture - Final Yeast, not Dena albicans Complete Assessment 89-year-old female with a history of multiple problems with pneumonia recently diagnosed with thoracic spine fractures patient also history of hypertension rheumatoid arthritis was on blood thinners in the past none now patient also had atrial fibrillation and aortic valve replacement. Now problem is for the feeding because of not able to eat properly for possible PEG Plan/Recommendation We will recommend to await the swallow evaluation which was already ordered which will be done later And depending upon the swallow may need a PEG tube if the swallow is okay we will try.pureed. Diet and see Thank you Dr. Singh Plan discussed with: Daughter CALE,STEPHY Javier MD Oct 13, 2024 17:47
--- NOTE | 2024-10-13 21:03 | DVHPN2 ---
Progress Note - Dictate Date Seen: Oct 13, 2024 Medical Necessity Reason Pt with a Central, PICC or Fol: Yes The following are medically ne: Atkinson Catheter Reason for atkinson catheter: Strict I&O Subjective Patient seen and examined at bedside. Remains on supplemental oxygen Overnight events reviewed. vital signs Vital Sign Date Time Temp Pulse Resp B/P (MAP) Pulse Ox O2 Delivery O2 Flow Rate FiO2 10/13/24 19:18 134 28 93 10/13/24 19:11 Nasal Cannula* 4 36 10/13/24 18:51 128/76 10/13/24 17:00 97.6 97.6 Total Intake and Output 10/12/24 10/12/24 10/13/24 15:00 23:00 07:00 Intake Total 200 ml 0 ml Output Total 1100 ml Balance 200 ml -1100 ml medications Current Medications Medications Dose Ordered Sig/Maida Route Start Time Stop Time Status Last Admin Dose Admin Nitroglycerin 0.4 mg Q5MINP PRN SL 09/24/24 10:45 Morphine Sulfate 2 mg Q30M PRN IV 09/24/24 10:45 10/11/24 08:18 2 MG Acetaminophen 500 mg Q8HP PRN PO 09/24/24 10:45 Ondansetron HCl 4 mg Q4HP PRN IV 09/24/24 10:45 09/28/24 19:48 4 MG Ipratropium [place] 0.5 mg Q6H NEB 09/24/24 12:00 10/13/24 19:11 0.5 MG Acetaminophen/ Hydrocodone Bitart 1 tab Q6HPRN PRN PO 09/27/24 09:15 10/05/24 20:09 1 TAB Acetaminophen 650 mg Q6HP PRN [place] 09/28/24 19:30 09/28/24 19:48 650 MG Budesonide 0.5 mg BID NEB 09/30/24 22:00 10/13/24 19:11 0.5 MG Levalbuterol HCl 1.25 mg Q6HR NEB 09/30/24 18:00 10/13/24 19:11 1.25 MG Melatonin 5 mg HSPRN PO 09/30/24 22:00 10/05/24 22:25 5 MG Apixaban 2.5 mg BID PO 10/01/24 22:00 10/03/24 23:21 2.5 MG Amino Acids 0 ml @ 0 mls/hr PER PHARMACY IV 10/01/24 17:45 Diagnostic Test (Pha) 1 strip Q6HR 10/01/24 18:00 10/13/24 18:21 1 STRIP Insulin Human Regular FOLLOW SLIDING SCALE Q6HR SC 10/01/24 18:00 10/13/24 18:22 4 UNITS Dextrose 50 ml UD IV 10/01/24 18:00 Enteral Nutritional Formula 240 ml TIDWM PO 10/02/24 12:00 10/04/24 17:27 240 ML Pantoprazole Sodium 40 mg DAILY@0600 PO 10/03/24 06:00 Fat Emulsion Intravenous 50 ml/ Potassium Chloride 10 meq/ Potassium Phosphate 30.8 meq/Magnesium Sulfate 4 meq/ Multivitamins 10 ml/Chromium/ Copper/Manganese/ Zinc 1 ml/Insulin Human Regular 5 units/Amino Acids/ Dextrose/Purified Water 1,324.05 ml @ 55 mls/hr Q24H5M IV 10/03/24 22:00 10/04/24 22:04 Cancel Megestrol Acetate 400 mg DAILY PO 10/04/24 10:00 10/04/24 12:20 400 MG Docusate Sodium 100 mg BID PO 10/04/24 10:00 Albuterol 1.25 mg Q3HPRN PRN NEB 10/04/24 15:30 10/05/24 15:23 1.25 MG Piperacillin Sod/ Tazobactam Sod 100 ml @ 25 mls/hr Q8HR IV 10/06/24 22:00 10/13/24 14:21 25 MLS/HR Metoprolol Tartrate 1.25 mg Q6HPRN PRN IV 10/06/24 14:30 10/13/24 16:21 1.25 MG Methylprednisolone Sodium Succinate 40 mg DAILY IV 10/07/24 10:00 10/13/24 09:00 40 MG Micafungin Sodium 100 mg/Sodium Chloride 100 ml @ 100 mls/hr DAILY IV 10/08/24 10:00 10/13/24 09:01 100 MLS/HR Morphine Sulfate 2 mg Q3HPRN PRN IV 10/09/24 15:00 10/13/24 18:21 2 MG Fat Emulsion Intravenous 150 ml/Sodium Chloride 120 meq/ Sodium Phosphate 20 meq/Potassium Acetate 40 meq/ Potassium Phosphate 44 meq/ Magnesium Sulfate 6 meq/ Multivitamins 10 ml/Insulin Human Regular 18 units/ Amino Acids/ Dextrose/Purified Water 1,776.68 ml @ 74 mls/hr Q24H1M IV 10/12/24 22:00 10/13/24 21:59 10/12/24 22:24 74 MLS/HR Patient Own Medication 1 DAILY TOP 10/13/24 10:00 10/13/24 15:05 1 Fat Emulsion Intravenous 150 ml/Sodium Chloride 90 meq/ Sodium Phosphate 50 meq/Potassium Acetate 20 meq/ Magnesium Sulfate 8 meq/ Multivitamins 10 ml/Chromium/ Copper/Manganese/ Zinc 1 ml/Insulin Human Regular 18 units/Amino Acids/ Dextrose/Purified Water 1,808.18 ml @ 75 mls/hr Q24H7M IV 10/13/24 22:00 10/14/24 21:59 Diltiazem HCl 60 mg Q6HR PO 10/14/24 00:00 objective Gen.: Patient lying in bed in no apparent distress. On supplemental oxygen. Head: Normocephalic, atraumatic. Eyes: EOMI/PERRLA. Ears: Normal hearing. Normal anatomy. Neck/trachea: Trachea midline, supple. Nose: Normal external anatomy. Mouth: Moist mucous membranes. Chest: Decreased air entry bilaterally. No wheezing or rhonchi. Cardiovascular: Positive S1, positive S2. Regular rate and rhythm. Abdomen: Positive bowel sounds in all 4 quadrants. Soft, non-tender, non- distended. : Deferred. Rectal: Deferred. Skin: Warm, dry. Intact. Extremities: 2+ radial pulses bilaterally. No lower extremity edema. Neuro: Awake, alert, oriented x3. No gross motor or sensory deficits. Cranial nerves II through XII intact. Gait not assessed. laboratory and microbiology Laboratory Tests 10/13/24 06:05 10/11/24 10:15 Test 10/13/24 06:05 Range/Units Serum Glucose 132 H 74-106 mg/dL Assessment/Plan Impression: Acute hypoxic respiratory failure Septic shock Multifocal pneumonia Atelectasis Events: Remains on supplemental oxygen, 4 LPM NC Taper O2 as tolerated CPAP PRN - EZPAP w/ bronchodilator treatments. May need PEG tube - GI consulted. Swallow eval. Patient is NPO due to aspiration risk. TPN for nutritional support. NTS. Pulmonary toileting Incentive spirometry Continue IV steroids - taper as tolerated Continue bronchodilators q.3 hours PRN Xopenex/Atrovent q.6 hours Pulmicort BID Mucomyst/CPT Continue antibiotics - Zosyn Continue Micafungin ASA/Eliquis on hold due to hematuria. Pain control Avoid oversedation Head of bed elevation Aspiration precautions Monitor closely for aspiration. Continue PT. Sitter at bedside. Protonix for GI prophylaxis Poor prognosis Consider hospice eval. Rest of plan as noted below Plan: s/p extubation. Supplemental oxygen, 4 LPM NC Taper O2 as tolerated CPAP PRN - EZPAP w/ bronchodilator treatments. Bronchodilators. Continue antibiotics. F/u cultures. ASA/Eliquis on hold due to hematuria. Pressors as necessary for hemodynamic support - Currently off Titrate to keep mean arterial pressure greater than 65 mmHg. Monitor renal function Monitor electrolytes. Supplement as necessary. Monitor ins and outs. Maintain euvolemia. Poor prognosis Consider hospice eval. GI prophylaxis. DVT prophylaxis. Prognosis: Guarded given patient's multiple co-morbidities. Rest of plan per hospitalist and other consultants. Thank you, Shane Arboleda NP, for allowing me to participate in this patient's care. Further recommendations will depend on the patient's clinical course. Please do not hesitate to contact me if you have any questions or concerns. This medical document was created using an electronic medical record system with [employer] dictation system. Although these documentations are being carefully reviewed, there may still be some phonetic and typographical changes. The errors are purely typographical, due to imperfection on the software program, and do not reflect any compromise in the patient's medical care. Dietary Evaluation Review Comments: 1) Continue to monitor pt PO intake to meet at least 75% of meals 2) Advance pt diet when medically feasible to a 2gm Sodium diet 3) Continue current plan of care Expected Outcomes/Goals: 1) Pt appetite to improve 2) Pt diet to advance 3) F/U in 3-5 days Plan discussed with: Patient, Other (RADHA Ferrell) JOHN ESTRADA MD Oct 13, 2024 21:02
[2024-10-13] MEDS: PPN PER PHARMACY IV NR (22:09)
[2024-10-13] MEDS: dilTIAZem HCL 60 MG TAB PO SCH (23:53)
[2024-10-14] VITALS (8 sets, daily range): BP systolic 121–147; BP diastolic 68–92; PULSE 118–126; RESP 23–34; TEMP 97.4–97.6; O2SAT 91–93
[2024-10-14 06:39] LABS: Potassium 4.7 mmol/L (3.5-5.1)
[2024-10-14 06:46] LABS: Magnesium 2.4 mg/dL (1.6-2.6)
[2024-10-14 06:47] LABS: Phosphorus 3.6 mg/dL (2.4-5.1)
[2024-10-14 06:48] LABS: Albumin 2.9 g/dL (3.2-4.8); Calcium 10.8 mg/dL (8.7-10.4)
[2024-10-14] MEDS: MORPHINE SULFATE INJ 2 MG/ml SYRG IV ONE (10:31)
--- NOTE | 2024-10-14 11:00 | DVHDS2 ---
Discharge Summary Date of Admission Sep 24, 2024 at 10:43 Date of Discharge: Oct 14, 2024 Admitting Diagnosis Acute hypoxic respiratory failure Labs/Diagnostic Data: Laboratory Results Test 10/14/24 05:58 10/14/24 05:16 10/13/24 06:05 10/11/24 10:15 Sodium Level 135 mmol/L (136-145) Potassium Level 4.7 mmol/L (3.5-5.1) Chloride Level 102 mmol/L (98-107) Carbon Dioxide Level 26 mmol/L (20-31) Anion Gap 7 (5-15) Blood Urea Nitrogen 27 mg/dL (9-23) Creatinine 0.60 mg/dL (0.550-1.02) Estimated GFR () 121 mL/min Estimated GFR (Non- 100 mL/min BUN/Creatinine Ratio 45.0 (10.0-20.0) Serum Glucose 103 mg/dL (74-106) Calcium Level 10.8 mg/dL (8.7-10.4) Phosphorus Level 3.6 mg/dL (2.4-5.1) Magnesium Level 2.4 mg/dL (1.6-2.6) Albumin 2.9 g/dL (3.2-4.8) POC Glucose 103 mg/dl (70-106) Glomerular Filtration Rate Calc 87 mL/min (>90) Total Bilirubin 0.2 mg/dL (0.2-1.0) Aspartate Amino Transferase (AST) 18 U/L (13-40) Alanine Aminotransferase (ALT) 52 U/L (7-40) Alkaline Phosphatase 45 U/L (46-116) Total Protein 7.4 g/dL (5.7-8.2) White Blood Count 13.1 10^3/uL (4.4-10.8) Red Blood Count 2.80 10^6/uL (4.0-5.20) Hemoglobin 9.4 g/dL (12.2-16.2) Hematocrit 27.6 % (36.0-46.0) Mean Corpuscular Volume 98.4 fL (80.0-100.0) Mean Corpuscular Hemoglobin 33.5 pg (28.0-32.0) Mean Corpuscular Hemoglobin Concent 34.0 g/dL (32.0-36.0) Red Cell Distribution Width 15.9 % (11.8-14.3) Platelet Count 401 10^3/uL (140-450) Mean Platelet Volume 8.0 fL (6.9-10.8) Neutrophils (%) (Auto) 79.8 % (37.0-80.0) Lymphocytes (%) (Auto) 6.4 % (10.0-50.0) Monocytes (%) (Auto) 13.2 % (0.0-12.0) Eosinophils (%) (Auto) 0.3 % (0.0-7.0) Basophils (%) (Auto) 0.3 % (0.0-2.0) Neutrophils # (Auto) 10.4 10 ^3/uL (1.6-8.6) Lymphocytes # (Auto) 0.8 10 ^3/uL (0.4-5.4) Monocytes # (Auto) 1.7 10 ^3/uL (0-1.3) Eosinophils # (Auto) 0 10 ^3/uL (0-0.8) Basophils # (Auto) 0 10 ^3/uL (0-0.2) Nucleated Red Blood Cells 0.1 % Test 10/09/24 08:15 10/08/24 05:59 10/07/24 14:30 10/07/24 06:07 Triglycerides Level 76 mg/dL (< 150) Vitamin D 25-Hydroxy 34 ng/mL (.) 25-Hydroxy Vitamin D2 <1.0 ng/mL (.) 25-Hydroxy Vitamin D3 34 ng/mL (.) Urine Color Light-yellow (Yellow) Urine Clarity Turbid (Clear) Urine pH 6.5 (5.0-9.0) Urine Specific [place] 1.018 (1.001-1.035) Urine Protein 2+ (Negative) Urine Ketones Negative (Negative) Urine Blood 2+ /uL (Negative) Urine Nitrite Negative (Negative) Urine Bilirubin Negative (Negative) Urine Urobilinogen Normal mg/dL (Negative) Urine Leukocyte Esterase 2+ /uL (Negative) Urine RBC 75 /hpf (0 - 4) Urine WBC 83 /hpf (0 - 5) Urine Squamous Epithelial Cells Few /hpf (<5) Urine Bacteria Few /hpf (None Seen) Urine Mucus Few (None Seen) Urine Glucose Trace mg/dL (Normal) Differential Total Cells Counted 100.0 (100) Neutrophils % (Manual) 73 (37.0-80.0) Band Neutrophils % (Manual) 7 Lymphocytes % (Manual) 10 (10.0-50.0) Monocytes % (Manual) 7 (0-12) Eosinophils % (Manual) 2 (0-7) Basophils % (Manual) 0 (0.0-2.0) Metamyelocytes % (manual) 1 Myelocytes % (Manual) 0 Promyelocytes % (Manual) 0 Blast Cells % (Manual) 0 Reactive Lymphocytes 0 Platelet Estimate Adequate Anisocytosis (manual) Slight Test 10/05/24 15:41 10/02/24 03:30 09/29/24 03:40 09/28/24 14:33 Urine Yeast (Budding) Few /hpf (None Seen) Smudge Cells 2 /100 WBC Large Platelets Few Microcytosis Slight Macrocytosis Slight Vancomycin Level Trough 22.2 ug/mL (5-10) Blood Gas Specimen Type Arterial Blood Gas Sample Site Right radial Blood Gas Patient Temperature 37.0 Arterial Blood Date Drawn [id number] Arterial Blood pH 7.409 (7.350-7.450) Arterial Blood Partial Pressure CO2 41.9 mmHg (32.0-45.0) Arterial Blood Partial Pressure O2 71.1 mmHg (83.0-108.0) Arterial Blood HCO3 25.9 mmol/L (21.0-28.0) Arterial Blood Oxygen Saturation 93.0 % (94.0-98.0) Arterial Blood Base Excess 1.1 mmol/L (-2.0-3.0) Arterial Blood Oxyhemoglobin 91.5 % (94.0-98.0) Arterial Blood Carboxyhemoglobin 1.3 % (0.5-1.5) Arterial Blood Methemoglobin 0.3 % (0.0-1.5) Isaak Test Yes Blood Gas Total Hemoglobin 7.20 g/dL (12.0-16.0) Blood Gas Set Respiration Rate 14.0 Blood Gas Modality Mask - bipap Blood Gas Spontaneous Rate 23 FiO2 % 30.0 Blood Gas EPAP 5 Blood Gas IPAP 12 Test 09/28/24 09:30 09/27/24 07:34 09/25/24 03:28 09/24/24 12:18 Blood Gas Pressure Support 8 Blood Gas PEEP or CPAP 5.0 Blood Gas Tidal Volume 400.0 Random Vancomycin Level 11.9 ug/mL (5-10) Troponin I High Sensitivity 350 ng/L (</=34) Test 09/24/24 12:00 09/24/24 11:00 09/24/24 09:25 09/24/24 09:16 Urine Amorphous Crystals Few /hpf (None Seen) Urine Hyaline Casts Few /lpf (0 - 2) Influenza Type A Antigen Negative (Negative) Influenza Type B Antigen Negative (Negative) Blood Gas Critical Value Read Back Yes Blood Gas Notified Whom Meka hartmann Blood Gas Notified Time [id number] Blood Gas Notified By Lesa ralph Lactic Acid Level 1.6 mmol/L (0.4-2.0) B-Type Natriuretic Peptide 25.90 pg/mL (0-100) Other Laboratory Tests 10/14/24 05:58 10/11/24 10:15 Brief Hx & Hospital Course: History of Present Illness The patient was an 89-year-old female with an extensive history over the past month with multiple admissions to both [facility] as well as this facility. According to the patient's daughters, the patient was recently discharged from [facility] four days ago, after being treated with pneumonia. Apparently, the patient was had admissions for pneumonia at this [facility] and [place]. The patient also was recently diagnosed with thoracic spinal fractures causing her to have referred pain to her chest. This morning, the patient had worsening respiratory status, and was found to have an oxygen saturation of approximately 60%. Patient was on oxygen at home, without any relief. She was brought in the hospital via ambulance, and after having initial treatments with bronchodilators, the patient continued to have respiratory distress, subsequently undergoing intubation with mechanical ventilation. There were no reports of fevers, chills, body aches, or sputum production at home. Significant history of the patient includes rheumatoid arthritis, hypertension. Recent admission approximately one month ago reveals echocardiogram with an ejection fraction of 55%. Also notation of possible bioprosthetic aortic valve, for which the family states the patient has not underwent aortic valve replacement in the past. Course of hospitalization: Long discussion was made with the patient's daughters who were bedside over the course of this prolonged hospitalization. Apparently, the patient has had multiple admissions both at this facility and [facility] for respiratory distress as well as addressing her T-spine fracture. It was noted after the patient has been extubated that on multiple occasions after reinstituting p.o. intake she had high suspicion of aspiration despite having swallow evaluation performed multiple times. Patient was placed on antibiotic therapy initially and during her hospitalization, which was titrated off after full course was given, which was restarted after the patient probably had aspiration pneumonia. Physical therapy was implemented. Pulmonary consultation was placed. Patient was also transitioned from ICU to telemetry floor, for which the patient continued to have severe pain as well as chronic respiratory distress. Discussion was made with the daughters and after deliberation it was agreed upon that they would like her to be comfortable, with goals of care transitioned to palliative care. Patient will be discharged home today on hospice. Swallow evaluation was again performed yesterday with recommendations for pureed and thick liquids. This was discussed with the family. All questions answered. Physical examination General: Alert and Oriented x3. No acute distress. Cachexia Eyes: EOMI. Anicteric. HENT: Moist mucous membranes. Lungs: Clear to auscultation bilaterally. No accessory muscle use. Tachypnea Cardiovascular: Regular rate and rhythm. No murmur. No JVD. Abdomen: Soft, non-tender and non-distended. No palpable masses. Extremities: No edema. Non-tender. Skin: No rashes or lesions. Warm. Neurologic: No focal neurological deficits. CN II-XII grossly intact, but not individually tested. Psychiatric: Cooperative. Appropriate mood and affect. Total time spent with patient discussing and formulating plan of care: 35 minutes. This medical document was created using an electronic medical record system with [employer] dictation system. Although this document has been carefully reviewed, there may still be some phonetic and typographical errors. These areas are purely typographical due to imperfections of the software programs, and do not reflect any compromise in the patient's medical care. Consults/Reason for consult Pulmonary: Acute on chronic respiratory failure Cardiology: Atrial fibrillation with rapid ventricular rate Condition at Discharge: Poor Final Diagnosis/Problems List Acute hypoxic respiratory failure Secondary Diagnosis: -acute hypoxic respiratory failure -pneumonia, possibly hospital-acquired -rheumatoid arthritis -septic shock -NSTEMI, probably type 2 -thoracic spinal fractures -atrial fibrillation with rapid ventricular rate -cachexia -moderate protein malnutrition Discharge Disposition: Hospice - Home Discharge Instruct/Medications Diet: Regular, See Comment Diet comment: Pureed/thickened liquid diet Activity: No Restrictions, As Tolerated Follow Up/Referral: Per hospice provider Medications: Per hospice provider 36 Discharge Statement: "Patient was advised to return to the ER or call 911 if any headaches, dizziness, shortness of breath, chest pain, abdominal pain, bleeding, fevers, or worsening of medical condition. Patient was counseled about treatment plan, medications, possible side effects, patientverbalized understanding. All questions were answered to the best of my ability. This discharge took greater then 30 minutes in planning, reviewing documentation, counseling the patient, and discussing with other team members." ASSESSMENT ASSESSMENT Assessment Acute hypoxic respiratory failure Date of Service: Oct 14, 2024 Billing Provider: BARBARA SAM NP Common Visit Codes: 57808-LKK/OBS DISCH DAY >30min BARBARA SAM NP Oct 14, 2024 11:00
[2024-10-14] MEDS ORDERED: PPN PER PHARMACY IV NR (22:00)
--- NOTE | 2024-10-14 23:10 | DVHPN2 ---
Progress Note - Dictate Date Seen: Oct 14, 2024 Medical Necessity Reason Pt with a Central, PICC or Fol: Yes The following are medically ne: Atkinson Catheter Reason for atkinson catheter: Strict I&O Subjective Patient seen and examined at bedside. Remains on supplemental oxygen Overnight events reviewed. vital signs Vital Sign Date Time Temp Pulse Resp B/P (MAP) Pulse Ox O2 Delivery O2 Flow Rate FiO2 10/14/24 14:43 126 30 136/75 10/14/24 13:15 97.6 91 97.6 10/14/24 11:32 Nasal Cannula* 4 36 Total Intake and Output 10/13/24 10/13/24 10/14/24 15:00 23:00 07:00 Intake Total 200 ml 200 ml 100 ml Output Total 850 ml Balance 200 ml -650 ml 100 ml medications Current Medications Medications Dose Ordered Sig/Maida Route Start Time Stop Time Status Last Admin Dose Admin Fat Emulsion Intravenous 50 ml/ Potassium Chloride 10 meq/ Potassium Phosphate 30.8 meq/Magnesium Sulfate 4 meq/ Multivitamins 10 ml/Chromium/ Copper/Manganese/ Zinc 1 ml/Insulin Human Regular 5 units/Amino Acids/ Dextrose/Purified Water 1,324.05 ml @ 55 mls/hr Q24H5M IV 10/03/24 22:00 10/04/24 22:04 Cancel objective Gen.: Patient lying in bed in no apparent distress. On supplemental oxygen. Head: Normocephalic, atraumatic. Eyes: EOMI/PERRLA. Ears: Normal hearing. Normal anatomy. Neck/trachea: Trachea midline, supple. Nose: Normal external anatomy. Mouth: Moist mucous membranes. Chest: Decreased air entry bilaterally. No wheezing or rhonchi. Cardiovascular: Positive S1, positive S2. Regular rate and rhythm. Abdomen: Positive bowel sounds in all 4 quadrants. Soft, non-tender, non- distended. : Deferred. Rectal: Deferred. Skin: Warm, dry. Intact. Extremities: 2+ radial pulses bilaterally. No lower extremity edema. Neuro: Awake, alert, oriented x3. No gross motor or sensory deficits. Cranial nerves II through XII intact. Gait not assessed. laboratory and microbiology Laboratory Tests 10/14/24 05:58 10/11/24 10:15 Test 10/14/24 05:58 Range/Units Serum Glucose 103 74-106 mg/dL Assessment/Plan Impression: Acute hypoxic respiratory failure Septic shock Multifocal pneumonia Atelectasis Events: Remains on supplemental oxygen, 4 LPM NC Taper O2 as tolerated CPAP PRN - EZPAP w/ bronchodilator treatments. Patient passed swallow eval yesterday. NTS. Pulmonary toileting Incentive spirometry Continue IV steroids - taper as tolerated Continue Micafungin ASA/Eliquis on hold due to hematuria. Pain control Avoid oversedation Head of bed elevation Aspiration precautions Continue PT. Sitter at bedside. Protonix for GI prophylaxis Patient is stable for discharge from the pulmonary standpoint. Going home on hospice. Rest of plan as noted below Plan: s/p extubation. Supplemental oxygen, 4 LPM NC Taper O2 as tolerated CPAP PRN - EZPAP w/ bronchodilator treatments. Bronchodilators. Continue antibiotics. F/u cultures. ASA/Eliquis on hold due to hematuria. Pressors as necessary for hemodynamic support - Currently off Titrate to keep mean arterial pressure greater than 65 mmHg. Monitor renal function Monitor electrolytes. Supplement as necessary. Monitor ins and outs. Maintain euvolemia. Poor prognosis Consider hospice eval. GI prophylaxis. DVT prophylaxis. Prognosis: Guarded given patient's multiple co-morbidities. Rest of plan per hospitalist and other consultants. Thank you, Shane Arboleda, CARMEN, for allowing me to participate in this patient's care. Further recommendations will depend on the patient's clinical course. Please do not hesitate to contact me if you have any questions or concerns. This medical document was created using an electronic medical record system with [employer] dictation system. Although these documentations are being carefully reviewed, there may still be some phonetic and typographical changes. The errors are purely typographical, due to imperfection on the software program, and do not reflect any compromise in the patient's medical care. Dietary Evaluation Review Comments: 1) Continue to monitor pt PO intake to meet at least 75% of meals 2) Advance pt diet when medically feasible to a 2gm Sodium diet 3) Continue current plan of care Expected Outcomes/Goals: 1) Pt appetite to improve 2) Pt diet to advance 3) F/U in 3-5 days Plan discussed with: Patient, Other (RN Gahssan) JOHN ESTRADA MD Oct 14, 2024 23:10
== END 2024-10-14 14:45 | disposition hospice, home (50) | DRG 870 ==
LOC: EDBD 07:39 → EDSEX 07:39 → ER 07:39 → TELE 10:43 → ICU WEST 17:10 → TELE-EAST 10-02 17:21
PROVIDERS: ADMIT Nurse Practitioner Acute Care; ATTEND Nurse Practitioner Acute Care
PROC: 5A1955Z Respiratory Ventilation, Greater than 96 Consecutive Hours (ICD-10-PCS; principal; 2024-09-24)
PROC: 0BH17EZ Insertion of Endotracheal Airway into Trachea, Via Natural or Artificial Opening (ICD-10-PCS; 2024-09-24)
PROC: 5A09357 Assistance with Respiratory Ventilation, Less than 24 Consecutive Hours, Continuous Positive Airway Pressure (ICD-10-PCS; 2024-09-28)
PROC: 05HM33Z Insertion of Infusion Device into Right Internal Jugular Vein, Percutaneous Approach (ICD-10-PCS; 2024-10-02)
PROC: 05HB33Z Insertion of Infusion Device into Right Basilic Vein, Percutaneous Approach (ICD-10-PCS; 2024-10-02)
PROC: B54MZZA Ultrasonography of Right Upper Extremity Veins, Guidance (ICD-10-PCS; 2024-10-02)
DX: A41.9 Sepsis, unspecified organism (principal); J96.01 Acute respiratory failure with hypoxia; R65.21 Severe sepsis with septic shock; I21.A1 Myocardial infarction type 2; J69.0 Pneumonitis due to inhalation of food and vomit; R64 Cachexia; Z68.1 Body mass index [BMI] 19.9 or less, adult; I48.91 Unspecified atrial fibrillation; Z51.5 Encounter for palliative care; Z66 Do not resuscitate; I70.0 Atherosclerosis of aorta; J98.4 Other disorders of lung; I10 Essential (primary) hypertension; M06.9 Rheumatoid arthritis, unspecified; R62.7 Adult failure to thrive; E78.5 Hyperlipidemia, unspecified; D75.89 Other specified diseases of blood and blood-forming organs; K80.20 Calculus of gallbladder without cholecystitis without obstruction; Z86.73 Personal history of transient ischemic attack (TIA), and cerebral infarction without residual deficits; Z90.710 Acquired absence of both cervix and uterus; Z95.2 Presence of prosthetic heart valve
CPT/HCPCS: 31500; 36415; 36556; 36600; 71045; 71250; 80048; 80053; 80069; 80202; 81001; 82306; 82805; 82962; 83605; 83735; 83880; 84100; 84478; 84484; 85007; 85025; 85027; 87040; 87070; 87077; 87081; 87086; 87088; 87205; 87804; 92610; 93005; 94002; 94003; 94640; 94660; 96365; 96368; 96375; 97110; 97116; 97163; 97530; 99291; 99292; G0378; J0153; J1450; J1815; J1956; J2248; J2405; J2470; J2543; J3480; J7060; J7131